=== PATIENT | male | born 1950 | race Caucasian/White ===

== ENCOUNTER 2016-07-11 05:24 | Inpatient (IN) | payer MEDICARE ==
[~2016-07-11] VITALS: Ht 180.3 cm; Wt 86.1 kg
[2016-07-11] VITALS (16 sets, daily range): BP systolic 12–174; BP diastolic 64–102; PULSE 77–118; RESP 16–18; TEMP 97.6–97.9; O2SAT 92–100
[~2016-07-11 05:24] MED LIST: LOTE20TA3 PO; OMEP20TA39 PO; SUCR1TAB PO
[2016-07-11] MEDS ORDERED: SODIUM CHLORIDE 0.9% FLUSH 10 ML FLUSH IVF PRN ×2 (05:45→07:30)
[2016-07-11] MEDS ORDERED: ASPIRIN 81 MG CHEW TAB PO ONE (05:45)
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
[2016-07-11] MEDS: SODIUM CHLOR 0.9% 1000 ML INJ 1,000 ML IV SCH ×2 (05:48→15:45)
[2016-07-11] MEDS: NITROGLYCERIN 0.4 MG SL 25 TABS/BTL SL SCH ×2 (05:49→05:55)
[2016-07-11 05:55] LABS: AUTOMATED NEUTROPHIL # 1.8 TH/MM3 (1.8-7.7); BASOPHIL % 1.1 % (0.0-2.0); EOSINOPHIL # 0.2 TH/MM3 (0-0.4); EOSINOPHIL % 4.7 % (0.0-4.0); HEMATOCRIT 42.4 % (39.0-51.0); HEMO FLAGS DIFF FINAL; LYMPH % 36.6 % (9.0-44.0); LYMPHOCYTE # 1.4 TH/MM3 (1.0-4.8); MEAN CELL VOLUME 97.4 FL (80.0-100.0); MEAN CORPUSCULAR HEMOGLOBIN 32.7 PG (27.0-34.0); MEAN CORPUSCULAR HGB CONC 33.6 % (32.0-36.0); MONO % 10.3 % (0.0-8.0); NEUT % 47.3 % (16.0-70.0); PLATELET COUNT 177 TH/MM3 (150-450); RED BLOOD COUNT 4.36 MIL/MM3 (4.50-5.90); RED CELL DISTRIBUTION WIDTH 12.7 % (11.6-17.2); WHITE BLOOD COUNT 3.8 TH/MM3 (4.0-11.0)
[2016-07-11 06:01] LABS: CHLORIDE 106 MEQ/L (98-107); POTASSIUM 4.1 MEQ/L (3.5-5.1); SODIUM (NA) 141 MEQ/L (136-145)
[2016-07-11 06:04] LABS: ANION GAP 9 MEQ/L (5-15); BICARBONATE 25.6 MEQ/L (21.0-32.0)
[2016-07-11 06:05] LABS: APTT (PATIENT) 24.6 SEC (24.3-30.1); BLOOD UREA NITROGEN 13 MG/DL (7-18); INTERNATIONAL NORMALIZED RATIO 0.9 RATIO; MAGNESIUM 2.2 MG/DL (1.5-2.5); PROTHROMBIN TIME - PATIENT 10.2 SEC (9.8-11.6)
[2016-07-11 06:07] LABS: ALT (GPT) 64 U/L (12-78); AST (GOT) 36 U/L (15-37); GLOMERULAR FILTRATION RATE 88 ML/MIN (>89)
[2016-07-11 06:09] LABS: TOTAL BILIRUBIN ADULT 0.4 MG/DL (0.2-1.0)
[2016-07-11 06:10] LABS: ALKALINE PHOSPHATASE 77 U/L (45-117); CREATINE KINASE 110 U/L (39-308)
[2016-07-11 06:23] LABS: CKMB 1.7 NG/ML (0.5-3.6)
[2016-07-11] MEDS ORDERED: OMEP40CA2 PO (06:32)
[2016-07-11] MEDS ORDERED: BENA20TA PO (06:32)
--- NOTE | 2016-07-11 06:34 | RADHPO ---
EXAM DATE/TIME: 07/11/2016 05:50 [facility] COMPARISON: No previous studies available for comparison. INDICATIONS : Chest pain. MEDICAL HISTORY : None. SURGICAL HISTORY : None. ENCOUNTER: Initial ACUITY: 1 day PAIN SCORE: 6/10 LOCATION: Bilateral chest FINDINGS: A single view of the chest demonstrates the lungs to be symmetrically aerated without evidence of mas s, infiltrate or effusion. The cardiomediastinal contours are unremarkable. Osseous structures are intact. CONCLUSION: No acute disease. Jhonathan Perez Jr., MD on July 11, 2016 at 6:33 Board Certified Radiologist. This report was verified electronically.
[2016-07-11] MEDS ORDERED: SODIUM CHLORIDE 0.9% FLUSH 10 ML FLUSH IV FLUSH PRN ×2 (07:15→17:00)
[2016-07-11] MEDS ORDERED: ONDANSETRON HCL 4 MG/2 ML VIAL IV PRN (07:15)
[2016-07-11] MEDS ORDERED: NITROGLYCERIN 0.4 MG SL 25 TABS/BTL SL PRN (07:15)
--- NOTE | 2016-07-11 08:35 | HHI.HP ---
HPI Service [facility] Primary Care Physician Non-Staff Admission Diagnosis chest pain Diagnoses: (1) Chest pain Diagnosis: Principal (2) HTN (hypertension) Diagnosis: Principal Chief Complaint: chest pain Travel History International Travel<30 Days: No Contact w/Intl Traveler <30 Da: No Traveled to Known Affected Are: No History of Present Illness 66-year-old male with history of hypertension, hyperlipidemia, kidney stones, GERD, and left [place] is admitted chest pain center. Patient states that for the past 10 days he has had tightness in his left chest radiating to the left shoulder. He states it was worse this morning. Rates pain a 3-4/10 and states it feels tight currently. When asked about duration he was nonspecific and states it varies. Admits to some diaphoresis. States he also was dizzy yesterday and felt like things were spinning around him. He had 2 episodes of that one lasting 5 minutes. Denies any fevers or chills, cough, shortness of breath. Denies any nausea, vomiting, diarrhea, constipation. Patient denies any personal history of diabetes or heart disease. Review of Systems Except as stated in HPI: all other systems reviewed are Neg Past Family Social History Past Medical History Hypertension Hyperlipidemia Nephrolithiasis GERD Past Surgical History Stent placement in kidney Cholecystectomy Left LILIANA Reported Medications Omeprazole 40 Mg Cap 40 Mg PO DAILY Benazepril (Benazepril HCl) 20 Mg Tab 20 Mg PO DAILY Allergies: Coded Allergies: Amoxicillin (Verified Allergy, Mild, RASH, 07/11/16) Ampicillin (Verified Allergy, Mild, RASH, 07/11/16) Penicillin (Verified Allergy, Mild, RASH, 07/11/16) Family History Brother: 2 years ago of lymphoma. Father: at age 62 from arteriosclerosis. Social History Patient is nonspecific regarding his alcohol use but states he had a few drinks last night. EMR indicates he drinks 3-4 alcoholic beverages daily. Patient denies any history of cigarette smoking. Denies illicit drug use. Physical Exam Vital Signs Vital Signs Date Time Temp Pulse Resp B/P Pulse Ox O2 Delivery O2 Flow Rate FiO2 07/11/16 07:57 99 Nasal Cannula 2.00 07/11/16 07:08 88 16 140/91 100 Nasal Cannula 2 07/11/16 07:08 88 15 100 Room Air 07/11/16 06:37 96 18 125/79 96 Nasal Cannula 2 07/11/16 06:03 92 Nasal Cannula 2 07/11/16 06:01 106 18 119/79 92 Room Air 07/11/16 06:01 18 07/11/16 05:53 97 18 94 Room Air 07/11/16 05:50 93 18 174/102 94 Room Air 165/101 07/11/16 05:41 105 18 94 Room Air 07/11/16 05:41 97.9 93 18 174/102 94 07/11/16 05:41 18 94 Room Air 07/11/16 05:41 94 Room Air Physical Exam GENERAL: This is a well-nourished, well-developed patient, in no apparent distress. SKIN: No rashes, ecchymoses or lesions. Warm and dry. HEAD: Atraumatic. Normocephalic. EYES: Pupils equal round and reactive. No scleral icterus. No injection or drainage. ENT: Throat without erythema, tonsillar hypertrophy or exudate. Uvula midline. Airway patent. NECK: Trachea midline. CHEST: No reproducible chest wall tenderness CARDIOVASCULAR: Regular rate and rhythm without murmurs, gallops, or rubs. RESPIRATORY: Clear to auscultation. Breath sounds equal bilaterally. No wheezes , rales, or rhonchi. GASTROINTESTINAL: Abdomen soft, non-tender, nondistended. MUSCULOSKELETAL: No right lower extremity edema. Patient has prosthetic over the left lower extremity NEUROLOGICAL: Awake and alert. Motor grossly within normal limits. Normal speech. Laboratory Laboratory Tests Test 07/11/16 05:40 White Blood Count 3.8 Red Blood Count 4.36 Hemoglobin 14.3 Hematocrit 42.4 Mean Corpuscular Volume 97.4 Mean Corpuscular Hemoglobin 32.7 Mean Corpuscular Hemoglobin 33.6 Concent Red Cell Distribution Width 12.7 Platelet Count 177 Mean Platelet Volume 8.0 Neutrophils (%) (Auto) 47.3 Lymphocytes (%) (Auto) 36.6 Monocytes (%) (Auto) 10.3 Eosinophils (%) (Auto) 4.7 Basophils (%) (Auto) 1.1 Neutrophils # (Auto) 1.8 Lymphocytes # (Auto) 1.4 Monocytes # (Auto) 0.4 Eosinophils # (Auto) 0.2 Basophils # (Auto) 0.0 CBC Comment DIFF FINAL Differential Comment Prothrombin Time 10.2 Prothromb Time International 0.9 Ratio Activated Partial 24.6 Thromboplast Time Sodium Level 141 Potassium Level 4.1 Chloride Level 106 Carbon Dioxide Level 25.6 Anion Gap 9 Blood Urea Nitrogen 13 Creatinine 0.87 Estimat Glomerular Filtration 88 Rate Random Glucose 100 Calcium Level 8.4 Magnesium Level 2.2 Total Bilirubin 0.4 Aspartate Amino Transf 36 (AST/SGOT) Alanine Aminotransferase 64 (ALT/SGPT) Alkaline Phosphatase 77 Total Creatine Kinase 110 Creatine Kinase MB 1.7 Troponin I LESS THAN 0.02 Total Protein 7.5 Albumin 3.6 Lipase 184 Result Diagram: 07/11/1640 07/11/16 0540 Imaging Last Impressions Chest X-Ray 07/11/16 0537 Signed Impressions: Service Date/Time: Monday, July 11, 2016 05:50 - CONCLUSION: No acute disease. Jhonathan Perez Jr., MD Assessment and Plan Assessment and Plan 66-year-old male with: Chest pain: Tightness for the past 10 days with pain into the left shoulder. CK -MB and troponin x 2 negative. CBC and CMP are essentially unremarkable. Chest x-ray was personally interpreted with hypoinflation but no acute disease. EKGs 2 personally interpreted with nonspecific anterior and lateral T-wave inversion. No prior EKGs for comparison. -Patient received 162 mg of aspirin at 0545. Continue daily aspirin. -Nitro/[place]/morphine prn pain -Telemetry -Provided ACS ruled out, patient will require nuclear stress test. He has been NPO since 9 PM. Hypertension: BP 174/102 on arrival despite patient taking his benazepril yesterday am. -Continue benazepril -Clonidine prn SBP >160 or DBP >90 -Monitor DVT prevention: SCDs. Written by Samantha Machado PA-C acting as scribe for Dr. Head on 07/11/16 at 0830. All or portions of this note were transcribed by lluvia Machado PA-C. I , Dr. Jose Head personally performed the history, physical exam, and medical decision making; and confirmed the accuracy of the information in the transcribed note. Authenticated by Dr. Jose Head on 07/11/16 at 11:00. Discussed Condition With ED physician, patient Samantha Machado Jul 11, 2016 08:35 Jose Head MD Jul 11, 2016 11:00
[2016-07-11] MEDS ORDERED: SODIUM CHLORIDE 0.9% FLUSH 10 ML FLUSH IV FLUSH SCH (09:00)
[2016-07-11] MEDS: SODIUM CHLORIDE 0.9% FLUSH 10 ML FLUSH IV FLUSH SCH ×3 (09:00→21:00)
[2016-07-11] MEDS ORDERED: ASPIRIN 325 MG TAB PO SCH (09:00)
[2016-07-11] MEDS: LISINOPRIL 20 MG TAB PO SCH (09:24)
[2016-07-11] MEDS: PANTOPRAZOLE SOD 40 MG DELAYED RELEASE TAB PO SCH (09:25)
[2016-07-11 10:21] LABS: CREATINE KINASE 95 U/L (39-308)
[2016-07-11 12:56] LABS: CREATINE KINASE 85 U/L (39-308)
[2016-07-11] MEDS ORDERED: REGADENOSON INJ 0.4 MG/5 ML SYR IV ONE (15:09)
--- NOTE | 2016-07-11 16:07 | TR ---
Date Performed: 07/11/2016 Time Performed: 15:23:32 DOCTOR: Kelly Neves DRUG LIST: CLINICAL HISTORY: CHEST PAIN REASON FOR TEST: REASON FOR ENDING: OBSERVATION: CONCLUSION: Lexiscan stress test was performed under standard four minute protocol. Radionucl[place] e was injected one minute prior to ending the test. No electrocardiographic abormalities were present to suggest ischemia. Nuclear imaging and interpretation are pending. COMMENTS:
--- NOTE | 2016-07-11 16:21 | RADHPO ---
EXAM DATE/TIME: 07/11/2016 14:59 [facility] COMPARISON: No previous studies available for comparison. INDICATIONS : Retrosternal chest pain radiating to upper left extermity for 1 day. Abnormal EKG. Angina. DOSE: 35 mCi Tc99m Myoview at stress. 11 mCi Tc99m Myoview at rest. 0.4 mg Lexiscan STRESS SYMPTOMS: None. EJECTION FRACTION: 27% MEDICAL HISTORY : Hypertension. Hypercholesterolemia. SURGICAL HISTORY : Renal stent and left leg amputation. ENCOUNTER: Initial ACUITY: 2 days PAIN SCALE: 3/10 LOCATION: Retrosternal chest TECHNIQUE: The patient underwent pharmacologic stress with infusion of prescribed dose. Continuous ECG tracing was monitored during stress. Gated SPECT imaging was performed after stress and conventional SPECT i maging was performed at rest. The examination was performed on a SPECT/CT scanner, both attenuation and non-corrected datasets were reviewed. FINDINGS: DISTRIBUTION: The maximum perfused segment at stress is in the septal wall. PERFUSION STUDY: Exam demonstrates a fixed perfusion defect at the cardiac apex likely secondary to apical thinning. T he examination does demonstrate a mild in severity, reversible perfusion defect involving the inferio r aspect of the septum and portions of the inferior wall. Myocardial ischemia stone excluded. GATED STUDY: The ventricular cavity is dilated. There is global hypokinesis. CONCLUSION: 1. Dilation of the ventricular cavity with a global hypokinesis. The ejection fraction is estimated a t only 27%. 2. Mild in severity, reversible perfusion defect involving portions of the septum and inferior wall. Myocardial ischemia stone excluded. RISK CATEGORY: High (>3% Annual Mortality Rate) Cosme Kimball MD on July 11, 2016 at 16:17 Board Certified Radiologist. This report was verified electronically.
[2016-07-11] MEDS ORDERED: MORPHINE SULFATE 4 MG/ML INJ IV PRN (17:00)
[2016-07-11 17:49] LABS: HEMATOCRIT 43.7 % (39.0-51.0); MEAN CELL VOLUME 98.2 FL (80.0-100.0); MEAN CORPUSCULAR HGB CONC 33.6 % (32.0-36.0); PLATELET COUNT 188 TH/MM3 (150-450); RED BLOOD COUNT 4.44 MIL/MM3 (4.50-5.90); RED CELL DISTRIBUTION WIDTH 13.5 % (11.6-17.2); REVIEW FLAG FINAL; WHITE BLOOD COUNT 5.6 TH/MM3 (4.0-11.0)
[2016-07-11 19:14] LABS: APTT (PATIENT) 25.3 SEC (24.3-30.1); PROTHROMBIN TIME - PATIENT 10.7 SEC (9.8-11.6)
[2016-07-11] MEDS ORDERED: ATORVASTATIN 40 MG TAB PO SCH (21:00)
[2016-07-11] MEDS: NITROGLYCERIN 2% OINT 1 GM PACKET TOP SCH (21:41)
[2016-07-11] MEDS: CARVEDILOL 3.125 MG TAB PO SCH (21:41)
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
[2016-07-11] MEDS: HEPARIN-D5W INJ 250 ML IV SCH (23:51)
[2016-07-12] VITALS (21 sets, daily range): BP systolic 102–133; BP diastolic 63–90; PULSE 67–103; RESP 16–20; TEMP 97.9–99; O2SAT 90–98
[2016-07-12] MEDS: SODIUM CHLOR 0.9% 1000 ML INJ 1,000 ML IV SCH ×3 (01:45→20:18)
[2016-07-12] MEDS: NITROGLYCERIN 2% OINT 1 GM PACKET TOP SCH ×3 (06:35→20:17)
[2016-07-12] MEDS: ISOSORBIDE MONONITRATE 30 MG TAB PO SCH (06:35)
[2016-07-12] MEDS: SODIUM CHLORIDE 0.9% FLUSH 10 ML FLUSH IV FLUSH SCH ×3 (09:00→20:18)
[2016-07-12] MEDS: ASPIRIN 325 MG TAB PO SCH (09:05)
[2016-07-12] MEDS: PANTOPRAZOLE SOD 40 MG DELAYED RELEASE TAB PO SCH (09:05)
[2016-07-12] MEDS: CARVEDILOL 3.125 MG TAB PO SCH ×2 (09:05→20:17)
[2016-07-12] MEDS: LISINOPRIL 20 MG TAB PO SCH (09:05)
[2016-07-12] MEDS: ACETAMINOPHEN 325 MG TAB PO PRN ×2 (09:07→16:08)
[2016-07-12 09:49] LABS: APTT (PATIENT) 30.1 SEC (24.3-30.1)
--- NOTE | 2016-07-12 11:04 | EKG ---
Date Performed: 07/11/2016 Time Performed: 04:32:16 PTAGE: 66 years EKG: Sinus rhythm with PVC(s) Possible anterior infarct - age undetermined Abnormal ECG NO PREVIOUS TRACING DOCTOR: Luis Fallon Interpretating Date/Time 07/12/2016 11:01:11
--- NOTE | 2016-07-12 13:00 | HHI.PR ---
Subjective Remarks Follow-up unstable angina/atypical chest pain 07/12/16-patient seen and examined, complains of headache however denies any chest pain. He had abnormal nuclear stress test Objective Vitals Vital Signs Date Time Temp Pulse Resp B/P Pulse Ox O2 Delivery O2 Flow Rate FiO2 07/12/16 11:09 18 07/12/16 10:12 96 21 07/12/16 08:00 98.0 88 20 120/78 94 07/12/16 07:00 85 07/12/16 04:25 98.8 83 16 130/80 92 07/12/16 02:30 98.6 82 16 133/90 93 07/12/16 00:08 97.9 99 16 115/64 90 07/11/16 20:08 97.6 110 16 119/91 93 07/11/16 20:05 93 21 07/11/16 20:00 118 07/11/16 15:19 97.8 79 18 142/80 99 I/O 07/11/16 07/11/16 07/11/16 07/12/16 07/12/16 07/12/16 07:00 15:00 23:00 07:00 15:00 23:00 Intake Total 149 ml Output Total 950 ml 200 ml Balance -950 ml -51 ml Intake Oral 100 ml IV Total 49 ml Output Urine Total 950 ml 200 ml # Voids 1 Result Diagram: 07/11/16 1735 07/11/16 0540 Imaging Last Impressions Myocardial Perfusion Scan Nuc Med 07/11/16 1327 Signed Impressions: Service Date/Time: Monday, July 11, 2016 14:59 - CONCLUSION: 1. Dilation of the ventricular cavity with a global hypokinesis. The ejection fraction is estimated at only 27%%. 2. Mild in severity, reversible perfusion defect involving portions of the septum and inferior wall. Myocardial ischemia stone excluded. RISK CATEGORY: High (>3%% Annual Mortality Rate) Cosme Kimball MD Chest X-Ray 07/11/16 0537 Signed Impressions: Service Date/Time: Monday, July 11, 2016 05:50 - CONCLUSION: No acute disease. Jhonathan Perez Jr., MD Objective Remarks GENERAL: NAD SKIN: Warm and dry. HEAD: Normocephalic. EYES: No scleral icterus. No injection or drainage. NECK: Supple, trachea midline. No JVD or lymphadenopathy. CARDIOVASCULAR: Regular rate and rhythm without murmurs, gallops, or rubs. RESPIRATORY: Breath sounds equal bilaterally. No accessory muscle use. GASTROINTESTINAL: Abdomen soft, non-tender, nondistended. MUSCULOSKELETAL: No cyanosis, or edema. Left AKA BACK: Nontender without obvious deformity. No CVA tenderness. A/P Problem List: (1) Chest pain ICD Code: R07.9 Status: Acute (2) HTN (hypertension) ICD Code: I10 Status: Acute Assessment and Plan 66 year-old man with Atypical Chest pain/stable angina -Status post abnormal nuclear stress test 07/11/16 -Appreciate input from cardiology will plan possible left heart catheterization -Continue with heparin drip, beta jozef, Imdur/Lipitor/Nitro/[place]/morphine prn pain -Telemetry Hypertension: -Continue benazepril -Clonidine prn SBP >160 or DBP >90 -Monitor Headache: Secondary to nitroglycerin DVT prevention: Heparin Jb Morrison MD Jul 12, 2016 13:00
[2016-07-12] MEDS: SUMAtriptan SUCCINATE 25 MG TAB PO PRN ×2 (14:56→17:40)
[2016-07-12 16:04] LABS: APTT (PATIENT) 30.7 SEC (24.3-30.1)
--- NOTE | 2016-07-12 16:11 | EKG ---
Date Performed: 07/11/2016 Time Performed: 06:38:36 PTAGE: 66 years EKG: Sinus rhythm with PVC(s) Anterior ST-T abnormalities, cannot exclude old anterior infarct Cannot exclude ischemia , although findings are nonspecific Lateral T wave changes are nonspecific Abnormal ECG PREVIOUS TRACING : 07/11/2016 04.32 DOCTOR: Ted Justice Interpretating Date/Time 07/12/2016 16:10:52
--- NOTE | 2016-07-12 16:12 | EKG ---
Date Performed: 07/11/2016 Time Performed: 11:25:14 PTAGE: 66 years EKG: Sinus rhythm with PVC(s) Anterior ST-T abnormalities, cannot exclude old anterior infarct Cannot exclude ischemia , although findings are nonspecific Lateral T wave changes are nonspecific Compared to prior tracing no significant change Abnormal ECG NO PREVIOUS TRACING DOCTOR: Ted Justice Interpretating Date/Time 07/12/2016 16:11:08
--- NOTE | 2016-07-12 18:38 | PD.CARD.PN ---
Subjective Subjective Remarks No CP or SOB, feels better Objective Medications Current Medications Medications (Trade) Dose Ordered Sig/Jody Route Start Time Stop Time Status Last Admin (NS 1000 ml Inj) 1,000 ml @ 100 mls/hr Q10H IV 07/11/16 05:45 07/11/16 05:48 (NS Flush) 2 ml UNSCH PRN IV FLUSH 07/11/16 07:15 (NS Flush) 2 ml BID IV FLUSH 07/11/16 09:00 07/12/16 09:00 (Zofran Inj) 4 mg Q6H PRN IV 07/11/16 07:15 (Nitrostat Sl) 0.4 mg Q5M PRN SL 07/11/16 07:15 (Prinivil) 20 mg DAILY PO 07/11/16 09:00 07/12/16 09:05 (Protonix) 40 mg DAILY PO 07/11/16 09:00 07/12/16 09:05 (Aspirin) 325 mg DAILY PO 07/12/16 09:00 07/12/16 09:05 (NS Flush) 2 ml BID IV FLUSH 07/11/16 21:00 (NS Flush) 2 ml UNSCH PRN IV FLUSH 07/11/16 17:00 (Nitroglycerin 2% Oint) 0.5 inch Q8HR TOP 07/11/16 22:00 07/12/16 14:32 (Morphine Inj) 2 mg Q30M PRN IV 07/11/16 17:00 (Tylenol) 650 mg Q6H PRN PO 07/11/16 17:00 07/12/16 16:08 (Coreg) 3.125 mg BID PO 07/11/16 21:00 07/12/16 09:05 Atorvastatin Calcium 40 mg 40 mg HS PO 07/11/16 21:00 (Heparin-D5W Inj) 250 ml @ 0 mls/hr TITRATE IV 07/11/16 17:00 07/11/16 23:51 (Imdur) 30 mg DAILY@07 PO 07/12/16 07:00 07/12/16 06:35 (Imitrex) 25 mg DAILY PRN PO 07/12/16 14:00 07/12/16 17:40 Vital Signs / I&O Vital Signs Date Time Temp Pulse Resp B/P Pulse Ox O2 Delivery O2 Flow Rate FiO2 07/12/16 18:24 18 07/12/16 18:00 77 07/12/16 17:40 18 07/12/16 17:00 77 07/12/16 16:00 79 07/12/16 15:00 75 07/12/16 15:00 98.9 103 20 107/63 98 07/12/16 14:00 83 07/12/16 13:00 102 07/12/16 12:00 88 07/12/16 11:00 99.0 94 20 102/67 95 07/12/16 11:00 84 07/12/16 10:12 96 21 07/12/16 10:00 88 07/12/16 09:00 74 07/12/16 08:00 98.0 88 20 120/78 94 07/12/16 08:00 92 07/12/16 07:00 85 07/12/16 04:25 98.8 83 16 130/80 92 07/12/16 02:30 98.6 82 16 133/90 93 07/12/16 00:08 97.9 99 16 115/64 90 07/11/16 20:08 97.6 110 16 119/91 93 07/11/16 20:05 93 21 07/11/16 20:00 118 I/O 07/11/16 07/11/16 07/11/16 07/12/16 07/12/16 07/12/16 07:00 15:00 23:00 07:00 15:00 23:00 Intake Total 149 ml 376 ml Output Total 950 ml 200 ml 600 ml Balance -950 ml -51 ml -224 ml Intake Oral 100 ml 240 ml IV Total 49 ml 136 ml Output Urine Total 950 ml 200 ml 600 ml # Voids 1 # Bowel Movements 0 Physical Exam GENERAL: In NAD SKIN: Warm and dry. HEAD: Normocephalic. EYES: No scleral icterus. No injection or drainage. NECK: Supple, trachea midline. No JVD or lymphadenopathy. CARDIOVASCULAR: Regular rate and rhythm without murmurs, gallops, or rubs. RESPIRATORY: Breath sounds equal bilaterally. No accessory muscle use. GASTROINTESTINAL: Abdomen soft, non-tender, nondistended. MUSCULOSKELETAL: No cyanosis, or edema. S/p [facility] Laboratory Laboratory Tests Test 07/12/16 07/12/16 08:45 15:41 Activated Partial 30.1 SEC 30.7 SEC Thromboplast Time Imaging Last Impressions Myocardial Perfusion Scan Nuc Med 07/11/16 1327 Signed Impressions: Service Date/Time: Monday, July 11, 2016 14:59 - CONCLUSION: 1. Dilation of the ventricular cavity with a global hypokinesis. The ejection fraction is estimated at only 27%%. 2. Mild in severity, reversible perfusion defect involving portions of the septum and inferior wall. Myocardial ischemia stone excluded. RISK CATEGORY: High (>3%% Annual Mortality Rate) Cosme Kimball MD Chest X-Ray 07/11/16 0537 Signed Impressions: Service Date/Time: Monday, July 11, 2016 05:50 - CONCLUSION: No acute disease. Jhonathan Perez Jr., MD Assessment and Plan Problem List: (1) Unstable angina pectoris (2) Abnormal nuclear stress test (3) Cardiomyopathy (4) HTN (hypertension) Assessment and Plan Check echo. Continue tx for angina and risk factor modification. Remains stable. Cath/PCI on Thu. D/w pt and family. Isela Meyer MD Jul 12, 2016 18:38
[2016-07-12] MEDS: ATORVASTATIN 80 MG TAB PO SCH (20:17)
[2016-07-12 21:55] LABS: APTT (PATIENT) 33.8 SEC (24.3-30.1)
[2016-07-13] VITALS (23 sets, daily range): BP systolic 119–148; BP diastolic 66–98; PULSE 67–87; RESP 18–20; TEMP 97.4–98.4; O2SAT 92–96
[2016-07-13] MEDS: NITROGLYCERIN 2% OINT 1 GM PACKET TOP SCH ×2 (06:07→14:00)
[2016-07-13] MEDS: ISOSORBIDE MONONITRATE 30 MG TAB PO SCH (06:07)
[2016-07-13 06:44] LABS: APTT (PATIENT) 43.6 SEC (24.3-30.1)
[2016-07-13] MEDS: ACETAMINOPHEN 325 MG TAB PO PRN ×2 (08:47→14:13)
[2016-07-13] MEDS: SODIUM CHLORIDE 0.9% FLUSH 10 ML FLUSH IV FLUSH SCH ×2 (09:00→19:49)
--- NOTE | 2016-07-13 09:01 | HHI.PR ---
Subjective Remarks Follow-up unstable angina/atypical chest pain 07/12/16-patient seen and examined, complains of headache however denies any chest pain. He had abnormal nuclear stress test 07/13/16-patient seen and examined, denies any chest pain or shortness of breath however continue to complain of headaches after Nitropaste was restarted Objective Vitals Vital Signs Date Time Temp Pulse Resp B/P Pulse Ox O2 Delivery O2 Flow Rate FiO2 07/13/16 07:00 71 07/13/16 06:00 73 07/13/16 05:00 70 07/13/16 04:00 98.4 72 18 121/68 96 07/13/16 04:00 Room Air 07/13/16 04:00 72 07/13/16 03:00 68 07/13/16 02:00 72 07/13/16 01:00 68 07/13/16 00:00 67 07/12/16 23:49 98.1 67 18 115/69 96 07/12/16 23:49 Room Air 07/12/16 23:00 70 07/12/16 22:00 75 07/12/16 21:00 80 07/12/16 20:00 76 07/12/16 20:00 98.2 76 20 111/65 97 07/12/16 18:24 18 07/12/16 18:00 77 07/12/16 17:40 18 07/12/16 17:00 77 07/12/16 16:00 79 07/12/16 15:00 75 07/12/16 15:00 98.9 103 20 107/63 98 07/12/16 14:00 83 07/12/16 13:00 102 07/12/16 12:00 88 07/12/16 11:00 99.0 94 20 102/67 95 07/12/16 11:00 84 07/12/16 10:12 96 21 07/12/16 10:00 88 07/12/16 09:00 74 I/O 07/12/16 07/12/16 07/12/16 07/13/16 07/13/16 07/13/16 07:00 15:00 23:00 07:00 15:00 23:00 Intake Total 149 ml 376 ml 370 ml Output Total 200 ml 600 ml 920 ml Balance -51 ml -224 ml -550 ml Intake Oral 100 ml 240 ml 240 ml IV Total 49 ml 136 ml 130 ml Output Urine Total 200 ml 600 ml 920 ml # Voids 1 # Bowel Movements 0 0 Result Diagram: 07/11/16 1735 07/11/16 0540 Objective Remarks GENERAL: NAD SKIN: Warm and dry. HEAD: Normocephalic. EYES: No scleral icterus. No injection or drainage. NECK: Supple, trachea midline. No JVD or lymphadenopathy. CARDIOVASCULAR: Regular rate and rhythm without murmurs, gallops, or rubs. RESPIRATORY: Breath sounds equal bilaterally. No accessory muscle use. GASTROINTESTINAL: Abdomen soft, non-tender, nondistended. MUSCULOSKELETAL: No cyanosis, or edema. Left AKA BACK: Nontender without obvious deformity. No CVA tenderness. A/P Problem List: (1) Chest pain ICD Code: R07.9 Status: Acute (2) HTN (hypertension) ICD Code: I10 Status: Acute Assessment and Plan 66 year-old man with Atypical Chest pain/stable angina -Status post abnormal nuclear stress test 07/11/16 and plan for left heart catheterization/PCI 07/14/16 -Check 2-D echo today -Appreciate input from cardiology will plan possible left heart catheterization 06/16/16 -Continue with heparin drip, beta jozef, Imdur/Lipitor/Nitro/[place]/morphine prn pain -Telemetry Hypertension: -Continue benazepril -Clonidine prn SBP >160 or DBP >90 -Monitor Headache: Secondary to Nitropaste, continue with Imitrex when necessary DVT prevention: Jb Garcia MD Jul 13, 2016 09:01
[2016-07-13] MEDS: CARVEDILOL 3.125 MG TAB PO SCH ×2 (09:13→19:48)
[2016-07-13] MEDS: PANTOPRAZOLE SOD 40 MG DELAYED RELEASE TAB PO SCH (09:13)
[2016-07-13] MEDS: ASPIRIN 325 MG TAB PO SCH (09:13)
[2016-07-13] MEDS: LISINOPRIL 20 MG TAB PO SCH (09:13)
[2016-07-13 10:59] LABS: APTT (PATIENT) 39.7 SEC (24.3-30.1)
--- NOTE | 2016-07-13 13:22 | PD.CARD.PN ---
Subjective Subjective Remarks No CP or SOB, c/o SNYDER Objective Medications Current Medications Medications (Trade) Dose Ordered Sig/Jody Route Start Time Stop Time Status Last Admin (NS 1000 ml Inj) 1,000 ml @ 100 mls/hr Q10H IV 07/11/16 05:45 Hold 07/11/16 05:48 (NS Flush) 2 ml UNSCH PRN IV FLUSH 07/11/16 07:15 (NS Flush) 2 ml BID IV FLUSH 07/11/16 09:00 07/12/16 09:00 (Zofran Inj) 4 mg Q6H PRN IV 07/11/16 07:15 07/13/16 11:23 (Nitrostat Sl) 0.4 mg Q5M PRN SL 07/11/16 07:15 (Prinivil) 20 mg DAILY PO 07/11/16 09:00 07/13/16 09:13 (Protonix) 40 mg DAILY PO 07/11/16 09:00 07/13/16 09:13 (Aspirin) 325 mg DAILY PO 07/12/16 09:00 07/13/16 09:13 (Nitroglycerin 2% Oint) 0.5 inch Q8HR TOP 07/11/16 22:00 07/13/16 06:07 (Morphine Inj) 2 mg Q30M PRN IV 07/11/16 17:00 (Tylenol) 650 mg Q6H PRN PO 07/11/16 17:00 07/13/16 08:47 Carvedilol 3.125 mg 3.125 mg BID PO 07/11/16 21:00 07/13/16 09:13 (Heparin-D5W Inj) 250 ml @ 0 mls/hr TITRATE IV 07/11/16 17:00 07/11/16 23:51 (Imdur) 30 mg DAILY@07 PO 07/12/16 07:00 07/13/16 06:07 (Imitrex) 25 mg DAILY PRN PO 07/12/16 14:00 07/12/16 17:40 (Lipitor) 80 mg HS PO 07/12/16 21:00 07/12/16 20:17 Vital Signs / I&O Vital Signs Date Time Temp Pulse Resp B/P Pulse Ox O2 Delivery O2 Flow Rate FiO2 07/13/16 13:00 72 07/13/16 12:00 75 07/13/16 11:00 72 07/13/16 11:00 97.6 75 18 148/98 94 07/13/16 10:00 77 07/13/16 09:47 18 07/13/16 09:00 87 07/13/16 08:00 97.4 84 18 130/88 92 07/13/16 08:00 Room Air 07/13/16 08:00 84 07/13/16 07:00 71 07/13/16 06:00 73 07/13/16 05:00 70 07/13/16 04:00 98.4 72 18 121/68 96 07/13/16 04:00 Room Air 07/13/16 04:00 72 07/13/16 03:00 68 07/13/16 02:00 72 07/13/16 01:00 68 07/13/16 00:00 67 07/12/16 23:49 98.1 67 18 115/69 96 07/12/16 23:49 Room Air 07/12/16 23:00 70 07/12/16 22:00 75 07/12/16 21:00 80 07/12/16 20:00 76 07/12/16 20:00 98.2 76 20 111/65 97 07/12/16 18:24 18 07/12/16 18:00 77 07/12/16 17:00 77 07/12/16 16:00 79 07/12/16 15:00 75 07/12/16 15:00 98.9 103 20 107/63 98 07/12/16 14:00 83 I/O 07/12/16 07/12/16 07/12/16 07/13/16 07/13/16 07/13/16 07:00 15:00 23:00 07:00 15:00 23:00 Intake Total 149 ml 376 ml 370 ml Output Total 200 ml 600 ml 920 ml Balance -51 ml -224 ml -550 ml Intake Oral 100 ml 240 ml 240 ml IV Total 49 ml 136 ml 130 ml Output Urine Total 200 ml 600 ml 920 ml # Voids 1 # Bowel Movements 0 0 Physical Exam GENERAL: In NAD SKIN: Warm and dry. HEAD: Normocephalic. EYES: No scleral icterus. No injection or drainage. NECK: Supple, trachea midline. No JVD or lymphadenopathy. CARDIOVASCULAR: Regular rate and rhythm without murmurs, gallops, or rubs. RESPIRATORY: Breath sounds equal bilaterally. No accessory muscle use. GASTROINTESTINAL: Abdomen soft, non-tender, nondistended. MUSCULOSKELETAL: No cyanosis, or edema. S/p [facility] Laboratory Laboratory Tests Test 07/12/16 07/12/16 07/13/16 07/13/16 15:41 21:25 05:56 10:31 Activated Partial 30.7 SEC 33.8 SEC 43.6 SEC 39.7 SEC Thromboplast Time Imaging Last Impressions Myocardial Perfusion Scan Nuc Med 07/11/16 1327 Signed Impressions: Service Date/Time: Monday, July 11, 2016 14:59 - CONCLUSION: 1. Dilation of the ventricular cavity with a global hypokinesis. The ejection fraction is estimated at only 27%%. 2. Mild in severity, reversible perfusion defect involving portions of the septum and inferior wall. Myocardial ischemia stone excluded. RISK CATEGORY: High (>3%% Annual Mortality Rate) Cosme Kimball MD Chest X-Ray 07/11/16 0537 Signed Impressions: Service Date/Time: Monday, July 11, 2016 05:50 - CONCLUSION: No acute disease. Jhonathan Perez Jr., MD Assessment and Plan Problem List: (1) Unstable angina pectoris (2) Abnormal nuclear stress test (3) Cardiomyopathy (4) HTN (hypertension) Assessment and Plan Check echo. Continue tx for angina and risk factor modification. Hold NTG due to SNYDER. Remains stable. Cath/PCI tomorrow. D/w pt and family. Isela Meyer MD Jul 13, 2016 13:22
[2016-07-13] MEDS: HEPARIN-D5W INJ 250 ML IV SCH (14:11)
[2016-07-13] MEDS: SUMAtriptan SUCCINATE 25 MG TAB PO PRN ×2 (16:31→18:40)
--- NOTE | 2016-07-13 19:00 | EC ---
Study Study Date:07/13/2016 STUDY CONCLUSIONS SUMMARY - Left ventricle: The cavity size was moderately dilated. Wall thickness was normal. Systolic function was moderately to severely reduced. The estimated ejection fraction was 30%. Wall motion was normal; there were no regional wall motion abnormalities. - Left atrium: The atrium was mildly dilated. If LV function is below 40, please consider prescribing an ACEI or ARB or document rationale for non-use. PROCEDURE DATA STUDY STATUS: Elective. Procedure: Transthoracic echocardiography. Image quality was good. Scanning was performed from the parasternal, apical, and subcostal acoustic windows. Study completion: The patient tolerated the procedure well. Transthoracic echocardiography. M-mode, complete 2D, complete spectral Doppler, and color Doppler. Height: Height: 71in. Weight: Weight: 187.6lb. Body mass index: BMI: 26.2kg/m^2. Body surface area: BSA: 2.05m^2. Patient status: Inpatient. CARDIAC ANATOMY LEFT VENTRICLE: The cavity size was moderately dilated. Wall thickness was normal. Systolic function was moderately to severely reduced. The estimated ejection fraction was 30%. Wall motion was normal; there were no regional wall motion abnormalities. AORTIC VALVE: Trileaflet; normal thickness leaflets. Doppler: Transvalvular velocity was within the normal range. There was no stenosis. No regurgitation. Mean gradient: 3mm Hg (S). AORTA: Aortic root: The aortic root was normal in size. MITRAL VALVE: Mildly thickened leaflets, . Doppler: Transvalvular velocity was within the normal range. There was no evidence for stenosis. Trace regurgitation. Peak gradient: 4mm Hg (D). LEFT ATRIUM: The atrium was mildly dilated. RIGHT VENTRICLE: The cavity size was normal. Wall thickness was normal. PULMONIC VALVE: Doppler: Transvalvular velocity was within the normal range. There was no evidence for stenosis. No regurgitation. TRICUSPID VALVE: Structurally normal valve. Doppler: Transvalvular velocity was within the normal range. Trace regurgitation. PULMONARY ARTERY: The main pulmonary artery was normal-sized. Systolic pressure was within the normal range. RIGHT ATRIUM: The atrium was normal in size. PERICARDIUM: There was no pericardial effusion. SYSTEMIC VEINS: Inferior vena cava: The vessel was normal in size. Patient weight: 187.6lb _Ejection fraction:_ 65-75% _Fractional shortening:_ 32% up to 5Kg 5-11.5Kg 11.6-22.9Kg 23-45Kg 45-57Kg Aortic Root 7-13 <17 13-22 17-27 17-27 LA diam 6-13 <23 24-38 33-47 37-40 RVID 10-17 7-15 7-15 7-18 8-17 LVIDd 12-22 <32 24-38 33-47 37-40 LVPW 2-4 3-6 5-7 6-8 7-8 IVS 2-4 3-6 5-7 6-8 7-8 BASIC MEASUREMENTS ADULT Normal Left ventricle LV internal dimension, ED, chordal level, *63.9 mm 43-52 PLAX LV internal dimension, ES, chordal level, *55.8 mm 23-38 PLAX Fractional shortening, chordal level, PLAX *13 % >29 LV posterior wall thickness, ED 10 mm IVS/LVPW ratio, ED 1.01 <1.3 Ventricular septum Septal thickness, ED 10.1 mm Aortic valve Leaflet separation 23 mm 15-26 Left atrium Anterior-posterior dimension 44 mm Anterior-posterior dimension index 2.15 cm/m^2 <2.2 BASIC MEASUREMENTS ADULT Normal Aortic valve Leaflet separation 23 mm 15-26 DOPPLER MEASUREMENTS ADULT Normal Main pulmonary artery Pressure, S 24 mm Hg =30 Aortic valve Peak velocity, S 105 cm/s Mean velocity, S 79.5 cm/s VTI, S 19.8 cm Mean gradient, S 3 mm Hg Mitral valve Peak E-wave velocity 101 cm/s Peak A-wave velocity 24.2 cm/s Deceleration time *120 ms 150-230 Peak gradient, D 4 mm Hg Peak E/A ratio 4.2 Tricuspid valve Regurgitant peak velocity 223 cm/s Peak RV-RA gradient, S 20 mm Hg Maximal regurgitant velocity 223 cm/s Systemic veins Estimated CVP 5 mm Hg Right ventricle RV pressure, S 25 mm Hg < 30 Pulmonic valve Peak velocity, S 56.4 cm/s LEGEND: Mean values are shown as u=mean value. Asterisk (*) garvey values outside specified normal range. Prepared and signed by Isela Meyer [id number]
[2016-07-13] MEDS: ATORVASTATIN 80 MG TAB PO SCH (19:48)
[2016-07-14] VITALS (19 sets, daily range): BP systolic 107–146; BP diastolic 80–91; PULSE 63–84; RESP 16–18; TEMP 97.5–98.4; O2SAT 93–98
[2016-07-14 05:07] LABS: HEMATOCRIT 39.9 % (39.0-51.0); MEAN CELL VOLUME 99.1 FL (80.0-100.0); MEAN CORPUSCULAR HEMOGLOBIN 32.7 PG (27.0-34.0); PLATELET COUNT 152 TH/MM3 (150-450); RED BLOOD COUNT 4.03 MIL/MM3 (4.50-5.90); REVIEW FLAG FINAL
[2016-07-14 05:15] LABS: APTT (PATIENT) 42.9 SEC (24.3-30.1)
[2016-07-14] MEDS: ISOSORBIDE MONONITRATE 30 MG TAB PO SCH (06:25)
--- NOTE | 2016-07-14 07:24 | HHI.PR ---
Subjective Remarks Follow-up unstable angina/atypical chest pain 07/12/16-patient seen and examined, complains of headache however denies any chest pain. He had abnormal nuclear stress test 07/13/16-patient seen and examined, denies any chest pain or shortness of breath however continue to complain of headaches after Nitropaste was restarted 07/14/16-patient seen and examined, has been free of chest pain since admission however continue to complaints of headaches even though now improved Lupe nitroglycerin that has been held Objective Vitals Vital Signs Date Time Temp Pulse Resp B/P Pulse Ox O2 Delivery O2 Flow Rate FiO2 07/14/16 06:00 73 07/14/16 05:00 77 07/14/16 04:00 98.4 78 18 120/80 96 07/14/16 04:00 Room Air 07/14/16 04:00 78 07/14/16 03:00 75 07/14/16 02:00 76 07/14/16 01:00 77 07/14/16 00:00 98.2 74 18 121/80 97 07/14/16 00:00 74 07/13/16 23:00 75 07/13/16 22:44 Room Air 07/13/16 22:00 79 07/13/16 21:00 83 07/13/16 20:00 85 07/13/16 20:00 98.0 85 20 128/66 96 07/13/16 18:00 78 07/13/16 17:45 18 07/13/16 17:00 83 07/13/16 16:00 86 07/13/16 15:09 18 07/13/16 15:00 77 07/13/16 15:00 97.9 86 18 119/72 92 07/13/16 14:00 75 07/13/16 14:00 94 07/13/16 13:00 72 07/13/16 12:00 75 07/13/16 11:00 72 07/13/16 11:00 97.6 75 18 148/98 94 07/13/16 10:00 77 07/13/16 09:00 87 07/13/16 08:00 97.4 84 18 130/88 92 07/13/16 08:00 Room Air 07/13/16 08:00 84 I/O 3/2607/13/16 07/13/16 07/14/16 07/14/16 07/14/16 07:00 15:00 23:00 07:00 15:00 23:00 Intake Total 370 ml 718 ml 530 ml Output Total 920 ml 400 ml 950 ml Balance -550 ml 318 ml -420 ml Intake Oral 240 ml 400 ml 400 ml IV Total 130 ml 318 ml 130 ml Output Urine Total 920 ml 400 ml 950 ml # Bowel Movements 0 0 0 Result Diagram: 07/14/16 0410 07/11/16 0540 Imaging Last Impressions Myocardial Perfusion Scan Nuc Med 07/11/16 1327 Signed Impressions: Service Date/Time: Monday, July 11, 2016 14:59 - CONCLUSION: 1. Dilation of the ventricular cavity with a global hypokinesis. The ejection fraction is estimated at only 27%%. 2. Mild in severity, reversible perfusion defect involving portions of the septum and inferior wall. Myocardial ischemia stone excluded. RISK CATEGORY: High (>3%% Annual Mortality Rate) Cosme Kimball MD Chest X-Ray 07/11/16 0537 Signed Impressions: Service Date/Time: Monday, July 11, 2016 05:50 - CONCLUSION: No acute disease. Jhonathan Peerz Jr., MD Objective Remarks GENERAL: NAD SKIN: Warm and dry. HEAD: Normocephalic. EYES: No scleral icterus. No injection or drainage. NECK: Supple, trachea midline. No JVD or lymphadenopathy. CARDIOVASCULAR: Regular rate and rhythm without murmurs, gallops, or rubs. RESPIRATORY: Breath sounds equal bilaterally. No accessory muscle use. GASTROINTESTINAL: Abdomen soft, non-tender, nondistended. MUSCULOSKELETAL: No cyanosis, or edema. Left AKA BACK: Nontender without obvious deformity. No CVA tenderness. A/P Problem List: (1) Chest pain ICD Code: R07.9 Status: Acute (2) HTN (hypertension) ICD Code: I10 Status: Acute Assessment and Plan 66 year-old man with Atypical Chest pain/stable angina -Status post abnormal nuclear stress test 07/11/16 and plan for left heart catheterization/PCI 07/14/16 -2-D echo with EF 30% -Appreciate input from cardiology and plan left heart catheterization/PCI today 07/14/16 -Continue with heparin drip, beta jozef, Imdur/Lipitor/morphine prn pain- Nitropaste on hold secondary to headache -Check lipid profile -Telemetry Hypertension: -Continue benazepril -Monitor Headache: Secondary to Nitropaste which is on hold, continue with Imitrex/ Tylenol/morphine when necessary DVT prevention: Heparin drip Jb Morrison MD Jul 14, 2016 07:24
[2016-07-14] MEDS ORDERED: IOHEXOL 350 MG/ML 100 ML BTL (for Cath Lab) OTHER ONE (08:27)
[2016-07-14] MEDS: SODIUM CHLORIDE 0.9% FLUSH 10 ML FLUSH IV FLUSH SCH ×2 (09:00→21:00)
[2016-07-14] MEDS: ASPIRIN 325 MG TAB PO SCH (09:00)
[2016-07-14] MEDS: LISINOPRIL 20 MG TAB PO SCH (09:04)
[2016-07-14] MEDS: CARVEDILOL 3.125 MG TAB PO SCH (09:04)
[2016-07-14] MEDS: PANTOPRAZOLE SOD 40 MG DELAYED RELEASE TAB PO SCH (09:04)
[2016-07-14 11:21] LABS: HDL CHOLESTEROL 71.6 MG/DL (40.0-60.0)
[2016-07-14] MEDS: HEPARIN-D5W INJ 250 ML IV SCH (11:48)
[2016-07-14] MEDS ORDERED: MIDAZOLAM HCL 2 MG/2 ML VIAL ONE ×3 (14:00→15:51)
[2016-07-14] MEDS ORDERED: HEPARIN-NS/PF INJ 500 ML ONE (14:00)
[2016-07-14] MEDS ORDERED: HEPARIN SODIUM - IV 10,000 UNITS/10 ML VIAL ONE ×2 (14:58→15:32)
[2016-07-14] MEDS ORDERED: TICAGRELOR 90 MG TAB PO ONE (16:35)
[2016-07-14] MEDS ORDERED: SODIUM CHLOR 0.9% 1000 ML INJ 1,000 ML IV SCH (17:22)
[2016-07-14] MEDS ORDERED: MISC INFORMATION XX ONE (17:30)
[2016-07-14] MEDS ORDERED: ATROPINE SULFATE 1 MG/ML VIAL IV PRN (17:30)
[2016-07-14] MEDS ORDERED: TEMAZEPAM 15 MG CAP PO PRN (17:30)
[2016-07-14] MEDS ORDERED: LORazepam 2 MG/ML VIAL IV PRN (17:30)
[2016-07-14] MEDS ORDERED: SODIUM CHLOR 0.9% 250 ML INJ 250 ML IV PRN (17:30)
[2016-07-14] MEDS ORDERED: BACITRACIN OINT 0.9 GM PKT TOP ONE (17:30)
[2016-07-14] MEDS: ATORVASTATIN 80 MG TAB PO SCH (21:26)
[2016-07-14] MEDS: CARVEDILOL 6.25 MG TAB PO SCH (21:26)
[2016-07-15] VITALS (11 sets, daily range): BP systolic 117–138; BP diastolic 60–90; PULSE 62–87; RESP 19–20; TEMP 97.7–98.6; O2SAT 93–95
[2016-07-15] MEDS: ISOSORBIDE MONONITRATE 30 MG TAB PO SCH (06:12)
[2016-07-15 06:18] LABS: AUTOMATED NEUTROPHIL # 4.4 TH/MM3 (1.8-7.7); BASOPHIL % 0.4 % (0.0-2.0); EOSINOPHIL % 0.4 % (0.0-4.0); HEMATOCRIT 39.7 % (39.0-51.0); HEMO FLAGS DIFF FINAL; LYMPH % 17.4 % (9.0-44.0); LYMPHOCYTE # 1.1 TH/MM3 (1.0-4.8); MEAN CELL VOLUME 98.6 FL (80.0-100.0); MEAN CORPUSCULAR HEMOGLOBIN 32.7 PG (27.0-34.0); MEAN CORPUSCULAR HGB CONC 33.2 % (32.0-36.0); MONO % 11.5 % (0.0-8.0); NEUT % 70.3 % (16.0-70.0); PLATELET COUNT 143 TH/MM3 (150-450); RED BLOOD COUNT 4.03 MIL/MM3 (4.50-5.90); RED CELL DISTRIBUTION WIDTH 13.1 % (11.6-17.2); WHITE BLOOD COUNT 6.2 TH/MM3 (4.0-11.0)
[2016-07-15 06:30] LABS: APTT (PATIENT) 22.9 SEC (24.3-30.1)
[2016-07-15 06:49] LABS: ANION GAP 6 MEQ/L (5-15); BICARBONATE 27.6 MEQ/L (21.0-32.0); BLOOD UREA NITROGEN 11 MG/DL (7-18); CHLORIDE 106 MEQ/L (98-107); GLOMERULAR FILTRATION RATE 90 ML/MIN (>89); POTASSIUM 3.8 MEQ/L (3.5-5.1); SODIUM (NA) 140 MEQ/L (136-145)
[2016-07-15 06:51] LABS: CREATINE KINASE 217 U/L (39-308); HDL CHOLESTEROL 58.7 MG/DL (40.0-60.0); LDL CHOLESTEROL 161 MG/DL (0-99)
[2016-07-15] MEDS ORDERED: ASPIRIN 81 MG CHEW TAB PO SCH (09:00)
[2016-07-15] MEDS ORDERED: TICAGRELOR 90 MG TAB PO SCH (09:00)
--- NOTE | 2016-07-15 09:33 | PD.CARD.PN ---
Subjective Subjective Remarks No CP or SOB, feels fine Objective Medications Current Medications Medications (Trade) Dose Ordered Sig/Jody Route Start Time Stop Time Status Last Admin (NS 1000 ml Inj) 1,000 ml @ 100 mls/hr Q10H IV 07/11/16 05:45 Hold 07/11/16 05:48 (NS Flush) 2 ml UNSCH PRN IV FLUSH 07/11/16 07:15 (NS Flush) 2 ml BID IV FLUSH 07/11/16 09:00 07/14/16 09:00 (Zofran Inj) 4 mg Q6H PRN IV 07/11/16 07:15 07/13/16 11:23 (Nitrostat Sl) 0.4 mg Q5M PRN SL 07/11/16 07:15 (Prinivil) 20 mg DAILY PO 07/11/16 09:00 07/14/16 09:04 (Protonix) 40 mg DAILY PO 07/11/16 09:00 07/14/16 09:04 (Morphine Inj) 2 mg Q30M PRN IV 07/11/16 17:00 (Tylenol) 650 mg Q6H PRN PO 07/11/16 17:00 07/13/16 14:13 (Imdur) 30 mg DAILY@07 PO 07/12/16 07:00 07/15/16 06:12 (Imitrex) 25 mg DAILY PRN PO 07/12/16 14:00 07/13/16 18:40 (Lipitor) 80 mg HS PO 07/12/16 21:00 07/14/16 21:26 (Aspirin Chew) 81 mg DAILY PO 07/15/16 09:00 (Coreg) 6.25 mg BID PO 07/14/16 21:00 07/14/16 21:26 (Restoril) 15 mg HS PRN PO 07/14/16 17:30 (Brilinta) 90 mg BID PO 07/15/16 09:00 (Ativan Inj) 0.5 mg UNSCH PRN IV 07/14/16 17:30 07/15/16 17:29 (Atropine Inj) 0.5 mg UNSCH PRN IV 07/14/16 17:30 Vital Signs / I&O Vital Signs Date Time Temp Pulse Resp B/P Pulse Ox O2 Delivery O2 Flow Rate FiO2 07/15/16 06:37 62 3/28/17 05:15 67 07/15/16 04:27 72 07/15/16 03:30 98.6 87 19 138/90 93 07/15/16 03:00 67 07/15/16 03:00 67 07/15/16 02:00 66 07/15/16 01:00 68 07/15/16 00:00 68 07/14/16 23:00 74 07/14/16 23:00 97.9 72 16 138/85 98 07/14/16 20:00 Room Air 07/14/16 19:00 97.5 82 18 107/81 95 07/14/16 19:00 78 07/14/16 18:00 68 07/14/16 17:00 63 07/14/16 17:00 97.5 76 18 146/91 94 07/14/16 17:00 Room Air 07/14/16 13:00 80 07/14/16 12:00 75 07/14/16 11:00 73 07/14/16 11:00 98.0 75 18 129/88 96 07/14/16 10:00 72 07/14/16 09:32 95 21 I/O 07/14/16 07/14/16 07/14/16 07/15/16 07/15/16 07/15/16 07:00 15:00 23:00 07:00 15:00 23:00 Intake Total 530 ml 591 ml 1200 ml Output Total 950 ml 500 ml 1950 ml Balance -420 ml 91 ml -750 ml Intake Oral 400 ml 0 ml 400 ml IV Total 130 ml 591 ml 800 ml Output Urine Total 950 ml 500 ml 1950 ml # Bowel Movements 0 0 0 Physical Exam GENERAL: In NAD SKIN: Warm and dry. HEAD: Normocephalic. EYES: No scleral icterus. No injection or drainage. NECK: Supple, trachea midline. No JVD or lymphadenopathy. CARDIOVASCULAR: Regular rate and rhythm without murmurs, gallops, or rubs. RESPIRATORY: Breath sounds equal bilaterally. No accessory muscle use. GASTROINTESTINAL: Abdomen soft, non-tender, nondistended. MUSCULOSKELETAL: No cyanosis, or edema. S/p [facility] Groin stable Laboratory Laboratory Tests Test 07/14/16 07/15/16 10:30 05:58 Triglycerides Level 138 MG/DL 109 MG/DL Cholesterol Level 284 MG/DL 241 MG/DL LDL Cholesterol 185 MG/DL 161 MG/DL HDL Cholesterol 71.6 MG/DL 58.7 MG/DL Cholesterol/HDL Ratio 3.96 RATIO 4.10 RATIO White Blood Count 6.2 TH/MM3 Red Blood Count 4.03 MIL/MM3 Hemoglobin 13.2 GM/DL Hematocrit 39.7 % Mean Corpuscular Volume 98.6 FL Mean Corpuscular Hemoglobin 32.7 PG Mean Corpuscular Hemoglobin 33.2 % Concent Red Cell Distribution Width 13.1 % Platelet Count 143 TH/MM3 Mean Platelet Volume 8.3 FL Neutrophils (%) (Auto) 70.3 % Lymphocytes (%) (Auto) 17.4 % Monocytes (%) (Auto) 11.5 % Eosinophils (%) (Auto) 0.4 % Basophils (%) (Auto) 0.4 % Neutrophils # (Auto) 4.4 TH/MM3 Lymphocytes # (Auto) 1.1 TH/MM3 Monocytes # (Auto) 0.7 TH/MM3 Eosinophils # (Auto) 0.0 TH/MM3 Basophils # (Auto) 0.0 TH/MM3 CBC Comment DIFF FINAL Differential Comment Activated Partial 22.9 SEC Thromboplast Time Sodium Level 140 MEQ/L Potassium Level 3.8 MEQ/L Chloride Level 106 MEQ/L Carbon Dioxide Level 27.6 MEQ/L Anion Gap 6 MEQ/L Blood Urea Nitrogen 11 MG/DL Creatinine 0.85 MG/DL Estimat Glomerular Filtration 90 ML/MIN Rate Random Glucose 84 MG/DL Calcium Level 8.4 MG/DL Total Creatine Kinase 217 U/L Creatine Kinase MB 16.0 NG/ML Imaging Last Impressions Myocardial Perfusion Scan Nuc Med 07/11/16 1327 Signed Impressions: Service Date/Time: Monday, July 11, 2016 14:59 - CONCLUSION: 1. Dilation of the ventricular cavity with a global hypokinesis. The ejection fraction is estimated at only 27%%. 2. Mild in severity, reversible perfusion defect involving portions of the septum and inferior wall. Myocardial ischemia stone excluded. RISK CATEGORY: High (>3%% Annual Mortality Rate) Cosme Kimball MD Chest X-Ray 07/11/16 0537 Signed Impressions: Service Date/Time: Monday, July 11, 2016 05:50 - CONCLUSION: No acute disease. Jhonathan Perez Jr., MD Assessment and Plan Problem List: (1) Unstable angina pectoris (2) Abnormal nuclear stress test (3) Cardiomyopathy (4) HTN (hypertension) Assessment and Plan Cath w severe calcified LAD lesion, moderate LV dysfunction. Good PCI result. Continue Brilinta, baby ASA, lisinopril, Coreg and high dose atorvastatin. DC home later today. F/u w his logistical engineer at home. Recheck LV fx in 3 mo. Isela Meyer MD Jul 15, 2016 09:33
[2016-07-15] MEDS: LISINOPRIL 20 MG TAB PO SCH (10:22)
[2016-07-15] MEDS: PANTOPRAZOLE SOD 40 MG DELAYED RELEASE TAB PO SCH (10:22)
[2016-07-15] MEDS: CARVEDILOL 6.25 MG TAB PO SCH (10:22)
--- NOTE | 2016-07-15 11:03 | HHI.DS ---
Discharge Summary Admission Date Jul 11, 2016 at 17:07 Discharge Date: Jul 15, 2016 Admitting Diagnosis chest pain (1) Chest pain ICD Code: R07.9 Diagnosis: Principal (2) HTN (hypertension) ICD Code: I10 Diagnosis: Principal Procedures Heart catheterization Brief History - From Admission 66-year-old male with history of hypertension, hyperlipidemia, kidney stones, GERD, and left AKA is admitted chest pain center. Patient states that for the past 10 days he has had tightness in his left chest radiating to the left shoulder. He states it was worse this morning. Rates pain a 3-4/10 and states it feels tight currently. When asked about duration he was nonspecific and states it varies. Admits to some diaphoresis. States he also was dizzy yesterday and felt like things were spinning around him. He had 2 episodes of that one lasting 5 minutes. Denies any fevers or chills, cough, shortness of breath. Denies any nausea, vomiting, diarrhea, constipation. Patient denies any personal history of diabetes or heart disease. CBC/BMP: 07/15/16 0558 07/15/16 0558 Significant Findings Laboratory Tests Test 07/12/16 07/12/16 07/13/16 07/13/16 15:41 21:25 05:56 10:31 Activated Partial 30.7 SEC 33.8 SEC 43.6 SEC 39.7 SEC Thromboplast Time (24.3-30.1) (24.3-30.1) (24.3-30.1) (24.3-30.1) Test 07/14/16 07/14/16 07/15/16 04:10 10:30 05:58 Red Blood Count 4.03 MIL/MM3 4.03 MIL/MM3 (4.50-5.90) (4.50-5.90) Activated Partial 42.9 SEC 22.9 SEC Thromboplast Time (24.3-30.1) (24.3-30.1) Cholesterol Level 284 MG/DL 241 MG/DL (120-200) (120-200) LDL Cholesterol 185 MG/DL 161 MG/DL (0-99) (0-99) HDL Cholesterol 71.6 MG/DL (40.0-60.0) Platelet Count 143 TH/MM3 (150-450) Neutrophils (%) (Auto) 70.3 % (16.0-70.0) Monocytes (%) (Auto) 11.5 % (0.0-8.0) Calcium Level 8.4 MG/DL (8.5-10.1) Creatine Kinase MB 16.0 NG/ML (0.5-3.6) Imaging Last Impressions Myocardial Perfusion Scan Nuc [facility] [place] 07/11/16 1327 Signed Impressions: Service Date/Time: Monday, July 11, 2016 14:59 - CONCLUSION: 1. Dilation of the ventricular cavity with a global hypokinesis. The ejection fraction is estimated at only 27%%. 2. Mild in severity, reversible perfusion defect involving portions of the septum and inferior wall. Myocardial ischemia stone excluded. RISK CATEGORY: High (>3%% Annual Mortality Rate) Cosme Kimball MD Chest X-Ray 07/11/16 0537 Signed Impressions: Service Date/Time: Monday, July 11, 2016 05:50 - CONCLUSION: No acute disease. Jhonathan Perez Jr., MD PE at Discharge GENERAL: NAD SKIN: Warm and dry. HEAD: Normocephalic. EYES: No scleral icterus. No injection or drainage. NECK: Supple, trachea midline. No JVD or lymphadenopathy. CARDIOVASCULAR: Regular rate and rhythm without murmurs, gallops, or rubs. RESPIRATORY: Breath sounds equal bilaterally. No accessory muscle use. GASTROINTESTINAL: Abdomen soft, non-tender, nondistended. MUSCULOSKELETAL: No cyanosis, or edema. Left AKA BACK: Nontender without obvious deformity. No CVA tenderness. Pt update on day of discharge Patient reports he is feeling well. Denies chest pain or shortness of breath. Eager to go home. Hospital Course 66 year-old man admitted and treated for the following: Atypical Chest pain/stable angina -Status post abnormal nuclear stress test 07/11/16 and plan for left heart catheterization/PCI 07/14/16 -2-D echo with EF 30% - Patient followed by cardiology. He underwent heart catheterization which revealed severe calcified LAD lesion, moderate LV dysfunction. Good PCI result. Continue Brilinta, baby ASA, lisinopril, Coreg and high dose atorvastatin. Patient to follow-up with his head well puller at home. Recheck LV fx in 3 mo. Hypertension: -Continue benazepril -Monitor Pt Condition on Discharge: Good Discharge Disposition: Discharge Home Discharge Time: <= 30 minutes Discharge Instructions Follow up Referrals: Cardiology - 2 Weeks New Medications: Atorvastatin (Lipitor) 80 Mg Tab 80 MG PO HS #30 TAB Carvedilol (Coreg) 6.25 Mg Tab 6.25 MG PO BID #60 TAB Ticagrelor (Brilinta) 90 Mg Tab 90 MG PO BID #60 TAB ([Aspirin Chew]) 81 MG CHEW 81 MG PO DAILY #30 TAB.CHEW Continued Medications: Benazepril (Benazepril) 20 Mg Tab 20 MG PO DAILY Blood Pressure Management #30 Ref 0 TAB Omeprazole (Omeprazole) 40 Mg Cap 40 MG PO DAILY #30 Ref 0 CAP Shira Blackburn MD Jul 15, 2016 11:03
[2016-07-15] MEDS ORDERED: CARV6.25 PO (11:07)
[2016-07-15] MEDS ORDERED: Aspirin Chew PO (11:07)
[2016-07-15] MEDS ORDERED: LIPI80TA PO (11:07)
[2016-07-15] MEDS ORDERED: BRIL90TA PO (11:07)
--- NOTE | 2016-07-15 11:08 | HHI.DCPOC ---
Discharge Care Plan Diagnosis: (1) Unstable angina pectoris (2) Abnormal nuclear stress test (3) HTN (hypertension) Goals to Promote Your Health * To prevent worsening of your condition and complications * To maintain your health at the optimal level Directions to Meet Your Goals Take your medications as prescribed Follow your dietary instruction Follow activity as directed Keep your appointments as scheduled Take your immunizations and boosters as scheduled If your symptoms worsen call your PCP, if no PCP go to Urgent Care Center or Emergency Room Smoking is Dangerous to Your Health. Avoid second hand smoke Call the 24-hour hour crisis hotline for domestic abuse at Shira Blackburn MD Jul 15, 2016 11:08
--- NOTE | 2016-07-16 07:42 | EKG ---
Date Performed: 07/14/2016 Time Performed: 18:17:26 PTAGE: 66 years EKG: Sinus rhythm . Inferior infarct - age undetermined Anteroseptal T wave changes are nonspecific Early R-wave transi tion Abnormal ECG Compared to PREVIOUS TRACING , the patient has developed a minimal anterolateral ST elevation but thi s is occuring in the setting of previously noted ST-T wave depression and T-wave inversion. Clinical correlation is recommended to exclude ischemia or injury. PREVIOUS TRACIN07/11/2016 11.25 DOCTOR: Merry Cheng Interpretating Date/Time 07/16/2016 07:41:12
--- NOTE | 2016-07-16 07:44 | EKG ---
Date Performed: 07/15/2016 Time Performed: 06:14:48 PTAGE: 66 years EKG: Sinus rhythm Inferior infarct - age undetermined Ant/septal and lateral T wave changes are nonspecific Abnormal E CG Compared to PREVIOUS TRACING , the minimal anterolateral and inferior ST elevation has resolved. EKG is now similiar to 07/11/2016. The serial changes are nonspecific but myocardial ischemia and injury should be excluded clinically. PREVIOUS TRACIN07/14/2016 18.17 DOCTOR: Merry Cheng Interpretating Date/Time 07/16/2016 07:42:43
--- NOTE | 2016-07-16 13:41 | MA ---
cc: SOO LOOMIS DATE: 07/14/2016 INDICATION Unstable angina, class III angina, cardiomyopathy with moderate left ventricular systolic dysfunction, high-risk nuclear myocardial perfusion study. PROCEDURE PERFORMED 1. Retrograde left heart catheterization with left ventriculography and selective coronary angiography. 2. Atherectomy of proximal left anterior descending artery. 3. Angioplasty and stenting of the proximal left anterior descending artery. 4. Angioplasty of the first diagonal artery. 5. Stenting of the distal left anterior descending artery. 6. Moderate sedation. ACCESS SITE Right femoral artery. PROCEDURE NARRATIVE After the patient was prepped and draped in the usual sterile manner and moderate sedation was administered, the right groin was accessed using the Seldinger technique. The left ventriculography and coronary angiography was performed. A 6-[place] sheath was then placed and 6-[place] guide was used in the left main coronary artery. Atherectomy, angioplasty and stenting was performed of the proximal LAD, angioplasty of the first diagonal artery, and stenting of the distal left anterior descending artery. AngioSeal closure was used for the groin. EQUIPMENT USED XB LAD 4.0 guide, Marker wire, BMW wire, Whisper wire, Diamondback rotational atherectomy device, 2.5 mm balloon for pre-dilatation, 3.5 x 38 mm resolute drug-eluting stent at 9 atmospheres to the proximal LAD extending into the mid LAD, postdilated with 12 mm noncompliant balloon at 16 atmospheres. The first diagonal artery was dilated through the stent struts using 2.5 mm compliant balloon. This LAD was stented using 2.5 x 12 mm Resolute stent at 12 atmospheres. MEDICATIONS Versed, IV fentanyl, IV heparin, IV nitroglycerin, IC Brilinta 180 mg p.o. CONTRAST Omnipaque 280 ccs. COMPLICATIONS None. BLOOD LOSS Less than 10 ccs. METHOD OF HEMOSTASIS Angioseal closure. RESULTS HEMODYNAMICS Heart rate 80 beats per minute. Left end-diastolic pressure 12 mmHg. Left ventricle 120/12. Aorta 120/74/96. LEFT VENTRICULOGRAPHY Ejection fraction is 35%, wall motion: moderate global hypokinesis, no mitral regurgitation. CORONARY ANGIOGRAPHY Left main coronary artery is patent, left descending artery has 90% severely calcified lesion in the proximal portion and 80% stenosis in the distal portion, first diagonal artery had 30% ostial stenosis, left circumflex artery had 50% stenosis in the proximal and mid portion. OM1 had 40% proximal stenosis. Ramus intermedius has 30% ostial stenosis. Right coronary artery had 30% ostial stenosis, 20% in the proximal portion and 20% stenosis in the distal portion. PDA was patent. PLV had 50% stenosis in the secondary branch. Proximal LAD lesion length 30 mm, pre JULIETA flow 2, post JULIETA flow 3, post stenosis 0, this was type C lesion. The distal LAD lesion length 8 mm, pre JULIETA flow 2, post JULIETA flow 3, post stenosis 0. The first diagonal artery lesion length 5 mm, pre JULIETA flow 2, post JULIETA flow 3, post stenosis 60% ostial stenosis. POST INTERVENTION ANGIOGRAPHY Revealed excellent patency on the stented segments and no evidence of dissection, thrombosis or embolization. DIAGNOSIS 1. Coronary artery disease with 90% heavily calcified stenosis of the proximal left anterior descending artery. 2. Moderate left ventricular dysfunction consistent with ischemic cardiomyopathy. 3. Successful atherectomy, angioplasty and stenting of proximal LAD. 4. Successful stenting of the distal LAD. 5. Successful angioplasty of the first diagonal artery. DISPOSITION Mr. Harris will be monitored on telemetry after his procedure. We will continue long-term therapy with Brilinta and baby aspirin. We will continue the modification of his cardiac risk factors. We will continue therapy for congestive heart failure. He will follow up with his physicians at home shortly after discharge. MD DONALDO Green/BRIANNA /4:56 PM /12:53 PM TAVO
== END 2016-07-15 13:18 | disposition home or self-care (01) | DRG 251 ==
LOC: PHED 05:24 → PHEDA 07:17 → PHEDH 11:17 → PH3B 13:49 → OBSVTOIN 17:07 → HCIS 07-12 02:10
PROVIDERS: ADMIT Family Medicine; ATTEND Family Medicine
PROC: 02703ZZ Dilation of Coronary Artery, One Artery, Percutaneous Approach (ICD-10-PCS; principal; 2016-07-15)
PROC: 4A023N7 Measurement of Cardiac Sampling and Pressure, Left Heart, Percutaneous Approach (ICD-10-PCS; 2016-07-15)
DX: I25.110 Atherosclerotic heart disease of native coronary artery with unstable angina pectoris (principal); I42.9 Cardiomyopathy, unspecified; I25.84 Coronary atherosclerosis due to calcified coronary lesion; I10 Essential (primary) hypertension; E78.5 Hyperlipidemia, unspecified; G44.40 Drug-induced headache, not elsewhere classified, not intractable; T46.3X5A Adverse effect of coronary vasodilators, initial encounter; Z80.7 Family history of other malignant neoplasms of lymphoid, hematopoietic and related tissues; K21.9 Gastro-esophageal reflux disease without esophagitis; Z82.49 Family history of ischemic heart disease and other diseases of the circulatory system; Z88.0 Allergy status to penicillin; Z88.1 Allergy status to other antibiotic agents; Z89.612 Acquired absence of left leg above knee
CPT/HCPCS: 71010; 78452; 80048; 80053; 80061; 82550; 82552; 83690; 83735; 84484; 85002; 85025; 85027; 85610; 85730; 92933; 93005; 93017; 93306; 93458; 96360; A9502; C1725; C1760; C1769; C1874; C1887; C1893; G0269; J1644; J2250; J2405; J2785; J3010; J7030; Q9967

== ENCOUNTER 2017-05-22 09:27 | Inpatient (IN) | payer MEDICARE ==
[2017-05-22] VITALS (10 sets, daily range): BP systolic 122–147; BP diastolic 67–85; PULSE 69–85; RESP 18–20; TEMP 97.5–98.7; O2SAT 91–98
[~2017-05-22] VITALS: Ht 180.3 cm; Wt 89.5 kg
[~2017-05-22 09:27] MED LIST changes: +Aspirin Chew PO; +BENA20TA PO; +BRIL90TA PO; +CARV6.25 PO; +LIPI80TA PO; -LOTE20TA3 PO; -OMEP20TA39 PO; +OMEP40CA2 PO; -SUCR1TAB PO
[2017-05-22] MEDS ORDERED: OMEP10CA PO (09:55)
--- NOTE | 2017-05-22 10:11 | PD ---
HPI Chief Complaint: Syncope/Near-Syncope Time Seen by Provider: 09:53 Travel History International Travel<30 days: No Contact w/Intl Traveler<30days: No Traveled to known affect area: No History of Present Illness HPI 66-year-old man presents to the emergency department complaining of a syncopal episode while seated. He had eaten breakfast. He was sitting down when his family notes he was unresponsive, as well as pale cool and diaphoretic. This lasted about half a minute or so. He came back to, was unaware of what happened. EMS had been called. They arrived to state that he looked hypoperfused, still pale cool diaphoretic, hypotensive with a blood pressure in the 90s. Patient had an episode of nausea and vomiting. He has no complaints now other than feeling weak and tired. No chest pain or trouble breathing. Patient has a history of CAD, with stents, and a reported history of cardiomyopathy although he states his most recent echoes have been normal. He had stents placed here in June of this past year. He otherwise had been feeling generally well and healthy. History Past Medical History Narrative Medical CAD, history of stents Hypertension Hyperlipidemia GERD Social History Alcohol Use: Yes (3-4 DAILY) Tobacco Use: No Allergies-Medications (Allergen,Severity, Reaction): Coded Allergies: amoxicillin (Unverified Allergy, Mild, RASH, 05/22/17) ampicillin (Unverified Allergy, Mild, RASH, 05/22/17) penicillin G (Unverified Allergy, Mild, RASH, 05/22/17) morphine (Unverified Adverse Reaction, Intermediate, Phantom limb pain, 05/22/17) Reported Meds & Prescriptions Reported Meds & Active Scripts Active Brilinta (Ticagrelor) 90 Mg Tab 90 Mg PO BID Coreg (Carvedilol) 6.25 Mg Tab 6.25 Mg PO BID Lipitor (Atorvastatin Calcium) 80 Mg Tab 80 Mg PO HS [Aspirin Chew] 81 MG Chew 81 Mg PO DAILY Reported Omeprazole 10 Mg Cap 10 Mg PO DAILY Benazepril (Benazepril HCl) 20 Mg Tab 20 Mg PO DAILY Review of Systems Except as stated in HPI: all other systems reviewed are Neg Physical Exam Narrative GENERAL: 66-year-old man, little bit pale, cool. SKIN: Cool skin. No rash. HEAD: Atraumatic. Normocephalic. EYES: Pupils equal and round. No scleral icterus. No injection or drainage. ENT: No nasal bleeding or discharge. Mucous membranes pink and moist. NECK: Trachea midline. No JVD. CARDIOVASCULAR: Regular rate and rhythm. No murmur appreciated. RESPIRATORY: No accessory muscle use. Clear to auscultation. Breath sounds equal bilaterally. GASTROINTESTINAL: Abdomen soft, non-tender, nondistended. Hepatic and splenic margins not palpable. MUSCULOSKELETAL: No obvious deformities. No clubbing. No cyanosis. No edema. NEUROLOGICAL: Awake and alert. No obvious cranial nerve deficits. Motor grossly within normal limits. Normal speech. PSYCHIATRIC: Appropriate mood and affect; insight and judgment normal. Data Data Last Documented VS Vital Signs Date Time Temp Pulse Resp B/P (MAP) Pulse Ox O2 Delivery O2 Flow Rate FiO2 05/22/17 12:01 75 20 135/67 (89) 98 Nasal Cannula 2.00 05/22/17 09:38 97.5 Orders Orders Complete Blood Count With Diff (05/22/17 10:02) Comprehensive Metabolic Panel (05/22/17 10:02) Iv Access Insert/Monitor (05/22/17 10:02) Troponin I (05/22/17 10:02) B-Type Natriuretic Peptide (05/22/17 10:02) Chest, Pa & Lat (05/22/17 ) Electrocardiogram (05/22/17 ) Admit Order (Ed Use Only) (05/22/17 ) Transfer Car Operator Drier / Telemetry YOMAIRA.Q8H (05/22/17 12:05) Vital Signs (Adult) Q4H (05/22/17 12:05) Activity Oob With Assistance (05/22/17 12:05) Notify Dr: Other (05/22/17 12:05) Place In Observation (05/22/17 ) Vital Signs (Adult) Q4H (05/22/17 12:06) Activity Bed Rest (05/22/17 12:06) Transfer Car Operator Drier / Telemetry YOMAIRA.Q8H (05/22/17 12:06) Diet Diabetic (05/22/17 Lunch) Sodium Chloride 0.9% Flush (Ns Flush) (05/22/17 12:15) Sodium Chloride 0.9% Flush (Ns Flush) (05/22/17 21:00) Alcohol (Ethanol) (05/22/17 12:06) Drug Screen, Random Urine (05/22/17 12:06) Troponin I (05/22/17 12:06) Troponin I (05/22/17 18:06) Electrocardiogram (05/22/17 12:15) Electrocardiogram (05/22/17 18:15) Echo 2d Comp With Doppler (05/22/17 ) Holter Monitor Recording (05/22/17 ) Eeg Study (05/22/17 ) Us Carotid Arteries Comp Bilat (05/22/17 ) Consult Cardiology (05/22/17 ) Labs Laboratory Tests Test 05/22/17 10:06 White Blood Count 5.7 TH/MM3 Red Blood Count 4.00 MIL/MM3 Hemoglobin 13.6 GM/DL Hematocrit 39.9 % Mean Corpuscular Volume 99.8 FL Mean Corpuscular Hemoglobin 34.1 PG Mean Corpuscular Hemoglobin Concent 34.1 % Red Cell Distribution Width 13.1 % Platelet Count 183 TH/MM3 Mean Platelet Volume 8.1 FL Neutrophils (%) (Auto) 70.8 % Lymphocytes (%) (Auto) 18.7 % Monocytes (%) (Auto) 6.7 % Eosinophils (%) (Auto) 3.3 % Basophils (%) (Auto) 0.5 % Neutrophils # (Auto) 4.0 TH/MM3 Lymphocytes # (Auto) 1.1 TH/MM3 Monocytes # (Auto) 0.4 TH/MM3 Eosinophils # (Auto) 0.2 TH/MM3 Basophils # (Auto) 0.0 TH/MM3 CBC Comment DIFF FINAL Differential Comment Blood Urea Nitrogen 10 MG/DL Creatinine 0.74 MG/DL Random Glucose 85 MG/DL Total Protein 6.6 GM/DL Albumin 3.4 GM/DL Calcium Level 8.2 MG/DL Alkaline Phosphatase 75 U/L Aspartate Amino Transf (AST/SGOT) 15 U/L Alanine Aminotransferase (ALT/SGPT) 28 U/L Total Bilirubin 0.3 MG/DL Sodium Level 140 MEQ/L Potassium Level 4.2 MEQ/L Chloride Level 107 MEQ/L Carbon Dioxide Level 23.1 MEQ/L Anion Gap 10 MEQ/L Estimat Glomerular Filtration Rate 106 ML/MIN Troponin I LESS THAN 0.02 NG/ML B-Type Natriuretic Peptide 30 PG/ML MDM Medical Decision Making Medical Screen Exam Complete: Yes Emergency Medical Condition: Yes Interpretation(s) My review of EKG: Normal sinus rhythm at a rate of 68, first-degree AV block with a WI interval of 212, leftward axis with inferior Q waves suggestive of old ischemia, anterior precordial T-wave inversions, nonspecific possibly ischemic. Compared to previous EKG from July 15 of this y past year, no significant change. LABS: CBC is unremarkable. CMP is unremarkable. Troponin negative. BMP is normal Chest x-ray: No acute disease. Differential Diagnosis Arrhythmia, GI bleed, syncope, seizure, stroke, vasovagal, other Narrative Course Medical decision making INITIAL: This is a 66-year-old male presents to the emergency department with a syncopal episode while seated, highly suspicious for arrhythmia. Patient looks a little bit unwell, but not toxic at this point. Will check labs EKG x-ray, likely admission for monitoring and cardiology consult. Diagnosis Primary Impression: Syncope Admitting Information Admitting Physician Requests: Observation Charles Foster MD May 22, 2017 10:11
--- NOTE | 2017-05-22 10:46 | RADRPT ---
EXAM DATE/TIME: 05/22/2017 10:22 [facility] COMPARISON: No previous studies available for comparison. INDICATIONS : Syncope this morning. MEDICAL HISTORY : diabetes, coronary artery disease, AAA, renal failure SURGICAL HISTORY : 2 cardiac stents, carotid endarectomy both sides ENCOUNTER: Initial ACUITY: 1 day PAIN SCORE: 0/10 LOCATION: Bilateral chest FINDINGS: PA and lateral views of the chest demonstrate the lungs to be symmetrically aerated without evidence of mass, infiltrate or effusion. The cardiomediastinal contours are unremarkable. Osseous structure s are intact. CONCLUSION: No acute disease. Jb Craig MD on May 22, 2017 at 10:44 Board Certified Radiologist. This report was verified electronically.
[2017-05-22 10:50] LABS: BASOPHIL % 0.5 % (0.0-2.0); EOSINOPHIL # 0.2 TH/MM3 (0-0.4); EOSINOPHIL % 3.3 % (0.0-4.0); HEMATOCRIT 39.9 % (39.0-51.0); HEMOGLOBIN 13.6 GM/DL (13.0-17.0); LYMPH % 18.7 % (9.0-44.0); LYMPHOCYTE # 1.1 TH/MM3 (1.0-4.8); MEAN CELL VOLUME 99.8 FL (80.0-100.0); MEAN CORPUSCULAR HEMOGLOBIN 34.1 PG (27.0-34.0); MEAN CORPUSCULAR HGB CONC 34.1 % (32.0-36.0); MEAN PLATELET VOLUME 8.1 FL (7.0-11.0); MONO % 6.7 % (0.0-8.0); MONOCYTE # 0.4 TH/MM3 (0-0.9); NEUT % 70.8 % (16.0-70.0); PLATELET COUNT 183 TH/MM3 (150-450); RED CELL DISTRIBUTION WIDTH 13.1 % (11.6-17.2); WHITE BLOOD COUNT 5.7 TH/MM3 (4.0-11.0)
[2017-05-22 11:04] LABS: ALBUMIN 3.4 GM/DL (3.4-5.0); AST (GOT) 15 U/L (15-37); BICARBONATE 23.1 MEQ/L (21.0-32.0); BLOOD UREA NITROGEN 10 MG/DL (7-18); CALCIUM 8.2 MG/DL (8.5-10.1); CREATININE 0.74 MG/DL (0.60-1.30); GLOMERULAR FILTRATION RATE 106 ML/MIN (>89); GLUCOSE,RANDOM 85 MG/DL (74-106)
[2017-05-22 11:06] LABS: ALT (GPT) 28 U/L (12-78)
[2017-05-22 11:12] LABS: ALKALINE PHOSPHATASE 75 U/L (45-117); CHLORIDE 107 MEQ/L (98-107); SODIUM (NA) 140 MEQ/L (136-145); TOTAL BILIRUBIN ADULT 0.3 MG/DL (0.2-1.0); TOTAL PROTEIN 6.6 GM/DL (6.4-8.2); TROPONIN I LESS THAN 0.02 NG/ML (0.02-0.05)
[2017-05-22] MEDS ORDERED: SODIUM CHLORIDE 0.9% FLUSH 10 ML FLUSH IV FLUSH PRN (12:15)
[2017-05-22 13:29] LABS: TROPONIN I LESS THAN 0.02 NG/ML (0.02-0.05)
--- NOTE | 2017-05-22 15:32 | PD.CONS ---
History of Present Illness Service Neurology Consult Requested By medical Reason for Consult syncope Primary Care Physician Non-Staff History of Present Illness 66-year-old male admitted for syncope. had finished eating, sitting at the table when he suddenly had a blank look, strange sounds and not responding to . lasted 1-2 minutes. then passed out/felt sleepy. no armstrong. no focal weakness. had emesis when evac came. bp noted to be in the 90's be evac. no b/b incontinence, no jerking noted. glucose 85. no hx of tia/stroke/sz. feels well at present. back to baseline. Review of Systems Except as stated in HPI: all other systems reviewed are Neg Past Family Social History Past Medical History Hypertension Hyperlipidemia Nephrolithiasis GERD cad; cath 06/2016 Past Surgical History Stent placement in kidney Cholecystectomy Left AKA Reported Medication s Omeprazole 40 Mg Cap 40 Mg PO DAILY Benazepril (Benazepril HCl) 20 Mg Tab 20 Mg PO DAILY Allergies: Coded Allergies: Amoxicillin (Verified Allergy, Mild, RASH, 07/11/16) Ampicillin (Verified Allergy, Mild, RASH, 07/11/16) Penicillin (Verified Allergy, Mild, RASH, 07/11/16) Family History Brother: lymphoma. Father: arteriosclerosis. Social History rare etoh Patient denies any history of cigarette smoking. Denies illicit drug use. Review of Systems All other ROS: ROS reviewed as documented in chart Past Family Social History Allergies: Coded Allergies: amoxicillin (Unverified Allergy, Mild, RASH, 05/22/17) ampicillin (Unverified Allergy, Mild, RASH, 05/22/17) penicillin G (Unverified Allergy, Mild, RASH, 05/22/17) morphine (Unverified Adverse Reaction, Intermediate, Phantom limb pain, 05/22/17) Active Ordered Medications Current Medications Medications (Trade) Dose Ordered Sig/Jody Route Start Time Stop Time Status Last Admin (NS Flush) 2 ml UNSCH PRN IV FLUSH 05/22/17 12:15 (NS Flush) 2 ml BID IV FLUSH 05/22/17 21:00 (Lipitor) 80 mg HS PO 05/22/17 21:00 (Coreg) 6.25 mg BID PO 05/22/17 21:00 (Brilinta) 90 mg BID PO 05/22/17 21:00 Patient Own Medication PT OWN MED: OMEPRAZ... DAILY PO 05/23/17 09:00 Future Hold (Aspirin Chew) 81 mg DAILY PO 05/23/17 09:00 Exam I&O / VS Vital Signs Date Time Temp Pulse Resp B/P (MAP) Pulse Ox O2 Delivery O2 Flow Rate FiO2 05/22/17 14:24 97.8 80 18 128/74 (92) 94 05/22/17 13:06 05/22/17 12:17 67 18 140/75 (96) 72 18 140/73 (95) 72 20 145/80 (101) 05/22/17 12:01 75 20 135/67 (89) 98 Nasal Cannula 2.00 05/22/17 09:47 79 18 96 Room Air 05/22/17 09:38 97.5 69 18 131/71 (91) 96 General: Alert and Oriented, No acute distress Eye: EOMI Respiratory: Non-labored respirations Cardiology: Normal rate Musculoskeletal: ROM Neurologic: Alert, Oriented, Normal sensory, Normal motor, No focal defects, CN II-XII intact, Normal DTR's Psychiatric: Cooperative, Appropriate mood & affect, Normal judgement Review/Management Diagnosis/Plan: (1) Syncope ICD Codes: R55 - Syncope and collapse Status: Acute Plan: etiology: vasovagal vs cardiac arrhythmia with acute hypotension and cerebral hypoperfusion. neurological etiology felt less likely but will r/o vbi, sz doing well now recs tele mr/mra brain check eeg follow exam (2) CAD (coronary artery disease) ICD Codes: I25.10 - Atherosclerotic heart disease of [place] coronary artery without angina pectoris Status: Chronic (3) HLD (hyperlipidemia) ICD Codes: E78.5 - Hyperlipidemia, unspecified Status: Chronic (4) HTN (hypertension) ICD Codes: I10 - Essential (primary) hypertension Status: Chronic Problem Qualifiers (1) HTN (hypertension): Qualified Codes: I10 - Essential (primary) hypertension Luis Clemente MD May 22, 2017 15:32
[2017-05-22] MEDS ORDERED: HEPARIN SODIUM - SQ 10,000 UNITS/ML VIAL SQ SCH (15:45)
--- NOTE | 2017-05-22 17:11 | RADRPT ---
EXAM DATE/TIME: 05/22/2017 15:56 [facility] COMPARISON: No previous studies available for comparison. INDICATIONS : Syncope. MEDICAL HISTORY : Hypercholesterolemia. Renal calculi. Coronary artery disease. Chest pain. HTN. GERD. Measles. SURGICAL HISTORY : Coronary artery stent. Cholecystectomy. Hernia repair. Kidney stones with stent. Artifical left leg . Blood transfusions. ENCOUNTER: Initial ACUITY: 1 day PAIN SCORE: 0/10 LOCATION: Bilateral neck PEAK SYSTOLIC VELOCITIES (cm/sec): ICA/CCA RATIO: Right: 1.2 Left: 1.1 ICA: Right: 95.7 Left: 101.7 CCA: Right: 77.6 Left: 95.2 ECA: Right: 115.4 Left: 125.3 VERTEBRAL: Right: 52.3 antegrade Left: 60.3 antegrade Elevated flow velocities and ICA/CCA ratios have been found to correlate with increased degrees of vessel stenosis, calculated as percentage of diameter relative to a normal segment of distal ICA/CCA FINDINGS: RIGHT CAROTID: Minimal ICA plaque. No significant stenosis is visualized. The waveforms are within normal limits. LEFT CAROTID: Moderate ICA plaque. No significant stenosis is visualized. The waveforms are within normal limits. VERTEBRAL ARTERIES: Antegrade flow is seen in both vertebral arteries. MISCELLANEOUS: None. CONCLUSION: 1. Patent carotid arteries bilaterally. 2. Antegrade flow involving both vertebral arteries. Jhonathan Perez Jr., MD on May 22, 2017 at 16:51 Board Certified Radiologist. This report was verified electronically.
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
--- NOTE | 2017-05-22 19:02 | RADRPT ---
EXAM DATE/TIME: 05/22/2017 18:20 [facility] COMPARISON: No previous studies available for comparison. INDICATIONS : Syncope. MEDICAL HISTORY : Hypertension. Cardiovascular disease SURGICAL HISTORY : Cholecystectomy. Coronary artery stent. Umbilical hernia repair. ENCOUNTER: Initial ACUITY: 1 day PAIN SCORE: 0/10 LOCATION: cranial Please note a normal MRA of the brain does not entirely exclude the possibility of a small aneurysm, nor the possibility of distal intracranial vessel disease. TECHNIQUE: 3D time of flight MRA was performed. Source images, multiplanar STS MIP, and 3D volume MIP reconstru ctions were reviewed. FINDINGS: There is excellent visualization of the major intracranial arteries out to the second-order branch ve ssels. There is no evidence for aneurysm, vessel truncation or stenosis, and no evidence for vascula r malformation. There is a patent right posterior communicating artery which fills the right posterio r cerebral artery. CONCLUSION: 1. Patent right posterior communicating artery which fills the right posterior cerebral artery. 2. No significant stenosis, occlusion or aneurysm formation. Alex Neves MD on May 22, 2017 at 18:58 Board Certified Radiologist. This report was verified electronically.
--- NOTE | 2017-05-22 19:03 | RADRPT ---
EXAM DATE/TIME: 05/22/2017 18:20 [facility] COMPARISON: No previous studies available for comparison. INDICATIONS : Syncope. MEDICAL HISTORY : Cardiovascular disease Hypertension. SURGICAL HISTORY : Coronary artery stent. Cholecystectomy. Inguinal hernia repair. ENCOUNTER: Initial ACUITY: 1 day PAIN SCORE: 0/10 LOCATION: cranial TECHNIQUE: Multiplanar, multisequence MRI of the brain was performed without contrast. FINDINGS: CEREBRUM: The ventricles are normal for age. No evidence of midline shift, mass lesion, hemorrha ge or acute infarction. No extraaxial fluid collections are seen. The pituitary gland and suprasell ar cistern are normal in configuration. WHITE MATTER: No significant signal abnormalities are seen in the white matter. POSTERIOR FOSSA: The cerebellum and brainstem are intact. The 4th ventricle is midline. The cere bellopontine angle is unremarkable. The cerebellar tonsils are normal in position. DIFFUSION IMAGING: No focal areas of restricted diffusion are seen. No evidence of acute infarct ion. EXTRACRANIAL: The visualized portions of the orbits are unremarkable. Mild mucosal thickening is noted within the maxillary sinuses bilaterally and the left ethmoid air cells. CONCLUSION: 1. No acute intracranial abnormality. 2. Mild mucosal thickening involving the maxillary sinuses bilaterally and left ethmoid air cells. Alex Neves MD on May 22, 2017 at 18:59 Board Certified Radiologist. This report was verified electronically.
--- NOTE | 2017-05-22 19:26 | EKG ---
Date Performed: 05/22/2017 Time Performed: 09:46:47 PTAGE: 66 years EKG: Sinus rhythm WITH FIRST DEGREE AV BLOCK INFERIOR MYOCARDIAL INFARCTION MODERATE T-WAVE ABNORMALITY, CONSIDER ANTE RIOR ISCHEMIA, THOUGH THOSE CHANGES ARE SEEN IN PREVIOUS TRACING ABNORMAL ECG PREVIOUS TRACING : 07/15/16 @ 0614 DOCTOR: Ted Justice Interpretating Date/Time 05/22/2017 19:25:04
[2017-05-22] MEDS: SODIUM CHLORIDE 0.9% FLUSH 10 ML FLUSH IV FLUSH SCH (21:59)
[2017-05-22] MEDS: ATORVASTATIN 80 MG TAB PO SCH (22:00)
[2017-05-22] MEDS: TICAGRELOR 90 MG TAB PO SCH (22:00)
[2017-05-22] MEDS: HEPARIN SODIUM - SQ 10,000 UNITS/ML VIAL SQ SCH (22:00)
[2017-05-22] MEDS: CARVEDILOL 6.25 MG TAB PO SCH (22:00)
[2017-05-23] VITALS (11 sets, daily range): BP systolic 105–121; BP diastolic 66–76; PULSE 60–79; RESP 18–19; TEMP 97.5–97.9; O2SAT 95–97
[2017-05-23 06:39] LABS: PHOSPHORUS 2.6 MG/DL (2.5-4.9)
[2017-05-23 06:46] LABS: BICARBONATE 28.3 MEQ/L (21.0-32.0); CALCIUM 8.6 MG/DL (8.5-10.1); CREATININE 0.87 MG/DL (0.60-1.30); MAGNESIUM 2.1 MG/DL (1.5-2.5)
--- NOTE | 2017-05-23 07:05 | MG ---
cc: PEGGY ROGERS MD Lab No:[id number] Date: 05/22/2017 Age: 66 Sex: M Race: DATE OF : 1950 HISTORY: 66-year-old history of syncopal episode, 5-20 microvolt activity, theta beta frequencies occurring in generalized fashion followed by low amplitude delta activity with transition into drowsy state followed by stage I to II sleep spindles. Limited driving with photic stimulation. Single lead EKG showing sinus rhythm. INTERPRETATION Normal awake sleep EEG. Clinical correlation. Peggy Rogers MD MG/marycarmen /9:29 PM /7:00 AM
[2017-05-23] MEDS ORDERED: OMEPRAZOLE 10 MG PO SCH (09:00)
[2017-05-23] MEDS: TICAGRELOR 90 MG TAB PO SCH ×2 (10:23→21:00)
[2017-05-23] MEDS: ASPIRIN 81 MG CHEW TAB PO SCH (10:23)
[2017-05-23] MEDS: CARVEDILOL 6.25 MG TAB PO SCH ×2 (10:23→21:00)
[2017-05-23] MEDS: SODIUM CHLORIDE 0.9% FLUSH 10 ML FLUSH IV FLUSH SCH ×2 (10:23→21:01)
[2017-05-23] MEDS: HEPARIN SODIUM - SQ 10,000 UNITS/ML VIAL SQ SCH ×2 (10:24→21:00)
--- NOTE | 2017-05-23 11:51 | HHI.PR ---
Review/Management Diagnosis/Plan: (1) Syncope ICD Codes: R55 - Syncope and collapse Status: Acute Plan: etiology: vasovagal vs cardiac arrhythmia with acute hypotension and cerebral hypoperfusion. neurological etiology felt less likely but will r/o vbi, sz doing well now mri/mra brain, carotid, eeg negative 1 set ortho negative recs neuro testing nml cardiology eval pending d/c planning from neurology shouldn't drive until seen outpatient follow exam (2) CAD (coronary artery disease) ICD Codes: I25.10 - Atherosclerotic heart disease of [place] coronary artery without angina pectoris Status: Chronic (3) HLD (hyperlipidemia) ICD Codes: E78.5 - Hyperlipidemia, unspecified Status: Chronic (4) HTN (hypertension) ICD Codes: I10 - Essential (primary) hypertension Status: Chronic Subjective Subjective Comments No acute events reported No headache No chest pain No dyspnea Active Medications Current Medications Medications (Trade) Dose Ordered Sig/Jody Route Start Time Stop Time Status Last Admin (NS Flush) 2 ml UNSCH PRN IV FLUSH 05/22/17 12:15 (NS Flush) 2 ml BID IV FLUSH 05/22/17 21:00 05/23/17 10:23 (Lipitor) 80 mg HS PO 05/22/17 21:00 05/22/17 22:00 (Coreg) 6.25 mg BID PO 05/22/17 21:00 05/23/17 10:23 (Brilinta) 90 mg BID PO 05/22/17 21:00 05/23/17 10:23 Patient Own Medication PT OWN MED: OMEPRAZ... DAILY PO 05/23/17 09:00 Future Hold (Aspirin Chew) 81 mg DAILY PO 05/23/17 09:00 05/23/17 10:23 (Heparin Inj) 5,000 units Q12HR SQ 05/22/17 21:00 05/23/17 10:24 Allergies Allergies Coded Allergies amoxicillin (Unverified Allergy, Mild, RASH, 05/22/17) ampicillin (Unverified Allergy, Mild, RASH, 05/22/17) penicillin G (Unverified Allergy, Mild, RASH, 05/22/17) morphine (Unverified Adverse Reaction, Intermediate, Phantom limb pain, 05/22/17 ) Review of Systems All other ROS: ROS reviewed as documented in chart Exam I&O / VS Vital Signs Date Time Temp Pulse Resp B/P (MAP) Pulse Ox O2 Delivery O2 Flow Rate FiO2 05/23/17 08:46 97.5 68 18 105/66 (79) 95 05/23/17 04:30 65 05/23/17 00:10 64 05/22/17 23:43 98.0 78 18 122/71 (88) 91 05/22/17 20:59 98.7 74 18 147/85 (105) 94 05/22/17 20:05 79 05/22/17 17:01 97.8 80 18 128/74 (92) 94 05/22/17 16:12 85 05/22/17 14:34 80 05/22/17 14:24 97.8 80 18 128/74 (92) 94 05/22/17 13:06 05/22/17 12:17 67 18 140/75 (96) 72 18 140/73 (95) 72 20 145/80 (101) 05/22/17 12:01 75 20 135/67 (89) 98 Nasal Cannula 2.00 General: Alert and Oriented, No acute distress Eye: EOMI Respiratory: Non-labored respirations Neurologic: Alert, Oriented, CN II-XII intact, Normal DTR's Psychiatric: Cooperative, Appropriate mood & affect, Normal judgement Exam Comments ox 3, no aphasia, follows, articulate, eomi, face sym, no drift, left le aka Objective Micro and Labs Laboratory Tests Test 05/22/17 12:18 05/22/17 12:24 05/23/17 06:01 Troponin I LESS THAN 0.02 Vitamin B12 Level 464 Ethyl Alcohol Level LESS THAN 3 Urine Opiates Screen NEG Urine Barbiturates Screen NEG Urine Amphetamines Screen NEG Urine Benzodiazepines Screen NEG Urine Cocaine Screen NEG Urine Cannabinoids Screen NEG Blood Urea Nitrogen 13 Creatinine 0.87 Random Glucose 100 Calcium Level 8.6 Phosphorus Level 2.6 Magnesium Level 2.1 Sodium Level 139 Potassium Level 4.1 Chloride Level 105 Carbon Dioxide Level 28.3 Anion Gap 6 Estimat Glomerular Filtration Rate 88 Problem Qualifiers (1) HTN (hypertension): Qualified Codes: I10 - Essential (primary) hypertension Luis Clemente MD May 23, 2017 11:51
--- NOTE | 2017-05-23 13:34 | EKG ---
Date Performed: 05/22/2017 Time Performed: 12:31:47 PTAGE: 66 years EKG: Sinus rhythm WITH OCCASIONAL VENTRICULAR PREMATURE COMPLEXES Diffuse nonspecific ST-T wqave change. Probable infe rior myocardial infarction -undeterminate age. When compared to previous tracing, premature ventricul ar Contractions are new, otherwise no significant change. ABNORMAL ECG PREVIOUS TRACING : 05/22/2017 09.46.47 DOCTOR: Abhijit Varela Interpretating Date/Time 05/23/2017 13:33:53
--- NOTE | 2017-05-23 13:36 | EKG ---
Date Performed: 05/22/2017 Time Performed: 18:00:41 PTAGE: 66 years EKG: Sinus rhythm WITH OCCASIONAL VENTRICULAR PREMATURE COMPLEXES. Possible inferior wall myocardial infarction-indete rminate age. Diffuse nonspecific ST-T wave change. When compared to previous tracing, no significant change. ABNORMAL ECG PREVIOUS TRACING : 05/22/2017 12.31 DOCTOR: Abhijit Varela Interpretating Date/Time 05/23/2017 13:35:41
--- NOTE | 2017-05-23 14:38 | HHI.PR ---
Subjective Remarks Follow-up for syncope Patient has no complaints. He stated that he has not had any episodes while hospitalized. Deny any chest pain, shortness of breathing, palpitation, Lantus dizziness. Patient anxious to go home. No events over telemetry. Objective Vitals Vital Signs Date Time Temp Pulse Resp B/P (MAP) Pulse Ox O2 Delivery O2 Flow Rate FiO2 05/23/17 12:35 97.7 69 18 120/73 (89) 97 05/23/17 08:46 97.5 68 18 105/66 (79) 95 05/23/17 04:30 65 05/23/17 00:10 64 05/22/17 23:43 98.0 78 18 122/71 (88) 91 05/22/17 20:59 98.7 74 18 147/85 (105) 94 05/22/17 20:05 79 05/22/17 17:01 97.8 80 18 128/74 (92) 94 05/22/17 16:12 85 I/O 05/22/17 05/22/17 05/22/17 05/23/17 05/23/17 05/23/17 07:00 15:00 23:00 07:00 15:00 23:00 Intake Total 240 ml Output Total 150 ml 300 ml Balance 90 ml -300 ml Intake Oral 240 ml Output Urine Total 150 ml 300 ml # Bowel Movements 1 Result Diagram: 05/22/17 1006 05/23/17 0601 Objective Remarks GENERAL: in NAD SKIN: Warm and dry. HEAD: Normocephalic. EYES: No scleral icterus. No injection or drainage. NECK: Supple, trachea midline. No JVD or lymphadenopathy. CARDIOVASCULAR: Regular rate and rhythm without murmurs, gallops, or rubs. RESPIRATORY: Breath sounds equal bilaterally. No accessory muscle use. GASTROINTESTINAL: Abdomen soft, non-tender, nondistended. MUSCULOSKELETAL: No cyanosis, or edema. BACK: Nontender without obvious deformity. No CVA tenderness. Medications and IVs Current Medications Sodium Chloride (NS Flush) 2 ml UNSCH PRN IV FLUSH FLUSH AFTER USING IV ACCESS ; Start 05/22/17 at 12:15 Sodium Chloride (NS Flush) 2 ml BID IV FLUSH Last administered on 05/23/17at 10: 23; Start 05/22/17 at 21:00 Atorvastatin Calcium (Lipitor) 80 mg HS PO Last administered on 05/22/17at 22:00 ; Start 05/22/17 at 21:00 Carvedilol (Coreg) 6.25 mg BID PO Last administered on 05/23/17 10:23; Start at 21:00 Ticagrelor (Brilinta) 90 mg BID PO Last administered on 05/23/17 10:23; Start 05/22/17 at 21:00 Patient Own Medication PT OWN MED: OMEPRAZ... DAILY PO ; Start 05/23/17 at 09:00 ; Status Future Hold Aspirin (Aspirin Chew) 81 mg DAILY PO Last administered on 05/23/17 10:23; Start 05/23/17 at 09:00 Heparin Sodium (Porcine) (Heparin Inj) 5,000 units Q8HR SQ ; Start 05/22/17 at 15 :45; Stop 05/22/17 at 15:48; Status DC Heparin Sodium (Porcine) (Heparin Inj) 5,000 units Q12HR SQ Last administered on 05/23/17at 10:24; Start 05/22/17 at 21:00 A/P Assessment and Plan Syncopal episode -Maybe vasovagal versus cardiac etiology. -Pending echo. EEG negative. MRI no acute etiology. -Neurologist consulted appreciate recommendations. Patient cleared by neurologist but per neurologist shouldn't drive until seen outpatient -Pending differential tester consulted. Nurse put a call out to cardiology since it's been over 24 hours and they stated they will see patient today. CAD. Continue home medications. GERD area chronic. Continue home medications. Hyperlipidemia chronic. Continue home medication. prophylaxis. Heparin sq as per neurology. Discharge Planning Once cleared by differential tester patient can be discharged home. discussed case with patient's nurse. Anabel Hazel MD May 23, 2017 14:38
[2017-05-23] MEDS ORDERED: BENA5TAB PO (14:40)
--- NOTE | 2017-05-23 14:41 | HHI.DCPOC ---
Discharge Care Plan Diagnosis: (1) Syncope Goals to Promote Your Health * To prevent worsening of your condition and complications * To maintain your health at the optimal level Directions to Meet Your Goals Take your medications as prescribed Follow your dietary instruction Follow activity as directed Keep your appointments as scheduled Take your immunizations and boosters as scheduled If your symptoms worsen call your PCP, if no PCP go to Urgent Care Center or Emergency Room Smoking is Dangerous to Your Health. Avoid second hand smoke Call the 24-hour hour crisis hotline for domestic abuse at Anabel Hazel MD May 23, 2017 14:41
--- NOTE | 2017-05-23 14:45 | ECHRPT ---
Indication: syncope CONCLUSIONS Normal left ventricular size. The left ventricular systolic function is severely reduced with an estimated ejection fraction in th e range of 20-25%. Global hypokinesis Trace mitral valve regurgitation. There is mild tricuspid valve regurgitation. The estimated pulmonary arterial pressure is 29.9 mmHg. BP: / HR: Rhythm: MEASUREMENTS (Male / Female) Normal Values Technical Quality:Fair 2D ECHO LV Diastolic Diameter PLAX 5.6 cm 4.2 - 5.9 / 3.9 - 5.3 cm LV Systolic Diameter PLAX 5.1 cm IVS Diastolic Thickness 1.5 cm 0.6 - 1.0 / 0.6 - 0.9 cm LVPW Diastolic Thickness 1.3 cm 0.6 - 1.0 / 0.6 - 0.9 cm LV Relative Wall Thickness 0.5 RV Internal Dim ED PLAX 3.1 cm M-MODE Aortic Root Diameter MM 3.9 cm LA Systolic Diameter MM 3.7 cm LA Ao Ratio MM 0.9 AV Cusp Separation MM 2.4 cm DOPPLER Mitral E Point Velocity 34.1 cm/s Mitral A Point Velocity 65.6 cm/s Mitral E to A Ratio 0.5 LV E' Lateral Velocity 5.8 cm/s Mitral E to LV E' Lateral Ratio 5.9 LV E' Septal Velocity 5.9 cm/s Mitral E to LV E' Septal Ratio 5.8 TR Peak Velocity 223.0 cm/s TR Peak Gradient 19.9 mmHg Right Atrial Pressure 10.0 mmHg Pulmonary Artery Systolic Pressu 29.9 mmHg Right Ventricular Systolic Press 29.9 mmHg FINDINGS LEFT VENTRICLE Normal left ventricular size. The left ventricular systolic function is severely reduced with an estimated ejection fraction in th e range of 20-25%. Global hypokinesis Doppler parameters are consistent with impaired left ventricular relaxtion (grade 1 diastolic dysfun ction). RIGHT VENTRICLE Normal right ventricular size and systolic function. LEFT ATRIUM The left atrial size is normal. RIGHT ATRIUM The right atrial size is normal. ATRIAL SEPTUM Normal atrial septal thickness without atrial level shunting by limited color doppler interrogation. AORTA The aortic root and proximal ascending aorta are normal in size on limited imaging. MITRAL VALVE Structurally normal mitral valve. Trace mitral valve regurgitation. AORTIC VALVE Trileaflet aortic valve. No aortic valve stenosis or regurgitation. TRICUSPID VALVE Structurally normal tricuspid valve. There is mild tricuspid valve regurgitation. The estimated pulmonary arterial pressure is 29.9 mmHg. PULMONARY VALVE No pulmonary valve regurgitation or stenosis. VESSELS The inferior vena cava is normal in size. PERICARDIUM No pericardial effusion. Evan Espinoza MD (Electronically Signed) Final Date:23 May 2017 14:44
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
[2017-05-23] MEDS: ATORVASTATIN 80 MG TAB PO SCH (21:00)
[2017-05-24] VITALS (10 sets, daily range): BP systolic 103–133; BP diastolic 56–79; PULSE 61–90; RESP 18–19; TEMP 98–98.3; O2SAT 92–98
[2017-05-24] MEDS: CARVEDILOL 6.25 MG TAB PO SCH ×2 (09:37→20:53)
[2017-05-24] MEDS: ASPIRIN 81 MG CHEW TAB PO SCH (09:37)
[2017-05-24] MEDS: TICAGRELOR 90 MG TAB PO SCH (09:37)
[2017-05-24] MEDS: HEPARIN SODIUM - SQ 10,000 UNITS/ML VIAL SQ SCH (09:37)
[2017-05-24] MEDS: SODIUM CHLORIDE 0.9% FLUSH 10 ML FLUSH IV FLUSH SCH ×2 (09:37→21:00)
--- NOTE | 2017-05-24 10:37 | HHI.PR ---
Subjective Remarks Follow-up for syncope Patient denies any syncopal episodes since being hospitalized. He denies any chest pain, shortness of breathing, palpitation, lightheadedness or dizziness. Objective Vitals Vital Signs Date Time Temp Pulse Resp B/P (MAP) Pulse Ox O2 Delivery O2 Flow Rate FiO2 05/24/17 08:50 98.0 77 18 133/74 (93) 94 05/24/17 03:09 98.0 68 18 103/56 (72) 95 05/23/17 23:00 68 05/23/17 20:03 97.9 68 19 121/76 (91) 97 05/23/17 16:15 69 05/23/17 16:00 97.7 60 18 112/67 (82) 96 05/23/17 12:35 97.7 69 18 120/73 (89) 97 05/23/17 12:05 74 I/O 05/23/17 05/23/17 05/23/17 05/24/17 05/24/17 05/24/17 07:00 15:00 23:00 07:00 15:00 23:00 Intake Total 120 ml Output Total 300 ml 325 ml Balance -300 ml -205 ml Intake Oral 120 ml Output Urine Total 300 ml 325 ml # Bowel Movements 1 Result Diagram: 05/22/17 1006 05/23/17 0601 Objective Remarks GENERAL: in NAD SKIN: Warm and dry. HEAD: Normocephalic. EYES: No scleral icterus. No injection or drainage. NECK: Supple, trachea midline. No JVD or lymphadenopathy. CARDIOVASCULAR: Regular rate and rhythm without murmurs, gallops, or rubs. RESPIRATORY: Breath sounds equal bilaterally. No accessory muscle use. GASTROINTESTINAL: Abdomen soft, non-tender, nondistended. MUSCULOSKELETAL: No cyanosis, or edema. BACK: Nontender without obvious deformity. No CVA tenderness. Medications and IVs Current Medications Sodium Chloride (NS Flush) 2 ml UNSCH PRN IV FLUSH FLUSH AFTER USING IV ACCESS ; Start 05/22/17 at 12:15 Sodium Chloride (NS Flush) 2 ml BID IV FLUSH Last administered on 05/24/17at 09: 37; Start 05/22/17 at 21:00 Atorvastatin Calcium (Lipitor) 80 mg HS PO Last administered on 05/23/17at 21:00 ; Start 05/22/17 at 21:00 Carvedilol (Coreg) 6.25 mg BID PO Last administered on 05/24/17at 09:37; Start at 21:00 Ticagrelor (Brilinta) 90 mg BID PO Last administered on 05/24/17at 09:37; Start 05/22/17 at 21:00 Patient Own Medication PT OWN MED: OMEPRAZ... DAILY PO ; Start 05/23/17 at 09:00 ; Status Future Hold Aspirin (Aspirin Chew) 81 mg DAILY PO Last administered on 05/24/17at 09:37; Start 05/23/17 at 09:00 Heparin Sodium (Porcine) (Heparin Inj) 5,000 units Q8HR SQ ; Start 05/22/17 at 15 :45; Stop 05/22/17 at 15:48; Status DC Heparin Sodium (Porcine) (Heparin Inj) 5,000 units Q12HR SQ Last administered on 05/24/17at 09:37; Start 05/22/17 at 21:00 Lisinopril (Prinivil) 2.5 mg DAILY PO ; Start 05/24/17 at 10:30; Status UNV A/P Assessment and Plan Syncopal episode -Maybe vasovagal versus cardiac etiology. -Echo shows global hypokinesis and EF of 20-25%. EEG negative. MRI no acute etiology. -Neurologist consulted appreciate recommendations. Patient cleared by neurologist but per neurologist shouldn't drive until seen outpatient -Decal Decorator stated in his note nuclear stress test versus cardiac catheterization. Charge nurse spoke to patent paralegal yesterday and he stated that he wants a cardiac catheterization Thursday. CAD. Continue home medications. GERD area chronic. Continue home medications. Hyperlipidemia chronic. Continue home medication. prophylaxis. Heparin sq as per neurology. Discharge Planning Patient scheduled for cardiac catheterization tomorrow. Anabel Hazel MD May 24, 2017 10:36
[2017-05-24] MEDS ORDERED: PILL SPLITTER OTHER PRN (10:45)
[2017-05-24] MEDS: LISINOPRIL 5 MG TAB PO SCH (11:01)
[2017-05-24] MEDS ORDERED: IOHEXOL 350 MG/ML 100 ML BTL (for Cath Lab) OTHER ONE (12:08)
[2017-05-24] MEDS ORDERED: NITROGLYCERIN 0.4 MG SL 25 TABS/BTL SL PRN (13:30)
[2017-05-24] MEDS ORDERED: NITROGLYCERIN 0.4 MG SL 25 TABS/BTL SL ONE (13:30)
[2017-05-24] MEDS ORDERED: NITROGLYCERIN 2% OINT 1 GM PACKET TOPICAL SCH (14:00)
[2017-05-24] MEDS ORDERED: NITROGLYCERIN-D5W 50 MG/250 ML 250 ML IV PRN (15:00)
[2017-05-24 15:08] LABS: PROTHROMBIN TIME - PATIENT 10.4 SEC (9.8-11.6)
[2017-05-24 15:13] LABS: HEMATOCRIT 40.7 % (39.0-51.0); MEAN CELL VOLUME 97.9 FL (80.0-100.0); MEAN CORPUSCULAR HEMOGLOBIN 33.6 PG (27.0-34.0); MEAN CORPUSCULAR HGB CONC 34.3 % (32.0-36.0); MEAN PLATELET VOLUME 8.2 FL (7.0-11.0); PLATELET COUNT 179 TH/MM3 (150-450); RED BLOOD COUNT 4.16 MIL/MM3 (4.50-5.90); RED CELL DISTRIBUTION WIDTH 12.9 % (11.6-17.2); WHITE BLOOD COUNT 4.6 TH/MM3 (4.0-11.0)
[2017-05-24] MEDS: HEPARIN-D5W 25,000 U/250 ML 250 ML IV PRN (15:44)
[2017-05-24] MEDS ORDERED: HEPARIN-NS/PF FLUSH BAG 2,000 ML IV FLUSH ONE (17:23)
[2017-05-24] MEDS ORDERED: NITROGLYCERIN INJ 5 ML ONE (17:23)
[2017-05-24] MEDS ORDERED: VERAPAMIL HCL 5 MG/2 ML VIAL ONE (17:23)
[2017-05-24] MEDS ORDERED: HEPARIN SODIUM - IV 10,000 UNITS/10 ML VIAL ONE (17:23)
[2017-05-24] MEDS ORDERED: MIDAZOLAM HCL 2 MG/2 ML VIAL ONE (18:08)
--- NOTE | 2017-05-24 19:55 | MA ---
cc: TENISHARUTHIE DATE: 05/24/2017. PROCEDURES PERFORMED: 1. Left heart catheterization. 2. Coronary angiography. 3. Left ventriculogram. INDICATIONS FOR THE PROCEDURE: 1. Acute coronary syndrome with persistent chest pain. 2. Positive troponins for acute coronary syndrome and abnormal ECG. TOTAL CONTRAST USED: 60 cc. SEDATION TIME: Approximately 15 minutes. DESCRIPTION OF THE PROCEDURE IN DETAIL: The risks and benefits of cardiac catheterization were discussed with the patient and his . A time out was performed. The patient, physician and procedure to be performed were identified. The patient was prepped and draped in the normal fashion. 1% lidocaine was generously infiltrated into the radial artery. The radial artery was accessed and a 6-[place] sheath was introduced without difficulty. The sidearm was flushed with a cocktail of verapamil 2.5 milligrams and nitroglycerin 200 micrograms. Intravenous heparin 3000 units was given separately. FINDINGS: Central aortic pressure is 111/76 mmHg. The left ventricular end-diastolic pressure before coronary angiography was approximately 8-10 mmHg. The left main is large, short and without significant disease. The left anterior descending artery and circumflex artery in normal fashion. The left anterior descending artery had a 90% ostial stenosis. There is a stent in the proximal to mid segment that is patent. The mid LAD had an additional 30% to 40% plaque. A diagonal branch from the proximal LAD had an ostial 50% to 60% stenosis. A smaller diagonal off the mid was noted be a small vessel without significant disease. The circumflex artery had ostial 20% to 30% plaque. The proximal segment had 30% to 40% stenosis. The circumflex artery continued into a large marginal. The circumflex artery became a small circumflex artery. The right coronary artery is dominant. There is an ostial 80% stenosis. There is significant dampening of the waveform upon engagement. There was also no dye washout. The mid segment proximal segment had 30% to 40% stenosis. The PDA and posterolateral branches were notably small and without significant disease. LEFT VENTRICULOGRAM: Left ventriculogram before coronary angiography showed the left ventricle to be normal size with mild diffuse global hypokinesis, ejection fraction 50%. Withdrawal of the catheter into the ascending aorta showed no gradient across the aortic valve. IMPRESSION: 1. Severe ostial LAD disease 90% to 95%. 2. Patent mid-LAD stent. 3. Severe ostial 80% to 90% RCA disease. 4. Mild left ventricular systolic dysfunction, ejection fraction 50%. PLAN Will recommend coronary artery bypass surgery. MD YANETH Chappell/TJ /6:32 PM /7:42 PM
[2017-05-24] MEDS ORDERED: oxyCODONE/ACETAMINOPHEN 5 MG/325 MG TAB PO PRN ×2 (20:15)
[2017-05-24] MEDS ORDERED: ACETAMINOPHEN 325 MG TAB PO PRN (20:15)
[2017-05-24] MEDS: ATORVASTATIN 80 MG TAB PO SCH (20:53)
[2017-05-25] VITALS (24 sets, daily range): BP systolic 113–120; BP diastolic 63–72; PULSE 58–95; RESP 18–21; TEMP 97.5–98.1; O2SAT 93–98
[2017-05-25 06:23] LABS: MEAN CELL VOLUME 99.4 FL (80.0-100.0); MEAN CORPUSCULAR HGB CONC 34.2 % (32.0-36.0); MEAN PLATELET VOLUME 8.1 FL (7.0-11.0); PLATELET COUNT 145 TH/MM3 (150-450); RED BLOOD COUNT 3.82 MIL/MM3 (4.50-5.90); RED CELL DISTRIBUTION WIDTH 12.9 % (11.6-17.2); WHITE BLOOD COUNT 5.1 TH/MM3 (4.0-11.0)
[2017-05-25 06:52] LABS: BICARBONATE 27.7 MEQ/L (21.0-32.0); CALCIUM 8.4 MG/DL (8.5-10.1); CREATININE 0.73 MG/DL (0.60-1.30); MAGNESIUM 2.1 MG/DL (1.5-2.5)
[2017-05-25 07:04] LABS: TROPONIN I 0.87 NG/ML (0.02-0.05)
[2017-05-25] MEDS: ASPIRIN 81 MG CHEW TAB PO SCH (08:50)
[2017-05-25] MEDS: LISINOPRIL 5 MG TAB PO SCH (08:50)
[2017-05-25] MEDS: CARVEDILOL 6.25 MG TAB PO SCH ×2 (08:50→20:37)
[2017-05-25] MEDS: SODIUM CHLORIDE 0.9% FLUSH 10 ML FLUSH IV FLUSH SCH ×2 (08:51→20:37)
--- NOTE | 2017-05-25 09:13 | RADRPT ---
EXAM DATE/TIME: 05/25/2017 08:22 [facility] COMPARISON: No previous studies available for comparison. INDICATIONS : Preop cardiac surgery. MEDICAL HISTORY : Hypercholesterolemia. Hypertension. Renal calculi. Syncope. Chest pain. GERD. Anticaogulant therap y, Heparin. SURGICAL HISTORY : Cholecystectomy. Right kidney stent. Left leg amputated. Cardiac cath. Blood transfusions. ENCOUNTER: Initial ACUITY: 1 day PAIN SCORE: 2/10 LOCATION: Right leg. TECHNIQUE: Venous ultrasound of the leg was performed from the inguinal ligament to the proximal calf. Real-citlalli e, color Doppler and spectral tracing, compression and augmentation techniques were used. FINDINGS: There is normal compressibility of the deep venous system from the inguinal region to the proximal ca lf. No echogenic clot is seen in the lumen of the common femoral, femoral, popliteal, and posterior tibial veins. There is a normal response of the venous system to proximal and distal augmentation an d respiration. CONCLUSION: Negative for deep venous thrombosis. Ortiz Kimball MD FACR on May 25, 2017 at 9:10 Board Certified Radiologist. This report was verified electronically.
--- NOTE | 2017-05-25 09:17 | RADRPT ---
EXAM DATE/TIME: 05/25/2017 08:29 [facility] COMPARISON: No previous studies available for comparison. INDICATIONS : Preop cardiac surgery. MEDICAL HISTORY : Hypercholesterolemia. Hypertension. Renal calculi. Syncope. Chest pain. GERD. Anticaogulant therapy, Heparin. SURGICAL HISTORY : Cholecystectomy. Right kidney stent. Left leg amputated. Cardiac cath. Blood transfusions. ENCOUNTER: Initial ACUITY: 1 day PAIN SCORE: 2/10 LOCATION: Right leg. GREATER SAPHENOUS VEIN THIGH: PROXIMAL: 6 mm MID: 6 mm DISTAL: 2 mm CALF: PROXIMAL: 4 mm MID: 4 mm DISTAL: 2 mm FINDINGS: The venous system of the lower extremity is patent by color Doppler imaging. Measurements of the leg veins (in mm) are listed above. CONCLUSION: Venous mapping as above Ortiz Kimball MD FACR on May 25, 2017 at 9:15 Board Certified Radiologist. This report was verified electronically.
--- NOTE | 2017-05-25 09:33 | HHI.PR ---
Subjective Remarks Denies cp, sob. Afebrile Objective Vitals Vital Signs Date Time Temp Pulse Resp B/P (MAP) Pulse Ox O2 Delivery O2 Flow Rate FiO2 05/25/17 09:30 95 05/25/17 08:15 58 05/25/17 08:15 97.5 75 18 115/72 (86) 95 05/25/17 06:04 59 05/25/17 05:22 69 05/25/17 04:13 63 05/25/17 03:50 98.0 70 19 120/69 (86) 96 05/25/17 03:20 61 05/25/17 02:48 63 05/25/17 01:09 66 05/25/17 00:01 68 05/24/17 23:54 78 05/24/17 23:54 98.1 73 19 116/79 (91) 94 05/24/17 21:20 80 119/62 05/24/17 19:00 98.3 90 18 119/58 (78) 92 05/24/17 19:00 77 05/24/17 17:00 70 05/24/17 16:31 88 125/80 05/24/17 16:25 83 05/24/17 16:05 16 05/24/17 16:00 80 05/24/17 15:46 90 117/75 05/24/17 13:00 98.1 61 18 118/79 (92) 98 05/24/17 12:15 72 I/O 05/24/17 05/24/17 05/24/17 05/25/17 05/25/17 05/25/17 07:00 15:00 23:00 07:00 15:00 23:00 Intake Total 120 ml 480 ml Output Total 325 ml 300 ml Balance -205 ml 180 ml Intake Oral 120 ml 480 ml Output Urine Total 325 ml 300 ml # Voids 1 2 # Bowel Movements 0 Result Diagram: 05/25/17 0540 05/25/17 0540 Imaging Last Impressions Lower Extremity Ultrasound 05/25/17 0000 Signed Impressions: Service Date/Time: Thursday, May 25, 2017 08:29 - CONCLUSION: Venous mapping as above Ortiz Kimball MD FACR Head Magnetic Resonance Angiography 05/22/17 0000 Signed Impressions: Service Date/Time: Monday, May 22, 2017 18:20 - CONCLUSION: 1. Patent right posterior communicating artery which fills the right posterior cerebral artery. 2. No significant stenosis, occlusion or aneurysm formation. Alex Neves MD Chest X-Ray 05/22/17 0000 Signed Impressions: Service Date/Time: Monday, May 22, 2017 10:22 - CONCLUSION: No acute disease. Jb Craig MD Carotid Artery Ultrasound 05/22/17 0000 Signed Impressions: Service Date/Time: Monday, May 22, 2017 15:56 - CONCLUSION: 1. Patent carotid arteries bilaterally. 2. Antegrade flow involving both vertebral arteries. Jhonathan Perez Jr., MD Brain MRI 05/22/17 0000 Signed Impressions: Service Date/Time: Monday, May 22, 2017 18:20 - CONCLUSION: 1. No acute intracranial abnormality. 2. Mild mucosal thickening involving the maxillary sinuses bilaterally and left ethmoid air cells. Alex Neves MD Objective Remarks AAOx3, NAD Clear lungs BL S1S2 RRR, no MRG abdomen soft, NT, ND no edema in lower extremities Procedures none Medications and IVs Current Medications Medications (Trade) Dose Ordered Sig/Jody Route Start Time Stop Time Status Last Admin (NS Flush) 2 ml UNSCH PRN IV FLUSH 05/22/17 12:15 (NS Flush) 2 ml BID IV FLUSH 05/22/17 21:00 05/24/17 21:00 (Lipitor) 80 mg HS PO 05/22/17 21:00 05/24/17 20:53 (Coreg) 6.25 mg BID PO 05/22/17 21:00 05/25/17 08:50 Patient Own Medication PT OWN MED: OMEPRAZ... DAILY PO 05/23/17 09:00 Future Hold (Aspirin Chew) 81 mg DAILY PO 05/23/17 09:00 05/25/17 08:50 (Prinivil) 2.5 mg DAILY PO 05/24/17 10:30 05/25/17 08:50 (Pill Splitter) 1 ea UNSCH PRN OTHER 05/24/17 10:45 (Nitrostat Sl) 0.4 mg Q5M PRN SL 05/24/17 13:30 Heparin Sodium/ Dextrose 250 ml @ 10 mls/hr TITRATE PRN IV 05/24/17 14:15 05/24/17 15:44 Nitroglycerin/ Dextrose 250 ml @ 1.5 mls/hr TITRATE PRN IV 05/24/17 15:00 05/24/17 15:46 (Tylenol) 650 mg Q6H PRN PO 05/24/17 20:15 (Percocet 5-325 Mg) 1 tab Q6H PRN PO 05/24/17 20:15 05/24/17 21:03 (Percocet 5-325 Mg) 2 tab Q6H PRN PO 05/24/17 20:15 A/P Problem List: (1) Syncope ICD Code: R55 - Syncope and collapse Status: Acute Plan: Poss cardiac etiology. Patient with cardiomyopathy and an ef of 20 - 25%. 2-D echocardiogram showed global hypokinesis and EF of 10-20%. ECG negative. MRI no acute pathology. Neurology consulted. Patient has been cleared by neurology however shouldn't drive until seen outpatient. (2) Chest pain ICD Code: R07.9 - Chest pain, unspecified Status: Acute Plan: The patient complain of chest pain in the afternoon of 05/24/17. Patient was given nitroglycerin which seemed to help relieve the pain, however this came back. EKG showed some anterolateral T-wave inversion which was stable from 2 days ago as per medical records. Troponin went up to 1.02 and the patient was started on IV heparin. The patient underwent cardiac catheterization which showed severe ostial LAD disease of 90% to 95%, severe ostial 80-90% RCA disease, mild left ventricle systolic dysfunction with an EF of 50%. CABG was recommended by cardiology. Titrate nitroglycerin drip. Continue IV heparin. (3) Cardiomyopathy ICD Code: I42.9 - Cardiomyopathy, unspecified Status: Acute Plan: The patient has likely ischemic cardiomyopathy. Undergoing evaluation for CABG. Cardiology consulted. Continue aspirin, Lipitor, lisinopril, carvedilol. (4) CAD (coronary artery disease) ICD Code: I25.10 - Atherosclerotic heart disease of [place] coronary artery without angina pectoris Status: Chronic Plan: Clear to surgery consulted for CABG. Continue medications as above. Off heparin drip. (5) HTN (hypertension) ICD Code: I10 - Essential (primary) hypertension Status: Chronic Plan: The pressure seems to be stable. Continue JERED inhibitor and beta jozef. (6) HLD (hyperlipidemia) ICD Code: E78.5 - Hyperlipidemia, unspecified Status: Chronic Plan: Continue statin. Will check fasting lipid profile. (7) NSTEMI (non-ST elevated myocardial infarction) ICD Code: I21.4 - Non-ST elevation (NSTEMI) myocardial infarction Status: Acute Plan: Patient is sp chest pain with elevated troponin levels. Cardiac cath showed multivessel CAD. Undergoing evaluation for CABG. Continue medications as above, Continue IV heparin as per cardiology recommendations. Titrate Nitroglycerin drip. Assessment and Plan DVT prophylaxis: on heparin gtt, SCD's Discharge Planning Awaiting CABG Problem Qualifiers (1) Cardiomyopathy: Qualified Codes: I25.5 - Ischemic cardiomyopathy (2) CAD (coronary artery disease): Qualified Codes: I25.110 - Atherosclerotic heart disease of [place] coronary artery with unstable angina pectoris (3) HTN (hypertension): Qualified Codes: I10 - Essential (primary) hypertension (4) HLD (hyperlipidemia): Qualified Codes: E78.5 - Hyperlipidemia, unspecified Mike Wright MD May 25, 2017 09:33
[2017-05-25] MEDS: HEPARIN-D5W 25,000 U/250 ML 250 ML IV PRN (11:35)
--- NOTE | 2017-05-25 12:12 | PD.CAR.PN ---
CVT Progress Note Subjective/Hospital Course: Pt examined and chart reviewed. Full consult dictated. Conflicting reports regarding ventricular function. Will need repeat ECHO on to confirm LV function. Also has been on Brilinta and will need to wait at least 5 days before surgery. Will check Plavix Verify tomorrow with potential OR Thursday depending of coagulation status as well as ECHO findings. Objective: Vital Signs Date Time Temp Pulse Resp B/P (MAP) Pulse Ox O2 Delivery O2 Flow Rate FiO2 05/25/17 11:06 72 05/25/17 11:06 97.8 89 18 116/72 (87) 95 05/25/17 10:00 89 05/25/17 09:30 95 05/25/17 08:15 58 05/25/17 08:15 97.5 75 18 115/72 (86) 95 05/25/17 06:04 59 05/25/17 05:22 69 05/25/17 04:13 63 05/25/17 03:50 98.0 70 19 120/69 (86) 96 05/25/17 03:20 61 05/25/17 02:48 63 05/25/17 01:09 66 05/25/17 00:01 68 05/24/17 23:54 78 05/24/17 23:54 98.1 73 19 116/79 (91) 94 05/24/17 21:20 80 119/62 05/24/17 19:00 98.3 90 18 119/58 (78) 92 05/24/17 19:00 77 05/24/17 17:00 70 05/24/17 16:31 88 125/80 05/24/17 16:25 83 05/24/17 16:05 16 05/24/17 16:00 80 05/24/17 15:46 90 117/75 05/24/17 13:00 98.1 61 18 118/79 (92) 98 05/24/17 12:15 72 Labs: Laboratory Tests Test 05/25/17 05:40 White Blood Count 5.1 TH/MM3 (4.0-11.0) Red Blood Count 3.82 MIL/MM3 (4.50-5.90) Hemoglobin 13.0 GM/DL (13.0-17.0) Hematocrit 38.0 % (39.0-51.0) Mean Corpuscular Volume 99.4 FL (80.0-100.0) Mean Corpuscular Hemoglobin 34.0 PG (27.0-34.0) Mean Corpuscular Hemoglobin Concent 34.2 % (32.0-36.0) Red Cell Distribution Width 12.9 % (11.6-17.2) Platelet Count 145 TH/MM3 (150-450) Mean Platelet Volume 8.1 FL (7.0-11.0) Activated Partial Thromboplast Time 43.6 SEC (24.3-30.1) Blood Urea Nitrogen 13 MG/DL (7-18) Creatinine 0.73 MG/DL (0.60-1.30) Random Glucose 95 MG/DL (74-106) Calcium Level 8.4 MG/DL (8.5-10.1) Magnesium Level 2.1 MG/DL (1.5-2.5) Sodium Level 139 MEQ/L (136-145) Potassium Level 3.9 MEQ/L (3.5-5.1) Chloride Level 106 MEQ/L (98-107) Carbon Dioxide Level 27.7 MEQ/L (21.0-32.0) Anion Gap 5 MEQ/L (5-15) Estimat Glomerular Filtration Rate 108 ML/MIN (>89) Troponin I 0.87 NG/ML (0.02-0.05) Result Diagram: 05/25/17 0540 05/25/17 0540 Janine Chang MD May 25, 2017 12:12
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
[2017-05-25] MEDS ORDERED: VANCOMYCIN INJ 1,000 MG in SODIUM CHLORIDE 0.9% IRR BTL 1,000 ML IRRIGATION SCH (14:15)
[2017-05-25] MEDS ORDERED: METOPROLOL TARTRATE 25 MG TAB PO SCH (14:15)
[2017-05-25] MEDS ORDERED: PAPAVERINE INJ 60 MG, NITROGLYCERIN INJ 100 MCG, DILTIAZEM INJ 100 MG in SODIUM CHLORID... IRRIGATION SCH (14:15)
[2017-05-25] MEDS ORDERED: DEXTROSE 50% IN WATER 50 ML VIAL(D50) IV PUSH PRN (14:15)
[2017-05-25] MEDS ORDERED: CHLORHEXIDINE GLUCONATE 4% SOLN 120 ML BTL TOPICAL SCH (14:15)
[2017-05-25] MEDS ORDERED: INSULIN REGULAR (IV INFUSION) 100 UNITS in SODIUM CHLORIDE 0.9% INJ 99 ML IV PRN (14:15)
[2017-05-25] MEDS ORDERED: VANCOMYCIN INJ 1,250 MG in SODIUM CHLOR 0.9% 250 ML INJ 250 ML IV SCH (14:15)
--- NOTE | 2017-05-25 14:19 | PD.CAR.PN ---
CVT Progress Note Subjective/Hospital Course: Risk Model and Variables - [facility] Adult Cardiac Surgery Database Version 2.81 RISK SCORES About the STS Risk Calculator Procedure: CAB Only Risk of Mortality: 0.885% Morbidity or Mortality: 11.233% Long Length of Stay: 4.154% Short Length of Stay: 51.225% Permanent Stroke: 0.655% Prolonged Ventilation: 8.114% DSW Infection: 0.46% Renal Failure: 1.024% Reoperation: 4.705% Objective: Vital Signs Date Time Temp Pulse Resp B/P (MAP) Pulse Ox O2 Delivery O2 Flow Rate FiO2 05/25/17 13:34 74 05/25/17 12:14 64 05/25/17 11:06 72 05/25/17 11:06 97.8 89 18 116/72 (87) 95 05/25/17 10:00 89 05/25/17 09:30 95 05/25/17 08:15 58 05/25/17 08:15 97.5 75 18 115/72 (86) 95 05/25/17 07:00 75 115/72 05/25/17 06:04 59 05/25/17 05:22 69 05/25/17 04:13 63 05/25/17 03:50 98.0 70 19 120/69 (86) 96 05/25/17 03:20 61 05/25/17 02:48 63 05/25/17 01:09 66 05/25/17 00:01 68 05/24/17 23:54 78 05/24/17 23:54 98.1 73 19 116/79 (91) 94 05/24/17 21:20 80 119/62 05/24/17 19:00 98.3 90 18 119/58 (78) 92 05/24/17 19:00 77 05/24/17 17:00 70 05/24/17 16:31 88 125/80 05/24/17 16:25 83 05/24/17 16:05 16 05/24/17 16:00 80 05/24/17 15:46 90 117/75 Labs: Laboratory Tests Test 05/25/17 05:40 05/25/17 12:18 05/25/17 12:30 White Blood Count 5.1 TH/MM3 (4.0-11.0) Red Blood Count 3.82 MIL/MM3 (4.50-5.90) Hemoglobin 13.0 GM/DL (13.0-17.0) Hematocrit 38.0 % (39.0-51.0) Mean Corpuscular Volume 99.4 FL (80.0-100.0) Mean Corpuscular Hemoglobin 34.0 PG (27.0-34.0) Mean Corpuscular Hemoglobin Concent 34.2 % (32.0-36.0) Red Cell Distribution Width 12.9 % (11.6-17.2) Platelet Count 145 TH/MM3 (150-450) Mean Platelet Volume 8.1 FL (7.0-11.0) Activated Partial Thromboplast Time 43.6 SEC (24.3-30.1) 37.9 SEC (24.3-30.1) Blood Urea Nitrogen 13 MG/DL (7-18) Creatinine 0.73 MG/DL (0.60-1.30) Random Glucose 95 MG/DL (74-106) Calcium Level 8.4 MG/DL (8.5-10.1) Magnesium Level 2.1 MG/DL (1.5-2.5) Sodium Level 139 MEQ/L (136-145) Potassium Level 3.9 MEQ/L (3.5-5.1) Chloride Level 106 MEQ/L (98-107) Carbon Dioxide Level 27.7 MEQ/L (21.0-32.0) Anion Gap 5 MEQ/L (5-15) Estimat Glomerular Filtration Rate 108 ML/MIN (>89) Troponin I 0.87 NG/ML (0.02-0.05) Result Diagram: 05/25/17 0540 05/25/17 0540 Janine Chang MD May 25, 2017 14:19
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
[2017-05-25 14:42] LABS: BILIRUBIN, URINE NEG (NEG); BLOOD, URINE NEG (NEG); GLUCOSE,URINE NEG (NEG); KETONE, URINE NEG (NEG); MUCUS URINE FEW /lpf (OCC); NITRITE,URINE NEG (NEG); PH, URINE 5.5 (5.0-8.5); URINE COLOR YELLOW (YELLW/STRAW); URINE LEUKOCYTE ESTERASE NEG (NEG)
[2017-05-25 16:44] LABS: HEMOGLOBIN A1C 5.6 % (4.3-6.0)
[2017-05-25] MEDS: ATORVASTATIN 80 MG TAB PO SCH (20:37)
[2017-05-25] MEDS: MUPIROCIN 2% OINT 1 APPLIC/GM SYR EACH NARE SCH (20:37)
--- NOTE | 2017-05-25 23:06 | EKG ---
Date Performed: 05/24/2017 Time Performed: 13:07:50 PTAGE: 66 years EKG: Sinus rhythm WITH SINUS ARRHYTHMIA ST DEVIATION AND MODERATE T-WAVE ABNORMALITY, CONSIDER ANTEROLATERAL ISCHEMIA ABNORMAL ECG PREVIOUS TRACING : 05/22/2017 18.00 DOCTOR: Luis Fallon Interpretating Date/Time 05/25/2017 23:03:33
--- NOTE | 2017-05-25 23:12 | HM ---
Date Performed: 05/23/2017 Time Performed: 14:56:00 HOOKUP DATE: 05/23/17 02:56:00 PM Sat ANALYSIS START TIME: 05/23/2017 3:01:00 PM ANALYSIS END TIME: 05/24/2017 1:50:00 PM PATIENT AGE: 66 PATIENT HEIGHT: 61 PATIENT WEIGHT: 209 DRUG LIST: ROOM # [id number] PATIENT DIAGNOSIS: SYNCOPE / EVAC TEST NARRATIVE: The patient's average heart rate was 74 BPM. No episodes of tachycardia wer e noted. No episodes of bradycardia were noted. No pauses exceeding 2.0 seconds were noted. 6498 ventricular ectopics, which represented 6% of the total beat count, were noted. The highest rios tricular ectopic frequency occurred from 10:00 PM to 11:00 PM Sat. During this time 686 VE(s) occurr ed. Ventricular ectopics were observed as 6010 isolated beat(s), as 224 couplet(s) and as 12 run(s). Some of the ventricular beats occurred in bigeminal cycles. 1 supraventricular ectopics, which represented < 1% of the total beat count, were noted. The highest supraventricular ectopic frequency occurred from 03:00 AM to 04:00 AM Sun. During this time 1 SVE(s) occurred. No episodes of ST d epression (defined as -1.0 mm or more) were noted in channel 1. No episodes of ST depression (define d as -1.0 mm or more) were noted in channel 2. No episodes of ST depression (defined as -1.0 mm or m ore) were noted in channel 3. NO DIARY RETURNED TEST INTERPRETATION: Sinus rhythm Multiple PVCs No pause No ventricular tachycardia No supraventricular tachycardia observed There is no entry in the diary Signed by : Luis Fallon
[2017-05-26] VITALS (26 sets, daily range): BP systolic 111–129; BP diastolic 64–73; PULSE 58–92; RESP 14–19; TEMP 98–98.6; O2SAT 94–97
[2017-05-26 03:07] LABS: HEMATOCRIT 38.1 % (39.0-51.0); MEAN CELL VOLUME 99.3 FL (80.0-100.0); MEAN CORPUSCULAR HGB CONC 34.2 % (32.0-36.0); MEAN PLATELET VOLUME 8.1 FL (7.0-11.0); PLATELET COUNT 144 TH/MM3 (150-450); RED BLOOD COUNT 3.84 MIL/MM3 (4.50-5.90); RED CELL DISTRIBUTION WIDTH 12.8 % (11.6-17.2); WHITE BLOOD COUNT 5.2 TH/MM3 (4.0-11.0)
[2017-05-26 03:22] LABS: BICARBONATE 29.5 MEQ/L (21.0-32.0); CALCIUM 8.5 MG/DL (8.5-10.1); CREATININE 0.69 MG/DL (0.60-1.30)
[2017-05-26] MEDS: SODIUM CHLORIDE 0.9% FLUSH 10 ML FLUSH IV FLUSH SCH ×2 (09:00→21:00)
[2017-05-26] MEDS: MUPIROCIN 2% OINT 1 APPLIC/GM SYR EACH NARE SCH ×2 (09:23→21:29)
[2017-05-26] MEDS: LISINOPRIL 5 MG TAB PO SCH (09:24)
[2017-05-26] MEDS: ASPIRIN 81 MG CHEW TAB PO SCH (09:24)
[2017-05-26] MEDS: CARVEDILOL 6.25 MG TAB PO SCH ×2 (09:24→21:29)
[2017-05-26 09:30] LABS: CHOLESTEROL/ HDL RATIO 1.84 RATIO; HDL CHOLESTEROL 62.8 MG/DL (40.0-60.0)
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
[2017-05-26] MEDS: HEPARIN-D5W 25,000 U/250 ML 250 ML IV PRN (10:10)
--- NOTE | 2017-05-26 16:11 | HHI.PR ---
Subjective Remarks Denies cp/sob. Objective Vitals Vital Signs Date Time Temp Pulse Resp B/P (MAP) Pulse Ox O2 Delivery O2 Flow Rate FiO2 05/26/17 15:00 72 16 129/73 (91) 94 05/26/17 15:00 72 05/26/17 14:00 71 05/26/17 13:00 70 05/26/17 12:00 68 05/26/17 11:30 98.6 70 18 116/73 (87) 96 05/26/17 11:00 64 05/26/17 10:00 73 05/26/17 09:00 84 05/26/17 08:00 89 05/26/17 07:00 69 05/26/17 07:00 98.4 63 14 122/64 (83) 97 05/26/17 06:11 64 05/26/17 05:19 58 05/26/17 04:14 62 05/26/17 03:44 98.5 69 19 116/67 (83) 94 05/26/17 03:29 63 05/26/17 02:00 79 05/26/17 01:29 68 05/26/17 00:08 82 05/25/17 23:10 60 05/25/17 23:10 98.0 73 21 115/63 (80) 98 05/25/17 22:00 70 05/25/17 21:00 75 05/25/17 20:00 70 05/25/17 19:20 98.1 72 20 117/71 (86) 93 05/25/17 19:20 77 05/25/17 18:03 64 05/25/17 17:04 74 I/O 05/25/17 05/25/17 05/25/17 05/26/17 05/26/17 05/26/17 07:00 15:00 23:00 07:00 15:00 23:00 Intake Total 480 ml 77 ml 636 ml 240 ml Output Total 300 ml 850 ml 800 ml Balance 180 ml 77 ml -214 ml -560 ml Intake Oral 480 ml 600 ml 240 ml IV Total 77 ml 36 ml Output Urine Total 300 ml 850 ml 800 ml # Voids 2 # Bowel Movements 0 2 0 Result Diagram: 05/26/17 0246 05/26/17 0246 Imaging Last Impressions Lower Extremity Ultrasound 05/25/17 0000 Signed Impressions: Service Date/Time: Thursday, May 25, 2017 08:29 - CONCLUSION: Venous mapping as above Ortiz Kimball MD FACR Head Magnetic Resonance Angiography 05/22/17 0000 Signed Impressions: Service Date/Time: Monday, May 22, 2017 18:20 - CONCLUSION: 1. Patent right posterior communicating artery which fills the right posterior cerebral artery. 2. No significant stenosis, occlusion or aneurysm formation. Alex Neves MD Chest X-Ray 05/22/17 0000 Signed Impressions: Service Date/Time: Monday, May 22, 2017 10:22 - CONCLUSION: No acute disease. Jb Craig MD Carotid Artery Ultrasound 05/22/17 0000 Signed Impressions: Service Date/Time: Monday, May 22, 2017 15:56 - CONCLUSION: 1. Patent carotid arteries bilaterally. 2. Antegrade flow involving both vertebral arteries. Jhonathan Perez Jr., MD Brain MRI 05/22/17 0000 Signed Impressions: Service Date/Time: Monday, May 22, 2017 18:20 - CONCLUSION: 1. No acute intracranial abnormality. 2. Mild mucosal thickening involving the maxillary sinuses bilaterally and left ethmoid air cells. Alex Neves MD Objective Remarks AAOx3, NAD Clear lungs BL S1S2 RRR, no MRG abdomen soft, NT, ND no edema in lower extremities Procedures none Medications and IVs Current Medications Medications (Trade) Dose Ordered Sig/Jody Route Start Time Stop Time Status Last Admin (NS Flush) 2 ml UNSCH PRN IV FLUSH 05/22/17 12:15 (NS Flush) 2 ml BID IV FLUSH 05/22/17 21:00 05/26/17 09:00 (Lipitor) 80 mg HS PO 05/22/17 21:00 05/25/17 20:37 (Coreg) 6.25 mg BID PO 05/22/17 21:00 05/26/17 09:24 Patient Own Medication PT OWN MED: OMEPRAZ... DAILY PO 05/23/17 09:00 Future Hold (Aspirin Chew) 81 mg DAILY PO 05/23/17 09:00 05/26/17 09:24 (Prinivil) 2.5 mg DAILY PO 05/24/17 10:30 05/26/17 09:24 (Pill Splitter) 1 ea UNSCH PRN OTHER 05/24/17 10:45 (Nitrostat Sl) 0.4 mg Q5M PRN SL 05/24/17 13:30 Heparin Sodium/ Dextrose 250 ml @ 10 mls/hr TITRATE PRN IV 05/24/17 14:15 05/26/17 10:10 Nitroglycerin/ Dextrose 250 ml @ 1.5 mls/hr TITRATE PRN IV 05/24/17 15:00 05/24/17 15:46 (Tylenol) 650 mg Q6H PRN PO 05/24/17 20:15 (Percocet 5-325 Mg) 1 tab Q6H PRN PO 05/24/17 20:15 05/24/17 21:03 (Percocet 5-325 Mg) 2 tab Q6H PRN PO 05/24/17 20:15 Papaverine HCl 60 mg/Nitroglycerin 100 mcg/Diltiazem HCl 100 mg/Sodium Chloride 100 ml @ 0 mls/hr GLOBAL CMO IRRIGATION 05/25/17 14:15 06/01/17 14:14 Vancomycin HCl 1000 mg/Sodium Chloride 1,000 ml @ 0 mls/hr GLOBAL CMO IRRIGATION 05/25/17 14:15 06/01/17 14:14 Vancomycin HCl 1250 mg/Sodium Chloride 262.5 ml @ 262.5 mls/ hr GLOBAL CMO IV 05/25/17 14:15 06/01/17 14:14 (Lopressor) 12.5 mg GLOBAL CMO PO 05/25/17 14:15 06/01/17 14:14 (Bactroban Nasal 2% Oint) 1 applic BID EACH NARE 05/25/17 21:00 05/30/17 20:59 05/26/17 09:23 (Hibiclens 4% Top Soln) 1 applic GLOBAL CMO TOPICAL 05/25/17 14:15 06/01/17 14:14 Insulin Human Regular 100 units/ Sodium Chloride 100 ml @ 3 mls/hr TITRATE PRN IV 05/25/17 14:15 06/01/17 14:14 (D50w (Vial) Inj) 50 ml UNSCH PRN IV PUSH 05/25/17 14:15 A/P Problem List: (1) Syncope ICD Code: R55 - Syncope and collapse Status: Acute (2) Chest pain ICD Code: R07.9 - Chest pain, unspecified Status: Acute (3) Cardiomyopathy ICD Code: I42.9 - Cardiomyopathy, unspecified Status: Acute (4) CAD (coronary artery disease) ICD Code: I25.10 - Atherosclerotic heart disease of [place] coronary artery without angina pectoris Status: Chronic (5) HTN (hypertension) ICD Code: I10 - Essential (primary) hypertension Status: Chronic (6) HLD (hyperlipidemia) ICD Code: E78.5 - Hyperlipidemia, unspecified Status: Chronic (7) NSTEMI (non-ST elevated myocardial infarction) ICD Code: I21.4 - Non-ST elevation (NSTEMI) myocardial infarction Status: Acute Assessment and Plan (1) Syncope Plan: Poss cardiac etiology. Patient with cardiomyopathy and an ef of 20 - 25%. 2-D echocardiogram showed global hypokinesis and EF of 10-20%. ECG negative. MRI no acute pathology. MRA shows a patent right posterior communicating artery which fills the right posterior cerebral artery. No significant stenosis, occlusion or aneurysm formation. Carotid ultrasound shows patent carotid arteries bilaterally. Neurology consulted. Patient has been cleared by neurology however shouldn't drive until seen outpatient. (2) Chest pain Plan: The patient complain of chest pain in the afternoon of 05/24/17. Patient was given nitroglycerin which seemed to help relieve the pain, however this came back. EKG showed some anterolateral T-wave inversion which was stable from 2 days ago as per medical records. Troponin went up to 1.02 and the patient was started on IV heparin. The patient underwent cardiac catheterization which showed severe ostial LAD disease of 90% to 95%, severe ostial 80-90% RCA disease, mild left ventricle systolic dysfunction with an EF of 50%. CABG was recommended by cardiology. Titrate nitroglycerin drip. Continue IV heparin. (3) Cardiomyopathy Plan: The patient has likely ischemic cardiomyopathy. Undergoing evaluation for CABG. Cardiology consulted. Continue aspirin, Lipitor, lisinopril, carvedilol. (4) CAD (coronary artery disease) Plan: CT surgery surgery consulted for CABG. Continue medications as above. 05/26 Patient is currently undergoing evaluation for CABG. Tentatively on Thursday. Fu CT surgery. To the endocardium shows normal left ventricular size. The left ventricular systolic function severely reduced with an estimated ejection fraction of range of 20-25%. Lower hypokinesis described. Trace mitral bile regurgitation, mild tricuspid valve regurgitation. Follow-up CT surgery recommendations. (5) HTN (hypertension) Plan: The pressure seems to be stable. Continue JERED inhibitor and beta jozef. (6) HLD (hyperlipidemia) Plan: Continue statin. Will check fasting lipid profile. (7) NSTEMI (non-ST elevated myocardial infarction) ICD Code: I21.4 - Non-ST elevation (NSTEMI) myocardial infarction Status: Acute Plan: Patient is sp chest pain with elevated troponin levels. Cardiac cath showed multivessel CAD. Undergoing evaluation for CABG. Continue medications as above, Continue IV heparin as per cardiology recommendations. Titrate Nitroglycerin drip. DVT prophylaxis: on heparin gtt, SCD's Discharge Planning Awaiting possible CABG on thursday. Problem Qualifiers (1) Cardiomyopathy: Qualified Codes: I25.5 - Ischemic cardiomyopathy (2) CAD (coronary artery disease): Qualified Codes: I25.110 - Atherosclerotic heart disease of [place] coronary artery with unstable angina pectoris (3) HTN (hypertension): Qualified Codes: I10 - Essential (primary) hypertension (4) HLD (hyperlipidemia): Qualified Codes: E78.5 - Hyperlipidemia, unspecified Mike Wright MD May 26, 2017 16:11
[2017-05-26] MEDS: ATORVASTATIN 80 MG TAB PO SCH (21:29)
[2017-05-27] VITALS (26 sets, daily range): BP systolic 92–130; BP diastolic 57–72; PULSE 55–100; RESP 18; TEMP 97.7–98.4; O2SAT 95–99
[2017-05-27] MEDS: HEPARIN-D5W 25,000 U/250 ML 250 ML IV PRN ×2 (04:19→23:43)
[2017-05-27 04:46] LABS: HEMATOCRIT 38.5 % (39.0-51.0); HEMOGLOBIN 13.1 GM/DL (13.0-17.0); MEAN CELL VOLUME 99.8 FL (80.0-100.0); MEAN CORPUSCULAR HEMOGLOBIN 33.8 PG (27.0-34.0); MEAN CORPUSCULAR HGB CONC 33.9 % (32.0-36.0); MEAN PLATELET VOLUME 8.4 FL (7.0-11.0); PLATELET COUNT 138 TH/MM3 (150-450); RED BLOOD COUNT 3.86 MIL/MM3 (4.50-5.90); RED CELL DISTRIBUTION WIDTH 12.9 % (11.6-17.2); WHITE BLOOD COUNT 5.1 TH/MM3 (4.0-11.0)
[2017-05-27] MEDS: LISINOPRIL 5 MG TAB PO SCH (09:06)
[2017-05-27] MEDS: CARVEDILOL 6.25 MG TAB PO SCH ×2 (09:06→21:06)
[2017-05-27] MEDS: ASPIRIN 81 MG CHEW TAB PO SCH (09:06)
[2017-05-27] MEDS: SODIUM CHLORIDE 0.9% FLUSH 10 ML FLUSH IV FLUSH SCH ×2 (09:07→21:00)
[2017-05-27] MEDS: MUPIROCIN 2% OINT 1 APPLIC/GM SYR EACH NARE SCH ×2 (09:07→21:06)
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
--- NOTE | 2017-05-27 11:29 | PD.CAR.PN ---
CVT Progress Note Subjective/Hospital Course: OR Thursday pending ECHO and Plavix Verify findings. Objective: Vital Signs Date Time Temp Pulse Resp B/P (MAP) Pulse Ox O2 Delivery O2 Flow Rate FiO2 05/27/17 07:30 64 05/27/17 07:30 98.3 64 18 117/72 (87) 98 05/27/17 06:00 78 05/27/17 05:00 67 05/27/17 04:00 65 05/27/17 03:00 98.0 70 104/67 (79) 98 05/27/17 03:00 64 05/27/17 02:00 64 05/27/17 01:00 70 05/27/17 00:00 68 05/26/17 23:00 68 05/26/17 23:00 98.0 70 112/70 (84) 97 05/26/17 22:00 64 05/26/17 21:00 72 05/26/17 20:00 92 05/26/17 19:00 80 05/26/17 19:00 98.0 81 111/68 (82) 95 05/26/17 18:00 72 05/26/17 17:00 73 05/26/17 16:00 67 05/26/17 15:00 72 16 129/73 (91) 94 05/26/17 15:00 72 05/26/17 14:00 71 05/26/17 13:00 70 05/26/17 12:00 68 05/26/17 11:30 98.6 70 18 116/73 (87) 96 Labs: Laboratory Tests Test 05/27/17 04:10 White Blood Count 5.1 TH/MM3 (4.0-11.0) Red Blood Count 3.86 MIL/MM3 (4.50-5.90) Hemoglobin 13.1 GM/DL (13.0-17.0) Hematocrit 38.5 % (39.0-51.0) Mean Corpuscular Volume 99.8 FL (80.0-100.0) Mean Corpuscular Hemoglobin 33.8 PG (27.0-34.0) Mean Corpuscular Hemoglobin Concent 33.9 % (32.0-36.0) Red Cell Distribution Width 12.9 % (11.6-17.2) Platelet Count 138 TH/MM3 (150-450) Mean Platelet Volume 8.4 FL (7.0-11.0) Activated Partial Thromboplast Time 42.2 SEC (24.3-30.1) Result Diagram: 05/27/17 0410 05/26/17 0246 (1) CAD (coronary artery disease) (2) NSTEMI (non-ST elevated myocardial infarction) (3) Cardiomyopathy Problem Qualifiers (1) CAD (coronary artery disease): Qualified Codes: I25.110 - Atherosclerotic heart disease of [place] coronary artery with unstable angina pectoris (2) Cardiomyopathy: Qualified Codes: I25.5 - Ischemic cardiomyopathy Janine Chang MD May 27, 2017 11:29
--- NOTE | 2017-05-27 18:54 | HHI.PR ---
Subjective Remarks Denies cp/sob. Daughter and at bedside. Objective Vitals Vital Signs Date Time Temp Pulse Resp B/P (MAP) Pulse Ox O2 Delivery O2 Flow Rate FiO2 05/27/17 18:00 64 05/27/17 17:21 62 05/27/17 16:00 68 05/27/17 15:09 97.7 76 18 92/57 (69) 99 05/27/17 15:09 76 05/27/17 15:00 72 05/27/17 14:00 70 05/27/17 13:00 76 05/27/17 12:00 70 05/27/17 11:49 72 05/27/17 11:49 97.7 72 18 98/66 (77) 99 05/27/17 11:00 74 05/27/17 10:00 82 05/27/17 09:00 100 05/27/17 08:00 68 05/27/17 07:30 64 05/27/17 07:30 98.3 64 18 117/72 (87) 98 05/27/17 06:00 78 05/27/17 05:00 67 05/27/17 04:00 65 05/27/17 03:00 98.0 70 104/67 (79) 98 05/27/17 03:00 64 05/27/17 02:00 64 05/27/17 01:00 70 05/27/17 00:00 68 05/26/17 23:00 68 05/26/17 23:00 98.0 70 112/70 (84) 97 05/26/17 22:00 64 05/26/17 21:00 72 05/26/17 20:00 92 05/26/17 19:00 80 05/26/17 19:00 98.0 81 111/68 (82) 95 I/O 05/26/17 05/26/17 05/26/17 05/27/17 05/27/17 05/27/17 07:00 15:00 23:00 07:00 15:00 23:00 Intake Total 240 ml 963.5 ml 522.8 ml 1061 ml Output Total 800 ml 600 ml 950 ml 1100 ml Balance -560 ml 363.5 ml -427.2 ml -39 ml Intake Oral 240 ml 720 ml 360 ml 900 ml IV Total 243.5 ml 162.8 ml 161 ml Output Urine Total 800 ml 600 ml 950 ml 1100 ml # Bowel Movements 0 1 2 Result Diagram: 05/27/17 0410 05/26/17 0246 Imaging Last Impressions Lower Extremity Ultrasound 05/25/17 0000 Signed Impressions: Service Date/Time: Thursday, May 25, 2017 08:29 - CONCLUSION: Venous mapping as above Ortiz Kimball MD FACR Head Magnetic Resonance Angiography 05/22/17 0000 Signed Impressions: Service Date/Time: Monday, May 22, 2017 18:20 - CONCLUSION: 1. Patent right posterior communicating artery which fills the right posterior cerebral artery. 2. No significant stenosis, occlusion or aneurysm formation. Alex Neves MD Chest X-Ray 05/22/17 0000 Signed Impressions: Service Date/Time: Monday, May 22, 2017 10:22 - CONCLUSION: No acute disease. Jb Craig MD Carotid Artery Ultrasound 05/22/17 0000 Signed Impressions: Service Date/Time: Monday, May 22, 2017 15:56 - CONCLUSION: 1. Patent carotid arteries bilaterally. 2. Antegrade flow involving both vertebral arteries. Jhonathan Perez Jr., MD Brain MRI 05/22/17 0000 Signed Impressions: Service Date/Time: Monday, May 22, 2017 18:20 - CONCLUSION: 1. No acute intracranial abnormality. 2. Mild mucosal thickening involving the maxillary sinuses bilaterally and left ethmoid air cells. Alex Neves MD Objective Remarks AAOx3, NAD Clear lungs BL S1S2 RRR, no MRG abdomen soft, NT, ND no edema in lower extremities Procedures none Medications and IVs Current Medications Medications (Trade) Dose Ordered Sig/Jody Route Start Time Stop Time Status Last Admin (NS Flush) 2 ml UNSCH PRN IV FLUSH 05/22/17 12:15 (NS Flush) 2 ml BID IV FLUSH 05/22/17 21:00 05/27/17 09:07 (Lipitor) 80 mg HS PO 05/22/17 21:00 05/26/17 21:29 (Coreg) 6.25 mg BID PO 05/22/17 21:00 05/27/17 09:06 Patient Own Medication PT OWN MED: OMEPRAZ... DAILY PO 05/23/17 09:00 Future Hold (Aspirin Chew) 81 mg DAILY PO 05/23/17 09:00 2/7/18 09:06 (Prinivil) 2.5 mg DAILY PO 05/24/17 10:30 05/27/17 09:06 (Pill Splitter) 1 ea UNSCH PRN OTHER 05/24/17 10:45 (Nitrostat Sl) 0.4 mg Q5M PRN SL 05/24/17 13:30 Heparin Sodium/ Dextrose 250 ml @ 10 mls/hr TITRATE PRN IV 05/24/17 14:15 05/27/17 04:19 Nitroglycerin/ Dextrose 250 ml @ 1.5 mls/hr TITRATE PRN IV 05/24/17 15:00 05/24/17 15:46 (Tylenol) 650 mg Q6H PRN PO 05/24/17 20:15 (Percocet 5-325 Mg) 1 tab Q6H PRN PO 05/24/17 20:15 05/24/17 21:03 (Percocet 5-325 Mg) 2 tab Q6H PRN PO 05/24/17 20:15 Papaverine HCl 60 mg/Nitroglycerin 100 mcg/Diltiazem HCl 100 mg/Sodium Chloride 100 ml @ 0 mls/hr ORTHOPHOTO TECH/DRAFTSMAN IRRIGATION 05/25/17 14:15 06/01/17 14:14 Vancomycin HCl 1000 mg/Sodium Chloride 1,000 ml @ 0 mls/hr ORTHOPHOTO TECH/DRAFTSMAN IRRIGATION 05/25/17 14:15 06/01/17 14:14 Vancomycin HCl 1250 mg/Sodium Chloride 262.5 ml @ 262.5 mls/ hr ORTHOPHOTO TECH/DRAFTSMAN IV 05/25/17 14:15 06/01/17 14:14 (Lopressor) 12.5 mg ORTHOPHOTO TECH/DRAFTSMAN PO 05/25/17 14:15 06/01/17 14:14 (Bactroban Nasal 2% Oint) 1 applic BID EACH NARE 05/25/17 21:00 05/30/17 20:59 05/27/17 09:07 (Hibiclens 4% Top Soln) 1 applic ORTHOPHOTO TECH/DRAFTSMAN TOPICAL 05/25/17 14:15 06/01/17 14:14 Insulin Human Regular 100 units/ Sodium Chloride 100 ml @ 3 mls/hr TITRATE PRN IV 05/25/17 14:15 06/01/17 14:14 (D50w (Vial) Inj) 50 ml UNSCH PRN IV PUSH 05/25/17 14:15 A/P Problem List: (1) Syncope ICD Code: R55 - Syncope and collapse Status: Acute (2) Chest pain ICD Code: R07.9 - Chest pain, unspecified Status: Acute (3) Cardiomyopathy ICD Code: I42.9 - Cardiomyopathy, unspecified Status: Acute (4) CAD (coronary artery disease) ICD Code: I25.10 - Atherosclerotic heart disease of [place] coronary artery without angina pectoris Status: Chronic (5) HTN (hypertension) ICD Code: I10 - Essential (primary) hypertension Status: Chronic (6) HLD (hyperlipidemia) ICD Code: E78.5 - Hyperlipidemia, unspecified Status: Chronic (7) NSTEMI (non-ST elevated myocardial infarction) ICD Code: I21.4 - Non-ST elevation (NSTEMI) myocardial infarction Status: Acute Assessment and Plan (1) Syncope Plan: Poss cardiac etiology. Patient with cardiomyopathy and an ef of 20 - 25%. 2-D echocardiogram showed global hypokinesis and EF of 10-20%. ECG negative. MRI no acute pathology. MRA shows a patent right posterior communicating artery which fills the right posterior cerebral artery. No significant stenosis, occlusion or aneurysm formation. Carotid ultrasound shows patent carotid arteries bilaterally. Neurology consulted. Patient has been cleared by neurology however shouldn't drive until seen outpatient. 05/27 (2) Chest pain Plan: The patient complain of chest pain in the afternoon of 05/24/17. Patient was given nitroglycerin which seemed to help relieve the pain, however this came back. EKG showed some anterolateral T-wave inversion which was stable from 2 days ago as per medical records. Troponin went up to 1.02 and the patient was started on IV heparin. The patient underwent cardiac catheterization which showed severe ostial LAD disease of 90% to 95%, severe ostial 80-90% RCA disease, mild left ventricle systolic dysfunction with an EF of 50%. CABG was recommended by cardiology. Titrate nitroglycerin drip. Continue IV heparin. (3) Cardiomyopathy Plan: The patient has likely ischemic cardiomyopathy. Undergoing evaluation for CABG. Cardiology consulted. Continue aspirin, Lipitor, lisinopril, carvedilol. (4) CAD (coronary artery disease) Plan: CT surgery surgery consulted for CABG. Continue medications as above. 05/26 Patient is currently undergoing evaluation for CABG. Tentatively on Thursday. Fu CT surgery. To the endocardium shows normal left ventricular size. The left ventricular systolic function severely reduced with an estimated ejection fraction of range of 20-25%. Lower hypokinesis described. Trace mitral bile regurgitation, mild tricuspid valve regurgitation. Follow-up CT surgery recommendations. 05/27 Ischemic cardiomyopathy by history. Cardiac cath 06/2016 EF 35%. Echo 2017 EF 20-25%, cardiac cath 05/25/2017 EF 50%. CABG planning for thursday. Repeat echo ordered by CT surgery given disparity in EF. (5) HTN (hypertension) Plan: The pressure seems to be stable. Continue JERED inhibitor and beta jozef. (6) HLD (hyperlipidemia) Plan: Continue statin. Will check fasting lipid profile. (7) NSTEMI (non-ST elevated myocardial infarction) ICD Code: I21.4 - Non-ST elevation (NSTEMI) myocardial infarction Status: Acute Plan: Patient is sp chest pain with elevated troponin levels. Cardiac cath showed multivessel CAD. Undergoing evaluation for CABG. Continue medications as above, Continue IV heparin as per cardiology recommendations. Titrate Nitroglycerin drip. DVT prophylaxis: on heparin gtt, SCD's Discharge Planning Awaiting possible CABG on thursday. Problem Qualifiers (1) Cardiomyopathy: Qualified Codes: I25.5 - Ischemic cardiomyopathy (2) CAD (coronary artery disease): Qualified Codes: I25.110 - Atherosclerotic heart disease of [place] coronary artery with unstable angina pectoris (3) HTN (hypertension): Qualified Codes: I10 - Essential (primary) hypertension (4) HLD (hyperlipidemia): Qualified Codes: E78.5 - Hyperlipidemia, unspecified Mike Wright MD May 27, 2017 18:54
[2017-05-27] MEDS: ATORVASTATIN 80 MG TAB PO SCH (21:06)
[2017-05-28] VITALS (27 sets, daily range): BP systolic 112–141; BP diastolic 64–82; PULSE 59–85; RESP 16–19; TEMP 97.4–98.3; O2SAT 94–97
--- NOTE | 2017-05-28 08:48 | HHI.PR ---
Subjective Remarks denies cp/sob Objective Vitals Vital Signs Date Time Temp Pulse Resp B/P (MAP) Pulse Ox O2 Delivery O2 Flow Rate FiO2 05/28/17 08:00 85 05/28/17 07:12 98.0 63 16 117/73 (88) 94 05/28/17 07:00 64 05/28/17 06:00 62 05/28/17 05:00 62 05/28/17 04:00 62 05/28/17 03:00 98.3 67 112/70 (84) 95 05/28/17 03:00 63 05/28/17 02:00 63 05/28/17 01:00 62 05/28/17 00:00 59 05/27/17 23:00 62 05/27/17 23:00 98.0 55 120/64 (82) 95 05/27/17 22:00 62 05/27/17 21:00 67 05/27/17 20:00 73 05/27/17 19:00 70 05/27/17 19:00 98.4 77 130/70 (90) 98 05/27/17 18:00 64 05/27/17 17:21 62 05/27/17 16:00 68 05/27/17 15:09 97.7 76 18 92/57 (69) 99 05/27/17 15:09 76 05/27/17 15:00 72 05/27/17 14:00 70 05/27/17 13:00 76 05/27/17 12:00 70 05/27/17 11:49 72 05/27/17 11:49 97.7 72 18 98/66 (77) 99 05/27/17 11:00 74 05/27/17 10:00 82 05/27/17 09:00 100 I/O 05/27/17 05/27/17 05/27/17 05/28/17 05/28/17 05/28/17 07:00 15:00 23:00 07:00 15:00 23:00 Intake Total 522.8 ml 1061 ml 529.3 ml Output Total 950 ml 1100 ml 1150 ml Balance -427.2 ml -39 ml -620.7 ml Intake Oral 360 ml 900 ml 240 ml IV Total 162.8 ml 161 ml 289.3 ml Output Urine Total 950 ml 1100 ml 1150 ml # Bowel Movements 2 Result Diagram: 05/27/17 0410 05/26/17 0246 Imaging Last Impressions Lower Extremity Ultrasound 05/25/17 0000 Signed Impressions: Service Date/Time: Thursday, May 25, 2017 08:29 - CONCLUSION: Venous mapping as above Ortiz Kimball MD FACR Head Magnetic Resonance Angiography 05/22/17 0000 Signed Impressions: Service Date/Time: Monday, May 22, 2017 18:20 - CONCLUSION: 1. Patent right posterior communicating artery which fills the right posterior cerebral artery. 2. No significant stenosis, occlusion or aneurysm formation. Alex Neves MD Chest X-Ray 05/22/17 0000 Signed Impressions: Service Date/Time: Monday, May 22, 2017 10:22 - CONCLUSION: No acute disease. Jb Craig MD Carotid Artery Ultrasound 05/22/17 0000 Signed Impressions: Service Date/Time: Monday, May 22, 2017 15:56 - CONCLUSION: 1. Patent carotid arteries bilaterally. 2. Antegrade flow involving both vertebral arteries. Jhonathan Perez Jr., MD Brain MRI 05/22/17 0000 Signed Impressions: Service Date/Time: Monday, May 22, 2017 18:20 - CONCLUSION: 1. No acute intracranial abnormality. 2. Mild mucosal thickening involving the maxillary sinuses bilaterally and left ethmoid air cells. Alex Neves MD Objective Remarks AAOx3, NAD Clear lungs BL S1S2 RRR, no MRG abdomen soft, NT, ND no edema in lower extremities Procedures none Medications and IVs Current Medications Medications (Trade) Dose Ordered Sig/Jody Route Start Time Stop Time Status Last Admin (NS Flush) 2 ml UNSCH PRN IV FLUSH 05/22/17 12:15 (NS Flush) 2 ml BID IV FLUSH 05/22/17 21:00 05/28/17 09:14 (Lipitor) 80 mg HS PO 05/22/17 21:00 05/27/17 21:06 (Coreg) 6.25 mg BID PO 05/22/17 21:00 05/28/17 09:14 Patient Own Medication PT OWN MED: OMEPRAZ... DAILY PO 05/23/17 09:00 Future Hold (Aspirin Chew) 81 mg DAILY PO 05/23/17 09:00 05/28/17 09:14 (Prinivil) 2.5 mg DAILY PO 05/24/17 10:30 05/28/17 09:14 (Pill Splitter) 1 ea UNSCH PRN OTHER 05/24/17 10:45 (Nitrostat Sl) 0.4 mg Q5M PRN SL 05/24/17 13:30 Heparin Sodium/ Dextrose 250 ml @ 10 mls/hr TITRATE PRN IV 05/24/17 14:15 05/27/17 23:43 Nitroglycerin/ Dextrose 250 ml @ 1.5 mls/hr TITRATE PRN IV 05/24/17 15:00 05/24/17 15:46 (Tylenol) 650 mg Q6H PRN PO 05/24/17 20:15 (Percocet 5-325 Mg) 1 tab Q6H PRN PO 05/24/17 20:15 05/24/17 21:03 (Percocet 5-325 Mg) 2 tab Q6H PRN PO 05/24/17 20:15 Papaverine HCl 60 mg/Nitroglycerin 100 mcg/Diltiazem HCl 100 mg/Sodium Chloride 100 ml @ 0 mls/hr FLAG DECORATOR IRRIGATION 05/25/17 14:15 06/01/17 14:14 Vancomycin HCl 1000 mg/Sodium Chloride 1,000 ml @ 0 mls/hr FLAG DECORATOR IRRIGATION 05/25/17 14:15 06/01/17 14:14 Vancomycin HCl 1250 mg/Sodium Chloride 262.5 ml @ 262.5 mls/ hr FLAG DECORATOR IV 05/25/17 14:15 06/01/17 14:14 (Lopressor) 12.5 mg FLAG DECORATOR PO 05/25/17 14:15 06/01/17 14:14 (Bactroban Nasal 2% Oint) 1 applic BID EACH NARE 05/25/17 21:00 05/30/17 20:59 05/28/17 09:13 (Hibiclens 4% Top Soln) 1 applic FLAG DECORATOR TOPICAL 05/25/17 14:15 06/01/17 14:14 Insulin Human Regular 100 units/ Sodium Chloride 100 ml @ 3 mls/hr TITRATE PRN IV 05/25/17 14:15 06/01/17 14:14 (D50w (Vial) Inj) 50 ml UNSCH PRN IV PUSH 05/25/17 14:15 A/P Problem List: (1) Syncope ICD Code: R55 - Syncope and collapse Status: Acute (2) Chest pain ICD Code: R07.9 - Chest pain, unspecified Status: Acute (3) Cardiomyopathy ICD Code: I42.9 - Cardiomyopathy, unspecified Status: Acute (4) CAD (coronary artery disease) ICD Code: I25.10 - Atherosclerotic heart disease of [place] coronary artery without angina pectoris Status: Chronic (5) HTN (hypertension) ICD Code: I10 - Essential (primary) hypertension Status: Chronic (6) HLD (hyperlipidemia) ICD Code: E78.5 - Hyperlipidemia, unspecified Status: Chronic (7) NSTEMI (non-ST elevated myocardial infarction) ICD Code: I21.4 - Non-ST elevation (NSTEMI) myocardial infarction Status: Acute Assessment and Plan (1) Syncope Plan: Poss cardiac etiology. Patient with cardiomyopathy and an ef of 20 - 25%. 2-D echocardiogram showed global hypokinesis and EF of 10-20%. ECG negative. MRI no acute pathology. MRA shows a patent right posterior communicating artery which fills the right posterior cerebral artery. No significant stenosis, occlusion or aneurysm formation. Carotid ultrasound shows patent carotid arteries bilaterally. Neurology consulted. Patient has been cleared by neurology however shouldn't drive until seen outpatient. (2) Chest pain Plan: The patient complain of chest pain in the afternoon of 05/24/17. Patient was given nitroglycerin which seemed to help relieve the pain, however this came back. EKG showed some anterolateral T-wave inversion which was stable from 2 days ago as per medical records. Troponin went up to 1.02 and the patient was started on IV heparin. The patient underwent cardiac catheterization which showed severe ostial LAD disease of 90% to 95%, severe ostial 80-90% RCA disease, mild left ventricle systolic dysfunction with an EF of 50%. CABG was recommended by cardiology. Titrate nitroglycerin drip. Continue IV heparin. (3) Cardiomyopathy Plan: The patient has likely ischemic cardiomyopathy. Undergoing evaluation for CABG. Cardiology consulted. Continue aspirin, Lipitor, lisinopril, carvedilol. (4) CAD (coronary artery disease) Plan: CT surgery surgery consulted for CABG. Continue medications as above. 05/26 Patient is currently undergoing evaluation for CABG. Tentatively on Thursday. Fu CT surgery. To the endocardium shows normal left ventricular size. The left ventricular systolic function severely reduced with an estimated ejection fraction of range of 20-25%. Lower hypokinesis described. Trace mitral bile regurgitation, mild tricuspid valve regurgitation. Follow-up CT surgery recommendations. 05/27 Ischemic cardiomyopathy by history. Cardiac cath 06/2016 EF 35%. Echo 2017 EF 20-25%, cardiac cath 05/25/2017 EF 50%. CABG planning for thursday. Repeat echo ordered by CT surgery given disparity in EF. 05/28 repeat echo shows an Ef 20 to 25% w global hypokinesis. For CABG in am. Dr Meyer who the patient is known to will follow up on Thursday. Pending post operative and intra op ODILIA EF evaluation will determine if the patient will need ICD or lifevest. (5) HTN (hypertension) Plan: The pressure seems to be stable. Continue JERED inhibitor and beta jozef. (6) HLD (hyperlipidemia) Plan: Continue statin. Will check fasting lipid profile. (7) NSTEMI (non-ST elevated myocardial infarction) ICD Code: I21.4 - Non-ST elevation (NSTEMI) myocardial infarction Status: Acute Plan: Patient is sp chest pain with elevated troponin levels. Cardiac cath showed multivessel CAD. Undergoing evaluation for CABG. Continue medications as above, Continue IV heparin as per cardiology recommendations. off nitroglycerin drip. DVT prophylaxis: on heparin gtt, SCD's Discharge Planning For CABG in am. Problem Qualifiers (1) Cardiomyopathy: Qualified Codes: I25.5 - Ischemic cardiomyopathy (2) CAD (coronary artery disease): Qualified Codes: I25.110 - Atherosclerotic heart disease of [place] coronary artery with unstable angina pectoris (3) HTN (hypertension): Qualified Codes: I10 - Essential (primary) hypertension (4) HLD (hyperlipidemia): Qualified Codes: E78.5 - Hyperlipidemia, unspecified Mike Wright MD May 28, 2017 08:48
[2017-05-28] MEDS: MUPIROCIN 2% OINT 1 APPLIC/GM SYR EACH NARE SCH ×2 (09:13→20:51)
[2017-05-28] MEDS: CARVEDILOL 6.25 MG TAB PO SCH ×2 (09:14→20:52)
[2017-05-28] MEDS: SODIUM CHLORIDE 0.9% FLUSH 10 ML FLUSH IV FLUSH SCH ×2 (09:14→20:51)
[2017-05-28] MEDS: ASPIRIN 81 MG CHEW TAB PO SCH (09:14)
[2017-05-28] MEDS: LISINOPRIL 5 MG TAB PO SCH (09:14)
--- NOTE | 2017-05-28 10:16 | RSPPFT ---
DATE OF PROCEDURE: 05/25/17 COMMENTS: The forced vital capacity, FEV1, FEV1/FVC ratio, and FEF 25-75 are all normal. IMPRESSION: This is a normal pulmonary function study.
--- NOTE | 2017-05-28 12:02 | ECHRPT ---
Indication: EF assessment of CHF, pre OHS CONCLUSIONS Moderately dilated left ventricle. Wall thickness is normal. The left ventricular systolic function is severely reduced with an estimated ejection fraction in th e range of 20-25%. There is diffuse global hypokinesis with distinct regional wall motion abnormalities. Very technically difficult study. BP: 117 / 73 HR: 85 Rhythm: Sinus MEASUREMENTS (Male / Female) Normal Values Technical Quality:Very technically difficult study 2D ECHO LV Diastolic Diameter PLAX 6.6 cm 4.2 - 5.9 / 3.9 - 5.3 cm LV Systolic Diameter PLAX 6.1 cm IVS Diastolic Thickness 0.8 cm 0.6 - 1.0 / 0.6 - 0.9 cm LVPW Diastolic Thickness 0.8 cm 0.6 - 1.0 / 0.6 - 0.9 cm LV Relative Wall Thickness 0.2 RV Internal Dim ED PLAX 2.3 cm LVOT Diameter 2.1 cm Aortic Root Diameter 3.1 cm LA Systolic Diameter LX 3.0 cm 3.0 - 4.0 / 2.7 - 3.8 cm M-MODE AV Cusp Separation MM 2.3 cm DOPPLER AV Peak Velocity 117.0 cm/s AV Peak Gradient 5.5 mmHg AV Mean Gradient 4.0 mmHg AV Velocity Time Integral 24.1 cm LVOT Peak Velocity 67.7 cm/s LVOT Peak Gradient 1.8 mmHg LVOT Velocity Time Integral 13.9 cm AV Area Cont Eq vti 2.0 cm AV Area Cont Eq pk 2.0 cm Mitral E Point Velocity 44.6 cm/s Mitral A Point Velocity 82.4 cm/s Mitral E to A Ratio 0.5 LV E' Lateral Velocity 5.8 cm/s Mitral E to LV E' Lateral Ratio 7.8 LV E' Septal Velocity 4.5 cm/s Mitral E to LV E' Septal Ratio 10.0 FINDINGS LEFT VENTRICLE Moderately dilated left ventricle. Wall thickness is normal. The left ventricular systolic function is severely reduced with an estimated ejection fraction in th e range of 20-25%. There is diffuse global hypokinesis with distinct regional wall motion abnormalities. Charles Echeverria MD, FACC (Electronically Signed) Final Date:28 May 2017 12:01
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
[2017-05-28] MEDS: ATORVASTATIN 80 MG TAB PO SCH (20:52)
[2017-05-29] VITALS (18 sets, daily range): BP systolic 95–136; BP diastolic 23–77; PULSE 60–90; RESP 12–19; TEMP 97.7–98.6; O2SAT 88–99
[2017-05-29] MEDS ORDERED: POVIDONE IODINE 5% (ANTISEPSIS KIT) 4 APPLICATIONS EACH NARE PRN (03:15)
[2017-05-29] MEDS ORDERED: LACTATED RINGER'S 1000 ML IV PRN (03:15)
[2017-05-29] MEDS ORDERED: CHLORHEXIDINE GLUCONATE 2 % 1 PACK (2 CLOTHS) TOPICAL PRN (03:15)
[2017-05-29] MEDS ORDERED: VANCOMYCIN HCL 1000 MG VIAL ONE ×2 (06:07→10:49)
[2017-05-29] MEDS ORDERED: HEPARIN SODIUM - SQ 10,000 UNITS/ML VIAL ONE (06:07)
[2017-05-29] MEDS: MUPIROCIN 2% OINT 1 APPLIC/GM SYR EACH NARE SCH ×2 (09:00→20:39)
[2017-05-29] MEDS: SODIUM CHLORIDE 0.9% FLUSH 10 ML FLUSH IV FLUSH SCH ×2 (09:00→20:39)
[2017-05-29] MEDS: CARVEDILOL 6.25 MG TAB PO SCH ×2 (09:00→21:04)
[2017-05-29] MEDS: LISINOPRIL 5 MG TAB PO SCH (09:00)
[2017-05-29] MEDS ORDERED: DOBUTamine PREMIX DRIP 250 ML IV PRN (11:23)
[2017-05-29] MEDS ORDERED: LACTATED RINGER'S 1000 ML INJ 500 ML IV PRN (11:23)
[2017-05-29] MEDS ORDERED: METOPROLOL TARTRATE 5 MG/5 ML VIAL IV PUSH PRN (11:30)
[2017-05-29] MEDS ORDERED: ACETAMINOPHEN 325 MG TAB PO PRN (11:30)
[2017-05-29] MEDS ORDERED: ACETAMINOPHEN/HYDROcodone 325 MG/5 MG TAB PO PRN (11:30)
[2017-05-29] MEDS ORDERED: CALCIUM CHLORIDE 10% 1 GRAM/10 ML VIAL IV PUSH PRN (11:30)
[2017-05-29] MEDS ORDERED: NITROGLYCERIN-D5W 50 MG/250 ML 250 ML IV PRN (11:30)
[2017-05-29] MEDS ORDERED: PHENYLEPHRINE INJ 40 MG in DEXTROSE 5% IN WATE 500 ML INJ 496 ML IV PRN ×2 (11:30)
[2017-05-29] MEDS ORDERED: ACETAMINOPHEN 650 MG SUPP RECTAL PRN (11:30)
[2017-05-29] MEDS ORDERED: DEXMEDETOMIDINE INJ 200 MCG in SODIUM CHLORIDE 0.9% INJ 50 ML IV PRN (11:30)
[2017-05-29] MEDS ORDERED: MEPERIDINE HCL 25 MG/ML VIAL IV PUSH PRN (11:30)
[2017-05-29] MEDS ORDERED: INSULIN REGULAR (IV INFUSION) 100 UNITS in SODIUM CHLORIDE 0.9% INJ 99 ML IV PRN (11:30)
[2017-05-29] MEDS ORDERED: CLEVIDIPINE INJ 50 ML IV PRN (11:30)
[2017-05-29] MEDS ORDERED: Post-op Orders (for Pharmacy) OTHER ONE (11:30)
[2017-05-29] MEDS ORDERED: SODIUM BICARBONATE 8.4% SOLN 50 MEQ/50 ML VIAL IV PUSH PRN ×2 (11:30)
[2017-05-29] MEDS ORDERED: RESP: ALBUTEROL 2.5 MG/IPRATROPIUM 0.5 MG NEB (PRN) NEB (11:30)
[2017-05-29] MEDS ORDERED: MAGNESIUM SULFATE INJ 2 GM in SODIUM CHLORIDE 0.9% INJ 100 ML IV PRN ×4 (11:30)
[2017-05-29] MEDS ORDERED: MORPHINE SULFATE 4 MG/ML INJ IV PUSH PRN (11:30)
[2017-05-29] MEDS ORDERED: RESP: RACEPINEPHRINE 2.25% 0.5 ML NEB NEB PRN (11:30)
[2017-05-29] MEDS ORDERED: ALBUMIN 5% INJ 250 ML IV PRN (11:30)
[2017-05-29] MEDS ORDERED: hydrALAZINE HCL 20 MG/ML VIAL IV PUSH PRN (11:30)
[2017-05-29] MEDS ORDERED: CALCIUM CHLORIDE INJ 1 GM in SODIUM CHLORIDE 0.9% INJ 100 ML IV PRN ×2 (11:30→22:15)
[2017-05-29] MEDS ORDERED: DOPamine INJ PREMIX 500 ML IV PRN (11:30)
[2017-05-29] MEDS ORDERED: SODIUM CHLORIDE 0.9% FLUSH 10 ML FLUSH IV FLUSH PRN (11:30)
[2017-05-29] MEDS ORDERED: POTASSIUM CHLOR 20 MEQ PREMIX 100 ML IV PRN ×4 (11:30→22:15)
[2017-05-29] MEDS ORDERED: DEXTROSE 50% IN WATER 50 ML VIAL(D50) IV PUSH PRN (11:30)
[2017-05-29] MEDS ORDERED: ONDANSETRON HCL 4 MG/2 ML VIAL IV PUSH PRN (11:30)
[2017-05-29] MEDS ORDERED: POTASSIUM CHLORIDE 20 MEQ CONTROLLED RELEASE TAB PO PRN ×2 (11:30)
--- NOTE | 2017-05-29 11:33 | PD.OP ---
cc: Janine Chang MD; Isela Meyer MD; Shola Basurto MD Operative Report Date of Surgery: May 29, 2017 Preoperative Diagnosis: Postoperative Diagnosis: Procedure: 1. Urgent Off-pump Coronary Artery Bypass Grafting x 2 with Left Internal Mammary Artery (OBRIEN) to the Left Anterior Descending (LAD), reverse saphenous vein graft to the distal Right Coronary Artery (RCA) 2. Right Leg Endoscopic Vein [place] 3. Intraoperative Vein Mapping Surgeon: Janine Chang Pneumatic Systems Operator(s): Raleigh Covarrubias . Operation and Findings: PREPROCEDURE DIAGNOSES 1. Two-Vessel Coronary Artery Disease. 2. Acute Myocardial Infarction (NSTEMI) 3. Severe Left Ventricular Dysfunction (EF20-25%) 4. Left AKA POSTPROCEDURE DIAGNOSES Same SURGICAL PROCEDURE 1. Urgent Off-pump Coronary Artery Bypass Grafting x 2 with Left Internal Mammary Artery (OBRIEN) to the Left Anterior Descending (LAD), reverse saphenous vein graft to the distal Right Coronary Artery (RCA) 2. Right Leg Endoscopic Vein [place] 3. Intraoperative Vein Mapping SURGEON Janine Chang MD TUBE CLOSING MACHINE OPERATOR Kirsty Covarrubias PA-C ANESTHESIA General endotracheal CLAM SHOVEL OPERATOR Bruce Sue, DEFENCE INTELLIGENCE ANALYST Israel Seymour MD PREPARATION ChloraPrep. COUNTS Needle, sponge, and instrument counts were correct. DRAINS Two 32-Citizen Of [place] mediastinal tubes. COMPLICATIONS None. INDICATIONS FOR PROCEDURE The patient is a 66-year-old presenting with AMI and LAD, RCA disease. He is being brought to the operating room for urgent surgical revascularization therapy. PROCEDURE Patient was brought to the operating room and placed supine on the OR table. Following the induction of adequate general endotracheal anesthesia and placement of appropriate monitoring devices, intraoperative vein mapping was performed and revealed good caliber conduit in the right thigh. The patient was then prepped and draped in standard sterile fashion. Next, 2500 units of intravenous heparin was given. The right greater saphenous vein was harvested endoscopically from the thigh. This appeared to be a useable-caliber conduit. Simultaneously, a median sternotomy was performed and the left internal mammary artery dissected free off the posterior sternal table. The patient was systemically heparinized and anticoagulation monitored by serial ACT measurements. The internal mammary artery had good pulsatile flow in it and was a decent-caliber conduit. The pericardium was then divided in the midline, the cradle created and targets analyzed. At this point, all anastomoses were performed in a beating-heart fashion using the Ma[place] stabilizing system. The left internal mammary artery was then anastomosed to the distal LAD (2 mm), beyond the previous stents, in an end-to-side fashion using 7-0 Prolene. The RSVG segment was then anastomosed to the RCA (2.25 mm) in an end-to-side fashion using a running 7-0 Prolene. The proximal anastomosis was then constructed to the ascending aorta in a running manner using 6-0 Prolene. All anastomotic sites were inspected and appeared to be hemostatic and patent. Protamine solution was given. Strict hemostasis was assured. The closure was undertaken. 2 chest tubes were placed. The pericardium was reapproximated in the midline. The sternum was approximated using sternal wires. The muscular and fascial layer were then closed in 3 layers. The endoscopic vein harvest site was closed in 2 layers. The patient tolerated the procedure well and was transferred to CVICU in critical but stable condition. Janine Chang MD May 29, 2017 11:33
[2017-05-29] MEDS ORDERED: CALCIUM CHLORIDE 10% SOLN 1 GRAM/10 ML SYR IV ONE (12:00)
[2017-05-29] MEDS ORDERED: PROTAMINE SULFATE 250 MG/25 ML VIAL IV ONE (12:00)
[2017-05-29] MEDS ORDERED: HEPARIN SODIUM - SQ 10,000 UNITS/ML VIAL SQ ONE (12:00)
[2017-05-29] MEDS ORDERED: SODIUM BICARBONATE 8.4% INJ 50 MEQ/50 ML SYR IV ONE (12:00)
[2017-05-29] MEDS ORDERED: DEXMEDETOMIDINE HCL 200 MCG/2 ML VIAL IV ONE (12:00)
[2017-05-29] MEDS ORDERED: LIDOCAINE HCL 1% PF 5 ML SYRINGE OTHER ONE (12:00)
[2017-05-29] MEDS ORDERED: ePHEDrine/NS 25 MG/5 ML SYRINGE IV ONE (12:00)
[2017-05-29] MEDS ORDERED: MAGNESIUM SULFATE 1 GM/2 ML VIAL IV ONE (12:00)
[2017-05-29] MEDS ORDERED: VECURONIUM BROMIDE 20 MG VIAL IV ONE (12:00)
[2017-05-29] MEDS ORDERED: PHENYLEPH/NS 1000 MCG/10 ML SYR IV ONE ×2 (12:00)
[2017-05-29] MEDS ORDERED: SUCCINYLCHOLINE CHLORIDE 200 MG/10 ML VIAL IV ONE (12:00)
[2017-05-29] MEDS ORDERED: PROPOFOL 500 MG/50 ML INJ 0 ML ONE (12:03)
[2017-05-29] MEDS ORDERED: MIDAZOLAM HCL 2 MG/2 ML VIAL ONE (12:21)
[2017-05-29] MEDS ORDERED: fentaNYL CITRATE 1000 MCG/20 ML VIAL ONE (12:22)
--- NOTE | 2017-05-29 13:10 | RADRPT ---
EXAM DATE/TIME: 05/29/2017 12:26 [facility] COMPARISON: CHEST SINGLE AP, July 11, 2016, 5:50. INDICATIONS : Post CABG MEDICAL HISTORY : Hypercholesterolemia. Hypertension Gastroesophageal reflux disease. SURGICAL HISTORY : Cholecystectomy. ENCOUNTER: Initial ACUITY: 1 day PAIN SCORE: Non-responsive. LOCATION: chest FINDINGS: An endotracheal tube has its tip 1 cm above the fredo. This could be pulled back 2 cm for more optim al positioning. A left-sided chest tube and mediastinal drain are in good positions. There is no pneu mothorax. Left subclavian central line has its tip in super vena cava. The heart is enlarged. Scatter ed perihilar atelectatic changes are noted bilaterally. Median sternotomy wires are noted. CONCLUSION: 1. Endotracheal tube has its tip one center above the fredo. This could be pulled back 2 cm for more optimal positioning. 2. Perihilar atelectatic changes bilaterally. 3. Stable cardiomegaly. Alex Neves MD on May 29, 2017 at 13:07 Board Certified Radiologist. This report was verified electronically.
[2017-05-29 13:23] LABS: INTERNATIONAL NORMALIZED RATIO 1.1 RATIO; PROTHROMBIN TIME - PATIENT 11.4 SEC (9.8-11.6)
[2017-05-29] MEDS: ACETAMINOPHEN 1000 MG/100 ML 100 ML IV SCH ×3 (13:38→23:35)
[2017-05-29] MEDS: KETOROLAC TROMETHAMINE 30 MG/ML (IVP) VIAL IV PUSH PRN ×2 (14:57→22:08)
[2017-05-29] MEDS: RESP: ALBUTEROL 2.5 MG/IPRATROPIUM 0.5 MG NEB (SCH) NEB ×2 (18:43→22:25)
[2017-05-29] MEDS: VANCOMYCIN INJ 1,000 MG in SODIUM CHLOR 0.9% 250 ML INJ 250 ML IV SCH (20:37)
[2017-05-29] MEDS: AMIODARONE 200 MG TAB PO SCH (20:37)
[2017-05-29] MEDS: ATORVASTATIN 80 MG TAB PO SCH (20:37)
[2017-05-29] MEDS ORDERED: SODIUM CHLORIDE 0.9% FLUSH 10 ML FLUSH IV FLUSH SCH (21:00)
[2017-05-30] VITALS (13 sets, daily range): BP systolic 96–128; BP diastolic 48–68; PULSE 59–114; RESP 14–30; TEMP 97.6–99.5; O2SAT 96–99
--- NOTE | 2017-05-30 00:10 | HHI.PR ---
Subjective Remarks Late entry, the patient was seen on May 29, 2017 at 7 PM. The patient status post CABG 2. The patient denies any shortness of breath, complains of chest soreness. Patient is afebrile. Vital signs stable. Objective Vitals Vital Signs Date Time Temp Pulse Resp B/P (MAP) Pulse Ox O2 Delivery O2 Flow Rate FiO2 05/29/17 23:08 16 05/29/17 23:00 98.1 75 14 101/69 (80) 97 114/57 (76) 05/29/17 23:00 73 05/29/17 23:00 97 Nasal Cannula 4.00 05/29/17 22:26 99 Nasal Cannula 4.00 05/29/17 21:00 98.6 05/29/17 19:39 14 05/29/17 19:00 90 05/29/17 19:00 99 Nasal Cannula 4.00 05/29/17 19:00 97.7 90 14 136/77 (96) 99 130/75 (93) 05/29/17 15:00 Nasal Cannula 4.00 05/29/17 15:00 80 05/29/17 15:00 40 05/29/17 15:00 98.5 82 12 120/23 (55) 97 108/58 (75) 05/29/17 15:00 98.5 82 12 120/73 (89) 97 108/58 (75) 05/29/17 14:54 98.6 05/29/17 14:33 98 Nasal Cannula 4.00 05/29/17 12:50 97 Nasal Cannula 2.00 05/29/17 12:50 97 Nasal Cannula 2 05/29/17 12:15 Nasal Cannula 40 05/29/17 12:13 98.6 05/29/17 12:00 98.3 88 14 95/64 (74) 88 106/63 (77) 05/29/17 12:00 Mechanical Ventilator 40 05/29/17 12:00 40 05/29/17 11:50 97 50 05/29/17 06:00 66 05/29/17 05:00 75 05/29/17 04:00 69 05/29/17 03:00 64 05/29/17 03:00 97.9 64 19 134/70 (91) 95 05/29/17 02:00 64 05/29/17 01:00 60 I/O 05/29/17 05/29/17 05/29/17 05/30/17 05/30/17 05/30/17 07:00 15:00 23:00 07:00 15:00 23:00 Intake Total 565 ml 4710 ml 1609 ml Output Total 1100 ml 1150 ml 380 ml Balance -535 ml 3560 ml 1229 ml Intake Oral 240 ml IV Total 325 ml 210 ml 1609 ml Autotransfusion 500 ml Other 4000 ml Output Urine Total 1100 ml 350 ml Chest Tube Drainage Total 380 ml Estimated Blood Loss 800 ml # Bowel Movements 1 Result Diagram: 05/27/17 0410 05/26/17 0246 Imaging Last 72 hours Impressions Chest X-Ray 05/29/17 0000 Signed Impressions: Service Date/Time: Monday, May 29, 2017 12:26 - CONCLUSION: 1. Endotracheal tube has its tip one center above the fredo. This could be pulled back 2 cm for more optimal positioning. 2. Perihilar atelectatic changes bilaterally. 3. Stable cardiomegaly. Alex Neves MD Objective Remarks AAOx3, NAD Clear lungs BL S1S2 RRR, no MRG abdomen soft, NT, ND no edema in lower extremities Procedures none A/P Problem List: (1) Syncope ICD Code: R55 - Syncope and collapse Status: Acute (2) Chest pain ICD Code: R07.9 - Chest pain, unspecified Status: Acute (3) Cardiomyopathy ICD Code: I42.9 - Cardiomyopathy, unspecified Status: Acute (4) CAD (coronary artery disease) ICD Code: I25.10 - Atherosclerotic heart disease of [place] coronary artery without angina pectoris Status: Chronic (5) HTN (hypertension) ICD Code: I10 - Essential (primary) hypertension Status: Chronic (6) HLD (hyperlipidemia) ICD Code: E78.5 - Hyperlipidemia, unspecified Status: Chronic (7) NSTEMI (non-ST elevated myocardial infarction) ICD Code: I21.4 - Non-ST elevation (NSTEMI) myocardial infarction Status: Acute Assessment and Plan (1) Syncope Plan: Poss cardiac etiology. Patient with cardiomyopathy and an ef of 20 - 25%. 2-D echocardiogram showed global hypokinesis and EF of 10-20%. ECG negative. MRI no acute pathology. MRA shows a patent right posterior communicating artery which fills the right posterior cerebral artery. No significant stenosis, occlusion or aneurysm formation. Carotid ultrasound shows patent carotid arteries bilaterally. Neurology consulted. Patient has been cleared by neurology however shouldn't drive until seen outpatient. (2) Chest pain Plan: The patient complain of chest pain in the afternoon of 05/24/17. Patient was given nitroglycerin which seemed to help relieve the pain, however this came back. EKG showed some anterolateral T-wave inversion which was stable from 2 days ago as per medical records. Troponin went up to 1.02 and the patient was started on IV heparin. The patient underwent cardiac catheterization which showed severe ostial LAD disease of 90% to 95%, severe ostial 80-90% RCA disease, mild left ventricle systolic dysfunction with an EF of 50%. CABG was recommended by cardiology. Titrate nitroglycerin drip. Continue IV heparin. (3) Cardiomyopathy Plan: The patient has likely ischemic cardiomyopathy. Undergoing evaluation for CABG. Cardiology consulted. Continue aspirin, Lipitor, lisinopril, carvedilol. (4) CAD (coronary artery disease) Plan: CT surgery surgery consulted for CABG. Continue medications as above. 05/26 Patient is currently undergoing evaluation for CABG. Tentatively on Thursday. Fu CT surgery. To the endocardium shows normal left ventricular size. The left ventricular systolic function severely reduced with an estimated ejection fraction of range of 20-25%. Lower hypokinesis described. Trace mitral bile regurgitation, mild tricuspid valve regurgitation. Follow-up CT surgery recommendations. 05/27 Ischemic cardiomyopathy by history. Cardiac cath 06/2016 EF 35%. Echo 2017 EF 20-25%, cardiac cath 05/25/2017 EF 50%. CABG planning for thursday. Repeat echo ordered by CT surgery given disparity in EF. 05/28 repeat echo shows an Ef 20 to 25% w global hypokinesis. For CABG in am. 05/29 status post CABG 2. Management as per cardiovascular surgery. Dr Meyer who the patient is known to will follow up on Thursday. Pending post operative and intra op ODILIA EF evaluation will determine if the patient will need ICD or lifevest. (5) HTN (hypertension) Plan: The pressure seems to be stable. Continue JERED inhibitor and beta jozef. (6) HLD (hyperlipidemia) Plan: Continue statin. Will check fasting lipid profile. (7) NSTEMI (non-ST elevated myocardial infarction) ICD Code: I21.4 - Non-ST elevation (NSTEMI) myocardial infarction Status: Acute Plan: Patient is sp chest pain with elevated troponin levels. Cardiac cath showed multivessel CAD. Undergoing evaluation for CABG. Continue medications as above, Continue IV heparin as per cardiology recommendations. off nitroglycerin drip. DVT prophylaxis: on heparin gtt, SCD's Discharge Planning For CABG in am. Problem Qualifiers (1) Cardiomyopathy: Qualified Codes: I25.5 - Ischemic cardiomyopathy (2) CAD (coronary artery disease): Qualified Codes: I25.110 - Atherosclerotic heart disease of [place] coronary artery with unstable angina pectoris (3) HTN (hypertension): Qualified Codes: I10 - Essential (primary) hypertension (4) HLD (hyperlipidemia): Qualified Codes: E78.5 - Hyperlipidemia, unspecified Mike Wright MD May 30, 2017 00:10
[2017-05-30] MEDS: RESP: ALBUTEROL 2.5 MG/IPRATROPIUM 0.5 MG NEB (SCH) NEB ×4 (03:47→20:56)
[2017-05-30 04:52] LABS: HEMATOCRIT 27.9 % (39.0-51.0); HEMOGLOBIN 9.7 GM/DL (13.0-17.0); MEAN CELL VOLUME 99.7 FL (80.0-100.0); MEAN CORPUSCULAR HEMOGLOBIN 34.7 PG (27.0-34.0); MEAN CORPUSCULAR HGB CONC 34.8 % (32.0-36.0); MEAN PLATELET VOLUME 8.6 FL (7.0-11.0); PLATELET COUNT 110 TH/MM3 (150-450); RED CELL DISTRIBUTION WIDTH 13.1 % (11.6-17.2); WHITE BLOOD COUNT 5.4 TH/MM3 (4.0-11.0)
[2017-05-30 05:10] LABS: ALBUMIN 2.5 GM/DL (3.4-5.0); AST (GOT) 30 U/L (15-37); BICARBONATE 28.4 MEQ/L (21.0-32.0); BLOOD UREA NITROGEN 12 MG/DL (7-18); CALCIUM 8.4 MG/DL (8.5-10.1); CHLORIDE 109 MEQ/L (98-107); CREATININE 0.72 MG/DL (0.60-1.30); GLOMERULAR FILTRATION RATE 110 ML/MIN (>89); GLUCOSE,RANDOM 91 MG/DL (74-106); SODIUM (NA) 143 MEQ/L (136-145)
[2017-05-30 05:11] LABS: ALT (GPT) 45 U/L (12-78); PHOSPHORUS 3.9 MG/DL (2.5-4.9)
[2017-05-30 05:13] LABS: ALKALINE PHOSPHATASE 52 U/L (45-117); TOTAL BILIRUBIN ADULT 0.7 MG/DL (0.2-1.0); TOTAL PROTEIN 5.1 GM/DL (6.4-8.2)
[2017-05-30] MEDS: ACETAMINOPHEN 1000 MG/100 ML 100 ML IV SCH (06:08)
[2017-05-30] MEDS: KETOROLAC TROMETHAMINE 30 MG/ML (IVP) VIAL IV PUSH PRN ×2 (06:08→16:52)
[2017-05-30] MEDS: PANTOPRAZOLE SOD 40 MG DELAYED RELEASE TAB PO SCH (06:08)
--- NOTE | 2017-05-30 06:13 | RADRPT ---
EXAM DATE/TIME: 05/30/2017 04:27 [facility] COMPARISON: CHEST SINGLE AP, May 29, 2017, 12:26. INDICATIONS : Shortness of breath, possible pulmonary disease. MEDICAL HISTORY : Hypercholesterolemia. Hypertension Gastroesophageal reflux disease. SURGICAL HISTORY : CABG. Cholecystectomy. ENCOUNTER: Subsequent ACUITY: 1 week PAIN SCORE: Non-responsive. LOCATION: Bilateral chest FINDINGS: A single view of the chest demonstrates left central line tip in superior vena cava. Central left-martita ed chest tube without pneumothorax. Minimal basilar dependent opacity in the lungs. No effusion or pn eumothorax. Previous median sternotomy. CONCLUSION: 1. Interval extubation. Central and left chest tubes without pneumothorax. Minimal subsegmental opaci ty in the lungs. Erich Pillai MD on May 30, 2017 at 6:10 Board Certified Radiologist. This report was verified electronically.
--- NOTE | 2017-05-30 07:41 | PD.CAR.PN ---
CVT Progress Note Subjective/Hospital Course: 66 to male admitted with chest pain and NSTEMI. Cardiac cath demonstrating two- vessel CAD with ECHO evidence of severe Left ventricular dysfunction (EF 20-25%) . 05/29 SURGICAL PROCEDURE 1. Urgent Off-pump Coronary Artery Bypass Grafting x 2 with Left Internal Mammary Artery (OBRIEN) to the Left Anterior Descending (LAD), reverse saphenous vein graft to the distal Right Coronary Artery (RCA) 2. Right Leg Endoscopic Vein Mccormick 3. Intraoperative Vein Mapping 05/30 Doing well Transfer [facility] Ambulate with PT and prosthesis Maintain CT to drainage Beta jozef Objective: Vital Signs Date Time Temp Pulse Resp B/P (MAP) Pulse Ox O2 Delivery O2 Flow Rate FiO2 05/30/17 06:57 16 05/30/17 06:57 16 05/30/17 03:00 99 Nasal Cannula 4.00 05/30/17 03:00 76 05/30/17 03:00 97.8 73 14 110/53 (72) 99 108/48 (68) 05/30/17 01:30 98.6 05/29/17 23:00 98.1 75 14 101/69 (80) 97 114/57 (76) 05/29/17 23:00 73 05/29/17 23:00 97 Nasal Cannula 4.00 05/29/17 22:26 99 Nasal Cannula 4.00 05/29/17 21:00 98.6 05/29/17 19:00 90 05/29/17 19:00 99 Nasal Cannula 4.00 05/29/17 19:00 97.7 90 14 136/77 (96) 99 130/75 (93) 05/29/17 15:00 Nasal Cannula 4.00 05/29/17 15:00 80 05/29/17 15:00 40 05/29/17 15:00 98.5 82 12 120/23 (55) 97 108/58 (75) 05/29/17 15:00 98.5 82 12 120/73 (89) 97 108/58 (75) 05/29/17 14:54 98.6 05/29/17 14:33 98 Nasal Cannula 4.00 05/29/17 12:50 97 Nasal Cannula 2.00 05/29/17 12:50 97 Nasal Cannula 2 05/29/17 12:15 Nasal Cannula 40 05/29/17 12:13 98.6 05/29/17 12:00 98.3 88 14 95/64 (74) 88 106/63 (77) 05/29/17 12:00 Mechanical Ventilator 40 05/29/17 12:00 40 05/29/17 11:50 97 50 Labs: Laboratory Tests Test 05/30/17 04:00 White Blood Count 5.4 TH/MM3 (4.0-11.0) Red Blood Count 2.80 MIL/MM3 (4.50-5.90) Hemoglobin 9.7 GM/DL (13.0-17.0) Hematocrit 27.9 % (39.0-51.0) Mean Corpuscular Volume 99.7 FL (80.0-100.0) Mean Corpuscular Hemoglobin 34.7 PG (27.0-34.0) Mean Corpuscular Hemoglobin Concent 34.8 % (32.0-36.0) Red Cell Distribution Width 13.1 % (11.6-17.2) Platelet Count 110 TH/MM3 (150-450) Mean Platelet Volume 8.6 FL (7.0-11.0) Blood Urea Nitrogen 12 MG/DL (7-18) Creatinine 0.72 MG/DL (0.60-1.30) Random Glucose 91 MG/DL (74-106) Total Protein 5.1 GM/DL (6.4-8.2) Albumin 2.5 GM/DL (3.4-5.0) Calcium Level 8.4 MG/DL (8.5-10.1) Phosphorus Level 3.9 MG/DL (2.5-4.9) Magnesium Level 2.0 MG/DL (1.5-2.5) Alkaline Phosphatase 52 U/L (45-117) Aspartate Amino Transf (AST/SGOT) 30 U/L (15-37) Alanine Aminotransferase (ALT/SGPT) 45 U/L (12-78) Total Bilirubin 0.7 MG/DL (0.2-1.0) Sodium Level 143 MEQ/L (136-145) Potassium Level 4.2 MEQ/L (3.5-5.1) Chloride Level 109 MEQ/L (98-107) Carbon Dioxide Level 28.4 MEQ/L (21.0-32.0) Anion Gap 6 MEQ/L (5-15) Estimat Glomerular Filtration Rate 110 ML/MIN (>89) Result Diagram: 05/30/1739905/30/17399 (1) CAD (coronary artery disease) (2) NSTEMI (non-ST elevated myocardial infarction) (3) Cardiomyopathy (4) S/P CABG x 2 Problem Qualifiers (1) CAD (coronary artery disease): Qualified Codes: I25.110 - Atherosclerotic heart disease of [place] coronary artery with unstable angina pectoris (2) Cardiomyopathy: Qualified Codes: I25.5 - Ischemic cardiomyopathy Janine Chang MD May 30, 2017 07:41
[2017-05-30] MEDS ORDERED: DEXTROSE 50% IN WATER 50 ML VIAL(D50) IV PUSH PRN (07:45)
[2017-05-30] MEDS ORDERED: SOD PHOSPHATE/SOD BIPHOSPHATE (ADULT) ENEMA 133ML RECTAL PRN (07:45)
[2017-05-30] MEDS ORDERED: BISACODYL 10 MG SUPP RECTAL PRN (07:45)
[2017-05-30] MEDS ORDERED: GLUCAGON 1 MG/ML VIAL OTHER PRN (07:45)
[2017-05-30] MEDS: CARVEDILOL 3.125 MG TAB PO SCH ×2 (08:28→20:46)
[2017-05-30] MEDS: ASPIRIN 81 MG CHEW TAB PO SCH (08:29)
[2017-05-30] MEDS: CLOPIDOGREL 75 MG TAB PO SCH (08:29)
[2017-05-30] MEDS: AMIODARONE 200 MG TAB PO SCH ×2 (08:29→20:46)
[2017-05-30] MEDS: MUPIROCIN 2% OINT 1 APPLIC/GM SYR EACH NARE SCH (08:54)
[2017-05-30] MEDS: MULTIVITAMINS/MINERALS THERAPEUTIC TAB PO SCH (08:54)
[2017-05-30] MEDS: VANCOMYCIN INJ 1,000 MG in SODIUM CHLOR 0.9% 250 ML INJ 250 ML IV SCH ×2 (09:31→20:58)
[2017-05-30] MEDS: MAGNESIUM HYDROXIDE SUSP 30 ML CUP PO SCH (09:31)
[2017-05-30] MEDS: INSULIN ASPART SUPPLEMENTAL SCALE SQ SCH ×4 (10:00→22:00)
[2017-05-30] MEDS: SODIUM CHLORIDE 0.9% FLUSH 10 ML FLUSH IV FLUSH SCH ×2 (14:15→20:45)
--- NOTE | 2017-05-30 14:32 | HHI.PR ---
Subjective Remarks Discussed case with RN - patient walked down the hallway today. Patient c/o soreness of chest, denies coughm, fevers or chills. Telemetry shows some ectopy and PVC's Hemoglobin trended down. Objective Vitals Vital Signs Date Time Temp Pulse Resp B/P (MAP) Pulse Ox O2 Delivery O2 Flow Rate FiO2 05/30/17 11:00 98 Nasal Cannula 3.00 05/30/17 11:00 97.6 81 14 119/68 (85) 98 119/52 (74) 05/30/17 11:00 81 05/30/17 08:00 98.0 87 16 111/63 (79) 99 115/67 (83) 05/30/17 07:00 98.0 79 16 111/63 (79) 99 128/60 (82) 05/30/17 07:00 99 Nasal Cannula 3.00 05/30/17 07:00 79 05/30/17 07:00 98.0 79 16 111/63 (79) 99 128/60 (82) 05/30/17 06:57 16 05/30/17 06:57 16 05/30/17 03:00 99 Nasal Cannula 4.00 05/30/17 03:00 76 05/30/17 03:00 97.8 73 14 110/53 (72) 99 108/48 (68) 05/30/17 01:30 98.6 05/29/17 23:00 98.1 75 14 101/69 (80) 97 114/57 (76) 05/29/17 23:00 73 05/29/17 23:00 97 Nasal Cannula 4.00 05/29/17 22:26 99 Nasal Cannula 4.00 05/29/17 21:00 98.6 05/29/17 19:00 90 05/29/17 19:00 99 Nasal Cannula 4.00 05/29/17 19:00 97.7 90 14 136/77 (96) 99 130/75 (93) 05/29/17 15:00 Nasal Cannula 4.00 05/29/17 15:00 80 05/29/17 15:00 40 05/29/17 15:00 98.5 82 12 120/23 (55) 97 108/58 (75) 05/29/17 15:00 98.5 82 12 120/73 (89) 97 108/58 (75) 05/29/17 14:54 98.6 05/29/17 14:33 98 Nasal Cannula 4.00 I/O 05/29/17 05/29/17 05/29/17 05/30/17 05/30/17 05/30/17 07:00 15:00 23:00 07:00 15:00 23:00 Intake Total 565 ml 4710 ml 1609 ml 1063 ml Output Total 1100 ml 1150 ml 380 ml 1810 ml Balance -535 ml 3560 ml 1229 ml -747 ml Intake Oral 240 ml 400 ml IV Total 325 ml 210 ml 1609 ml 663 ml Autotransfusion 500 ml Other 4000 ml Output Urine Total 1100 ml 350 ml 1550 ml Chest Tube Drainage Total 380 ml 260 ml Estimated Blood Loss 800 ml # Bowel Movements 1 0 Result Diagram: 05/30/17 0400 05/30/17 0400 Imaging Last Impressions Chest X-Ray 05/30/17 0500 Signed Impressions: Service Date/Time: Tuesday, May 30, 2017 04:27 - CONCLUSION: 1. Interval extubation. Central and left chest tubes without pneumothorax. Minimal subsegmental opacity in the lungs. Erich Pillai MD Lower Extremity Ultrasound 05/25/17 0000 Signed Impressions: Service Date/Time: Thursday, May 25, 2017 08:29 - CONCLUSION: Venous mapping as above Ortiz Kimball MD FACR Head Magnetic Resonance Angiography 05/22/17 0000 Signed Impressions: Service Date/Time: Monday, May 22, 2017 18:20 - CONCLUSION: 1. Patent right posterior communicating artery which fills the right posterior cerebral artery. 2. No significant stenosis, occlusion or aneurysm formation. Alex Neves MD Carotid Artery Ultrasound 05/22/17 0000 Signed Impressions: Service Date/Time: Monday, May 22, 2017 15:56 - CONCLUSION: 1. Patent carotid arteries bilaterally. 2. Antegrade flow involving both vertebral arteries. Jhonathan Perez Jr., MD Brain MRI 05/22/17 0000 Signed Impressions: Service Date/Time: Monday, May 22, 2017 18:20 - CONCLUSION: 1. No acute intracranial abnormality. 2. Mild mucosal thickening involving the maxillary sinuses bilaterally and left ethmoid air cells. Alex Neves MD Objective Remarks AAOx3, NAD Clear lungs BL S1S2 RRR, no MRG abdomen soft, NT, ND no edema in lower extremities Procedures none Medications and IVs Current Medications Medications (Trade) Dose Ordered Sig/Jody Route Start Time Stop Time Status Last Admin (NS Flush) 2 ml UNSCH PRN IV FLUSH 05/22/17 12:15 (NS Flush) 2 ml BID IV FLUSH 05/22/17 21:00 05/30/17 14:15 (Lipitor) 80 mg HS PO 05/22/17 21:00 05/29/17 20:37 (Pill Splitter) 1 ea UNSCH PRN OTHER 05/24/17 10:45 (Nitrostat Sl) 0.4 mg Q5M PRN SL 05/24/17 13:30 (Tylenol) 650 mg Q6H PRN PO 05/24/17 20:15 (Bactroban Nasal 2% Oint) 1 applic BID EACH NARE 05/25/17 21:00 05/30/17 20:59 05/30/17 08:54 Vancomycin HCl 1000 mg/Sodium Chloride 250 ml @ 250 mls/hr Q12H IV 05/29/17 20:00 05/30/17 20:59 05/30/17 09:31 (Aspirin Chew) 81 mg DAILY PO 05/30/17 09:00 05/30/17 08:29 (Plavix) 75 mg DAILY PO 05/30/17 09:00 05/30/17 08:29 (Protonix) 40 mg DAILY@06 PO 05/30/17 06:00 05/30/17 06:08 (Cordarone) 200 mg Q12HR PO 05/29/17 21:00 05/30/17 08:29 (Tylenol) 650 mg Q4H PRN PO 05/29/17 11:30 (Tylenol Supp) 650 mg Q4H PRN RECTAL 05/29/17 11:30 ([place] 5-325 Mg) 1 tab Q3H PRN PO 05/29/17 11:30 05/30/17 14:17 (Toradol Inj) 15 mg Q6H PRN IV PUSH 05/29/17 11:30 05/31/17 11:29 05/30/17 06:08 (Zofran Inj) 4 mg Q6H PRN IV PUSH 05/29/17 11:30 05/29/17 14:10 Potassium Chloride 100 ml @ 50 mls/hr UNSCH PRN IV 05/29/17 11:30 Potassium Chloride 100 ml @ 50 mls/hr UNSCH PRN IV 05/29/17 11:30 (KCl) 20 meq UNSCH PRN PO 05/29/17 11:30 (KCl) 40 meq UNSCH PRN PO 05/29/17 11:30 Magnesium Sulfate 2 gm/Sodium Chloride 104 ml @ 100 mls/hr UNSCH PRN IV 05/29/17 11:30 (Calcium Chloride Inj) 0.5 gm UNSCH PRN IV PUSH 05/29/17 11:30 (Sodium Bicarbonate 8.4% Inj) 50 meq UNSCH PRN IV PUSH 05/29/17 11:30 (Sodium Bicarbonate 8.4% Inj) 100 meq UNSCH PRN IV PUSH 05/29/17 11:30 (Duoneb Neb) 1 ampule Q6HR NEB NEB 05/29/17 16:00 05/30/17 10:03 (Duoneb Neb) 1 ampule Q2HR NEB PRN NEB 05/29/17 11:30 Calcium Chloride 1 gm/Sodium Chloride 110 ml @ 110 mls/hr UNSCH PRN IV 05/29/17 22:15 05/29/17 22:29 Potassium Chloride 100 ml @ 50 mls/hr UNSCH PRN IV 05/29/17 22:15 (Coreg) 3.125 mg BID PO 05/30/17 09:00 05/30/17 08:28 (Colace) 100 mg BID PO 05/30/17 21:00 (Theragran M Tab) 1 tab DAILY PO 05/30/17 09:00 05/30/17 08:54 (Milk Of Magnesia Liq) 30 ml DAILY PO 05/30/17 09:00 05/30/17 09:31 (Dulcolax Supp) 10 mg UNSCH PRN RECTAL 05/30/17 07:45 (Miralax) 17 gm DAILY PO 05/31/17 09:00 (Senokot) 8.6 mg HS PO 05/30/17 21:00 (Fleets Enema (Adult)) 133 ml UNSCH PRN RECTAL 05/30/17 07:45 (NovoLOG SUPPLEMENTAL SCALE) 1 02,06,10,14,18,22 SQ 05/30/17 10:00 (D50w (Vial) Inj) 50 ml UNSCH PRN IV PUSH 05/30/17 07:45 (Glucagon Inj) 1 mg UNSCH PRN OTHER 05/30/17 07:45 A/P Problem List: (1) Syncope ICD Code: R55 - Syncope and collapse Status: Acute (2) Chest pain ICD Code: R07.9 - Chest pain, unspecified Status: Acute (3) Cardiomyopathy ICD Code: I42.9 - Cardiomyopathy, unspecified Status: Acute (4) CAD (coronary artery disease) ICD Code: I25.10 - Atherosclerotic heart disease of [place] coronary artery without angina pectoris Status: Chronic (5) HTN (hypertension) ICD Code: I10 - Essential (primary) hypertension Status: Chronic (6) HLD (hyperlipidemia) ICD Code: E78.5 - Hyperlipidemia, unspecified Status: Chronic (7) NSTEMI (non-ST elevated myocardial infarction) ICD Code: I21.4 - Non-ST elevation (NSTEMI) myocardial infarction Status: Acute Assessment and Plan (1) Syncope Plan: Poss cardiac etiology. Patient with cardiomyopathy and an ef of 20 - 25%. 2-D echocardiogram showed global hypokinesis and EF of 10-20%. ECG negative. MRI no acute pathology. MRA shows a patent right posterior communicating artery which fills the right posterior cerebral artery. No significant stenosis, occlusion or aneurysm formation. Carotid ultrasound shows patent carotid arteries bilaterally. Neurology consulted. Patient has been cleared by neurology however shouldn't drive until seen outpatient. (2) Chest pain Plan: The patient complain of chest pain in the afternoon of 05/24/17. Patient was given nitroglycerin which seemed to help relieve the pain, however this came back. EKG showed some anterolateral T-wave inversion which was stable from 2 days ago as per medical records. Troponin went up to 1.02 and the patient was started on IV heparin. The patient underwent cardiac catheterization which showed severe ostial LAD disease of 90% to 95%, severe ostial 80-90% RCA disease, mild left ventricle systolic dysfunction with an EF of 50%. SP IV heprin and Nitro gtt. Patient is sp CABG. CP resolved. (3) Cardiomyopathy Plan: The patient has likely ischemic cardiomyopathy. Undergoing evaluation for CABG. Cardiology consulted. Continue aspirin, Lipitor, lisinopril, carvedilol. 05/30 Ronaldo inhibitor on hold. Beta Aicha resumed. (4) CAD (coronary artery disease) Plan: CT surgery surgery consulted for CABG. Continue medications as above. 05/26 Patient is currently undergoing evaluation for CABG. Tentatively on Thursday. Fu CT surgery. To the endocardium shows normal left ventricular size. The left ventricular systolic function severely reduced with an estimated ejection fraction of range of 20-25%. Lower hypokinesis described. Trace mitral bile regurgitation, mild tricuspid valve regurgitation. Follow-up CT surgery recommendations. 05/27 Ischemic cardiomyopathy by history. Cardiac cath 06/2016 EF 35%. Echo 2017 EF 20-25%, cardiac cath 05/25/2017 EF 50%. CABG planning for thursday. Repeat echo ordered by CT surgery given disparity in EF. 05/28 repeat echo shows an Ef 20 to 25% w global hypokinesis. For CABG in am. 05/30 status post CABG 2. Management as per cardiovascular surgery. Dr Meyer who the patient is known to will follow up on Thursday. Pending post operative and intra op ODILIA EF evaluation will determine if the patient will need ICD or lifevest. (5) HTN (hypertension) Plan: BP stable. RONALDO inhibitor on hold, Beta Aicha resumed. (6) HLD (hyperlipidemia) Plan: Continue statin. Will check fasting lipid profile. (7) NSTEMI (non-ST elevated myocardial infarction) ICD Code: I21.4 - Non-ST elevation (NSTEMI) myocardial infarction Status: Acute Plan: Patient is sp chest pain with elevated troponin levels. Cardiac cath showed multivessel CAD. Undergoing evaluation for CABG. Continue medications as above, SP IV heparin. off nitroglycerin drip. DVT prophylaxis: SCD's Discharge Planning Ok to transfer to cardiac floor. Problem Qualifiers (1) Cardiomyopathy: Qualified Codes: I25.5 - Ischemic cardiomyopathy (2) CAD (coronary artery disease): Qualified Codes: I25.110 - Atherosclerotic heart disease of [place] coronary artery with unstable angina pectoris (3) HTN (hypertension): Qualified Codes: I10 - Essential (primary) hypertension (4) HLD (hyperlipidemia): Qualified Codes: E78.5 - Hyperlipidemia, unspecified Mike Wright MD May 30, 2017 14:32
[2017-05-30] MEDS: DOCUSATE SODIUM 100 MG CAP PO SCH (20:46)
[2017-05-30] MEDS: SENNOSIDES 8.6 MG TAB PO SCH (20:46)
[2017-05-30] MEDS: ATORVASTATIN 80 MG TAB PO SCH (20:46)
[2017-05-31] VITALS (24 sets, daily range): BP systolic 96–111; BP diastolic 57–65; PULSE 78–120; RESP 18; TEMP 98–99.3; O2SAT 92–98
[2017-05-31] MEDS ORDERED: AMIODARONE 150 MG/D5W 97 ML BOLUS 60 MINUTES IV ONE ×2 (00:45)
[2017-05-31] MEDS ORDERED: AMIODARONE INJ 450 MG in D5W (EXCEL BAG) INJ 241 ML IV PRN ×2 (00:45→10:15)
[2017-05-31] MEDS: KETOROLAC TROMETHAMINE 30 MG/ML (IVP) VIAL IV PUSH PRN ×2 (01:17→11:00)
[2017-05-31] MEDS: INSULIN ASPART SUPPLEMENTAL SCALE SQ SCH ×6 (02:00→22:13)
[2017-05-31] MEDS: RESP: ALBUTEROL 2.5 MG/IPRATROPIUM 0.5 MG NEB (SCH) NEB ×4 (03:37→20:06)
[2017-05-31 05:00] LABS: AUTOMATED NEUTROPHIL # 3.8 TH/MM3 (1.8-7.7); BASOPHIL % 0.3 % (0.0-2.0); EOSINOPHIL # 0.1 TH/MM3 (0-0.4); HEMOGLOBIN 8.9 GM/DL (13.0-17.0); LYMPH % 17.7 % (9.0-44.0); MEAN CELL VOLUME 100.7 FL (80.0-100.0); MEAN CORPUSCULAR HEMOGLOBIN 34.6 PG (27.0-34.0); MEAN CORPUSCULAR HGB CONC 34.4 % (32.0-36.0); MEAN PLATELET VOLUME 8.4 FL (7.0-11.0); MONOCYTE # 0.9 TH/MM3 (0-0.9); PLATELET COUNT 102 TH/MM3 (150-450); RED BLOOD COUNT 2.58 MIL/MM3 (4.50-5.90); RED CELL DISTRIBUTION WIDTH 13.1 % (11.6-17.2); WHITE BLOOD COUNT 5.8 TH/MM3 (4.0-11.0)
[2017-05-31 05:26] LABS: ALBUMIN 2.4 GM/DL (3.4-5.0); ALT (GPT) 35 U/L (12-78); AST (GOT) 18 U/L (15-37); BICARBONATE 28.2 MEQ/L (21.0-32.0); BLOOD UREA NITROGEN 12 MG/DL (7-18); CALCIUM 7.7 MG/DL (8.5-10.1); CREATININE 0.77 MG/DL (0.60-1.30); GLOMERULAR FILTRATION RATE 101 ML/MIN (>89); GLUCOSE,RANDOM 95 MG/DL (74-106); MAGNESIUM 2.2 MG/DL (1.5-2.5); PHOSPHORUS 2.8 MG/DL (2.5-4.9)
[2017-05-31] MEDS: PANTOPRAZOLE SOD 40 MG DELAYED RELEASE TAB PO SCH (06:18)
[2017-05-31 06:42] LABS: ALKALINE PHOSPHATASE 50 U/L (45-117); CHLORIDE 108 MEQ/L (98-107); SODIUM (NA) 143 MEQ/L (136-145); TOTAL BILIRUBIN ADULT 0.5 MG/DL (0.2-1.0); TOTAL PROTEIN 5.3 GM/DL (6.4-8.2)
--- NOTE | 2017-05-31 07:06 | PD.CAR.PN ---
CVT Progress Note Subjective/Hospital Course: 66 to male admitted with chest pain and NSTEMI. Cardiac cath demonstrating two- vessel CAD with ECHO evidence of severe Left ventricular dysfunction (EF 20-25%) . 05/29 SURGICAL PROCEDURE 1. Urgent Off-pump Coronary Artery Bypass Grafting x 2 with Left Internal Mammary Artery (OBRIEN) to the Left Anterior Descending (LAD), reverse saphenous vein graft to the distal Right Coronary Artery (RCA) 2. Right Leg Endoscopic Vein [place] 3. Intraoperative Vein Mapping 05/30 Doing well Transfer [facility] Ambulate with PT and prosthesis Maintain CT to drainage Beta jozef 05/31 Doing well Paroxysmal atrial fibrillation on IV Amiodarone D/C CT Ambulate Objective: Vital Signs Date Time Temp Pulse Resp B/P (MAP) Pulse Ox O2 Delivery O2 Flow Rate FiO2 05/31/17 06:00 92 05/31/17 05:00 90 05/31/17 04:00 101 05/31/17 03:00 98 Nasal Cannula 2.00 05/31/17 03:00 99.3 101 98/61 (73) 98 05/31/17 03:00 96 05/31/17 02:26 16 05/31/17 02:10 111 102/68 05/31/17 02:00 102 05/31/17 01:16 123 117/64 05/31/17 01:00 114 05/31/17 00:00 120 05/30/17 23:00 106 05/30/17 23:00 98.6 102 117/62 (80) 96 05/30/17 23:00 96 Nasal Cannula 3.00 05/30/17 21:00 96 05/30/17 20:00 98 05/30/17 19:00 99.1 100 96/52 (67) 96 Arterial Line 05/30/17 19:00 96 Nasal Cannula 3.00 05/30/17 19:00 106 05/30/17 18:29 114 05/30/17 17:08 103 05/30/17 16:18 89 05/30/17 15:37 18 05/30/17 15:00 98 Nasal Cannula 3.00 05/30/17 15:00 96 05/30/17 15:00 99.5 96 16 105/56 (72) 97 119/52 (74) 05/30/17 11:00 98 Nasal Cannula 3.00 05/30/17 11:00 97.6 81 14 119/68 (85) 98 119/52 (74) 05/30/17 11:00 81 05/30/17 08:00 98.0 87 16 111/63 (79) 99 115/67 (83) Labs: Laboratory Tests Test 05/31/17 04:00 White Blood Count 5.8 TH/MM3 (4.0-11.0) Red Blood Count 2.58 MIL/MM3 (4.50-5.90) Hemoglobin 8.9 GM/DL (13.0-17.0) Hematocrit 26.0 % (39.0-51.0) Mean Corpuscular Volume 100.7 FL (80.0-100.0) Mean Corpuscular Hemoglobin 34.6 PG (27.0-34.0) Mean Corpuscular Hemoglobin Concent 34.4 % (32.0-36.0) Red Cell Distribution Width 13.1 % (11.6-17.2) Platelet Count 102 TH/MM3 (150-450) Mean Platelet Volume 8.4 FL (7.0-11.0) Neutrophils (%) (Auto) 66.0 % (16.0-70.0) Lymphocytes (%) (Auto) 17.7 % (9.0-44.0) Monocytes (%) (Auto) 15.0 % (0.0-8.0) Eosinophils (%) (Auto) 1.0 % (0.0-4.0) Basophils (%) (Auto) 0.3 % (0.0-2.0) Neutrophils # (Auto) 3.8 TH/MM3 (1.8-7.7) Lymphocytes # (Auto) 1.0 TH/MM3 (1.0-4.8) Monocytes # (Auto) 0.9 TH/MM3 (0-0.9) Eosinophils # (Auto) 0.1 TH/MM3 (0-0.4) Basophils # (Auto) 0.0 TH/MM3 (0-0.2) CBC Comment DIFF FINAL Differential Comment Blood Urea Nitrogen 12 MG/DL (7-18) Creatinine 0.77 MG/DL (0.60-1.30) Random Glucose 95 MG/DL (74-106) Total Protein 5.3 GM/DL (6.4-8.2) Albumin 2.4 GM/DL (3.4-5.0) Calcium Level 7.7 MG/DL (8.5-10.1) Phosphorus Level 2.8 MG/DL (2.5-4.9) Magnesium Level 2.2 MG/DL (1.5-2.5) Alkaline Phosphatase 50 U/L (45-117) Aspartate Amino Transf (AST/SGOT) 18 U/L (15-37) Alanine Aminotransferase (ALT/SGPT) 35 U/L (12-78) Total Bilirubin 0.5 MG/DL (0.2-1.0) Sodium Level 143 MEQ/L (136-145) Potassium Level 4.1 MEQ/L (3.5-5.1) Chloride Level 108 MEQ/L (98-107) Carbon Dioxide Level 28.2 MEQ/L (21.0-32.0) Anion Gap 7 MEQ/L (5-15) Estimat Glomerular Filtration Rate 101 ML/MIN (>89) Result Diagram: 05/31/1739905/31/17399 (1) CAD (coronary artery disease) (2) NSTEMI (non-ST elevated myocardial infarction) (3) Cardiomyopathy (4) S/P CABG x 2 Problem Qualifiers (1) CAD (coronary artery disease): Qualified Codes: I25.110 - Atherosclerotic heart disease of [place] coronary artery with unstable angina pectoris (2) Cardiomyopathy: Qualified Codes: I25.5 - Ischemic cardiomyopathy Janine Chang MD May 31, 2017 07:06
[2017-05-31] MEDS: SODIUM CHLORIDE 0.9% FLUSH 10 ML FLUSH IV FLUSH SCH ×2 (09:00→21:17)
--- NOTE | 2017-05-31 09:23 | EKG ---
Date Performed: 05/30/2017 Time Performed: 05:30:40 PTAGE: 66 years EKG: Sinus rhythm with PVC(s) Inferior infarct - age undetermined Ant/septal and lateral T wave changes may be due to myocardial ischemia Abnormal ECG PREVIOUS TRACING : 05/24/2017 13.07 Since the prior tracing, there has been no significant rebolledo Conjecta DOCTOR: Tariq Glynn Interpretating Date/Time 05/31/2017 09:22:34
--- NOTE | 2017-05-31 10:50 | HHI.PR ---
Subjective Remarks Patient c/o increased soreness in chest and some cough. Now in atrial Fibrillation on telemetry. Denies sob. Objective Vitals Vital Signs Date Time Temp Pulse Resp B/P (MAP) Pulse Ox O2 Delivery O2 Flow Rate FiO2 05/31/17 10:22 97 Nasal Cannula 3.00 05/31/17 10:09 99 05/31/17 09:00 102 05/31/17 08:45 96 Nasal Cannula 2.00 05/31/17 08:45 98.2 87 18 96/57 (70) 96 05/31/17 08:45 91 05/31/17 06:00 92 05/31/17 05:00 90 05/31/17 04:00 101 05/31/17 03:00 98 Nasal Cannula 2.00 05/31/17 03:00 99.3 101 98/61 (73) 98 05/31/17 03:00 96 05/31/17 02:26 16 05/31/17 02:10 111 102/68 05/31/17 02:00 102 05/31/17 01:16 123 117/64 05/31/17 01:00 114 05/31/17 00:00 120 05/30/17 23:00 106 05/30/17 23:00 98.6 102 117/62 (80) 96 05/30/17 23:00 96 Nasal Cannula 3.00 05/30/17 21:00 96 05/30/17 20:00 98 05/30/17 19:00 99.1 100 96/52 (67) 96 Arterial Line 05/30/17 19:00 96 Nasal Cannula 3.00 05/30/17 19:00 106 05/30/17 18:29 114 05/30/17 17:08 103 05/30/17 16:18 89 05/30/17 15:37 18 05/30/17 15:00 98 Nasal Cannula 3.00 05/30/17 15:00 96 05/30/17 15:00 99.5 96 16 105/56 (72) 97 119/52 (74) 05/30/17 11:00 98 Nasal Cannula 3.00 05/30/17 11:00 97.6 81 14 119/68 (85) 98 119/52 (74) 05/30/17 11:00 81 I/O 2/02/0405/30/17 05/30/17 05/31/17 05/31/17 05/31/17 06:59 14:59 22:59 06:59 14:59 22:59 Intake Total 1063 ml 490 ml 700 ml Output Total 1810 ml 440 ml 1020 ml Balance -747 ml 50 ml -320 ml Intake Oral 400 ml 240 ml 480 ml IV Total 663 ml 250 ml 220 ml Output Urine Total 1550 ml 300 ml 950 ml Chest Tube Drainage Total 260 ml 140 ml 70 ml # Bowel Movements 0 Result Diagram: 05/31/17 0400 05/31/17 0400 Imaging Last Impressions Chest X-Ray 05/30/17 0500 Signed Impressions: Service Date/Time: Tuesday, May 30, 2017 04:27 - CONCLUSION: 1. Interval extubation. Central and left chest tubes without pneumothorax. Minimal subsegmental opacity in the lungs. Erich Pillai MD Lower Extremity Ultrasound 05/25/17 0000 Signed Impressions: Service Date/Time: Thursday, May 25, 2017 08:29 - CONCLUSION: Venous mapping as above Ortiz Kimball MD FACR Head Magnetic Resonance Angiography 05/22/17 0000 Signed Impressions: Service Date/Time: Monday, May 22, 2017 18:20 - CONCLUSION: 1. Patent right posterior communicating artery which fills the right posterior cerebral artery. 2. No significant stenosis, occlusion or aneurysm formation. Alex Neves MD Carotid Artery Ultrasound 05/22/17 0000 Signed Impressions: Service Date/Time: Monday, May 22, 2017 15:56 - CONCLUSION: 1. Patent carotid arteries bilaterally. 2. Antegrade flow involving both vertebral arteries. Jhonathan Perez Jr., MD Brain MRI 05/22/17 0000 Signed Impressions: Service Date/Time: Monday, May 22, 2017 18:20 - CONCLUSION: 1. No acute intracranial abnormality. 2. Mild mucosal thickening involving the maxillary sinuses bilaterally and left ethmoid air cells. Alex Neves MD Objective Remarks AAOx3, NAD Clear lungs BL S1S2 irregularly irregular, no MRG. abdomen soft, NT, ND no edema in lower extremities Left AKA - Leg prosthesis in place. Procedures none Medications and IVs Current Medications Medications (Trade) Dose Ordered Sig/Jody Route Start Time Stop Time Status Last Admin (NS Flush) 2 ml UNSCH PRN IV FLUSH 05/22/17 12:15 (NS Flush) 2 ml BID IV FLUSH 05/22/17 21:00 05/31/17 09:00 (Lipitor) 80 mg HS PO 05/22/17 21:00 05/30/17 20:46 (Pill Splitter) 1 ea UNSCH PRN OTHER 05/24/17 10:45 (Nitrostat Sl) 0.4 mg Q5M PRN SL 05/24/17 13:30 (Tylenol) 650 mg Q6H PRN PO 05/24/17 20:15 (Aspirin Chew) 81 mg DAILY PO 05/30/17 09:00 05/31/17 10:58 (Plavix) 75 mg DAILY PO 05/30/17 09:00 05/31/17 10:58 (Protonix) 40 mg DAILY@06 PO 05/30/17 06:00 05/31/17 06:18 (Tylenol) 650 mg Q4H PRN PO 05/29/17 11:30 (Tylenol Supp) 650 mg Q4H PRN RECTAL 05/29/17 11:30 (Zofran Inj) 4 mg Q6H PRN IV PUSH 05/29/17 11:30 05/29/17 14:10 Potassium Chloride 100 ml @ 50 mls/hr UNSCH PRN IV 05/29/17 11:30 Potassium Chloride 100 ml @ 50 mls/hr UNSCH PRN IV 05/29/17 11:30 (KCl) 20 meq UNSCH PRN PO 05/29/17 11:30 (KCl) 40 meq UNSCH PRN PO 05/29/17 11:30 Magnesium Sulfate 2 gm/Sodium Chloride 104 ml @ 100 mls/hr UNSCH PRN IV 05/29/17 11:30 (Calcium Chloride Inj) 0.5 gm UNSCH PRN IV PUSH 05/29/17 11:30 (Sodium Bicarbonate 8.4% Inj) 50 meq UNSCH PRN IV PUSH 05/29/17 11:30 (Sodium Bicarbonate 8.4% Inj) 100 meq UNSCH PRN IV PUSH 05/29/17 11:30 (Duoneb Neb) 1 ampule Q6HR NEB NEB 05/29/17 16:00 05/31/17 10:22 (Duoneb Neb) 1 ampule Q2HR NEB PRN NEB 05/29/17 11:30 Calcium Chloride 1 gm/Sodium Chloride 110 ml @ 110 mls/hr UNSCH PRN IV 05/29/17 22:15 05/29/17 22:29 Potassium Chloride 100 ml @ 50 mls/hr UNSCH PRN IV 05/29/17 22:15 (Coreg) 3.125 mg BID PO 05/30/17 09:00 05/31/17 10:58 (Colace) 100 mg BID PO 05/30/17 21:00 05/31/17 10:57 (Theragran M Tab) 1 tab DAILY PO 05/30/17 09:00 05/31/17 10:58 (Milk Of Magnesia Liq) 30 ml DAILY PO 05/30/17 09:00 05/31/17 10:57 (Dulcolax Supp) 10 mg UNSCH PRN RECTAL 05/30/17 07:45 (Miralax) 17 gm DAILY PO 05/31/17 09:00 05/31/17 10:57 (Senokot) 8.6 mg HS PO 05/30/17 21:00 05/30/17 20:46 (Fleets Enema (Adult)) 133 ml UNSCH PRN RECTAL 05/30/17 07:45 (D50w (Vial) Inj) 50 ml UNSCH PRN IV PUSH 05/30/17 07:45 (Glucagon Inj) 1 mg UNSCH PRN OTHER 05/30/17 07:45 (Ultram) 50 mg Q3H PRN PO 05/30/17 19:00 (Cordarone) 400 mg BID PO 06/01/17 09:00 (NovoLOG SUPPLEMENTAL SCALE) 1 ACHS SQ 05/31/17 12:00 05/31/17 12:00 Amiodarone HCl 450 mg/Dextrose 250 ml @ 33.33 mls/ hr TITRATE PRN IV 05/31/17 12:30 05/31/17 12:35 Urinary Catheter: No Vascular Central Line Catheter: No A/P Problem List: (1) Syncope ICD Code: R55 - Syncope and collapse Status: Acute (2) Chest pain ICD Code: R07.9 - Chest pain, unspecified Status: Acute (3) Cardiomyopathy ICD Code: I42.9 - Cardiomyopathy, unspecified Status: Acute (4) CAD (coronary artery disease) ICD Code: I25.10 - Atherosclerotic heart disease of [place] coronary artery without angina pectoris Status: Chronic (5) HTN (hypertension) ICD Code: I10 - Essential (primary) hypertension Status: Chronic (6) HLD (hyperlipidemia) ICD Code: E78.5 - Hyperlipidemia, unspecified Status: Chronic (7) NSTEMI (non-ST elevated myocardial infarction) ICD Code: I21.4 - Non-ST elevation (NSTEMI) myocardial infarction Status: Acute (8) Paroxysmal atrial fibrillation with RVR ICD Code: I48.0 - Paroxysmal atrial fibrillation Plan: Started on IV amiodarone per CT surgery. ASA Monitor on telemetry. Oral Amiodarone dose increased from 200 mg po bid to 400 mg po bid. Assessment and Plan (1) Syncope Plan: Poss cardiac etiology. Patient with cardiomyopathy and an ef of 20 - 25%. 2-D echocardiogram showed global hypokinesis and EF of 10-20%. ECG negative. MRI no acute pathology. MRA shows a patent right posterior communicating artery which fills the right posterior cerebral artery. No significant stenosis, occlusion or aneurysm formation. Carotid ultrasound shows patent carotid arteries bilaterally. Neurology consulted. Patient has been cleared by neurology however shouldn't drive until seen outpatient. (2) Chest pain Plan: The patient complain of chest pain in the afternoon of 05/24/17. Patient was given nitroglycerin which seemed to help relieve the pain, however this came back. EKG showed some anterolateral T-wave inversion which was stable from 2 days ago as per medical records. Troponin went up to 1.02 and the patient was started on IV heparin. The patient underwent cardiac catheterization which showed severe ostial LAD disease of 90% to 95%, severe ostial 80-90% RCA disease, mild left ventricle systolic dysfunction with an EF of 50%. SP IV heprin and Nitro gtt. Patient is sp CABG. Now has postsurgical pain. Tramadol PRN pain. (3) Cardiomyopathy Plan: The patient has likely ischemic cardiomyopathy. Undergoing evaluation for CABG. Cardiology consulted. Continue aspirin, Lipitor, lisinopril, carvedilol. 05/30 Ronaldo inhibitor on hold. Beta Aicha resumed. (4) CAD (coronary artery disease) Plan: CT surgery surgery consulted for CABG. Continue medications as above. 05/26 Patient is currently undergoing evaluation for CABG. Tentatively on Thursday. Fu CT surgery. To the endocardium shows normal left ventricular size. The left ventricular systolic function severely reduced with an estimated ejection fraction of range of 20-25%. Lower hypokinesis described. Trace mitral bile regurgitation, mild tricuspid valve regurgitation. Follow-up CT surgery recommendations. 05/27 Ischemic cardiomyopathy by history. Cardiac cath 06/2016 EF 35%. Echo 2017 EF 20-25%, cardiac cath 05/25/2017 EF 50%. CABG planning for thursday. Repeat echo ordered by CT surgery given disparity in EF. 05/28 repeat echo shows an Ef 20 to 25% w global hypokinesis. For CABG in am. 05/31 status post CABG 2. Management as per cardiovascular surgery. Dr Meyer who the patient is known to will follow up on Thursday. Pending post operative and intra op ODILIA EF evaluation will determine if the patient will need ICD or lifevest. (5) HTN (hypertension) Plan: BP stable. RONALDO inhibitor on hold, Beta Aicha resumed. BP stable. (6) HLD (hyperlipidemia) Plan: Continue statin. Fasting lipid profile shows, triglycerides with an elevated cholesterol of 116 with an LDL cholesterol 43 and HDL cholesterol 62.8. (7) NSTEMI (non-ST elevated myocardial infarction) Plan: Patient is sp chest pain with elevated troponin levels. Cardiac cath showed multivessel CAD. Continue medications as above, SP CABG, Continue aspirin Plavix, beta-aicha, Lipitor. DVT prophylaxis: SCD's Discharge Planning Continue to monitor in the cardiac floor. Problem Qualifiers (1) Cardiomyopathy: Qualified Codes: I25.5 - Ischemic cardiomyopathy (2) CAD (coronary artery disease): Qualified Codes: I25.110 - Atherosclerotic heart disease of [place] coronary artery with unstable angina pectoris (3) HTN (hypertension): Qualified Codes: I10 - Essential (primary) hypertension (4) HLD (hyperlipidemia): Qualified Codes: E78.5 - Hyperlipidemia, unspecified Mike Wright MD May 31, 2017 10:50
[2017-05-31] MEDS: DOCUSATE SODIUM 100 MG CAP PO SCH ×2 (10:57→21:00)
[2017-05-31] MEDS: POLYETHYLENE GLYCOL 17 GM PKG PO SCH (10:57)
[2017-05-31] MEDS: MAGNESIUM HYDROXIDE SUSP 30 ML CUP PO SCH (10:57)
[2017-05-31] MEDS: MULTIVITAMINS/MINERALS THERAPEUTIC TAB PO SCH (10:58)
[2017-05-31] MEDS: CLOPIDOGREL 75 MG TAB PO SCH (10:58)
[2017-05-31] MEDS: ASPIRIN 81 MG CHEW TAB PO SCH (10:58)
[2017-05-31] MEDS: CARVEDILOL 3.125 MG TAB PO SCH ×2 (10:58→21:17)
[2017-05-31] MEDS ORDERED: AMIODARONE INJ 450 MG in SODIUM CHLOR 0.9% (EXCEL) INJ 241 ML IV PRN (12:30)
[2017-05-31] MEDS: AMIODARONE INJ 450 MG in DEXTROSE 5% IN WATE(EXCEL) INJ 241 ML IV PRN ×2 (12:35)
[2017-05-31] MEDS: SENNOSIDES 8.6 MG TAB PO SCH (21:00)
[2017-05-31] MEDS: ATORVASTATIN 80 MG TAB PO SCH (21:16)
[2017-05-31] MEDS: traMADol HCL 50 MG TAB PO PRN (21:18)
[2017-06-01] VITALS (26 sets, daily range): BP systolic 98–118; BP diastolic 56–77; PULSE 86–106; RESP 18–20; TEMP 97.4–99; O2SAT 92–98
[2017-06-01] MEDS: AMIODARONE INJ 450 MG in DEXTROSE 5% IN WATE(EXCEL) INJ 241 ML IV PRN ×4 (03:42→21:28)
[2017-06-01 05:00] LABS: HEMATOCRIT 25.4 % (39.0-51.0); HEMOGLOBIN 8.8 GM/DL (13.0-17.0); MEAN CELL VOLUME 99.9 FL (80.0-100.0); MEAN CORPUSCULAR HEMOGLOBIN 34.5 PG (27.0-34.0); MEAN CORPUSCULAR HGB CONC 34.5 % (32.0-36.0); MEAN PLATELET VOLUME 8.1 FL (7.0-11.0); PLATELET COUNT 117 TH/MM3 (150-450); RED BLOOD COUNT 2.55 MIL/MM3 (4.50-5.90); WHITE BLOOD COUNT 6.1 TH/MM3 (4.0-11.0)
[2017-06-01] MEDS: PANTOPRAZOLE SOD 40 MG DELAYED RELEASE TAB PO SCH (05:46)
--- NOTE | 2017-06-01 07:49 | PD.CAR.PN ---
CVT Progress Note Subjective/Hospital Course: 66 to male admitted with chest pain and NSTEMI. Cardiac cath demonstrating two- vessel CAD with ECHO evidence of severe Left ventricular dysfunction (EF 20-25%) . 05/29 SURGICAL PROCEDURE 1. Urgent Off-pump Coronary Artery Bypass Grafting x 2 with Left Internal Mammary Artery (OBRIEN) to the Left Anterior Descending (LAD), reverse saphenous vein graft to the distal Right Coronary Artery (RCA) 2. Right Leg Endoscopic Vein [place] 3. Intraoperative Vein Mapping 05/30 Doing well Transfer [facility]PCU Ambulate with PT and prosthesis Maintain CT to drainage Beta jozef 05/31 Doing well Paroxysmal atrial fibrillation on IV Amiodarone D/C CT Ambulate 06/01 In atrial flutter this am. Will have cardiology evaluate Anticoagulation Objective: Vital Signs Date Time Temp Pulse Resp B/P (MAP) Pulse Ox O2 Delivery O2 Flow Rate FiO2 06/01/17 07:15 99.0 91 18 114/56 (75) 95 06/01/17 06:00 87 06/01/17 04:00 91 06/01/17 03:42 98 100/59 06/01/17 03:00 90 06/01/17 03:00 98.0 90 106/65 (79) 94 06/01/17 02:00 90 06/01/17 01:00 88 06/01/17 00:00 90 05/31/17 23:00 92 05/31/17 23:00 98.0 82 102/60 (74) 94 05/31/17 22:20 16 05/31/17 22:00 94 05/31/17 21:00 108 05/31/17 20:00 104 05/31/17 20:00 92 21 05/31/17 19:00 106 05/31/17 19:00 98.6 106 104/65 (78) 93 05/31/17 18:19 96 05/31/17 17:16 89 05/31/17 16:02 87 05/31/17 15:28 98.8 84 18 96/59 (71) 94 05/31/17 15:28 94 Room Air 05/31/17 15:28 78 05/31/17 14:01 88 05/31/17 13:07 93 05/31/17 12:35 93 112/59 05/31/17 12:10 95 05/31/17 11:25 105 05/31/17 11:25 96 Nasal Cannula 2.00 05/31/17 11:25 98.0 99 18 111/65 (80) 96 05/31/17 10:22 97 Nasal Cannula 3.00 05/31/17 10:09 99 05/31/17 09:00 102 05/31/17 08:45 96 Nasal Cannula 2.00 05/31/17 08:45 98.2 87 18 96/57 (70) 96 05/31/17 08:45 91 Labs: Laboratory Tests Test 06/01/17 04:40 White Blood Count 6.1 TH/MM3 (4.0-11.0) Red Blood Count 2.55 MIL/MM3 (4.50-5.90) Hemoglobin 8.8 GM/DL (13.0-17.0) Hematocrit 25.4 % (39.0-51.0) Mean Corpuscular Volume 99.9 FL (80.0-100.0) Mean Corpuscular Hemoglobin 34.5 PG (27.0-34.0) Mean Corpuscular Hemoglobin Concent 34.5 % (32.0-36.0) Red Cell Distribution Width 13.0 % (11.6-17.2) Platelet Count 117 TH/MM3 (150-450) Mean Platelet Volume 8.1 FL (7.0-11.0) Result Diagram: 06/01/17 0440 05/31/17 0400 (1) CAD (coronary artery disease) (2) NSTEMI (non-ST elevated myocardial infarction) (3) Cardiomyopathy (4) S/P CABG x 2 Problem Qualifiers (1) CAD (coronary artery disease): Qualified Codes: I25.110 - Atherosclerotic heart disease of [place] coronary artery with unstable angina pectoris (2) Cardiomyopathy: Qualified Codes: I25.5 - Ischemic cardiomyopathy Janine Chang MD Jun 01, 2017 07:49
[2017-06-01] MEDS: INSULIN ASPART SUPPLEMENTAL SCALE SQ SCH ×4 (08:00→20:53)
[2017-06-01] MEDS: MAGNESIUM HYDROXIDE SUSP 30 ML CUP PO SCH (08:46)
[2017-06-01] MEDS: AMIODARONE 200 MG TAB PO SCH ×2 (08:47→20:52)
[2017-06-01] MEDS: ENOXAPARIN SODIUM 40 MG/0.4 ML SYRINGE SQ SCH ×2 (08:47→20:48)
[2017-06-01] MEDS: CLOPIDOGREL 75 MG TAB PO SCH (08:47)
[2017-06-01] MEDS: ASPIRIN 81 MG CHEW TAB PO SCH (08:48)
[2017-06-01] MEDS: traMADol HCL 50 MG TAB PO PRN ×2 (08:48→20:49)
[2017-06-01] MEDS: CARVEDILOL 3.125 MG TAB PO SCH ×2 (08:49→20:49)
[2017-06-01] MEDS: DOCUSATE SODIUM 100 MG CAP PO SCH ×2 (08:49→20:52)
[2017-06-01] MEDS: MULTIVITAMINS/MINERALS THERAPEUTIC TAB PO SCH (08:49)
[2017-06-01] MEDS: SODIUM CHLORIDE 0.9% FLUSH 10 ML FLUSH IV FLUSH SCH ×2 (08:49→20:48)
[2017-06-01] MEDS: POLYETHYLENE GLYCOL 17 GM PKG PO SCH (08:49)
[2017-06-01] MEDS ORDERED: AMIODARONE 150 MG/D5W 97 ML BOLUS 10 MINUTES IV ONE ×2 (12:45)
[2017-06-01] MEDS: RESP: ALBUTEROL 2.5 MG/IPRATROPIUM 0.5 MG NEB (SCH) NEB ×2 (15:57→20:07)
--- NOTE | 2017-06-01 16:53 | HHI.PR ---
Subjective Remarks a/o chest soreness. infrequent cough. loose stools but denies diarrhea. Denies abdominal pain, nausea or vomiting. Objective Vitals Vital Signs Date Time Temp Pulse Resp B/P (MAP) Pulse Ox O2 Delivery O2 Flow Rate FiO2 06/01/17 16:00 94 06/01/17 15:00 97.4 88 20 118/77 (91) 97 06/01/17 15:00 86 06/01/17 14:00 89 06/01/17 13:00 90 06/01/17 12:44 89 111/66 06/01/17 12:00 92 06/01/17 11:00 98.0 91 18 112/71 (85) 92 06/01/17 11:00 96 06/01/17 10:15 17 06/01/17 10:00 92 06/01/17 09:00 106 06/01/17 08:41 95 21 06/01/17 08:00 90 06/01/17 07:25 86 06/01/17 07:25 99.0 91 18 114/56 (75) 95 06/01/17 07:15 99.0 91 18 114/56 (75) 95 06/01/17 06:00 87 06/01/17 04:00 91 06/01/17 03:42 98 100/59 06/01/17 03:00 90 06/01/17 03:00 98.0 90 106/65 (79) 94 06/01/17 02:00 90 06/01/17 01:00 88 06/01/17 00:00 90 05/31/17 23:00 92 05/31/17 23:00 98.0 82 102/60 (74) 94 05/31/17 22:00 94 05/31/17 21:00 108 05/31/17 20:00 104 05/31/17 20:00 92 21 05/31/17 19:00 106 05/31/17 19:00 98.6 106 104/65 (78) 93 05/31/17 18:19 96 05/31/17 17:16 89 I/O 05/31/17 05/31/17 05/31/17 06/01/17 06/01/17 06/01/17 07:00 15:00 23:00 07:00 15:00 23:00 Intake Total 700 ml 616 ml 594 ml 100 ml Output Total 1020 ml 500 ml 1550 ml Balance -320 ml 116 ml -956 ml 100 ml Intake Oral 480 ml 480 ml 480 ml IV Total 220 ml 136 ml 114 ml 100 ml Output Urine Total 950 ml 500 ml 1550 ml Chest Tube Drainage Total 70 ml # Bowel Movements 1 Result Diagram: 06/01/17 0440 05/31/17 0400 Imaging Last Impressions Chest X-Ray 05/30/17 0500 Signed Impressions: Service Date/Time: Tuesday, May 30, 2017 04:27 - CONCLUSION: 1. Interval extubation. Central and left chest tubes without pneumothorax. Minimal subsegmental opacity in the lungs. Erich Pillai MD Lower Extremity Ultrasound 05/25/17 0000 Signed Impressions: Service Date/Time: Thursday, May 25, 2017 08:29 - CONCLUSION: Venous mapping as above Ortiz Kimball MD FACR Head Magnetic Resonance Angiography 05/22/17 0000 Signed Impressions: Service Date/Time: Monday, May 22, 2017 18:20 - CONCLUSION: 1. Patent right posterior communicating artery which fills the right posterior cerebral artery. 2. No significant stenosis, occlusion or aneurysm formation. Alex Neves MD Carotid Artery Ultrasound 05/22/17 0000 Signed Impressions: Service Date/Time: Monday, May 22, 2017 15:56 - CONCLUSION: 1. Patent carotid arteries bilaterally. 2. Antegrade flow involving both vertebral arteries. Jhonathan Perez Jr., MD Brain MRI 05/22/17 0000 Signed Impressions: Service Date/Time: Monday, May 22, 2017 18:20 - CONCLUSION: 1. No acute intracranial abnormality. 2. Mild mucosal thickening involving the maxillary sinuses bilaterally and left ethmoid air cells. Alex Neves MD Objective Remarks AAOx3, NAD Clear lungs BL S1S2 irregularly irregular, no MRG. abdomen soft, NT, ND no edema in lower extremities Left AKA - Leg prosthesis in place. Procedures none Medications and IVs Current Medications Medications (Trade) Dose Ordered Sig/Jody Route Start Time Stop Time Status Last Admin (NS Flush) 2 ml UNSCH PRN IV FLUSH 05/22/17 12:15 (NS Flush) 2 ml BID IV FLUSH 05/22/17 21:00 06/01/17 08:49 (Lipitor) 80 mg HS PO 05/22/17 21:00 05/31/17 21:16 (Pill Splitter) 1 ea UNSCH PRN OTHER 05/24/17 10:45 (Nitrostat Sl) 0.4 mg Q5M PRN SL 05/24/17 13:30 (Tylenol) 650 mg Q6H PRN PO 05/24/17 20:15 (Aspirin Chew) 81 mg DAILY PO 05/30/17 09:00 06/01/17 08:48 (Plavix) 75 mg DAILY PO 05/30/17 09:00 06/01/17 08:47 (Protonix) 40 mg DAILY@06 PO 05/30/17 06:00 06/01/17 05:46 (Tylenol) 650 mg Q4H PRN PO 05/29/17 11:30 (Tylenol Supp) 650 mg Q4H PRN RECTAL 05/29/17 11:30 (Zofran Inj) 4 mg Q6H PRN IV PUSH 05/29/17 11:30 05/29/17 14:10 Potassium Chloride 100 ml @ 50 mls/hr UNSCH PRN IV 05/29/17 11:30 Potassium Chloride 100 ml @ 50 mls/hr UNSCH PRN IV 05/29/17 11:30 (KCl) 20 meq UNSCH PRN PO 05/29/17 11:30 (KCl) 40 meq UNSCH PRN PO 05/29/17 11:30 Magnesium Sulfate 2 gm/Sodium Chloride 104 ml @ 100 mls/hr UNSCH PRN IV 05/29/17 11:30 (Calcium Chloride Inj) 0.5 gm UNSCH PRN IV PUSH 05/29/17 11:30 (Sodium Bicarbonate 8.4% Inj) 50 meq UNSCH PRN IV PUSH 05/29/17 11:30 (Sodium Bicarbonate 8.4% Inj) 100 meq UNSCH PRN IV PUSH 05/29/17 11:30 (Duoneb Neb) 1 ampule Q6HR NEB NEB 05/29/17 16:00 06/01/17 15:57 (Duoneb Neb) 1 ampule Q2HR NEB PRN NEB 05/29/17 11:30 Calcium Chloride 1 gm/Sodium Chloride 110 ml @ 110 mls/hr UNSCH PRN IV 05/29/17 22:15 05/29/17 22:29 Potassium Chloride 100 ml @ 50 mls/hr UNSCH PRN IV 05/29/17 22:15 (Coreg) 3.125 mg BID PO 05/30/17 09:00 06/01/17 08:49 (Colace) 100 mg BID PO 05/30/17 21:00 06/01/17 08:49 (Theragran M Tab) 1 tab DAILY PO 05/30/17 09:00 06/01/17 08:49 (Milk Of Magnesia Liq) 30 ml DAILY PO 05/30/17 09:00 06/01/17 08:46 (Dulcolax Supp) 10 mg UNSCH PRN RECTAL 05/30/17 07:45 (Miralax) 17 gm DAILY PO 05/31/17 09:00 06/01/17 08:49 (Senokot) 8.6 mg HS PO 05/30/17 21:00 05/30/17 20:46 (Fleets Enema (Adult)) 133 ml UNSCH PRN RECTAL 05/30/17 07:45 (D50w (Vial) Inj) 50 ml UNSCH PRN IV PUSH 05/30/17 07:45 (Glucagon Inj) 1 mg UNSCH PRN OTHER 05/30/17 07:45 (Ultram) 50 mg Q3H PRN PO 05/30/17 19:00 06/01/17 08:48 (Cordarone) 400 mg BID PO 06/01/17 09:00 06/01/17 08:47 (NovoLOG SUPPLEMENTAL SCALE) 1 ACHS SQ 05/31/17 12:00 06/01/17 12:04 Amiodarone HCl 450 mg/Dextrose 250 ml @ 33.33 mls/ hr TITRATE PRN IV 05/31/17 12:30 06/01/17 03:42 (Lovenox Inj) 40 mg Q12H SQ 06/01/17 08:00 06/01/17 08:47 A/P Problem List: (1) Syncope ICD Code: R55 - Syncope and collapse Status: Acute (2) Chest pain ICD Code: R07.9 - Chest pain, unspecified Status: Acute (3) Cardiomyopathy ICD Code: I42.9 - Cardiomyopathy, unspecified Status: Acute (4) CAD (coronary artery disease) ICD Code: I25.10 - Atherosclerotic heart disease of [place] coronary artery without angina pectoris Status: Chronic (5) HTN (hypertension) ICD Code: I10 - Essential (primary) hypertension Status: Chronic (6) HLD (hyperlipidemia) ICD Code: E78.5 - Hyperlipidemia, unspecified Status: Chronic (7) NSTEMI (non-ST elevated myocardial infarction) ICD Code: I21.4 - Non-ST elevation (NSTEMI) myocardial infarction Status: Acute (8) Paroxysmal atrial fibrillation with RVR ICD Code: I48.0 - Paroxysmal atrial fibrillation Plan: Started on IV amiodarone per CT surgery. ASA Monitor on telemetry. Oral Amiodarone dose increased from 200 mg po bid to 400 mg po bid. 06/01 SP IV amiodarone bolus, Patient continues on amiodarone drip. Management as per CT surgery and cardiology. Assessment and Plan (1) Syncope Plan: Poss cardiac etiology. Patient with cardiomyopathy and an ef of 20 - 25%. 2-D echocardiogram showed global hypokinesis and EF of 10-20%. ECG negative. MRI no acute pathology. MRA shows a patent right posterior communicating artery which fills the right posterior cerebral artery. No significant stenosis, occlusion or aneurysm formation. Carotid ultrasound shows patent carotid arteries bilaterally. Neurology consulted. Patient has been cleared by neurology however shouldn't drive until seen outpatient. (2) Chest pain Plan: The patient complain of chest pain in the afternoon of 05/24/17. Patient was given nitroglycerin which seemed to help relieve the pain, however this came back. EKG showed some anterolateral T-wave inversion which was stable from 2 days ago as per medical records. Troponin went up to 1.02 and the patient was started on IV heparin. The patient underwent cardiac catheterization which showed severe ostial LAD disease of 90% to 95%, severe ostial 80-90% RCA disease, mild left ventricle systolic dysfunction with an EF of 50%. SP IV heprin and Nitro gtt. Patient is sp CABG. Now has postsurgical pain. Tramadol PRN pain. (3) Cardiomyopathy Plan: The patient has likely ischemic cardiomyopathy. Undergoing evaluation for CABG. Cardiology consulted. Continue aspirin, Lipitor, lisinopril, carvedilol. 05/30 Ronaldo inhibitor on hold. Beta Aicha resumed. (4) CAD (coronary artery disease) Plan: CT surgery surgery consulted for CABG. Continue medications as above. 05/26 Patient is currently undergoing evaluation for CABG. Tentatively on Thursday. Fu CT surgery. To the endocardium shows normal left ventricular size. The left ventricular systolic function severely reduced with an estimated ejection fraction of range of 20-25%. Lower hypokinesis described. Trace mitral bile regurgitation, mild tricuspid valve regurgitation. Follow-up CT surgery recommendations. 05/27 Ischemic cardiomyopathy by history. Cardiac cath 06/2016 EF 35%. Echo 2017 EF 20-25%, cardiac cath 05/25/2017 EF 50%. CABG planning for thursday. Repeat echo ordered by CT surgery given disparity in EF. 05/28 repeat echo shows an Ef 20 to 25% w global hypokinesis. For CABG in am. 05/31 status post CABG 2. Management as per cardiovascular surgery. Dr Meyer who the patient is known to will follow up today. Pending post operative and intra op ODILIA EF evaluation will determine if the patient will need ICD or lifevest. (5) HTN (hypertension) Plan: BP stable. RONALDO inhibitor on hold, Beta Aicha resumed. BP stable. (6) HLD (hyperlipidemia) Plan: Continue statin. Fasting lipid profile shows, triglycerides with an elevated cholesterol of 116 with an LDL cholesterol 43 and HDL cholesterol 62.8. (7) NSTEMI (non-ST elevated myocardial infarction) Plan: Patient is sp chest pain with elevated troponin levels. Cardiac cath showed multivessel CAD. Continue medications as above, SP CABG, Continue aspirin Plavix, beta-aicha, Lipitor. DVT prophylaxis: SCD's Discharge Planning Continue to monitor in the cardiac floor. Problem Qualifiers (1) Cardiomyopathy: Qualified Codes: I25.5 - Ischemic cardiomyopathy (2) CAD (coronary artery disease): Qualified Codes: I25.110 - Atherosclerotic heart disease of [place] coronary artery with unstable angina pectoris (3) HTN (hypertension): Qualified Codes: I10 - Essential (primary) hypertension (4) HLD (hyperlipidemia): Qualified Codes: E78.5 - Hyperlipidemia, unspecified Mike Wright MD Jun 01, 2017 16:53
--- NOTE | 2017-06-01 18:10 | PD.CARD.PN ---
Subjective Subjective Remarks No CP or SOB, feels well, a flutter since this AM w controlled VR Objective Medications Current Medications Medications (Trade) Dose Ordered Sig/Jody Route Start Time Stop Time Status Last Admin (NS Flush) 2 ml UNSCH PRN IV FLUSH 05/22/17 12:15 (NS Flush) 2 ml BID IV FLUSH 05/22/17 21:00 06/01/17 08:49 (Lipitor) 80 mg HS PO 05/22/17 21:00 05/31/17 21:16 (Pill Splitter) 1 ea UNSCH PRN OTHER 05/24/17 10:45 (Nitrostat Sl) 0.4 mg Q5M PRN SL 05/24/17 13:30 (Tylenol) 650 mg Q6H PRN PO 05/24/17 20:15 (Aspirin Chew) 81 mg DAILY PO 05/30/17 09:00 06/01/17 08:48 (Plavix) 75 mg DAILY PO 05/30/17 09:00 06/01/17 08:47 (Protonix) 40 mg DAILY@06 PO 05/30/17 06:00 06/01/17 05:46 (Tylenol) 650 mg Q4H PRN PO 05/29/17 11:30 (Tylenol Supp) 650 mg Q4H PRN RECTAL 05/29/17 11:30 (Zofran Inj) 4 mg Q6H PRN IV PUSH 05/29/17 11:30 05/29/17 14:10 Potassium Chloride 100 ml @ 50 mls/hr UNSCH PRN IV 05/29/17 11:30 Potassium Chloride 100 ml @ 50 mls/hr UNSCH PRN IV 05/29/17 11:30 (KCl) 20 meq UNSCH PRN PO 05/29/17 11:30 (KCl) 40 meq UNSCH PRN PO 05/29/17 11:30 Magnesium Sulfate 2 gm/Sodium Chloride 104 ml @ 100 mls/hr UNSCH PRN IV 05/29/17 11:30 (Calcium Chloride Inj) 0.5 gm UNSCH PRN IV PUSH 05/29/17 11:30 (Sodium Bicarbonate 8.4% Inj) 50 meq UNSCH PRN IV PUSH 05/29/17 11:30 (Sodium Bicarbonate 8.4% Inj) 100 meq UNSCH PRN IV PUSH 05/29/17 11:30 (Duoneb Neb) 1 ampule Q6HR NEB NEB 05/29/17 16:00 06/01/17 15:57 (Duoneb Neb) 1 ampule Q2HR NEB PRN NEB 05/29/17 11:30 Calcium Chloride 1 gm/Sodium Chloride 110 ml @ 110 mls/hr UNSCH PRN IV 05/29/17 22:15 05/29/17 22:29 Potassium Chloride 100 ml @ 50 mls/hr UNSCH PRN IV 05/29/17 22:15 (Coreg) 3.125 mg BID PO 05/30/17 09:00 06/01/17 08:49 (Colace) 100 mg BID PO 05/30/17 21:00 06/01/17 08:49 (Theragran M Tab) 1 tab DAILY PO 05/30/17 09:00 06/01/17 08:49 (Milk Of Magnesia Liq) 30 ml DAILY PO 05/30/17 09:00 06/01/17 08:46 (Dulcolax Supp) 10 mg UNSCH PRN RECTAL 05/30/17 07:45 (Miralax) 17 gm DAILY PO 05/31/17 09:00 06/01/17 08:49 (Senokot) 8.6 mg HS PO 05/30/17 21:00 05/30/17 20:46 (Fleets Enema (Adult)) 133 ml UNSCH PRN RECTAL 05/30/17 07:45 (D50w (Vial) Inj) 50 ml UNSCH PRN IV PUSH 05/30/17 07:45 (Glucagon Inj) 1 mg UNSCH PRN OTHER 05/30/17 07:45 (Ultram) 50 mg Q3H PRN PO 05/30/17 19:00 06/01/17 08:48 (Cordarone) 400 mg BID PO 06/01/17 09:00 06/01/17 08:47 (NovoLOG SUPPLEMENTAL SCALE) 1 ACHS SQ 05/31/17 12:00 06/01/17 12:04 Amiodarone HCl 450 mg/Dextrose 250 ml @ 33.33 mls/ hr TITRATE PRN IV 05/31/17 12:30 06/01/17 03:42 (Lovenox Inj) 40 mg Q12H SQ 06/01/17 08:00 06/01/17 08:47 Vital Signs / I&O Vital Signs Date Time Temp Pulse Resp B/P (MAP) Pulse Ox O2 Delivery O2 Flow Rate FiO2 06/01/17 17:00 92 06/01/17 16:00 94 06/01/17 15:00 97.4 88 20 118/77 (91) 97 06/01/17 15:00 86 06/01/17 14:00 89 06/01/17 13:00 90 06/01/17 12:44 89 111/66 06/01/17 12:00 92 06/01/17 11:00 98.0 91 18 112/71 (85) 92 06/01/17 11:00 96 06/01/17 10:15 17 06/01/17 10:00 92 06/01/17 09:00 106 06/01/17 08:41 95 21 06/01/17 08:00 90 06/01/17 07:25 86 06/01/17 07:25 99.0 91 18 114/56 (75) 95 06/01/17 07:15 99.0 91 18 114/56 (75) 95 06/01/17 06:00 87 06/01/17 04:00 91 06/01/17 03:42 98 100/59 06/01/17 03:00 90 06/01/17 03:00 98.0 90 106/65 (79) 94 06/01/17 02:00 90 06/01/17 01:00 88 06/01/17 00:00 90 05/31/17 23:00 92 05/31/17 23:00 98.0 82 102/60 (74) 94 05/31/17 22:00 94 05/31/17 21:00 108 05/31/17 20:00 104 05/31/17 20:00 92 21 05/31/17 19:00 106 05/31/17 19:00 98.6 106 104/65 (78) 93 05/31/17 18:19 96 I/O 05/31/17 05/31/17 05/31/17 06/01/17 06/01/17 06/01/17 07:00 15:00 23:00 07:00 15:00 23:00 Intake Total 700 ml 616 ml 594 ml 1060 ml Output Total 1020 ml 500 ml 1550 ml 600 ml Balance -320 ml 116 ml -956 ml 460 ml Intake Oral 480 ml 480 ml 480 ml 960 ml IV Total 220 ml 136 ml 114 ml 100 ml Output Urine Total 950 ml 500 ml 1550 ml 600 ml Chest Tube Drainage Total 70 ml # Bowel Movements 1 1 Physical Exam GENERAL: In NAD SKIN: Warm and dry. HEAD: Normocephalic. EYES: No scleral icterus. No injection or drainage. NECK: Supple, trachea midline. No JVD or lymphadenopathy. CARDIOVASCULAR: Regular rate and rhythm without murmurs, gallops, or rubs. RESPIRATORY: Breath sounds equal bilaterally. No accessory muscle use. GASTROINTESTINAL: Abdomen soft, non-tender, nondistended. MUSCULOSKELETAL: No cyanosis, or edema. Laboratory Laboratory Tests Test 06/01/17 04:40 White Blood Count 6.1 TH/MM3 Red Blood Count 2.55 MIL/MM3 Hemoglobin 8.8 GM/DL Hematocrit 25.4 % Mean Corpuscular Volume 99.9 FL Mean Corpuscular Hemoglobin 34.5 PG Mean Corpuscular Hemoglobin Concent 34.5 % Red Cell Distribution Width 13.0 % Platelet Count 117 TH/MM3 Mean Platelet Volume 8.1 FL Assessment and Plan Problem List: (1) Atrial flutter ICD Codes: I48.92 - Unspecified atrial flutter (2) CAD (coronary artery disease) ICD Codes: I25.10 - Atherosclerotic heart disease of [place] coronary artery without angina pectoris Status: Chronic (3) NSTEMI (non-ST elevated myocardial infarction) ICD Codes: I21.4 - Non-ST elevation (NSTEMI) myocardial infarction Status: Acute (4) Cardiomyopathy ICD Codes: I42.9 - Cardiomyopathy, unspecified Status: Acute (5) S/P CABG x 2 ICD Codes: Z95.1 - Presence of aortocoronary bypass graft Assessment and Plan In a flutter post op, o/w good progress. Agree with amio, will need full anticoagulation for now. Continue postop care. Increase activity. DC cardioversion later if necessary. Problem Qualifiers (1) CAD (coronary artery disease): Qualified Codes: I25.110 - Atherosclerotic heart disease of [place] coronary artery with unstable angina pectoris (2) Cardiomyopathy: Qualified Codes: I25.5 - Ischemic cardiomyopathy Isela Meyer MD Jun 01, 2017 18:10
[2017-06-01] MEDS: ATORVASTATIN 80 MG TAB PO SCH (20:49)
[2017-06-01] MEDS: SENNOSIDES 8.6 MG TAB PO SCH (20:53)
[2017-06-02] VITALS (28 sets, daily range): BP systolic 98–118; BP diastolic 53–68; PULSE 83–116; RESP 14–18; TEMP 98.2–98.6; O2SAT 93–98
[2017-06-02] MEDS: RESP: ALBUTEROL 2.5 MG/IPRATROPIUM 0.5 MG NEB (SCH) NEB ×3 (04:35→15:43)
[2017-06-02 05:10] LABS: HEMOGLOBIN 9.3 GM/DL (13.0-17.0); MEAN CELL VOLUME 99.9 FL (80.0-100.0); MEAN CORPUSCULAR HEMOGLOBIN 34.3 PG (27.0-34.0); MEAN CORPUSCULAR HGB CONC 34.4 % (32.0-36.0); MEAN PLATELET VOLUME 8.3 FL (7.0-11.0); PLATELET COUNT 170 TH/MM3 (150-450); RED CELL DISTRIBUTION WIDTH 12.8 % (11.6-17.2); WHITE BLOOD COUNT 4.5 TH/MM3 (4.0-11.0)
[2017-06-02] MEDS: PANTOPRAZOLE SOD 40 MG DELAYED RELEASE TAB PO SCH (05:13)
[2017-06-02] MEDS: traMADol HCL 50 MG TAB PO PRN ×3 (05:13→19:34)
[2017-06-02] MEDS: INSULIN ASPART SUPPLEMENTAL SCALE SQ SCH ×4 (08:00→21:00)
[2017-06-02] MEDS: MAGNESIUM HYDROXIDE SUSP 30 ML CUP PO SCH (09:00)
[2017-06-02] MEDS: DOCUSATE SODIUM 100 MG CAP PO SCH ×2 (09:00→21:00)
[2017-06-02] MEDS: POLYETHYLENE GLYCOL 17 GM PKG PO SCH (09:00)
[2017-06-02] MEDS: ASPIRIN 81 MG CHEW TAB PO SCH (09:06)
[2017-06-02] MEDS: CLOPIDOGREL 75 MG TAB PO SCH (09:06)
[2017-06-02] MEDS: MULTIVITAMINS/MINERALS THERAPEUTIC TAB PO SCH (09:07)
[2017-06-02] MEDS: AMIODARONE 200 MG TAB PO SCH ×2 (09:08→21:00)
[2017-06-02] MEDS: CARVEDILOL 3.125 MG TAB PO SCH ×2 (09:08→21:00)
[2017-06-02] MEDS: ENOXAPARIN SODIUM 40 MG/0.4 ML SYRINGE SQ SCH (09:08)
[2017-06-02] MEDS: SODIUM CHLORIDE 0.9% FLUSH 10 ML FLUSH IV FLUSH SCH ×2 (09:09→21:00)
--- NOTE | 2017-06-02 15:49 | PD.CAR.PN ---
CVT Progress Note CVT: POD #: 4 Subjective/Hospital Course: 66 to male admitted with chest pain and NSTEMI. Cardiac cath demonstrating two- vessel CAD with ECHO evidence of severe Left ventricular dysfunction (EF 20-25%) . 05/29 SURGICAL PROCEDURE 1. Urgent Off-pump Coronary Artery Bypass Grafting x 2 with Left Internal Mammary Artery (OBRIEN) to the Left Anterior Descending (LAD), reverse saphenous vein graft to the distal Right Coronary Artery (RCA) 2. Right Leg Endoscopic Vein [place] 3. Intraoperative Vein Mapping 05/30 Doing well Transfer [facility] Ambulate with PT and prosthesis Maintain CT to drainage Beta jozef 05/31 Doing well Paroxysmal atrial fibrillation on IV Amiodarone D/C CT Ambulate 06/01 In atrial flutter this am. Will have cardiology evaluate Anticoagulation 06/02 pt converted to NSR for short time, then went back into afib rate 110-115 BP stable, on lovenox , may need to start eliquis , await decision from cardiology on room air will need rehab at discharge Objective: GENERAL: A&O x 3 SKIN: Warm and dry. prevena dressing to chest HEAD: Normocephalic. EYES: No scleral icterus. No injection or drainage. NECK: Supple, trachea midline. No JVD or lymphadenopathy. CARDIOVASCULAR: irregular rate and rhythm without murmurs, gallops, or rubs. RESPIRATORY: Breath sounds equal bilaterally. No accessory muscle use. GASTROINTESTINAL: Abdomen soft, non-tender, nondistended. MUSCULOSKELETAL: No cyanosis, or edema. left AKA/ prosthetic device BACK: Nontender without obvious deformity. No CVA tenderness. Vital Signs Date Time Temp Pulse Resp B/P (MAP) Pulse Ox O2 Delivery O2 Flow Rate FiO2 06/02/17 13:00 93 06/02/17 12:00 97 06/02/17 11:30 98.5 86 18 112/64 (80) 95 06/02/17 11:00 109 06/02/17 10:00 92 06/02/17 09:19 93 21 06/02/17 09:00 100 06/02/17 08:00 98.3 86 18 118/68 (85) 94 06/02/17 08:00 86 06/02/17 07:00 88 06/02/17 06:24 16 06/02/17 06:00 90 06/02/17 05:00 88 06/02/17 04:00 87 06/02/17 03:00 85 06/02/17 03:00 98.6 83 18 107/64 (78) 94 06/02/17 02:18 85 06/02/17 01:00 85 06/02/17 00:00 84 06/01/17 23:00 88 06/01/17 23:00 98.3 87 18 98/63 (75) 96 06/01/17 22:00 92 06/01/17 21:28 91 112/63 06/01/17 21:00 89 06/01/17 20:08 98 21 06/01/17 20:00 89 06/01/17 19:00 98.4 91 20 112/63 (79) 94 06/01/17 19:00 92 06/01/17 18:00 90 06/01/17 17:00 92 06/01/17 16:00 94 Labs: Laboratory Tests Test 06/02/17 04:16 White Blood Count 4.5 TH/MM3 (4.0-11.0) Red Blood Count 2.70 MIL/MM3 (4.50-5.90) Hemoglobin 9.3 GM/DL (13.0-17.0) Hematocrit 27.0 % (39.0-51.0) Mean Corpuscular Volume 99.9 FL (80.0-100.0) Mean Corpuscular Hemoglobin 34.3 PG (27.0-34.0) Mean Corpuscular Hemoglobin Concent 34.4 % (32.0-36.0) Red Cell Distribution Width 12.8 % (11.6-17.2) Platelet Count 170 TH/MM3 (150-450) Mean Platelet Volume 8.3 FL (7.0-11.0) Result Diagram: 06/02/17 0416 05/31/17 0400 Telemetry: afib (1) Atrial flutter Plan: on amiodarone and lovenox converted to NSR for short time , then back to afib Dr Meyer following (2) CAD (coronary artery disease) (3) NSTEMI (non-ST elevated myocardial infarction) (4) Cardiomyopathy (5) S/P CABG x 2 Plan: on ASA, plavix, BB , statin OOB ambulate CM eval for rehab pulm toileting Problem Qualifiers (1) CAD (coronary artery disease): Qualified Codes: I25.110 - Atherosclerotic heart disease of [place] coronary artery with unstable angina pectoris (2) Cardiomyopathy: Qualified Codes: I25.5 - Ischemic cardiomyopathy Danielle Marshall Jun 02, 2017 15:49
--- NOTE | 2017-06-02 16:06 | PD.CARD.PN ---
Subjective Subjective Remarks No angina or SOB, intermittent a fib, now back in SR Objective Medications Current Medications Medications (Trade) Dose Ordered Sig/Jody Route Start Time Stop Time Status Last Admin (NS Flush) 2 ml UNSCH PRN IV FLUSH 05/22/17 12:15 (NS Flush) 2 ml BID IV FLUSH 05/22/17 21:00 06/02/17 09:09 (Lipitor) 80 mg HS PO 05/22/17 21:00 06/01/17 20:49 (Pill Splitter) 1 ea UNSCH PRN OTHER 05/24/17 10:45 (Nitrostat Sl) 0.4 mg Q5M PRN SL 05/24/17 13:30 (Tylenol) 650 mg Q6H PRN PO 05/24/17 20:15 (Aspirin Chew) 81 mg DAILY PO 05/30/17 09:00 06/02/17 09:06 (Plavix) 75 mg DAILY PO 05/30/17 09:00 06/02/17 09:06 (Protonix) 40 mg DAILY@06 PO 05/30/17 06:00 06/02/17 05:13 (Tylenol) 650 mg Q4H PRN PO 05/29/17 11:30 (Tylenol Supp) 650 mg Q4H PRN RECTAL 05/29/17 11:30 (Zofran Inj) 4 mg Q6H PRN IV PUSH 05/29/17 11:30 05/29/17 14:10 Potassium Chloride 100 ml @ 50 mls/hr UNSCH PRN IV 05/29/17 11:30 Potassium Chloride 100 ml @ 50 mls/hr UNSCH PRN IV 05/29/17 11:30 (KCl) 20 meq UNSCH PRN PO 05/29/17 11:30 (KCl) 40 meq UNSCH PRN PO 05/29/17 11:30 Magnesium Sulfate 2 gm/Sodium Chloride 104 ml @ 100 mls/hr UNSCH PRN IV 05/29/17 11:30 (Calcium Chloride Inj) 0.5 gm UNSCH PRN IV PUSH 05/29/17 11:30 (Sodium Bicarbonate 8.4% Inj) 50 meq UNSCH PRN IV PUSH 05/29/17 11:30 (Sodium Bicarbonate 8.4% Inj) 100 meq UNSCH PRN IV PUSH 05/29/17 11:30 (Duoneb Neb) 1 ampule Q2HR NEB PRN NEB 05/29/17 11:30 Calcium Chloride 1 gm/Sodium Chloride 110 ml @ 110 mls/hr UNSCH PRN IV 05/29/17 22:15 05/29/17 22:29 Potassium Chloride 100 ml @ 50 mls/hr UNSCH PRN IV 05/29/17 22:15 (Coreg) 3.125 mg BID PO 05/30/17 09:00 06/02/17 09:08 (Colace) 100 mg BID PO 05/30/17 21:00 06/01/17 08:49 (Theragran M Tab) 1 tab DAILY PO 05/30/17 09:00 06/02/17 09:07 (Milk Of Magnesia Liq) 30 ml DAILY PO 05/30/17 09:00 06/01/17 08:46 (Dulcolax Supp) 10 mg UNSCH PRN RECTAL 05/30/17 07:45 (Miralax) 17 gm DAILY PO 05/31/17 09:00 06/01/17 08:49 (Senokot) 8.6 mg HS PO 05/30/17 21:00 05/30/17 20:46 (Fleets Enema (Adult)) 133 ml UNSCH PRN RECTAL 05/30/17 07:45 (D50w (Vial) Inj) 50 ml UNSCH PRN IV PUSH 05/30/17 07:45 (Glucagon Inj) 1 mg UNSCH PRN OTHER 05/30/17 07:45 (Ultram) 50 mg Q3H PRN PO 05/30/17 19:00 06/02/17 05:13 (Cordarone) 400 mg BID PO 06/01/17 09:00 06/02/17 09:08 (NovoLOG SUPPLEMENTAL SCALE) 1 ACHS SQ 05/31/17 12:00 06/01/17 12:04 Amiodarone HCl 450 mg/Dextrose 250 ml @ 33.33 mls/ hr TITRATE PRN IV 05/31/17 12:30 06/01/17 21:28 (Lovenox Inj) 40 mg Q12H SQ 06/01/17 08:00 06/02/17 09:08 Vital Signs / I&O Vital Signs Date Time Temp Pulse Resp B/P (MAP) Pulse Ox O2 Delivery O2 Flow Rate FiO2 06/02/17 13:00 93 06/02/17 12:00 97 06/02/17 11:30 98.5 86 18 112/64 (80) 95 06/02/17 11:00 109 06/02/17 10:00 92 06/02/17 09:19 93 21 06/02/17 09:00 100 06/02/17 08:00 98.3 86 18 118/68 (85) 94 06/02/17 08:00 86 06/02/17 07:00 88 06/02/17 06:24 16 06/02/17 06:00 90 06/02/17 05:00 88 06/02/17 04:00 87 06/02/17 03:00 85 06/02/17 03:00 98.6 83 18 107/64 (78) 94 06/02/17 02:18 85 06/02/17 01:00 85 06/02/17 00:00 84 06/01/17 23:00 88 06/01/17 23:00 98.3 87 18 98/63 (75) 96 06/01/17 22:00 92 06/01/17 21:28 91 112/63 06/01/17 21:00 89 06/01/17 20:08 98 21 06/01/17 20:00 89 06/01/17 19:00 98.4 91 20 112/63 (79) 94 06/01/17 19:00 92 06/01/17 18:00 90 06/01/17 17:00 92 I/O 06/01/17 06/01/17 06/01/17 06/02/17 06/02/17 06/02/17 07:00 15:00 23:00 07:00 15:00 23:00 Intake Total 594 ml 1410 ml 697 ml Output Total 1550 ml 600 ml 1460 ml Balance -956 ml 810 ml -763 ml Intake Oral 480 ml 960 ml 500 ml IV Total 114 ml 450 ml 197 ml Output Urine Total 1550 ml 600 ml 1460 ml # Bowel Movements 1 Physical Exam GENERAL: In NAD SKIN: Warm and dry. HEAD: Normocephalic. EYES: No scleral icterus. No injection or drainage. NECK: Supple, trachea midline. No JVD or lymphadenopathy. CARDIOVASCULAR: Regular rate and rhythm without murmurs, gallops, or rubs. RESPIRATORY: Breath sounds equal bilaterally. No accessory muscle use. GASTROINTESTINAL: Abdomen soft, non-tender, nondistended. MUSCULOSKELETAL: No cyanosis, or edema. Laboratory Laboratory Tests Test 06/02/17 04:16 White Blood Count 4.5 TH/MM3 Red Blood Count 2.70 MIL/MM3 Hemoglobin 9.3 GM/DL Hematocrit 27.0 % Mean Corpuscular Volume 99.9 FL Mean Corpuscular Hemoglobin 34.3 PG Mean Corpuscular Hemoglobin Concent 34.4 % Red Cell Distribution Width 12.8 % Platelet Count 170 TH/MM3 Mean Platelet Volume 8.3 FL Assessment and Plan Problem List: (1) Atrial flutter ICD Codes: I48.92 - Unspecified atrial flutter (2) CAD (coronary artery disease) ICD Codes: I25.10 - Atherosclerotic heart disease of [place] coronary artery without angina pectoris Status: Chronic (3) NSTEMI (non-ST elevated myocardial infarction) ICD Codes: I21.4 - Non-ST elevation (NSTEMI) myocardial infarction Status: Acute (4) Cardiomyopathy ICD Codes: I42.9 - Cardiomyopathy, unspecified Status: Acute (5) S/P CABG x 2 ICD Codes: Z95.1 - Presence of aortocoronary bypass graft Assessment and Plan Back in SR, continue amio loading 400 mg BID for 7 days, then 200 mg daily. Start anticoagulation with Eliquis. Continue postop care, good progress. Increase activity. Problem Qualifiers (1) CAD (coronary artery disease): Qualified Codes: I25.110 - Atherosclerotic heart disease of [place] coronary artery with unstable angina pectoris (2) Cardiomyopathy: Qualified Codes: I25.5 - Ischemic cardiomyopathy Isela Meyer MD Jun 02, 2017 16:06
[2017-06-02] MEDS ORDERED: guaiFENesin/DEXTROMETHORPHAN 200 MG/20 MG/10 ML CUP PO PRN (19:45)
[2017-06-02] MEDS: SENNOSIDES 8.6 MG TAB PO SCH (21:00)
[2017-06-02] MEDS: ATORVASTATIN 80 MG TAB PO SCH (21:00)
[2017-06-02] MEDS: APIXABAN 5 MG TABLET PO SCH (21:00)
[2017-06-03] VITALS (17 sets, daily range): BP systolic 100–105; BP diastolic 57–64; PULSE 81–106; RESP 12–20; TEMP 97.5–98.8; O2SAT 92–95
--- NOTE | 2017-06-03 02:59 | HHI.PR ---
Subjective Remarks Deferred entry - patient seen at 1800 hrs on 06/02/17 Patient c/o frequent cough. states feels warm but has been afebrile. Objective Vitals Vital Signs Date Time Temp Pulse Resp B/P (MAP) Pulse Ox O2 Delivery O2 Flow Rate FiO2 06/02/17 23:00 98.5 96 14 101/59 (73) 95 06/02/17 23:00 92 06/02/17 21:10 96 21 06/02/17 20:34 14 06/02/17 19:00 98.5 96 14 109/53 (71) 98 06/02/17 19:00 96 06/02/17 18:00 99 06/02/17 17:00 98 06/02/17 16:15 98.2 97 18 104/60 (75) 96 06/02/17 16:00 92 06/02/17 15:00 101 06/02/17 14:00 92 06/02/17 13:00 93 06/02/17 12:00 97 06/02/17 11:30 98.5 86 18 112/64 (80) 95 06/02/17 11:00 109 06/02/17 10:00 92 06/02/17 10:00 88 112/6 06/02/17 09:19 93 21 06/02/17 09:00 100 06/02/17 08:00 98.3 86 18 118/68 (85) 94 06/02/17 08:00 86 06/02/17 07:00 88 06/02/17 06:00 90 06/02/17 05:00 88 06/02/17 04:00 87 06/02/17 03:00 85 06/02/17 03:00 98.6 83 18 107/64 (78) 94 I/O 06/02/17 06/02/17 06/02/17 06/03/17 06/03/17 06/03/17 07:00 15:00 23:00 07:00 15:00 23:00 Intake Total 697 ml 1025 ml Output Total 1460 ml 930 ml Balance -763 ml 95 ml Intake Oral 500 ml 1025 ml IV Total 197 ml Output Urine Total 1460 ml 930 ml # Bowel Movements 1 Result Diagram: 06/02/17 0416 05/31/17 0400 Objective Remarks AAOx3, NAD Clear lungs BL S1S2 irregularly irregular, no MRG. Midline chest scar is covered but lookks C/D /I. abdomen soft, NT, ND no edema in lower extremities Left AKA - Leg prosthesis in place. Procedures none A/P Problem List: (1) Syncope ICD Code: R55 - Syncope and collapse Status: Acute (2) Chest pain ICD Code: R07.9 - Chest pain, unspecified Status: Acute (3) Cardiomyopathy ICD Code: I42.9 - Cardiomyopathy, unspecified Status: Acute (4) CAD (coronary artery disease) ICD Code: I25.10 - Atherosclerotic heart disease of [place] coronary artery without angina pectoris Status: Chronic (5) HTN (hypertension) ICD Code: I10 - Essential (primary) hypertension Status: Chronic (6) HLD (hyperlipidemia) ICD Code: E78.5 - Hyperlipidemia, unspecified Status: Chronic (7) NSTEMI (non-ST elevated myocardial infarction) ICD Code: I21.4 - Non-ST elevation (NSTEMI) myocardial infarction Status: Acute (8) Paroxysmal atrial fibrillation with RVR ICD Code: I48.0 - Paroxysmal atrial fibrillation Plan: Started on IV amiodarone per CT surgery. ASA Monitor on telemetry. Oral Amiodarone dose increased from 200 mg po bid to 400 mg po bid. 06/01 SP IV amiodarone bolus, Patient continues on amiodarone drip. Management as per CT surgery and cardiology. 06/03 Started on Eliquis by CT surgery, off amiodarone drip. (9) Cough ICD Code: R05 - Cough Plan: Encourage incentive spirometry. I will Rx Robitussin-DM. We will obtain a chest x-ray in a.m. Assessment and Plan (1) Syncope Plan: Poss cardiac etiology. Patient with cardiomyopathy and an ef of 20 - 25%. 2-D echocardiogram showed global hypokinesis and EF of 10-20%. ECG negative. MRI no acute pathology. MRA shows a patent right posterior communicating artery which fills the right posterior cerebral artery. No significant stenosis, occlusion or aneurysm formation. Carotid ultrasound shows patent carotid arteries bilaterally. Neurology consulted. Patient has been cleared by neurology however shouldn't drive until seen outpatient. (2) Chest pain Plan: The patient complain of chest pain in the afternoon of 2/4/18. Patient was given nitroglycerin which seemed to help relieve the pain, however this came back. EKG showed some anterolateral T-wave inversion which was stable from 2 days ago as per medical records. Troponin went up to 1.02 and the patient was started on IV heparin. The patient underwent cardiac catheterization which showed severe ostial LAD disease of 90% to 95%, severe ostial 80-90% RCA disease, mild left ventricle systolic dysfunction with an EF of 50%. SP IV heprin and Nitro gtt. Patient is sp CABG. Now has postsurgical pain. Tramadol PRN pain. (3) Cardiomyopathy Plan: The patient has likely ischemic cardiomyopathy. Undergoing evaluation for CABG. Cardiology consulted. Continue aspirin, Lipitor, lisinopril, carvedilol. 05/30 Ronaldo inhibitor on hold. Beta Aicha resumed. (4) CAD (coronary artery disease) Plan: CT surgery surgery consulted for CABG. Continue medications as above. 05/26 Patient is currently undergoing evaluation for CABG. Tentatively on Thursday. Fu CT surgery. To the endocardium shows normal left ventricular size. The left ventricular systolic function severely reduced with an estimated ejection fraction of range of 20-25%. Lower hypokinesis described. Trace mitral bile regurgitation, mild tricuspid valve regurgitation. Follow-up CT surgery recommendations. 05/27 Ischemic cardiomyopathy by history. Cardiac cath 06/2016 EF 35%. Echo 2017 EF 20-25%, cardiac cath 05/25/2017 EF 50%. CABG planning for thursday. Repeat echo ordered by CT surgery given disparity in EF. 05/28 repeat echo shows an Ef 20 to 25% w global hypokinesis. For CABG in am. 05/31 status post CABG 2. Management as per cardiovascular surgery. Dr Meyer who the patient is known to will follow up today. Pending post operative and intra op ODILIA EF evaluation will determine if the patient will need ICD or lifevest. (5) HTN (hypertension) Plan: BP stable. RONALDO inhibitor on hold, Beta Aicha resumed. BP stable. (6) HLD (hyperlipidemia) Plan: Continue statin. Fasting lipid profile shows, triglycerides with an elevated cholesterol of 116 with an LDL cholesterol 43 and HDL cholesterol 62.8. (7) NSTEMI (non-ST elevated myocardial infarction) Plan: Patient is sp chest pain with elevated troponin levels. Cardiac cath showed multivessel CAD. Continue medications as above, SP CABG, Continue aspirin Plavix, beta-aicha, Lipitor. DVT prophylaxis: SCD's Discharge Planning Continue to monitor in the cardiac floor. Dc pending cardiology and CT surgery clearance. Problem Qualifiers (1) Cardiomyopathy: Qualified Codes: I25.5 - Ischemic cardiomyopathy (2) CAD (coronary artery disease): Qualified Codes: I25.110 - Atherosclerotic heart disease of [place] coronary artery with unstable angina pectoris (3) HTN (hypertension): Qualified Codes: I10 - Essential (primary) hypertension (4) HLD (hyperlipidemia): Qualified Codes: E78.5 - Hyperlipidemia, unspecified Mike Wright MD Jun 03, 2017 02:59
[2017-06-03 05:40] LABS: BASOPHIL % 0.5 % (0.0-2.0); EOSINOPHIL # 0.2 TH/MM3 (0-0.4); HEMATOCRIT 25.7 % (39.0-51.0); HEMOGLOBIN 9.1 GM/DL (13.0-17.0); LYMPH % 19.4 % (9.0-44.0); MEAN CELL VOLUME 98.4 FL (80.0-100.0); MEAN CORPUSCULAR HEMOGLOBIN 34.7 PG (27.0-34.0); MEAN CORPUSCULAR HGB CONC 35.3 % (32.0-36.0); MEAN PLATELET VOLUME 7.6 FL (7.0-11.0); MONO % 14.3 % (0.0-8.0); MONOCYTE # 0.7 TH/MM3 (0-0.9); NEUT % 60.8 % (16.0-70.0); PLATELET COUNT 204 TH/MM3 (150-450); RED BLOOD COUNT 2.61 MIL/MM3 (4.50-5.90); RED CELL DISTRIBUTION WIDTH 12.8 % (11.6-17.2); WHITE BLOOD COUNT 4.9 TH/MM3 (4.0-11.0)
[2017-06-03 05:45] LABS: ALBUMIN 2.4 GM/DL (3.4-5.0); ALT (GPT) 22 U/L (12-78); AST (GOT) 11 U/L (15-37); BICARBONATE 26.9 MEQ/L (21.0-32.0); BLOOD UREA NITROGEN 11 MG/DL (7-18); CHLORIDE 107 MEQ/L (98-107); CREATININE 0.76 MG/DL (0.60-1.30); GLOMERULAR FILTRATION RATE 103 ML/MIN (>89); GLUCOSE,RANDOM 98 MG/DL (74-106); MAGNESIUM 2.4 MG/DL (1.5-2.5); PHOSPHORUS 3.6 MG/DL (2.5-4.9); SODIUM (NA) 141 MEQ/L (136-145)
[2017-06-03 05:47] LABS: ALKALINE PHOSPHATASE 56 U/L (45-117); TOTAL BILIRUBIN ADULT 0.7 MG/DL (0.2-1.0); TOTAL PROTEIN 5.9 GM/DL (6.4-8.2)
[2017-06-03] MEDS: PANTOPRAZOLE SOD 40 MG DELAYED RELEASE TAB PO SCH (05:56)
[2017-06-03] MEDS: INSULIN ASPART SUPPLEMENTAL SCALE SQ SCH ×2 (08:00→12:00)
--- NOTE | 2017-06-03 08:45 | RADRPT ---
EXAM DATE/TIME: 06/03/2017 08:00 [facility] COMPARISON: CHEST SINGLE AP, May 30, 2017, 4:27. INDICATIONS : Productive cough and short of breath. MEDICAL HISTORY : Hypertension. Cardiovascular disease. SURGICAL HISTORY : Cholecystectomy. Coronary artery stent. Umbilical hernia repair. ENCOUNTER: Subsequent ACUITY: 2 weeks PAIN SCORE: 0/10 LOCATION: Bilateral chest FINDINGS: A single portable frontal view the chest shows a left lower lobe intra-alveolar infiltrate. Tiny left effusion. This is new from the prior study. Right lung is clear. Heart is normal in size. Median louise rnotomy wires noted. CONCLUSION: Left lower lobe pneumonia with small effusion. Jhonathan Perez Jr., MD on June 03, 2017 at 8:42 Board Certified Radiologist. This report was verified electronically.
[2017-06-03] MEDS: MAGNESIUM HYDROXIDE SUSP 30 ML CUP PO SCH (09:00)
[2017-06-03] MEDS: POLYETHYLENE GLYCOL 17 GM PKG PO SCH (09:00)
[2017-06-03] MEDS: DOCUSATE SODIUM 100 MG CAP PO SCH (09:00)
[2017-06-03] MEDS: SODIUM CHLORIDE 0.9% FLUSH 10 ML FLUSH IV FLUSH SCH (09:00)
[2017-06-03] MEDS: MULTIVITAMINS/MINERALS THERAPEUTIC TAB PO SCH (09:01)
[2017-06-03] MEDS: AMIODARONE 200 MG TAB PO SCH (09:01)
[2017-06-03] MEDS: CARVEDILOL 3.125 MG TAB PO SCH (09:02)
[2017-06-03] MEDS: APIXABAN 5 MG TABLET PO SCH (09:02)
[2017-06-03] MEDS: ASPIRIN 81 MG CHEW TAB PO SCH (09:03)
--- NOTE | 2017-06-03 11:49 | HHI.PR ---
Subjective Remarks Follow-up multivessel coronary artery disease 06/03/17-patient seen and examined, no acute event overnight, denies any significant chest pain. Currently afebrile. Denies any significant palpitation Objective Vitals Vital Signs Date Time Temp Pulse Resp B/P (MAP) Pulse Ox O2 Delivery O2 Flow Rate FiO2 06/03/17 11:00 98.2 81 20 100/64 (76) 93 06/03/17 11:00 88 06/03/17 10:00 89 06/03/17 09:00 106 06/03/17 08:00 94 06/03/17 07:30 92 06/03/17 07:30 98.8 92 20 105/60 (75) 95 06/03/17 06:00 93 06/03/17 05:00 86 06/03/17 04:00 86 06/03/17 03:00 97.5 88 12 102/57 (72) 93 06/03/17 03:00 88 06/03/17 02:00 90 06/03/17 01:00 90 06/03/17 00:00 96 06/02/17 23:00 98.5 96 14 101/59 (73) 95 06/02/17 23:00 92 06/02/17 22:00 116 06/02/17 21:10 96 21 06/02/17 21:00 112 06/02/17 20:34 14 06/02/17 20:00 108 06/02/17 19:00 98.5 96 14 109/53 (71) 98 06/02/17 19:00 96 06/02/17 18:00 99 06/02/17 17:00 98 06/02/17 16:15 98.2 97 18 104/60 (75) 96 06/02/17 16:00 92 06/02/17 15:00 101 06/02/17 14:00 92 06/02/17 13:00 93 06/02/17 12:00 97 I/O 06/02/17 06/02/17 06/02/17 06/03/17 06/03/17 06/03/17 07:00 15:00 23:00 07:00 15:00 23:00 Intake Total 697 ml 1025 ml 480 ml Output Total 1460 ml 930 ml 1350 ml Balance -763 ml 95 ml -870 ml Intake Oral 500 ml 1025 ml 480 ml IV Total 197 ml Output Urine Total 1460 ml 930 ml 1350 ml # Bowel Movements 1 Result Diagram: 06/03/17 0454 06/03/17 0454 Imaging Last Impressions Chest X-Ray 06/03/17 0800 Signed Impressions: Service Date/Time: Saturday, June 03, 2017 08:00 - CONCLUSION: Left lower lobe pneumonia with small effusion. Jhonathan Perez Jr., MD Lower Extremity Ultrasound 05/25/17 0000 Signed Impressions: Service Date/Time: Thursday, May 25, 2017 08:29 - CONCLUSION: Venous mapping as above Ortiz Kimball MD FACR Head Magnetic Resonance Angiography 05/22/17 0000 Signed Impressions: Service Date/Time: Monday, May 22, 2017 18:20 - CONCLUSION: 1. Patent right posterior communicating artery which fills the right posterior cerebral artery. 2. No significant stenosis, occlusion or aneurysm formation. Alex Neves MD Carotid Artery Ultrasound 05/22/17 0000 Signed Impressions: Service Date/Time: Monday, May 22, 2017 15:56 - CONCLUSION: 1. Patent carotid arteries bilaterally. 2. Antegrade flow involving both vertebral arteries. Jhonathan Perez Jr., MD Brain MRI 05/22/17 0000 Signed Impressions: Service Date/Time: Monday, May 22, 2017 18:20 - CONCLUSION: 1. No acute intracranial abnormality. 2. Mild mucosal thickening involving the maxillary sinuses bilaterally and left ethmoid air cells. Alex Neves MD Objective Remarks GENERAL: NAD SKIN: Warm and dry. HEAD: Normocephalic. EYES: No scleral icterus. No injection or drainage. NECK: Supple, trachea midline. No JVD or lymphadenopathy. CARDIOVASCULAR: Regular rate and rhythm without murmurs, gallops, or rubs. s/p CABG RESPIRATORY: Breath sounds equal bilaterally. No accessory muscle use. GASTROINTESTINAL: Abdomen soft, non-tender, nondistended. MUSCULOSKELETAL: No cyanosis, or edema. left BKA BACK: Nontender without obvious deformity. No CVA tenderness. Procedures 05/29/17 Urgent Off-pump Coronary Artery Bypass Grafting x 2 with Left Internal Mammary Artery (OBRIEN) to the Left Anterior Descending (LAD), reverse saphenous vein graft to the distal Right Coronary Artery (RCA) A/P Problem List: (1) Syncope ICD Code: R55 - Syncope and collapse Status: Acute (2) Chest pain ICD Code: R07.9 - Chest pain, unspecified Status: Acute (3) Cardiomyopathy ICD Code: I42.9 - Cardiomyopathy, unspecified Status: Acute (4) CAD (coronary artery disease) ICD Code: I25.10 - Atherosclerotic heart disease of [place] coronary artery without angina pectoris Status: Chronic (5) HTN (hypertension) ICD Code: I10 - Essential (primary) hypertension Status: Chronic (6) HLD (hyperlipidemia) ICD Code: E78.5 - Hyperlipidemia, unspecified Status: Chronic (7) NSTEMI (non-ST elevated myocardial infarction) ICD Code: I21.4 - Non-ST elevation (NSTEMI) myocardial infarction Status: Acute (8) Paroxysmal atrial fibrillation with RVR ICD Code: I48.0 - Paroxysmal atrial fibrillation (9) Cough ICD Code: R05 - Cough (10) HCAP (healthcare-associated pneumonia) ICD Code: J18.9 - Pneumonia, unspecified organism Assessment and Plan 66-year-old man with Syncope-Resolved cardiomyopathy and an ef of 20 - 25%. 2-D echocardiogram showed global hypokinesis and EF of 10-20%. ECG negative. MRI no acute pathology. MRA shows a patent right posterior communicating artery which fills the right posterior cerebral artery. No significant stenosis, occlusion or aneurysm formation. Carotid ultrasound shows patent carotid arteries bilaterally. Multivessel coronary artery stenosis s/p CABG 05/29/17. Management per cardiothoracic surgery continue amiodarone loading 400 mg BID for 7 days, then 200 mg daily. Ischemic Cardiomyopathy Continue aspirin, Lipitor, lisinopril on hold, carvedilol. continue amiodarone loading 400 mg BID for 7 days, then 200 mg daily. continue anticoagulation with Eliquis. CAD (coronary artery disease) Continue aspirin, Lipitor, lisinopril on hold, carvedilol. continue amiodarone loading 400 mg BID for 7 days, then 200 mg daily. continue anticoagulation with Eliquis. HTN (hypertension) continue with Coreg HLD (hyperlipidemia) Continue statin. NSTEMI (non-ST elevated myocardial infarction) Cardiac cath showed multivessel CAD. He underwent CABG Continue aspirin , beta-jozef, Lipitor. Healthcare associated pneumonia Chest x-ray noted and review by me with evidence of pulmonary infiltrate Levaquin was started today 06/03/17 Problem Qualifiers (1) Cardiomyopathy: Qualified Codes: I25.5 - Ischemic cardiomyopathy (2) CAD (coronary artery disease): Qualified Codes: I25.110 - Atherosclerotic heart disease of [place] coronary artery with unstable angina pectoris (3) HTN (hypertension): Qualified Codes: I10 - Essential (primary) hypertension (4) HLD (hyperlipidemia): Qualified Codes: E78.5 - Hyperlipidemia, unspecified Jb Morrison MD Jun 03, 2017 11:49
[2017-06-03] MEDS ORDERED: LEVOFLOXACIN 500 MG TAB PO SCH ×2 (12:00→14:00)
[2017-06-03] MEDS ORDERED: FERROUS SULFATE 325 MG (65 MG ELEMENTAL IRON) TAB PO SCH (12:00)
[2017-06-03] MEDS ORDERED: LEVA500T33 PO (14:07)
[2017-06-03] MEDS ORDERED: TRAM50 PO (14:07)
[2017-06-03] MEDS ORDERED: DOCU1CAP39 PO (14:07)
[2017-06-03] MEDS ORDERED: CARV6.25 PO (14:07)
[2017-06-03] MEDS ORDERED: THERM PO (14:07)
[2017-06-03] MEDS ORDERED: ASPI81 PO (14:07)
[2017-06-03] MEDS ORDERED: FERR325T20 PO (14:07)
[2017-06-03] MEDS ORDERED: AMIO200T PO (14:07)
[2017-06-03] MEDS ORDERED: COMMODE 3-IN-11 MIS (14:12)
[2017-06-03] MEDS ORDERED: WALKER/ADULT/FO1 MIS (14:12)
--- NOTE | 2017-06-03 14:53 | HHI.FF ---
Face to Face Verification Diagnosis: (1) Unstable angina pectoris (2) CAD (coronary artery disease) (3) NSTEMI (non-ST elevated myocardial infarction) (4) Cardiomyopathy (5) Atrial flutter (6) S/P CABG x 2 Physical Therapy Order: Evaluate and Treat Home Health Nursing Order: Signs/symptoms of disease process Medication education-adverse effect Wound care and dressing changes Nursing assessment with vital signs Instructions: Heart and Vascular Surgery patients *Special attention to sternal dressing Mandatory frequency Assess and evaluation, 4 days in a row The next week 3X week 2 times a week for 4 weeks 1 time a week for 5 weeks Schedule Heart and Vascular patients for full 60 day certification period Initial visit Review Open Heart Surgery Discharge Instructions (Sternal precautions, Activity, Elastic hose, Incision care, Driving, Incentive spirometry, Smoking, [place], Work and other) Need Betadine to paint incision Medication reconciliation Importance of follow up care/ check on appointments Make calendar record temperature daily When to call [facility] nurse, review instructions, phone list Incentive Spirometry, demonstration Visit 1- Begin discharge instruction for patient family and/ or caregiver using teach back method- Signs and symptoms of infection Disease characteristics Medicines and side effects Foods and nutrition/ appetite Infection control/ hand washing/ hygiene Visit 2- Continue teaching Discharge instructions- include additional information on smoking cessation , sternal dressing (sternal vac) Visit 3- Continue teaching- Cough and deep breathing, incision monitoring. Choose my plate Visit 4- Continue teaching- Discuss limitations Discuss how they are feeling Discuss progress toward goals Remaining visits- continue teaching and monitoring For any questions please call : PREVENA Single Use Negative Wound Therapy System Caregiver Instruction Sheet 1. A Prevena dressing system was applied to the chest incision during surgery , to promote wound healing. It works via a suction device (negative pressure wound therapy) to remove low to moderate levels of exudate (drainage) and infectious materials. We recommend that the device stay in place for up to seven days, from day of surgery. 2. Day of Surgery_05/29/17 Day of Removal ____06/05/17 3. The dressing should only be removed by a health nurse wound care. Please arrange removal of device to coincide with Home Health visit and or with Nursing staff at Rehab 4. If skin reddening or irritation of skin occurs, or excessive drainage, please notify the Cardiovascular Surgeons office at [phone]. 5. Light showering is permissible; however the pump should be disconnected and placed in safe location, where it will not get wet. The dressing should not be exposed to direct spray or submerged in water. No bath tub / shower only. Ensure the end of the tubing attached to the dressing is facing down so that water does not enter the top of the tube. 6. To remove Prevena dressing: press purple button to turn off device / remove the suction. Then disconnect the tubing from the pump. The fixation strips should be stretched away from the skin and the dressing lifted at one corner and peeled back until it has been fully removed. 7. After removal, it is ok to shower daily using liquid dial soap and clean wash cloth, rinse and pat dry, and leave incision open to air dry. For any concerns regarding Prevena dressing, and or wounds, please contact Mariia Yates, patient navigator at [phone] or notify the Cardiovascular Surgeons office at [phone]. Incentive spirometry Q1 hr x 10, while awake, also use acapella device hourly whole awake Sternal Breast Bone Precautions: NO pushing or pulling, ( pt must use sternal pillow to support chest with all activities and with coughing ( takes up to 3 months breast bone to heal ) Daily incision care: ok to shower daily, no tub bath. Wash all incisions with liquid dial soap, clean wash cloth to each site, rinse and pat dry. Observe for any signs of infection, such as drainage which is dark yellow, hernandez, green or foul smelling. Immediately report to the surgeon any drainage from the chest incision, or legs, and for any abnormal drainage from the chest tube sites. Notify surgeon if any temp >101.5 degrees F. When specialty dressing removed/ or if you do not have one, continue to shower daily as above, then rinse and pat incision dry and paint with betadine daily x 5 days. Allow steri strips to fall off if you have any. Avoid lotions, creams, salves, oils, etc. for the first month Please see attached forms for additional instructions regarding post Open Heart specialty wound vacuum dressings. BEULAH or Prevena , Dressing to be removed by Nursing staff on _06/05/[address] Browne patients , please obtain CBC, BMP, PA & Lat CXR in 2 weeks, results to Dr. Browne ( prescription will be given) ( ) (Tele: [phone]) , F/U appointment: as per [place] instructions: PCP in 2 weeks, CV surgeon 2 weeks, Radio News Writer 3-4 weeks For any questions regarding incisions/ dressing / meds / post op care or above Symptoms, Thursday 8am-5pm Heart & Vascular Surgery Office ( Dr. Chang & Dr. Browne), After Hours / Nights (5pm -8am) Weekends and Holidays Please call [facility] ([facility]) Charge Nurse I have seen patient Carter Harris on 06/03/17. My clinical findings support the need for the requested home health care services because: Deconditioned w/ increased weakness I certify that my clinical findings support that this patient is homebound because: Post-op weakness Danielle Marshall Jun 03, 2017 14:53
--- NOTE | 2017-06-03 14:58 | PD.CAR.PN ---
CVT Progress Note Subjective/Hospital Course: 66 to male admitted with chest pain and NSTEMI. Cardiac cath demonstrating two- vessel CAD with ECHO evidence of severe Left ventricular dysfunction (EF 20-25%) . 05/29 SURGICAL PROCEDURE 1. Urgent Off-pump Coronary Artery Bypass Grafting x 2 with Left Internal Mammary Artery (OBRIEN) to the Left Anterior Descending (LAD), reverse saphenous vein graft to the distal Right Coronary Artery (RCA) 2. Right Leg Endoscopic Vein [place] 3. Intraoperative Vein Mapping 05/30 Doing well Transfer CPCU Ambulate with PT and prosthesis Maintain CT to drainage Beta jozef 05/31 Doing well Paroxysmal atrial fibrillation on IV Amiodarone D/C CT Ambulate 06/01 In atrial flutter this am. Will have cardiology evaluate Anticoagulation 06/02 pt converted to NSR for short time, then went back into afib rate 110-115 BP stable, on lovenox , may need to start eliquis , await decision from cardiology on room air will need rehab at discharge 06/03 HR improved, continue current dose of coreg unable to start JERED 05/22 low BP eval to start as outpt once BP improved on eliquis pt ok for dc home today Objective: GENERAL: A&O x 3 SKIN: Warm and dry. prevena dressing to chest , incision intact to right leg HEAD: Normocephalic. EYES: No scleral icterus. No injection or drainage. NECK: Supple, trachea midline. No JVD or lymphadenopathy. CARDIOVASCULAR: irregular rate and rhythm without murmurs, gallops, or rubs. RESPIRATORY: Breath sounds equal bilaterally. No accessory muscle use. GASTROINTESTINAL: Abdomen soft, non-tender, nondistended. MUSCULOSKELETAL: No cyanosis, or edema. left AKA BACK: Nontender without obvious deformity. No CVA tenderness. Vital Signs Date Time Temp Pulse Resp B/P (MAP) Pulse Ox O2 Delivery O2 Flow Rate FiO2 06/03/17 14:00 91 06/03/17 13:00 89 06/03/17 12:00 86 06/03/17 11:00 98.2 81 20 100/64 (76) 93 06/03/17 11:00 88 06/03/17 10:00 89 06/03/17 09:00 106 06/03/17 08:36 92 21 06/03/17 08:00 94 06/03/17 07:30 92 06/03/17 07:30 98.8 92 20 105/60 (75) 95 06/03/17 06:00 93 06/03/17 05:00 86 06/03/17 04:00 86 06/03/17 03:00 97.5 88 12 102/57 (72) 93 06/03/17 03:00 88 06/03/17 02:00 90 06/03/17 01:00 90 06/03/17 00:00 96 06/02/17 23:00 98.5 96 14 101/59 (73) 95 06/02/17 23:00 92 06/02/17 22:00 116 06/02/17 21:10 96 21 06/02/17 21:00 112 06/02/17 20:34 14 06/02/17 20:00 108 06/02/17 19:00 98.5 96 14 109/53 (71) 98 06/02/17 19:00 96 06/02/17 18:00 99 06/02/17 17:00 98 06/02/17 16:15 98.2 97 18 104/60 (75) 96 06/02/17 16:00 92 06/02/17 15:00 101 Labs: Laboratory Tests Test 06/03/17 04:54 White Blood Count 4.9 TH/MM3 (4.0-11.0) Red Blood Count 2.61 MIL/MM3 (4.50-5.90) Hemoglobin 9.1 GM/DL (13.0-17.0) Hematocrit 25.7 % (39.0-51.0) Mean Corpuscular Volume 98.4 FL (80.0-100.0) Mean Corpuscular Hemoglobin 34.7 PG (27.0-34.0) Mean Corpuscular Hemoglobin Concent 35.3 % (32.0-36.0) Red Cell Distribution Width 12.8 % (11.6-17.2) Platelet Count 204 TH/MM3 (150-450) Mean Platelet Volume 7.6 FL (7.0-11.0) Neutrophils (%) (Auto) 60.8 % (16.0-70.0) Lymphocytes (%) (Auto) 19.4 % (9.0-44.0) Monocytes (%) (Auto) 14.3 % (0.0-8.0) Eosinophils (%) (Auto) 5.0 % (0.0-4.0) Basophils (%) (Auto) 0.5 % (0.0-2.0) Neutrophils # (Auto) 3.0 TH/MM3 (1.8-7.7) Lymphocytes # (Auto) 1.0 TH/MM3 (1.0-4.8) Monocytes # (Auto) 0.7 TH/MM3 (0-0.9) Eosinophils # (Auto) 0.2 TH/MM3 (0-0.4) Basophils # (Auto) 0.0 TH/MM3 (0-0.2) CBC Comment DIFF FINAL Differential Comment Blood Urea Nitrogen 11 MG/DL (7-18) Creatinine 0.76 MG/DL (0.60-1.30) Random Glucose 98 MG/DL (74-106) Total Protein 5.9 GM/DL (6.4-8.2) Albumin 2.4 GM/DL (3.4-5.0) Calcium Level 8.0 MG/DL (8.5-10.1) Phosphorus Level 3.6 MG/DL (2.5-4.9) Magnesium Level 2.4 MG/DL (1.5-2.5) Alkaline Phosphatase 56 U/L (45-117) Aspartate Amino Transf (AST/SGOT) 11 U/L (15-37) Alanine Aminotransferase (ALT/SGPT) 22 U/L (12-78) Total Bilirubin 0.7 MG/DL (0.2-1.0) Sodium Level 141 MEQ/L (136-145) Potassium Level 4.0 MEQ/L (3.5-5.1) Chloride Level 107 MEQ/L (98-107) Carbon Dioxide Level 26.9 MEQ/L (21.0-32.0) Anion Gap 7 MEQ/L (5-15) Estimat Glomerular Filtration Rate 103 ML/MIN (>89) Result Diagram: 06/03/1745306/03/17453 (1) Atrial flutter Plan: on amiodarone and BB and eliquis back to afib Dr Meyer following (2) CAD (coronary artery disease) (3) NSTEMI (non-ST elevated myocardial infarction) (4) Cardiomyopathy (5) S/P CABG x 2 Plan: on ASA, , BB , statin OOB ambulate ok to dc home with HHC pulm toileting Problem Qualifiers (1) CAD (coronary artery disease): Qualified Codes: I25.110 - Atherosclerotic heart disease of [place] coronary artery with unstable angina pectoris (2) Cardiomyopathy: Qualified Codes: I25.5 - Ischemic cardiomyopathy Danielle Marshall Jun 03, 2017 14:58
--- NOTE | 2017-06-03 15:02 | PD.CARD.PN ---
Subjective Subjective Remarks No angina or SOB, stays in SR Objective Medications Current Medications Medications (Trade) Dose Ordered Sig/Jody Route Start Time Stop Time Status Last Admin (NS Flush) 2 ml UNSCH PRN IV FLUSH 05/22/17 12:15 (NS Flush) 2 ml BID IV FLUSH 05/22/17 21:00 06/03/17 09:00 (Lipitor) 80 mg HS PO 05/22/17 21:00 06/02/17 21:00 (Pill Splitter) 1 ea UNSCH PRN OTHER 05/24/17 10:45 (Nitrostat Sl) 0.4 mg Q5M PRN SL 05/24/17 13:30 (Tylenol) 650 mg Q6H PRN PO 05/24/17 20:15 (Aspirin Chew) 81 mg DAILY PO 05/30/17 09:00 06/03/17 09:03 (Protonix) 40 mg DAILY@06 PO 05/30/17 06:00 06/03/17 05:56 (Tylenol) 650 mg Q4H PRN PO 05/29/17 11:30 (Tylenol Supp) 650 mg Q4H PRN RECTAL 05/29/17 11:30 (Zofran Inj) 4 mg Q6H PRN IV PUSH 05/29/17 11:30 05/29/17 14:10 Potassium Chloride 100 ml @ 50 mls/hr UNSCH PRN IV 05/29/17 11:30 Potassium Chloride 100 ml @ 50 mls/hr UNSCH PRN IV 05/29/17 11:30 (KCl) 20 meq UNSCH PRN PO 05/29/17 11:30 (KCl) 40 meq UNSCH PRN PO 05/29/17 11:30 Magnesium Sulfate 2 gm/Sodium Chloride 104 ml @ 100 mls/hr UNSCH PRN IV 05/29/17 11:30 (Calcium Chloride Inj) 0.5 gm UNSCH PRN IV PUSH 05/29/17 11:30 (Sodium Bicarbonate 8.4% Inj) 50 meq UNSCH PRN IV PUSH 05/29/17 11:30 (Sodium Bicarbonate 8.4% Inj) 100 meq UNSCH PRN IV PUSH 05/29/17 11:30 (Duoneb Neb) 1 ampule Q2HR NEB PRN NEB 05/29/17 11:30 Calcium Chloride 1 gm/Sodium Chloride 110 ml @ 110 mls/hr UNSCH PRN IV 05/29/17 22:15 05/29/17 22:29 Potassium Chloride 100 ml @ 50 mls/hr UNSCH PRN IV 05/29/17 22:15 (Coreg) 3.125 mg BID PO 05/30/17 09:00 06/03/17 09:02 (Colace) 100 mg BID PO 05/30/17 21:00 06/02/17 21:00 (Theragran M Tab) 1 tab DAILY PO 05/30/17 09:00 06/03/17 09:01 (Milk Of Magnesia Liq) 30 ml DAILY PO 05/30/17 09:00 06/01/17 08:46 (Dulcolax Supp) 10 mg UNSCH PRN RECTAL 05/30/17 07:45 (Miralax) 17 gm DAILY PO 05/31/17 09:00 06/01/17 08:49 (Senokot) 8.6 mg HS PO 05/30/17 21:00 05/30/17 20:46 (Fleets Enema (Adult)) 133 ml UNSCH PRN RECTAL 05/30/17 07:45 (D50w (Vial) Inj) 50 ml UNSCH PRN IV PUSH 05/30/17 07:45 (Glucagon Inj) 1 mg UNSCH PRN OTHER 05/30/17 07:45 (Ultram) 50 mg Q3H PRN PO 05/30/17 19:00 06/02/17 19:34 (Cordarone) 400 mg BID PO 06/01/17 09:00 06/03/17 09:01 (NovoLOG SUPPLEMENTAL SCALE) 1 ACHS SQ 05/31/17 12:00 06/03/17 12:00 (Eliquis) 5 mg BID PO 06/02/17 21:00 06/03/17 09:02 (Robitussin Dm 200-20 Mg/10 ml Liq) 10 ml Q4H PRN PO 06/02/17 19:45 06/03/17 12:56 (Ferrous Sulfate) 325 mg BID@12,17 PO 06/03/17 12:00 06/03/17 12:00 (Levaquin) 500 mg Q24H PO 06/03/17 14:00 06/09/17 14:01 06/03/17 13:41 Vital Signs / I&O Vital Signs Date Time Temp Pulse Resp B/P (MAP) Pulse Ox O2 Delivery O2 Flow Rate FiO2 06/03/17 14:00 91 06/03/17 13:00 89 06/03/17 12:00 86 06/03/17 11:00 98.2 81 20 100/64 (76) 93 06/03/17 11:00 88 06/03/17 10:00 89 06/03/17 09:00 106 06/03/17 08:36 92 21 06/03/17 08:00 94 06/03/17 07:30 92 06/03/17 07:30 98.8 92 20 105/60 (75) 95 06/03/17 06:00 93 06/03/17 05:00 86 06/03/17 04:00 86 06/03/17 03:00 97.5 88 12 102/57 (72) 93 06/03/17 03:00 88 06/03/17 02:00 90 06/03/17 01:00 90 06/03/17 00:00 96 06/02/17 23:00 98.5 96 14 101/59 (73) 95 06/02/17 23:00 92 06/02/17 22:00 116 06/02/17 21:10 96 21 06/02/17 21:00 112 06/02/17 20:34 14 06/02/17 20:00 108 06/02/17 19:00 98.5 96 14 109/53 (71) 98 06/02/17 19:00 96 06/02/17 18:00 99 06/02/17 17:00 98 06/02/17 16:15 98.2 97 18 104/60 (75) 96 06/02/17 16:00 92 I/O 06/02/17 06/02/17 06/02/17 06/03/17 06/03/17 06/03/17 07:00 15:00 23:00 07:00 15:00 23:00 Intake Total 697 ml 1025 ml 480 ml Output Total 1460 ml 930 ml 1350 ml Balance -763 ml 95 ml -870 ml Intake Oral 500 ml 1025 ml 480 ml IV Total 197 ml Output Urine Total 1460 ml 930 ml 1350 ml # Bowel Movements 1 Physical Exam GENERAL: In NAD SKIN: Warm and dry. HEAD: Normocephalic. EYES: No scleral icterus. No injection or drainage. NECK: Supple, trachea midline. No JVD or lymphadenopathy. CARDIOVASCULAR: Regular rate and rhythm without murmurs, gallops, or rubs. RESPIRATORY: Breath sounds equal bilaterally. No accessory muscle use. GASTROINTESTINAL: Abdomen soft, non-tender, nondistended. MUSCULOSKELETAL: No cyanosis, or edema. Laboratory Laboratory Tests Test 06/03/17 04:54 White Blood Count 4.9 TH/MM3 Red Blood Count 2.61 MIL/MM3 Hemoglobin 9.1 GM/DL Hematocrit 25.7 % Mean Corpuscular Volume 98.4 FL Mean Corpuscular Hemoglobin 34.7 PG Mean Corpuscular Hemoglobin Concent 35.3 % Red Cell Distribution Width 12.8 % Platelet Count 204 TH/MM3 Mean Platelet Volume 7.6 FL Neutrophils (%) (Auto) 60.8 % Lymphocytes (%) (Auto) 19.4 % Monocytes (%) (Auto) 14.3 % Eosinophils (%) (Auto) 5.0 % Basophils (%) (Auto) 0.5 % Neutrophils # (Auto) 3.0 TH/MM3 Lymphocytes # (Auto) 1.0 TH/MM3 Monocytes # (Auto) 0.7 TH/MM3 Eosinophils # (Auto) 0.2 TH/MM3 Basophils # (Auto) 0.0 TH/MM3 CBC Comment DIFF FINAL Differential Comment Blood Urea Nitrogen 11 MG/DL Creatinine 0.76 MG/DL Random Glucose 98 MG/DL Total Protein 5.9 GM/DL Albumin 2.4 GM/DL Calcium Level 8.0 MG/DL Phosphorus Level 3.6 MG/DL Magnesium Level 2.4 MG/DL Alkaline Phosphatase 56 U/L Aspartate Amino Transf (AST/SGOT) 11 U/L Alanine Aminotransferase (ALT/SGPT) 22 U/L Total Bilirubin 0.7 MG/DL Sodium Level 141 MEQ/L Potassium Level 4.0 MEQ/L Chloride Level 107 MEQ/L Carbon Dioxide Level 26.9 MEQ/L Anion Gap 7 MEQ/L Estimat Glomerular Filtration Rate 103 ML/MIN Imaging Last 24 hours Impressions Chest X-Ray 06/03/17 0800 Signed Impressions: Service Date/Time: Saturday, June 03, 2017 08:00 - CONCLUSION: Left lower lobe pneumonia with small effusion. Jhonathan Perez Jr., MD Assessment and Plan Problem List: (1) Atrial flutter ICD Codes: I48.92 - Unspecified atrial flutter (2) CAD (coronary artery disease) ICD Codes: I25.10 - Atherosclerotic heart disease of [place] coronary artery without angina pectoris Status: Chronic (3) NSTEMI (non-ST elevated myocardial infarction) ICD Codes: I21.4 - Non-ST elevation (NSTEMI) myocardial infarction Status: Acute (4) Cardiomyopathy ICD Codes: I42.9 - Cardiomyopathy, unspecified Status: Acute (5) S/P CABG x 2 ICD Codes: Z95.1 - Presence of aortocoronary bypass graft Assessment and Plan Stays in SR, continue amio loading 400 mg BID for 7 days, then 200 mg daily for 2-3 months. Stay off Brilinta. Continue anticoagulation with Eliquis. DC home. Will schedule outpt card f/u. Problem Qualifiers (1) CAD (coronary artery disease): Qualified Codes: I25.110 - Atherosclerotic heart disease of [place] coronary artery with unstable angina pectoris (2) Cardiomyopathy: Qualified Codes: I25.5 - Ischemic cardiomyopathy Isela Meyer MD Jun 03, 2017 15:02
--- NOTE | 2017-06-03 15:42 | HHI.DS ---
Discharge Summary Admission Date May 22, 2017 at 12:07 Discharge Date: Jun 03, 2017 Admitting Diagnosis Syncope (1) Syncope ICD Code: R55 - Syncope and collapse Status: Acute (2) Chest pain ICD Code: R07.9 - Chest pain, unspecified Status: Acute (3) Cardiomyopathy ICD Code: I42.9 - Cardiomyopathy, unspecified Status: Acute (4) CAD (coronary artery disease) ICD Code: I25.10 - Atherosclerotic heart disease of picayune coronary artery without angina pectoris Status: Chronic (5) HTN (hypertension) ICD Code: I10 - Essential (primary) hypertension Status: Chronic (6) HLD (hyperlipidemia) ICD Code: E78.5 - Hyperlipidemia, unspecified Status: Chronic (7) NSTEMI (non-ST elevated myocardial infarction) ICD Code: I21.4 - Non-ST elevation (NSTEMI) myocardial infarction Status: Acute (8) Paroxysmal atrial fibrillation with RVR ICD Code: I48.0 - Paroxysmal atrial fibrillation (9) Cough ICD Code: R05 - Cough (10) HCAP (healthcare-associated pneumonia) ICD Code: J18.9 - Pneumonia, unspecified organism Procedures 05/29/17 Urgent Off-pump Coronary Artery Bypass Grafting x 2 with Left Internal Mammary Artery (OBRIEN) to the Left Anterior Descending (LAD), reverse saphenous vein graft to the distal Right Coronary Artery (RCA) Brief History - From Admission 66-year-old male with a history of coronary artery disease status post stenting , hyperlipidemia who is brought in this morning to the ER by EMS after experiencing an episode of decreased consciousness. Patient was sitting down eating breakfast this morning around 8 AM when he reports blacking out; the next thing he remembers is hearing his saying the ambulance had arrived. He vomited his breakfast when family tried to move him out of his chair. Patient reports feeling normal shortly thereafter. He denies any chest pain, shortness of breath, nausea. Reports feeling fine currently. reports that patient was sitting eating breakfast, and suddenly took on an ashen appearance was not responding to questions. She says he felt cold and clammy, vomited his breakfast, however regained consciousness when the ambulance arrived. She says he is currently back to normal. CBC/BMP: 06/03/17 0454 06/03/17 0454 Significant Findings Laboratory Tests Test 06/01/17 04:40 06/02/17 04:16 06/03/17 04:54 Red Blood Count 2.55 MIL/MM3 (4.50-5.90) 2.70 MIL/MM3 (4.50-5.90) 2.61 MIL/MM3 (4.50-5.90) Hemoglobin 8.8 GM/DL (13.0-17.0) 9.3 GM/DL (13.0-17.0) 9.1 GM/DL (13.0-17.0) Hematocrit 25.4 % (39.0-51.0) 27.0 % (39.0-51.0) 25.7 % (39.0-51.0) Mean Corpuscular Hemoglobin 34.5 PG (27.0-34.0) 34.3 PG (27.0-34.0) 34.7 PG (27.0-34.0) Platelet Count 117 TH/MM3 (150-450) Monocytes (%) (Auto) 14.3 % (0.0-8.0) Eosinophils (%) (Auto) 5.0 % (0.0-4.0) Total Protein 5.9 GM/DL (6.4-8.2) Albumin 2.4 GM/DL (3.4-5.0) Calcium Level 8.0 MG/DL (8.5-10.1) Aspartate Amino Transf (AST/SGOT) 11 U/L (15-37) Imaging Last Impressions Chest X-Ray 06/03/17 0800 Signed Impressions: Service Date/Time: Saturday, June 03, 2017 08:00 - CONCLUSION: Left lower lobe pneumonia with small effusion. Jhonathan Perez Jr., MD Lower Extremity Ultrasound 05/25/17 0000 Signed Impressions: Service Date/Time: Thursday, May 25, 2017 08:29 - CONCLUSION: Venous mapping as above Ortiz Kimball MD FACR Head Magnetic Resonance Angiography 05/22/17 0000 Signed Impressions: Service Date/Time: Monday, May 22, 2017 18:20 - CONCLUSION: 1. Patent right posterior communicating artery which fills the right posterior cerebral artery. 2. No significant stenosis, occlusion or aneurysm formation. Alex Neves MD Carotid Artery Ultrasound 05/22/17 0000 Signed Impressions: Service Date/Time: Monday, May 22, 2017 15:56 - CONCLUSION: 1. Patent carotid arteries bilaterally. 2. Antegrade flow involving both vertebral arteries. Jhonathan Perez Jr., MD Brain MRI 05/22/17 0000 Signed Impressions: Service Date/Time: Monday, May 22, 2017 18:20 - CONCLUSION: 1. No acute intracranial abnormality. 2. Mild mucosal thickening involving the maxillary sinuses bilaterally and left ethmoid air cells. Alex Neves MD PE at Discharge GENERAL: NAD SKIN: Warm and dry. HEAD: Normocephalic. EYES: No scleral icterus. No injection or drainage. NECK: Supple, trachea midline. No JVD or lymphadenopathy. CARDIOVASCULAR: Regular rate and rhythm without murmurs, gallops, or rubs. s/p CABG RESPIRATORY: Breath sounds equal bilaterally. No accessory muscle use. GASTROINTESTINAL: Abdomen soft, non-tender, nondistended. MUSCULOSKELETAL: No cyanosis, or edema. left BKA BACK: Nontender without obvious deformity. No CVA tenderness. Hospital Course While in the hospital, patient was treated for: Syncope-Resolved cardiomyopathy and an ef of 20 - 25%. 2-D echocardiogram showed global hypokinesis and EF of 10-20%. ECG negative. MRI no acute pathology. MRA shows a patent right posterior communicating artery which fills the right posterior cerebral artery. No significant stenosis, occlusion or aneurysm formation. Carotid ultrasound shows patent carotid arteries bilaterally. Multivessel coronary artery stenosis s/p CABG 05/29/17. Management per cardiothoracic surgery Treated with amiodarone loading 400 mg BID for 7 days, then 200 mg daily. Ischemic Cardiomyopathy Treated with aspirin, Lipitor, lisinopril on hold, carvedilol. Treated with amiodarone loading 400 mg BID for 7 days, then 200 mg daily. continue anticoagulation with Eliquis. CAD (coronary artery disease) Treated with aspirin, Lipitor, lisinopril on hold, carvedilol. continue amiodarone loading 400 mg BID for 7 days, then 200 mg daily. continue anticoagulation with Eliquis. HTN (hypertension) Treated with Coreg HLD (hyperlipidemia) Treated with statin. NSTEMI (non-ST elevated myocardial infarction) Cardiac cath showed multivessel CAD. He underwent CABG Treated with aspirin , beta-jozef, Lipitor. Healthcare associated pneumonia Chest x-ray noted and review by me with evidence of pulmonary infiltrate Levaquin was started 06/03/17 7 days total Pt Condition on Discharge: Good Discharge Disposition: Disch w/ Home Health Serv Discharge Time: > 30 minutes Discharge Instructions DIET: Follow Instructions for: Heart Healthy Diet Activities you can perform: See Additionl Instruction Other Activity Instructions: You may not drive until you are cleared by your primary care provider due to your syncopal episode. This was recommended by our neurologist. Follow up Referrals: Cardiology - 4 Weeks with Shola Basurto MD PCP Follow-up - 1 Week Surgical - 2 Weeks with Danielle Marshall New Medications: Benazepril (Benazepril) 5 Mg Tab 5 MG PO DAILY for Blood Pressure Management, #30 TAB 0 Refills Commode 3-in-1 (Commode 3-in-1) 1 Mis Mis EA .XX DIRECTED, #1 0 Refills Walker/Adult/Folding (Walker/Adult/Folding) 1 Mis Mis EA .XX DIRECTED, #1 0 Refills Amiodarone (Amiodarone) 200 Mg Tab 400 MG PO BID for heart rhythm, #50 TAB 1 Refill take 400mg twice a day x 7days, then 200mg daily refill x 1 only 30 tablets Apixaban (Eliquis) 5 Mg Tab 5 MG PO BID for Prevent Blood Clot, #60 TAB 3 Refills Aspirin (Tgt Aspirin) 81 Mg Chw 81 MG PO DAILY for Blood Clot Prevention, #30 EA 2 Refills Docusate Sodium (Dok) 100 Mg Cap 100 MG PO BID for Constipation, #60 CAP Ferrous Sulfate (Ferosul) 325 Mg (65 Mg Iron) Tablet 325 MG PO BID@12,17 for anemia , #60 TAB 0 Refills Levofloxacin (Levaquin) 500 Mg Tablet 500 MG PO Q24H for antibiotic , #6 TAB 0 Refills Multiple Vitamins W/ Minerals (Thera M Plus) 1 Tab 1 TAB PO DAILY for mulit vitamin, #30 TAB 2 Refills Tramadol (Ultram) 50 Mg Tab 50 MG PO Q4HR PRN for PAIN SCALE 1 TO 5, #40 TAB 0 Refills Continued Medications: Atorvastatin (Lipitor) 80 Mg Tab 80 MG PO HS, #30 TAB Carvedilol (Coreg) 6.25 Mg Tab 6.25 MG PO BID for Blood Pressure Management, #60 TAB 2 Refills (This prescription has been renewed) Omeprazole (Omeprazole) 10 Mg Cap 10 MG PO DAILY, CAP 0 Refills [Aspirin Chew] () 81 MG CHEW 81 MG PO DAILY, #30 TAB.CHEW Discontinued Medications: Benazepril (Benazepril) 20 Mg Tab 20 MG PO DAILY for Blood Pressure Management, #30 TAB 0 Refills Jb Morrison MD Jun 03, 2017 15:42
[2017-06-03] MEDS ORDERED: APIX5TAB PO (15:44)
== END 2017-06-03 16:33 | disposition home health service (06) | DRG 233 ==
LOC: NEPE 09:27 → OBSVTOIN 12:07 → NEDA 12:07 → INTOOBSV 12:07 → NEPGCP 13:09 → HCPC 05-24 15:56 → HCIS 05-29 07:30 → HCVI 05-29 12:01 → HCPC 05-30 15:36
PROVIDERS: ADMIT Hospitalist; ATTEND Hospitalist
PROC: 4A023N7 Measurement of Cardiac Sampling and Pressure, Left Heart, Percutaneous Approach (ICD-10-PCS; 2017-05-24)
PROC: B2111ZZ Fluoroscopy of Multiple Coronary Arteries using Low Osmolar Contrast (ICD-10-PCS; 2017-05-24)
PROC: B2151ZZ Fluoroscopy of Left Heart using Low Osmolar Contrast (ICD-10-PCS; 2017-05-24)
PROC: 021009W Bypass Coronary Artery, One Artery from Aorta with Autologous Venous Tissue, Open Approach (ICD-10-PCS; 2017-05-29)
PROC: 06BP4ZZ Excision of Right Saphenous Vein, Percutaneous Endoscopic Approach (ICD-10-PCS; 2017-05-29)
PROC: 5A1221Z Performance of Cardiac Output, Continuous (ICD-10-PCS; 2017-05-29)
PROC: 02100Z9 Bypass Coronary Artery, One Artery from Left Internal Mammary, Open Approach (ICD-10-PCS; principal; 2017-05-29 07:19)
DX: R55 Syncope and collapse (principal); I21.4 Non-ST elevation (NSTEMI) myocardial infarction; I48.0 Paroxysmal atrial fibrillation; I48.92 Unspecified atrial flutter; Z89.612 Acquired absence of left leg above knee; J18.9 Pneumonia, unspecified organism; I25.110 Atherosclerotic heart disease of native coronary artery with unstable angina pectoris; I07.1 Rheumatic tricuspid insufficiency; I10 Essential (primary) hypertension; I44.0 Atrioventricular block, first degree; E78.5 Hyperlipidemia, unspecified; K21.9 Gastro-esophageal reflux disease without esophagitis; Z95.5 Presence of coronary angioplasty implant and graft; Z87.442 Personal history of urinary calculi; R11.10 Vomiting, unspecified; Z82.49 Family history of ischemic heart disease and other diseases of the circulatory system; I25.5 Ischemic cardiomyopathy; Y95 Nosocomial condition
CPT/HCPCS: 70544; 70551; 71045; 71046; 76937; 80048; 80053; 80061; 80307; 81001; 82272; 82607; 82948; 83036; 83735; 83880; 84100; 84443; 84484; 85002; 85025; 85027; 85576; 85610; 85730; 86850; 86900; 86901; 86920; 87641; 93005; 93225; 93226; 93306; 93308; 93458; 93880; 93971; 94002; 94010; 94150; 94640; 94664; 94667; 94668; 95819; 99152; C1768; C1769; C1887; C1893; J0131; J0282; J0330; J1644; J1650; J1815; J1817; J1885; J2250; J2370; J2405; J2440; J2720; J3010; J3370; J3475; J3480; J7050; J7060; Q9967

== ENCOUNTER 2017-06-04 13:10 | Inpatient (IN) | payer MEDICARE ==
[~2017-06-04] VITALS: Ht 182.9 cm; Wt 88.5 kg
[2017-06-04] VITALS (8 sets, daily range): BP systolic 95–120; BP diastolic 52–69; PULSE 82–96; RESP 15–20; TEMP 97.9–98.3; O2SAT 92–96
[~2017-06-04 13:10] MED LIST changes: +AMIO200T PO; +APIX5TAB PO; +ASPI81 PO; -BENA20TA PO; +BENA5TAB PO; -BRIL90TA PO; +COMMODE 3-IN-11 MIS; +DOCU1CAP39 PO; +FERR325T20 PO; +LEVA500T33 PO; +OMEP10CA PO; -OMEP40CA2 PO; +THERM PO; +TRAM50 PO; +WALKER/ADULT/FO1 MIS
[2017-06-04] MEDS ORDERED: SODIUM CHLORIDE 0.9% FLUSH 10 ML FLUSH IVF PRN (13:30)
[2017-06-04 14:02] LABS: AUTOMATED NEUTROPHIL # 4.9 TH/MM3 (1.8-7.7); BASOPHIL % 0.4 % (0.0-2.0); EOSINOPHIL # 0.2 TH/MM3 (0-0.4); EOSINOPHIL % 2.5 % (0.0-4.0); HEMATOCRIT 27.9 % (39.0-51.0); HEMOGLOBIN 9.5 GM/DL (13.0-17.0); LYMPH % 11.9 % (9.0-44.0); LYMPHOCYTE # 0.8 TH/MM3 (1.0-4.8); MEAN CELL VOLUME 99.2 FL (80.0-100.0); MEAN CORPUSCULAR HEMOGLOBIN 33.8 PG (27.0-34.0); MEAN CORPUSCULAR HGB CONC 34.1 % (32.0-36.0); MEAN PLATELET VOLUME 7.4 FL (7.0-11.0); MONO % 13.2 % (0.0-8.0); MONOCYTE # 0.9 TH/MM3 (0-0.9); PLATELET COUNT 305 TH/MM3 (150-450); RED BLOOD COUNT 2.82 MIL/MM3 (4.50-5.90); RED CELL DISTRIBUTION WIDTH 12.9 % (11.6-17.2); WHITE BLOOD COUNT 6.8 TH/MM3 (4.0-11.0)
[2017-06-04 14:09] LABS: INTERNATIONAL NORMALIZED RATIO 1.3 RATIO; PROTHROMBIN TIME - PATIENT 12.7 SEC (9.8-11.6)
[2017-06-04 14:20] LABS: ALBUMIN 2.6 GM/DL (3.4-5.0); AST (GOT) 22 U/L (15-37); BLOOD UREA NITROGEN 16 MG/DL (7-18); CALCIUM 8.2 MG/DL (8.5-10.1); CHLORIDE 105 MEQ/L (98-107); CREATININE 0.97 MG/DL (0.60-1.30); GLOMERULAR FILTRATION RATE 78 ML/MIN (>89); GLUCOSE,RANDOM 101 MG/DL (74-106); MAGNESIUM 2.1 MG/DL (1.5-2.5); SODIUM (NA) 137 MEQ/L (136-145)
[2017-06-04 14:23] LABS: ALKALINE PHOSPHATASE 68 U/L (45-117); ALT (GPT) 29 U/L (12-78); TOTAL BILIRUBIN ADULT 0.6 MG/DL (0.2-1.0); TOTAL PROTEIN 6.5 GM/DL (6.4-8.2); TROPONIN I LESS THAN 0.02 NG/ML (0.02-0.05)
--- NOTE | 2017-06-04 14:33 | RADRPT ---
EXAM DATE/TIME: 06/04/2017 13:39 [facility] COMPARISON: CHEST SINGLE AP, June 03, 2017, 8:00. INDICATIONS : Palpitations, recent CABG, slurred speech MEDICAL HISTORY : Cardiovascular disease. SURGICAL HISTORY : CABG. ENCOUNTER: Initial ACUITY: 1 day PAIN SCORE: 0/10 LOCATION: Bilateral chest FINDINGS: Significant consolidating airspace disease remains evident in the left base. There is a small associa kymberly effusion. Right lung remains clear. Heart and mediastinal structures are stable. CONCLUSION: Persistent consolidating airspace disease in the left lung base with associated small effusion. Otherwise stable chest. Delio Causey MD on June 04, 2017 at 14:31 Board Certified Radiologist. This report was verified electronically.
--- NOTE | 2017-06-04 14:35 | RADRPT ---
EXAM DATE/TIME: 06/04/2017 14:00 [facility] COMPARISON: No previous studies available for comparison. INDICATIONS : Syncopal episode today RADIATION DOSE: 39.91 CTDIvol (mGy) MEDICAL HISTORY : Cardiovascular disease. Hypertension. SURGICAL HISTORY : Cholecystectomy. CABG ENCOUNTER: Initial ACUITY: 1 day PAIN SCALE: 0/10 LOCATION: cranial TECHNIQUE: Multiple contiguous axial images were obtained of the head. Using automated exposure control and adj ustment of the mA and/or kV according to patient size, radiation dose was kept as low as reasonably a chievable to obtain optimal diagnostic quality images. DICOM format image data is available electro nically for review and comparison. FINDINGS: CEREBRUM: The ventricles are normal for age. No evidence of midline shift, mass lesion, hemorrhage or acute in farction. No extra-axial fluid collections are seen. POSTERIOR FOSSA: The cerebellum and brainstem are intact. The 4th ventricle is midline. The cerebellopontine angle i s unremarkable. EXTRACRANIAL: The visualized portion of the orbits is intact. SKULL: The calvaria is intact. No evidence of skull fracture. CONCLUSION: No acute disease. No evidence of acute infarct, hemorrhage, mass or edema. Delio Causey MD on June 04, 2017 at 14:33 Board Certified Radiologist. This report was verified electronically.
--- NOTE | 2017-06-04 16:21 | PD ---
HPI Chief Complaint: Syncope/Near-Syncope Time Seen by Provider: 13:17 Travel History International Travel<30 days: No Contact w/Intl Traveler<30days: No Traveled to known affect area: No History of Present Illness HPI 66-year-old male complains of near syncope about an hour prior to ER arrival. The patient underwent coronary artery bypass surgery about 4 days prior. Postoperatively a sternal wound dehiscence was observed in the wound VAC was placed. A left lung base pneumonia was observed. Patient was started on antibiotics and discharged. He was discharged yesterday. This morning he stated he exerted himself fairly significantly however not more than he thought would be reasonable. EMS notes diaphoresis and pallor on scene. Blood pressure was reported to be about 100/70. Heart rate remained in the 80s. Blood glucose normal. The patient did not lose consciousness. He notes he took tramadol perhaps a couple hours prior to onset of symptoms however the daughter who is nurse reports the patient has been taking tramadol all along. PFSH Past Medical History Hx Anticoagulant Therapy: Yes Blood Disorders: No Heart Rhythm Problems: No Cancer: No Cardiovascular Problems: Yes High Cholesterol: Yes Chemotherapy: No Chest Pain: Yes Congestive Heart Failure: No Diabetes: No Diminished Hearing: No Endocrine: No Gastrointestinal Disorders: Yes GERD: Yes Genitourinary: Yes Hypertension: Yes Immune Disorder: No Implanted Vascular Access Dvce: Yes Kidney Stones: Yes (long ago) Musculoskeletal: Yes Neurologic: No Psychiatric: No Reproductive: No Respiratory: No Immunizations Current: Yes Radiation Therapy: No Past Surgical History Abdominal Surgery: Yes (gull bladder) Body Medical Devices: LEFT AKA WITH PROTHESIS Genitourinary Surgery: Yes (right kidney stent) Other Surgery: Yes Social History Alcohol Use: Yes (3-4 DAILY) Tobacco Use: No Substance Use: No Allergies-Medications (Allergen,Severity, Reaction): Coded Allergies: amoxicillin (Unverified Allergy, Mild, RASH, 06/04/17) ampicillin (Unverified Allergy, Mild, RASH, 06/04/17) penicillin G (Unverified Allergy, Mild, RASH, 06/04/17) morphine (Unverified Adverse Reaction, Intermediate, Phantom limb pain, ) Reported Meds & Prescriptions Reported Meds & Active Scripts Active Eliquis (Apixaban) 5 Mg Tab 5 Mg PO BID Commode 3-in-1 (Device) 1 Mis Mis Ea .XX DIRECTED Thera M Plus (Multivitamins/Minerals Therapeutic) 1 Tab 1 Tab PO DAILY Dok (Docusate Sodium) 100 Mg Cap 100 Mg PO BID Ultram (Tramadol HCl) 50 Mg Tab 50 Mg PO Q4HR PRN Tgt Aspirin (Aspirin) 81 Mg Chw 81 Mg PO DAILY Amiodarone (Amiodarone HCl) 200 Mg Tab 400 Mg PO BID take 400mg twice a day x 7days, then 200mg daily refill x 1 only 30 tablets Ferosul (Ferrous Sulfate) 325 Mg (65 Mg Iron) Tablet 325 Mg PO BID@12,17 Levaquin (Levofloxacin) 500 Mg Tablet 500 Mg PO Q24H Coreg (Carvedilol) 6.25 Mg Tab 6.25 Mg PO BID Benazepril (Benazepril HCl) 5 Mg Tab 5 Mg PO DAILY Lipitor (Atorvastatin Calcium) 80 Mg Tab 80 Mg PO HS Reported Omeprazole 10 Mg Cap 10 Mg PO DAILY Review of Systems Except as stated in HPI: all other systems reviewed are Neg General / Constitutional: No: Fever Physical Exam Narrative GENERAL: Well-nourished well-developed 56-year-old male mild distress secondary to pain and/or anxiety Vital Signs Date Time Temp Pulse Resp B/P (MAP) Pulse Ox O2 Delivery O2 Flow Rate FiO2 06/04/17 15:00 94 15 104/52 (69) 95 Room Air 06/04/17 13:22 96 Nasal Cannula 2.00 06/04/17 13:22 95 16 102/55 (71) 88 16 118/56 (76) 98 18 95/54 (68) 06/04/17 13:13 97.9 96 17 118/56 (76) 96 SKIN: Warm and dry. No appreciable diaphoresis. HEAD: Atraumatic. Normocephalic. EYES: Pupils equal and round. No scleral icterus. No injection or drainage. ENT: No nasal bleeding or discharge. Mucous membranes pink and moist. NECK: Trachea midline. No JVD. CARDIOVASCULAR: Regular rate and rhythm. Chest wall wound VAC intact. RESPIRATORY: No accessory muscle use. Clear to auscultation. Breath sounds equal bilaterally. GASTROINTESTINAL: Abdomen soft, non-tender, nondistended. Hepatic and splenic margins not palpable. MUSCULOSKELETAL: Extremities without clubbing, cyanosis, or edema. No obvious deformities. NEUROLOGICAL: Awake and alert. No obvious cranial nerve deficits. Motor grossly within normal limits. Five out of 5 muscle strength in the arms and legs. Normal speech. PSYCHIATRIC: Appropriate mood and affect; insight and judgment normal. Data Data Last Documented VS Vital Signs Date Time Temp Pulse Resp B/P (MAP) Pulse Ox O2 Delivery O2 Flow Rate FiO2 06/04/17 15:00 94 15 104/52 (69) 95 Room Air 06/04/17 13:22 2.00 06/04/17 13:13 97.9 Orders Orders Electrocardiogram (06/04/17 13:17) Complete Blood Count With Diff (06/04/17 13:17) Comprehensive Metabolic Panel (06/04/17 13:17) Magnesium (Mg) (06/04/17 13:17) B-Type Natriuretic Peptide (06/04/17 13:17) Ckmb (Isoenzyme) Profile (06/04/17 13:17) Troponin I (06/04/17 13:17) Act Partial Throm Time (Ptt) (06/04/17 13:17) Prothrombin Time / Inr (Pt) (06/04/17 13:17) Urinalysis - C+S If Indicated (06/04/17 13:17) Chest, Single Ap (06/04/17 13:17) Ct Brain W/O Iv Contrast(Rout) (06/04/17 13:17) Ecg Monitoring (06/04/17 13:17) Iv Access Insert/Monitor (06/04/17 13:17) Oximetry (06/04/17 13:17) Sodium Chloride 0.9% Flush (Ns Flush) (06/04/17 13:30) Admit Order (Ed Use Only) (06/04/17 ) [employer] Technician / Telemetry [id number].[id number] (06/04/17 16:49) Vital Signs (Adult) Q4H (06/04/17 16:49) Diet Npo (06/04/17 Dinner) Activity Bed Rest (06/04/17 16:49) Notify Dr: Other (06/04/17 16:49) Labs Laboratory Tests Test 06/04/17 13:25 White Blood Count 6.8 TH/MM3 Red Blood Count 2.82 MIL/MM3 Hemoglobin 9.5 GM/DL Hematocrit 27.9 % Mean Corpuscular Volume 99.2 FL Mean Corpuscular Hemoglobin 33.8 PG Mean Corpuscular Hemoglobin Concent 34.1 % Red Cell Distribution Width 12.9 % Platelet Count 305 TH/MM3 Mean Platelet Volume 7.4 FL Neutrophils (%) (Auto) 72.0 % Lymphocytes (%) (Auto) 11.9 % Monocytes (%) (Auto) 13.2 % Eosinophils (%) (Auto) 2.5 % Basophils (%) (Auto) 0.4 % Neutrophils # (Auto) 4.9 TH/MM3 Lymphocytes # (Auto) 0.8 TH/MM3 Monocytes # (Auto) 0.9 TH/MM3 Eosinophils # (Auto) 0.2 TH/MM3 Basophils # (Auto) 0.0 TH/MM3 CBC Comment DIFF FINAL Differential Comment Prothrombin Time 12.7 SEC Prothromb Time International Ratio 1.3 RATIO Activated Partial Thromboplast Time 25.7 SEC Blood Urea Nitrogen 16 MG/DL Creatinine 0.97 MG/DL Random Glucose 101 MG/DL Total Protein 6.5 GM/DL Albumin 2.6 GM/DL Calcium Level 8.2 MG/DL Magnesium Level 2.1 MG/DL Alkaline Phosphatase 68 U/L Aspartate Amino Transf (AST/SGOT) 22 U/L Alanine Aminotransferase (ALT/SGPT) 29 U/L Total Bilirubin 0.6 MG/DL Sodium Level 137 MEQ/L Potassium Level 4.2 MEQ/L Chloride Level 105 MEQ/L Carbon Dioxide Level 25.0 MEQ/L Anion Gap 7 MEQ/L Estimat Glomerular Filtration Rate 78 ML/MIN Total Creatine Kinase 60 U/L Troponin I LESS THAN 0.02 NG/ML B-Type Natriuretic Peptide 325 PG/ML MDM Medical Decision Making Medical Screen Exam Complete: Yes Emergency Medical Condition: Yes Medical Record Reviewed: Yes Differential Diagnosis NSTEMI, unstable angina, coronary vasospasm, PE, PTX, aortic dissection, pericarditis, myocarditis, endocarditis, PNA, esophageal disease, aneurysm, musculoskeletal etiologies, anxiety, cocaine/sympathomimetic abuse Narrative Course CBC & BMP Diagram 06/04/17 13:25 Total Protein 6.5 #, Albumin 2.6 L, Calcium Level 8.2 L, Magnesium Level 2.1, Alkaline Phosphatase 68, Aspartate Amino Transf (AST/SGOT) 22, Alanine Aminotransferase (ALT/SGPT) 29, Total Bilirubin 0.6 Troponin is less than 0.02 BNP is 350 approximately The EKG shows atrial flutter with a rate of [address] changes throughout The case was discussed with cardiovascular surgery, Dr. Chang, who knows the patient well. Overnight stay with continuous monitoring advised. The case is discussed with hospitalist Dr. Childress. Rocephin and azithromycin started. Blood cultures drawn. Critical Care Narrative Aggregate critical care time was 40 minutes. Time to perform other separately billable procedures was not included in the critical care time. My time did not include minutes spent treating any other patients simultaneously or on activities that did not directly contribute to the patient's treatment. The services I provided to this patient were to treat and/or prevent clinically significant deterioration that could result in: Cardiopulmonary arrest I provided critical care services requiring my management, as noted below: Chart data review, documentation time, medication orders and management, vital sign assessments/reviewing monitor data, ordering and reviewing lab tests, ordering and interpreting/reviewing x-rays and diagnostic studies, care of the patient and discussion of the patient with the admitting physicians. Diagnosis Primary Impression: Near syncope Admitting Information Admitting Physician Requests: Observation Cosme Glynn MD Jun 04, 2017 16:21
[2017-06-04] MEDS ORDERED: cefTRIAXone INJ 1,000 MG in SODIUM CHLORIDE 0.9% INJ 100 ML IV ONE (17:15)
[2017-06-04] MEDS ORDERED: AZITHROMYCIN INJ 500 MG in SODIUM CHLOR 0.9% 250 ML INJ 250 ML IV ONE (17:15)
[2017-06-04] MEDS ORDERED: SENNOSIDES 8.6 MG TAB PO PRN (18:45)
[2017-06-04] MEDS ORDERED: ONDANSETRON HCL 4 MG/2 ML VIAL IVP PRN (18:45)
[2017-06-04] MEDS ORDERED: BISACODYL 10 MG SUPP RECTAL PRN (18:45)
[2017-06-04] MEDS ORDERED: NALOXONE HCL 0.4 MG/ML AMP IV PUSH PRN (18:45)
[2017-06-04] MEDS ORDERED: LACTULOSE SYRUP 20 GM/30 ML CUP PO PRN (18:45)
[2017-06-04] MEDS ORDERED: SODIUM CHLORIDE 0.9% FLUSH 10 ML FLUSH IV FLUSH PRN (18:45)
[2017-06-04] MEDS ORDERED: MAGNESIUM HYDROXIDE SUSP 30 ML CUP PO PRN (18:45)
[2017-06-04] MEDS ORDERED: ACETAMINOPHEN 325 MG TAB PO PRN (18:45)
[2017-06-04] MEDS: DOCUSATE SODIUM 50 MG/SENNA 8.6 MG TAB PO SCH (20:01)
[2017-06-04] MEDS: SODIUM CHLORIDE 0.9% FLUSH 10 ML FLUSH IV FLUSH SCH (20:02)
[2017-06-04] MEDS: HEPARIN SODIUM - SQ 10,000 UNITS/ML VIAL SQ SCH (20:02)
[2017-06-04 20:24] LABS: TROPONIN I LESS THAN 0.02 NG/ML (0.02-0.05)
[2017-06-04 20:26] LABS: BILIRUBIN, URINE NEG (NEG); BLOOD, URINE LARGE (NEG); GLUCOSE,URINE NEG (NEG); HYALINE CAST, URINE 20 /lpf (RARE); KETONE, URINE 10 mg/dL (NEG); MUCUS URINE MANY /lpf (OCC); NITRITE,URINE NEG (NEG); URINE COLOR YELLOW (YELLW/STRAW); URINE LEUKOCYTE ESTERASE TRACE (NEG)
[2017-06-04] MEDS ORDERED: CHLORHEXIDINE GLUCONATE 2 % 1 PACK (2 CLOTHS)(extra cloths) TOPICAL PRN (22:15)
[2017-06-05] VITALS (18 sets, daily range): BP systolic 103–127; BP diastolic 61–75; PULSE 72–92; RESP 16–22; TEMP 97.6–98.9; O2SAT 90–95
[2017-06-05 02:14] LABS: AUTOMATED NEUTROPHIL # 3.6 TH/MM3 (1.8-7.7); BASOPHIL % 0.5 % (0.0-2.0); EOSINOPHIL # 0.2 TH/MM3 (0-0.4); EOSINOPHIL % 2.9 % (0.0-4.0); HEMATOCRIT 25.5 % (39.0-51.0); HEMOGLOBIN 8.8 GM/DL (13.0-17.0); LYMPH % 18.7 % (9.0-44.0); MEAN CELL VOLUME 98.9 FL (80.0-100.0); MEAN CORPUSCULAR HEMOGLOBIN 34.2 PG (27.0-34.0); MEAN CORPUSCULAR HGB CONC 34.6 % (32.0-36.0); MEAN PLATELET VOLUME 7.4 FL (7.0-11.0); MONO % 10.4 % (0.0-8.0); MONOCYTE # 0.6 TH/MM3 (0-0.9); NEUT % 67.5 % (16.0-70.0); PLATELET COUNT 284 TH/MM3 (150-450); RED BLOOD COUNT 2.58 MIL/MM3 (4.50-5.90); RED CELL DISTRIBUTION WIDTH 12.9 % (11.6-17.2); WHITE BLOOD COUNT 5.4 TH/MM3 (4.0-11.0)
[2017-06-05 02:30] LABS: BICARBONATE 27.4 MEQ/L (21.0-32.0); BLOOD UREA NITROGEN 17 MG/DL (7-18); CALCIUM 8.2 MG/DL (8.5-10.1); CHLORIDE 106 MEQ/L (98-107); CREATININE 0.79 MG/DL (0.60-1.30); GLOMERULAR FILTRATION RATE 98 ML/MIN (>89); GLUCOSE,RANDOM 107 MG/DL (74-106); SODIUM (NA) 140 MEQ/L (136-145)
[2017-06-05 02:34] LABS: TROPONIN I LESS THAN 0.02 NG/ML (0.02-0.05)
[2017-06-05] MEDS: CHLORHEXIDINE GLUCONATE 2 % 1 PACK (2 CLOTHS)(taper/protocol) TOPICAL SCH ×2 (04:00→20:14)
[2017-06-05] MEDS: HEPARIN SODIUM - SQ 10,000 UNITS/ML VIAL SQ SCH (04:00)
[2017-06-05] MEDS: SODIUM CHLORIDE 0.9% FLUSH 10 ML FLUSH IV FLUSH SCH ×2 (08:13→20:12)
[2017-06-05] MEDS: DOCUSATE SODIUM 50 MG/SENNA 8.6 MG TAB PO SCH ×2 (08:17→20:14)
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
[2017-06-05] MEDS: ASPIRIN 81 MG CHEW TAB PO SCH (14:19)
[2017-06-05] MEDS: LISINOPRIL 5 MG TAB PO SCH (14:19)
[2017-06-05] MEDS: FERROUS SULFATE 325 MG (65 MG ELEMENTAL IRON) TAB PO SCH ×2 (14:19→18:29)
[2017-06-05] MEDS: APIXABAN 5 MG TABLET PO SCH ×2 (14:19→20:17)
[2017-06-05] MEDS: CARVEDILOL 6.25 MG TAB PO SCH ×2 (14:20→20:17)
[2017-06-05] MEDS: AMIODARONE 200 MG TAB PO SCH ×2 (14:20→20:17)
--- NOTE | 2017-06-05 16:12 | PD.CAR.PN ---
CVT Progress Note Subjective/Hospital Course: pt re-admitted after ED physician spoke with Dr Chang and requested OBS admit , pt dc on Thu after having Urgent Off-pump Coronary Artery Bypass Grafting x 2 with Left Internal Mammary Artery (OBRIEN) to the Left Anterior Descending (LAD) , reverse saphenous vein graft to the distal Right Coronary Artery (RCA), Right Leg Endoscopic Vein [place] 05/29, developed Afib RVR was placed on taper dose amiodarone and eliquis, BB . Presented to ED after called 911,, because pt fell light headed and turned" hernandez" BP on admission 100/60 -108/60 HR 88-90 this was baseline for pt . He took his tramadol earlier that am , lab unremarkable, HGB 8.8 / stable , K+ 3.8/ replaced CXR small left effusion, no leukocytosis , no fever . He did however have post IV infiltrate right hand . Limited echo pending to r/o effusion , EF 30% we were unable to start zara 2/2 low BP , pt still has prevena dressing which can be removed today. Objective: GENERAL: A&O x 3 SKIN: Warm and dry. prevena to chest , incision intact right leg, ecchymosis right thigh HEAD: Normocephalic. EYES: No scleral icterus. No injection or drainage. NECK: Supple, trachea midline. No JVD or lymphadenopathy. CARDIOVASCULAR: irregular rate and rhythm without murmurs, gallops, or rubs. RESPIRATORY: Breath sounds equal bilaterally. No accessory muscle use. slightly diminished left lower lobe GASTROINTESTINAL: Abdomen soft, non-tender, nondistended. MUSCULOSKELETAL: No cyanosis, or edema. BACK: Nontender without obvious deformity. No CVA tenderness. Vital Signs Date Time Temp Pulse Resp B/P (MAP) Pulse Ox O2 Delivery O2 Flow Rate FiO2 06/05/17 12:00 84 06/05/17 12:00 98.7 84 18 121/69 (86) 92 06/05/17 10:00 85 06/05/17 08:00 84 06/05/17 08:00 98.9 84 22 117/66 (83) 90 06/05/17 06:00 78 06/05/17 04:00 98.3 80 18 119/64 (82) 91 06/05/17 04:00 80 06/05/17 02:50 95 06/05/17 02:00 83 06/05/17 00:00 98.7 85 19 127/69 (88) 91 06/05/17 00:00 85 06/04/17 23:01 98.3 84 20 120/69 (86) 93 06/04/17 22:00 84 06/04/17 21:46 06/04/17 20:23 84 16 107/64 (78) 94 Room Air 06/04/17 18:43 96 Nasal Cannula 2.00 06/04/17 17:21 82 17 107/63 (78) 96 Room Air Result Diagram: 06/05/17 0114 06/05/17 0114 Telemetry: afib (1) Afib Plan: continue BB , taper dose amiodarone , eliquis limited echo pending (2) NSTEMI (non-ST elevated myocardial infarction) (3) Near syncope Plan: ? med related (4) S/P CABG x 2 Plan: ASA, statin (5) Blood loss anemia Plan: agree with ferrous sulfate Danielle Marshall Jun 05, 2017 16:12
[2017-06-05] MEDS: cefTRIAXone INJ 1,000 MG in SODIUM CHLORIDE 0.9% INJ 100 ML IV SCH (18:29)
[2017-06-05] MEDS: AZITHROMYCIN INJ 500 MG in SODIUM CHLOR 0.9% 250 ML INJ 250 ML IV SCH (20:12)
[2017-06-05] MEDS: ATORVASTATIN 80 MG TAB PO SCH (20:17)
[2017-06-05] MEDS: traMADol HCL 50 MG TAB PO PRN (21:41)
[2017-06-06] VITALS (31 sets, daily range): BP systolic 87–119; BP diastolic 58–71; PULSE 72–100; RESP 16–19; TEMP 97.2–98.6; O2SAT 94–95
--- NOTE | 2017-06-06 00:33 | EKG ---
Date Performed: 06/04/2017 Time Performed: 19:26:05 PTAGE: 66 years EKG: Sinus rhythm WITH OCCASIONAL ECTOPIC PREMATURE COMPLEXES NONSPECIFIC ST & T-WAVE ABNORMALITY PROLONGED QT INTERVA L ABNORMAL ECG PREVIOUS TRACING : 06/04/2017 13.15 Compared to prior tracing, NSR now present DOCTOR: Isela Meyer Interpretating Date/Time 06/06/2017 00:31:54
--- NOTE | 2017-06-06 01:34 | EKG ---
Date Performed: 06/04/2017 Time Performed: 13:15:37 PTAGE: 66 years EKG: ATRIAL FIBRILLATION ST DEVIATION AND MODERATE T-WAVE ABNORMALITY, CONSIDER ANTERIOR ISCHEMI A ABNORMAL ECG PREVIOUS TRACING : 05/30/2017 05.30 Compared to prior tracing, SR no longer present DOCTOR: Isela Meyer Interpretating Date/Time 06/06/2017 01:33:57
--- NOTE | 2017-06-06 08:39 | ECHRPT ---
Indication: r/o pericardial eff CONCLUSIONS Technically difficult study. Normal left ventricular size. The left ventricular systolic function is low normal with an estimated ejection fraction in the rang e of 50- 55%. BP: / HR: Rhythm: MEASUREMENTS (Male / Female) Normal Values Technical Quality:Very technically difficult study 2D ECHO LV Diastolic Diameter PLAX 5.0 cm 4.2 - 5.9 / 3.9 - 5.3 cm LV Systolic Diameter PLAX 3.9 cm IVS Diastolic Thickness 1.5 cm 0.6 - 1.0 / 0.6 - 0.9 cm LVPW Diastolic Thickness 1.3 cm 0.6 - 1.0 / 0.6 - 0.9 cm LV Relative Wall Thickness 0.5 RV Internal Dim ED PLAX 4.0 cm FINDINGS LEFT VENTRICLE Normal left ventricular size. The left ventricular systolic function is low normal with an estimated ejection fraction in the rang e of 50- 55%. RIGHT VENTRICLE Normal right ventricular size and systolic function. LEFT ATRIUM The left atrial size is normal. RIGHT ATRIUM The right atrial size is normal. ATRIAL SEPTUM Normal atrial septal thickness without atrial level shunting by limited color doppler interrogation. AORTA The aortic root and proximal ascending aorta are normal in size on limited imaging. MITRAL VALVE Structurally normal mitral valve. No mitral valve stenosis or regurgitation. AORTIC VALVE Trileaflet aortic valve. No aortic valve stenosis or regurgitation. TRICUSPID VALVE Structurally normal tricuspid valve. No tricuspid valve stenosis or regurgitation. PULMONARY VALVE The pulmonary valve is not well visualized. VESSELS The inferior vena cava is normal in size. PERICARDIUM There is no pericardial effusion. Isela Meyer MD, FACC (Electronically Signed) Final Date:06 June 2017 08:37
[2017-06-06] MEDS: traMADol HCL 50 MG TAB PO PRN ×2 (08:59→18:12)
[2017-06-06] MEDS: APIXABAN 5 MG TABLET PO SCH ×2 (08:59→22:57)
[2017-06-06] MEDS: ASPIRIN 81 MG CHEW TAB PO SCH (09:00)
[2017-06-06] MEDS: AMIODARONE 200 MG TAB PO SCH (09:00)
[2017-06-06] MEDS: LISINOPRIL 5 MG TAB PO SCH (09:00)
[2017-06-06] MEDS: CARVEDILOL 6.25 MG TAB PO SCH ×2 (09:00→21:00)
[2017-06-06] MEDS: DOCUSATE SODIUM 50 MG/SENNA 8.6 MG TAB PO SCH ×2 (09:00→21:00)
[2017-06-06] MEDS: SODIUM CHLORIDE 0.9% FLUSH 10 ML FLUSH IV FLUSH SCH ×2 (09:01→22:57)
[2017-06-06] MEDS: FERROUS SULFATE 325 MG (65 MG ELEMENTAL IRON) TAB PO SCH ×2 (11:55→16:32)
[2017-06-06] MEDS: cefTRIAXone INJ 1,000 MG in SODIUM CHLORIDE 0.9% INJ 100 ML IV SCH (16:32)
--- NOTE | 2017-06-06 16:54 | HHI.PR ---
Objective Vitals Vital Signs Date Time Temp Pulse Resp B/P (MAP) Pulse Ox O2 Delivery O2 Flow Rate FiO2 06/06/17 16:00 99 06/06/17 15:00 97.6 79 16 103/67 (79) 95 06/06/17 15:00 80 06/06/17 14:00 79 06/06/17 13:00 76 06/06/17 12:00 74 06/06/17 11:57 102/65 (77) 06/06/17 11:10 98/62 (74) 06/06/17 11:05 92/58 (69) 06/06/17 11:00 97.2 78 19 87/62 (70) 95 06/06/17 11:00 78 06/06/17 10:06 18 06/06/17 10:00 100 06/06/17 09:00 86 06/06/17 08:34 95 21 06/06/17 08:00 78 06/06/17 07:00 97.7 79 16 107/67 (80) 95 06/06/17 07:00 80 06/06/17 06:00 77 06/06/17 05:00 76 06/06/17 04:00 73 06/06/17 03:20 97.7 78 18 108/65 (79) 94 06/06/17 03:00 76 06/06/17 02:00 72 06/06/17 01:00 77 06/06/17 00:00 77 06/05/17 23:10 98.0 72 16 103/61 (75) 94 06/05/17 23:00 77 06/05/17 22:00 77 06/05/17 21:00 86 06/05/17 20:20 97.8 89 16 112/64 (80) 95 06/05/17 20:00 92 06/05/17 19:00 88 06/05/17 18:00 77 06/05/17 18:00 97.6 77 20 118/75 (89) 94 I/O 06/05/17 06/05/17 06/05/17 06/06/17 06/06/17 06/06/17 07:00 15:00 23:00 07:00 15:00 23:00 Intake Total 500 ml 1070 ml 480 ml Output Total 400 ml 650 ml 850 ml Balance 100 ml 420 ml -370 ml Intake Oral 500 ml 720 ml 480 ml IV Total 350 ml Output Urine Total 400 ml 650 ml 850 ml # Bowel Movements 0 0 0 Result Diagram: 06/05/1711306/05/17113 Silvia Childress MD Jun 06, 2017 16:54
[2017-06-06] MEDS: AZITHROMYCIN INJ 500 MG in SODIUM CHLOR 0.9% 250 ML INJ 250 ML IV SCH (17:30)
[2017-06-06] MEDS: ATORVASTATIN 80 MG TAB PO SCH (22:56)
[2017-06-07] VITALS (24 sets, daily range): BP systolic 90–123; BP diastolic 58–69; PULSE 80–114; RESP 16; TEMP 97.5–98.7; O2SAT 91–99
[2017-06-07] MEDS: CHLORHEXIDINE GLUCONATE 2 % 1 PACK (2 CLOTHS)(taper/protocol) TOPICAL SCH (03:57)
[2017-06-07] MEDS: DOCUSATE SODIUM 50 MG/SENNA 8.6 MG TAB PO SCH ×2 (09:00→20:00)
[2017-06-07] MEDS: AMIODARONE 200 MG TAB PO SCH (09:21)
[2017-06-07] MEDS: ASPIRIN 81 MG CHEW TAB PO SCH (09:21)
[2017-06-07] MEDS: LISINOPRIL 5 MG TAB PO SCH (09:22)
[2017-06-07] MEDS: CARVEDILOL 6.25 MG TAB PO SCH ×2 (09:23→20:00)
[2017-06-07] MEDS: APIXABAN 5 MG TABLET PO SCH ×2 (09:24→20:00)
[2017-06-07] MEDS: SODIUM CHLORIDE 0.9% FLUSH 10 ML FLUSH IV FLUSH SCH ×2 (09:26→20:00)
[2017-06-07] MEDS: FERROUS SULFATE 325 MG (65 MG ELEMENTAL IRON) TAB PO SCH ×2 (12:00→17:05)
[2017-06-07] MEDS: cefTRIAXone INJ 1,000 MG in SODIUM CHLORIDE 0.9% INJ 100 ML IV SCH (17:05)
[2017-06-07] MEDS: AZITHROMYCIN INJ 500 MG in SODIUM CHLOR 0.9% 250 ML INJ 250 ML IV SCH (17:58)
[2017-06-07] MEDS: ATORVASTATIN 80 MG TAB PO SCH (20:00)
[2017-06-07] MEDS: traMADol HCL 50 MG TAB PO PRN (20:00)
--- NOTE | 2017-06-07 23:52 | HHI.PR ---
Objective Vitals Vital Signs Date Time Temp Pulse Resp B/P (MAP) Pulse Ox O2 Delivery O2 Flow Rate FiO2 06/07/17 20:59 21 06/07/17 20:00 89 06/07/17 20:00 98.0 108 90/61 (71) 95 06/07/17 18:00 104 06/07/17 17:00 82 06/07/17 16:00 94 06/07/17 16:00 97.9 90 16 101/63 (76) 99 06/07/17 15:00 88 06/07/17 14:00 114 06/07/17 13:00 84 06/07/17 12:44 91 21 06/07/17 12:00 97.8 80 16 103/58 (73) 95 06/07/17 12:00 80 06/07/17 11:00 80 06/07/17 10:00 92 06/07/17 09:00 94 06/07/17 08:00 94 06/07/17 07:00 102 06/07/17 07:00 97.5 102 16 123/69 (87) 93 06/07/17 06:00 84 06/07/17 05:00 94 06/07/17 04:00 82 06/07/17 03:00 98.7 90 16 117/65 (82) 93 06/07/17 03:00 90 06/07/17 02:00 86 06/07/17 01:00 84 06/07/17 00:00 80 I/O 06/07/17 06/07/17 06/07/17 06/08/17 06/08/17 06/08/17 07:00 15:00 23:00 07:00 15:00 23:00 Intake Total 240 ml 820 ml Output Total 800 ml Balance -560 ml 820 ml Intake Oral 240 ml 720 ml IV Total 100 ml Output Urine Total 800 ml # Voids 4 # Bowel Movements 0 0 Result Diagram: 06/05/1711306/05/17113 Silvia Childress MD Jun 07, 2017 23:52
[2017-06-08] VITALS (13 sets, daily range): BP systolic 93–137; BP diastolic 65–68; PULSE 75–100; RESP 16–18; TEMP 97.5–97.9; O2SAT 92–97
[2017-06-08] MEDS: CHLORHEXIDINE GLUCONATE 2 % 1 PACK (2 CLOTHS)(taper/protocol) TOPICAL SCH (01:01)
[2017-06-08] MEDS: CARVEDILOL 6.25 MG TAB PO SCH (07:50)
[2017-06-08] MEDS: LISINOPRIL 5 MG TAB PO SCH (07:51)
[2017-06-08] MEDS: ASPIRIN 81 MG CHEW TAB PO SCH (08:29)
[2017-06-08] MEDS: AMIODARONE 200 MG TAB PO SCH (08:29)
[2017-06-08] MEDS: APIXABAN 5 MG TABLET PO SCH (08:29)
[2017-06-08] MEDS: DOCUSATE SODIUM 50 MG/SENNA 8.6 MG TAB PO SCH (08:30)
[2017-06-08] MEDS: SODIUM CHLORIDE 0.9% FLUSH 10 ML FLUSH IV FLUSH SCH (08:30)
--- NOTE | 2017-06-08 11:06 | HHI.PR ---
Subjective Remarks PATIENT IS 66-year-old male complains of near syncope about an hour prior to ER arrival. The patient underwent coronary artery bypass surgery about 4 days prior TO PRESENTING TO THE ER. Postoperatively a sternal wound dehiscence was observed AND A wound VAC was placed. A left lung base pneumonia was observed. Patient was started on antibiotics and discharged. He was discharged 06-03 . This morning he stated he exerted himself fairly significantly however not more than he thought would be reasonable. EMS notes diaphoresis and pallor on scene. Blood pressure was reported to be about 100/70. Heart rate remained in the 80s. Blood glucose normal. The patient did not lose consciousness. He notes he took tramadol perhaps a couple hours prior to onset of symptoms however the daughter who is nurse reports the patient has been taking tramadol all along. PATIENT WAS THEREFORE ADMITTED TO OUR SERVICE FOR OBSERVATION I received a call on 06/04/17 in the evening from ED mentioning about patient who was discharged one day ago after he had a CABG and a pneumonia, now with hypotension and history of syncope First thing we thought about ruling out pericardial effusion in light of this presentation, I had to place orders before passing the case to my colleague night physician, patient was transferred to ICU. In this morning to see the patient is 66 years old recently had a CABG by Dr. Chang, his x-ray showed left infiltrate however patient did not have leukocytosis or fever, patient came complaining of episodes of near syncope "I was seeing complete white ", he was not conclusive about completely losing consciousness, positive lightheaded, no nausea or vomiting, no chest pain, + cough. I discussed today with a dependency case manager and with MEDICAL SECRETARY TEACHER of the cardiovascular surgeon, we will do the 2decho , and cont on abx and monitor closely PATIENT HAS BE[facility] SE[facility] BY [facility]SO 06-08 FEELING BETTER WANTS TO GO HOME WILL ADJUST MEDS AND DC TO HOME TODAY DW RN AND PT Objective Vitals Vital Signs Date Time Temp Pulse Resp B/P (MAP) Pulse Ox O2 Delivery O2 Flow Rate FiO2 06/08/17 08:00 97.9 81 100/65 (77) 93 06/08/17 08:00 81 06/08/17 07:34 97 21 06/08/17 07:01 80 06/08/17 06:00 75 06/08/17 05:38 80 06/08/17 04:28 97.9 84 122/68 (86) 96 06/08/17 04:03 97 18 03:00 91 18 02:04 96 18 01:00 98 06/08/17 00:14 97.9 99 93/67 (76) 92 06/08/17 00:00 100 18 23:00 100 18 22:00 100 18 21:00 88 18 20:59 21 18 20:00 89 18 20:00 98.0 108 90/61 (71) 95 18 18:00 104 18 17:00 82 18 16:00 94 18 16:00 97.9 90 16 101/63 (76) 99 18 15:00 88 06/07/17 14:00 114 06/07/17 13:00 84 06/07/17 12:44 91 21 06/07/17 12:00 97.8 80 16 103/58 (73) 95 06/07/17 12:00 80 06/07/17 11:00 80 I/O 06/07/18 06/07/18 06/07/18 18 18 06/08/17 07:00 15:00 23:00 07:00 15:00 23:00 Intake Total 240 ml 820 ml 240 ml Output Total 800 ml 1300 ml Balance -560 ml 820 ml -1060 ml Intake Oral 240 ml 720 ml 240 ml IV Total 100 ml Output Urine Total 800 ml 1300 ml # Voids 4 # Bowel Movements 0 0 Result Diagram: 06/05/17 0114 06/05/17 0114 Imaging Last Impressions Head CT 06/04/177 Signed Impressions: Service Date/Time: May 14:00 - CONCLUSION: No acute disease. No evidence of acute infarct, hemorrhage, mass or edema. Delio Causey MD Chest X-Ray 06/04/171316 Signed Impressions: Service Date/Time: May 13:39 - CONCLUSION: Persistent consolidating airspace disease in the left lung base with associated small effusion. Otherwise stable chest. Delio Causey MD Objective Remarks GENERAL: AWAKE ALERT AND ORIENTED X3 IN NO ACUTE DISTRESS SKIN: Warm and dry. HEAD: Atraumatic. Normocephalic. EYES: Pupils equal and round. No scleral icterus. No injection or drainage. ENT: No nasal bleeding or discharge. Mucous membranes pink and moist. NECK: Trachea midline. No JVD. CARDIOVASCULAR: Regular rate and rhythm. S1, S2 NO S3 OR S4 RESPIRATORY: No accessory muscle use. Clear to auscultation. Breath sounds equal bilaterally. GASTROINTESTINAL: Abdomen soft, non-tender, nondistended. Hepatic and splenic margins not palpable. MUSCULOSKELETAL: Extremities without clubbing, cyanosis, or edema. No obvious deformities. LEFT AKA WITH PROSTHETIC IN PLACE NEUROLOGICAL: Awake and alert. No obvious cranial nerve deficits. Motor grossly within normal limits. 4 out of 5 muscle strength in the arms and legs. Normal speech. PSYCHIATRIC: Appropriate mood and affect; insight and judgment normal. Medications and IVs Current Medications Sodium Chloride (NS Flush) 2 ml UNSCH PRN IVF FLUSH AFTER USING IV ACCESS Last administered on 06/04/17at 13:41; Start 06/04/17 at 13:30; Stop 06/04/17 at 19:13 ; Status DC Ceftriaxone Sodium 1000 mg/ Sodium Chloride 100 ml @ 200 mls/hr ONCE ONCE IV Last administered on 06/04/17at 17:37; Start 06/04/17 at 17:15; Stop 06/04/17 at 17:44; Status DC Azithromycin 500 mg/Sodium Chloride 250 ml @ 250 mls/hr ONCE ONCE IV Last administered on 06/04/17at 18:03; Start 06/04/17 at 17:15; Stop 06/04/17 at 18:14 ; Status DC Sodium Chloride (NS Flush) 2 ml UNSCH PRN IV FLUSH FLUSH AFTER USING IV ACCESS ; Start 06/04/17 at 18:45 Sodium Chloride (NS Flush) 2 ml BID IV FLUSH Last administered on 06/08/17at 08: 30; Start 06/04/17 at 21:00 Acetaminophen (Tylenol) 650 mg Q4H PRN PO TEMP > 100.4; Start 06/04/17 at 18:45 Ondansetron HCl (Zofran Inj) 4 mg Q6H PRN IVP NAUSEA OR VOMITING; Start at 18:45 Heparin Sodium (Porcine) (Heparin Inj) 5,000 units Q8H SQ Last administered on 06/04/17at 20:02; Start 06/04/17 at 20:00; Stop 06/05/17 at 10:31; Status DC Naloxone HCl (Narcan Inj) 0.4 mg UNSCH PRN IV PUSH SEE LABEL COMMENTS; Start at 18:45 Senna/Docusate Sodium (Amber-Colace) 1 tab BID PO ; Start 06/04/17 at 21:00 Magnesium Hydroxide (Milk Of Magnesia Liq) 30 ml Q12H PRN PO Mild constipation ; Start 06/04/17 at 18:45 Sennosides (Senokot) 17.2 mg Q12H PRN PO Moderate constipation Last administered on 06/06/17at 06:12; Start 06/04/17 at 18:45 Bisacodyl (Dulcolax Supp) 10 mg DAILY PRN RECTAL SEVERE CONSITIPATION; Start at 18:45 Lactulose (Lactulose Liq) 30 ml DAILY PRN PO SEVERE CONSITIPATION; Start at 18:45 Ceftriaxone Sodium 1000 mg/ Sodium Chloride 100 ml @ 200 mls/hr Q24H IV Last administered on 06/07/17at 17:05; Start 06/05/17 at 17:00 Azithromycin 500 mg/Sodium Chloride 250 ml @ 250 mls/hr Q24H IV Last administered on 06/07/17at 17:58; Start 06/05/17 at 18:00 Miscellaneous Information Patient in critical care unit? Ass... [id number] .[id number] Last administered on 06/04/17at 22:15; Start 06/04/17 at 22:15 Chlorhexidine Gluconate (Chlorhexidine 2% Cloth) 3 pack DAILY@04 TOPICAL Last administered on 06/05/17at 04:00; Start 06/05/17 at 04:00; Stop 06/09/17 at 04:01 Chlorhexidine Gluconate (Chlorhexidine 2% Cloth) 3 pack UNSCH PRN TOPICAL HYGIENIC CARE; Start 06/04/17 at 22:15; Stop 06/09/17 at 22:00 Amiodarone HCl (Cordarone) 400 mg BID PO Last administered on 06/06/17at 09:00; Start 06/05/17 at 14:00; Stop 06/06/17 at 14:26; Status DC Apixaban (Eliquis) 5 mg BID PO Last administered on 06/08/17at 08:29; Start at 14:00 Aspirin (Aspirin Chew) 81 mg DAILY PO Last administered on 06/08/17 08:29; Start 06/05/17 at 14:00 Atorvastatin Calcium (Lipitor) 80 mg HS PO Last administered on 06/07/17 20:00 ; Start 06/05/17 at 21:00 Lisinopril (Prinivil) 5 mg DAILY PO Last administered on 06/07/17 09:22; Start 06/05/17 at 14:00 Carvedilol (Coreg) 6.25 mg BID PO Last administered on 06/07/17 09:23; Start 06/05/17 at 14:00 Ferrous Sulfate (Ferrous Sulfate) 325 mg BID@12,17 PO Last administered on 06/07at 17:05; Start 06/05/17 at 12:00 Tramadol HCl (Ultram) 50 mg Q4HR PRN PO PAIN SCALE 1 TO 5 Last administered on 06/07/17 20:00; Start 06/05/17 at 11:00 Amiodarone HCl (Cordarone) 200 mg DAILY PO Last administered on 06/08/17 08:29 ; Start 06/07/17 at 09:00 A/P Assessment and Plan 66 years old male who had recent CABG and possible HCAP with Presyncope/syncope PARAMETERS PLACED ON MEDS Hypotension Left lower lobe infiltrate? Pneumonia however no leukocytosis/left shift/fever ON ANTIBIOTICS HLD Hypertension History of coronary artery disease Plan: Initially the patient admitted to ICU for stat 2-D echo to rule out pericardial effusion Started on Rocephin and Zithromax, patient was on Levaquin as an outpatient Continue statin, carvedilol, eliquis, amiodarone [facility] and discussed with the [facility] Monitor telemetry Patient will be on elliquis for DVT prophylaxis WILL DC TO HOME TODAY Discharge Planning WILL DC TO HOME TODAY FOLLOW UP WITH [facility] AND PCP AND CARDIOLOGY Ortiz Beltran DO Jun 08, 2017 11:06
[2017-06-08] MEDS: FERROUS SULFATE 325 MG (65 MG ELEMENTAL IRON) TAB PO SCH (11:26)
--- NOTE | 2017-06-08 11:32 | HHI.FF ---
Face to Face Verification Diagnosis: (1) S/P CABG x 2 (2) Afib (3) NSTEMI (non-ST elevated myocardial infarction) (4) Near syncope (5) HCAP (healthcare-associated pneumonia) (6) Cough (7) CAD (coronary artery disease) (8) HTN (hypertension) (9) HLD (hyperlipidemia) Physical Therapy Order: Evaluate and Treat, Improve ambulation, Strength and gait training Occupational Therapy Order: Evaluate and Treat, Improve ADL, Gross motor coordination, Fine motor coordination Home Health Nursing Order: Medical education Signs/symptoms of disease process Wound care and dressing changes Nursing assessment with vital signs Home Health Aide Order: To Assist In: Bathing and personal care, client experience specialist and meal prep I have seen patient Carter Harris on 06/08/17. My clinical findings support the need for the requested home health care services because: Med compliance is questionable I certify that my clinical findings support that this patient is homebound because: Post-op weakness Ortiz Beltran DO Jun 08, 2017 11:32
[2017-06-08] MEDS ORDERED: TRAM50 PO (11:40)
[2017-06-08] MEDS ORDERED: HUMIBIDDM PO (11:40)
[2017-06-08] MEDS ORDERED: ALBU0.08 NEB (11:40)
[2017-06-08] MEDS ORDERED: CEFU1TAB18 PO (11:40)
[2017-06-08] MEDS ORDERED: NEBULIZER1 MI1 (11:40)
[2017-06-08] MEDS ORDERED: AZIT500T2 PO (11:40)
[2017-06-08] MEDS ORDERED: AMIO200T PO (11:40)
--- NOTE | 2017-06-08 11:43 | HHI.DS ---
Discharge Summary Admission Date Jun 04, 2017 at 16:51 Discharge Date: Jun 08, 2017 Admitting Diagnosis Near Syncope; Orthostasis; L Lung Consolidation (1) S/P CABG x 2 ICD Code: Z95.1 - Presence of aortocoronary bypass graft Diagnosis: Secondary (2) HCAP (healthcare-associated pneumonia) ICD Code: J18.9 - Pneumonia, unspecified organism Diagnosis: Principal (3) HLD (hyperlipidemia) ICD Code: E78.5 - Hyperlipidemia, unspecified Diagnosis: Secondary Status: Chronic (4) HTN (hypertension) ICD Code: I10 - Essential (primary) hypertension Diagnosis: Secondary Status: Chronic (5) Cough ICD Code: R05 - Cough Diagnosis: Principal (6) CAD (coronary artery disease) ICD Code: I25.10 - Atherosclerotic heart disease of [place] coronary artery without angina pectoris Diagnosis: Secondary Status: Chronic (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 (8) Afib ICD Code: I48.91 - Unspecified atrial fibrillation Diagnosis: Secondary (9) NSTEMI (non-ST elevated myocardial infarction) ICD Code: I21.4 - Non-ST elevation (NSTEMI) myocardial infarction Diagnosis: Secondary Status: Acute (10) Near syncope ICD Code: R55 - Syncope and collapse Diagnosis: Principal Status: Acute Procedures NONE THIS ADMISSION Brief History - From Admission I received a call on 06/04/17 in the evening from ED mentioning about patient who was discharged one day ago after he had a CABG and a pneumonia, now with hypotension and history of syncope First thing we thought about ruling out pericardial effusion in light of this presentation, I had to place orders before passing the case to my colleague night physician, patient was transferred to ICU. In this morning to see the patient is 66 years old recently had a CABG by Dr. Chang, his x-ray showed left infiltrate however patient did not have leukocytosis or fever, patient came complaining of episodes of near syncope "I was seeing complete white ", he was not conclusive about completely losing consciousness, positive lightheaded, no nausea or vomiting, no chest pain, + cough. I discussed today with a case management director and with RETAIL LEADER of the cardiovascular surgeon, we will do the 2decho , and cont on abx and monitor closely CBC/BMP: 06/05/17 0114 06/05/17 0114 Imaging Last Impressions Head CT 06/04/171316 Signed Impressions: Service Date/Time: May 14:00 - CONCLUSION: No acute disease. No evidence of acute infarct, hemorrhage, mass or edema. Delio Causey MD Chest X-Ray 06/04/171316 Signed Impressions: Service Date/Time: May 13:39 - CONCLUSION: Persistent consolidating airspace disease in the left lung base with associated small effusion. Otherwise stable chest. Delio Causey MD PE at Discharge GENERAL: AWAKE ALERT AND ORIENTED X3 IN NO ACUTE DISTRESS SKIN: Warm and dry. HEAD: Atraumatic. Normocephalic. EYES: Pupils equal and round. No scleral icterus. No injection or drainage. ENT: No nasal bleeding or discharge. Mucous membranes pink and moist. NECK: Trachea midline. No JVD. CARDIOVASCULAR: Regular rate and rhythm. S1, S2 NO S3 OR S4 RESPIRATORY: No accessory muscle use. Clear to auscultation. Breath sounds equal bilaterally. GASTROINTESTINAL: Abdomen soft, non-tender, nondistended. Hepatic and splenic margins not palpable. MUSCULOSKELETAL: Extremities without clubbing, cyanosis, or edema. No obvious deformities. LEFT AKA WITH PROSTHETIC IN PLACE NEUROLOGICAL: Awake and alert. No obvious cranial nerve deficits. Motor grossly within normal limits. 4 out of 5 muscle strength in the arms and legs. Normal speech. PSYCHIATRIC: Appropriate mood and affect; insight and judgment normal. Hospital Course PATIENT IS 66-year-old male complains of near syncope about an hour prior to ER arrival. The patient underwent coronary artery bypass surgery about 4 days prior TO PRESENTING TO THE ER. Postoperatively a sternal wound dehiscence was observed AND A wound VAC was placed. A left lung base pneumonia was observed. Patient was started on antibiotics and discharged. He was discharged 214 . This morning he stated he exerted himself fairly significantly however not more than he thought would be reasonable. EMS notes diaphoresis and pallor on scene. Blood pressure was reported to be about 100/70. Heart rate remained in the 80s. Blood glucose normal. The patient did not lose consciousness. He notes he took tramadol perhaps a couple hours prior to onset of symptoms however the daughter who is nurse reports the patient has been taking tramadol all along. PATIENT WAS THEREFORE ADMITTED TO OUR SERVICE FOR OBSERVATION I received a call on 06/04/17 in the evening from ED mentioning about patient who was discharged one day ago after he had a CABG and a pneumonia, now with hypotension and history of syncope First thing we thought about ruling out pericardial effusion in light of this presentation, I had to place orders before passing the case to my colleague night physician, patient was transferred to ICU. In this morning to see the patient is 66 years old recently had a CABG by Dr. Chang, his x-ray showed left infiltrate however patient did not have leukocytosis or fever, patient came complaining of episodes of near syncope "I was seeing complete white ", he was not conclusive about completely losing consciousness, positive lightheaded, no nausea or vomiting, no chest pain, + cough. I discussed today with a case management director and with RETAIL LEADER of the cardiovascular surgeon, we will do the 2decho , and cont on abx and monitor closely PATIENT HAS BE[facility] 2- FEELING BETTER WANTS TO GO HOME WILL ADJUST MEDS AND DC TO HOME TODAY DW RN AND PT DW [facility] AND RN AND PATIENTS MEDICATIONS ADJUSTED STOP JERED INHIBITOR Pt Condition on Discharge: Good Discharge Disposition: Disch w/ Home Health Serv Discharge Time: <= 30 minutes Discharge Instructions DIET: Follow Instructions for: Heart Healthy Diet Speech Therapy-Diet Recommends: Regular Activities you can perform: Full Weight Bearing New Medications: Albuterol Neb (Albuterol Neb) 2.5 Mg/3 Ml Neb 2.5 MG NEB Q4HR NEB PRN for SHORTNESS OF BREATH, #60 NEBULE 0 Refills Azithromycin (Azithromycin) 500 Mg Tab 500 MG PO DAILY for Infection, #5 TAB 0 Refills Cefuroxime (Ceftin) 250 Mg Tab 250 MG PO BID for Infection for 10 Days, #20 TAB Dextromethorphan-Guaifenesin (Mucinex DM) 30-600 Mg Tab 1 TAB PO BID PRN for CHEST CONGESTION AND/OR COUGH, #30 TAB 0 Refills Nebulizer (Nebulizer) 1 Mis Mis EA .XX DIRECTED for Breathing Treatment, #1 0 Refills Amiodarone (Amiodarone) 200 Mg Tab 200 MG PO DAILY for Regulate Heart Beat, #30 TAB Continued Medications: Apixaban (Eliquis) 5 Mg Tab 5 MG PO BID for Prevent Blood Clot, #60 TAB 3 Refills Aspirin (Tgt Aspirin) 81 Mg Chw 81 MG PO DAILY for Blood Clot Prevention, #30 EA 2 Refills Atorvastatin (Lipitor) 80 Mg Tab 80 MG PO HS, #30 TAB Carvedilol (Coreg) 6.25 Mg Tab 6.25 MG PO BID for Blood Pressure Management, #60 TAB 2 Refills Docusate Sodium (Dok) 100 Mg Cap 100 MG PO BID for Constipation, #60 CAP Ferrous Sulfate (Ferosul) 325 Mg (65 Mg Iron) Tablet 325 MG PO BID@12,17 for anemia , #60 TAB 0 Refills Multiple Vitamins W/ Minerals (Thera M Plus) 1 Tab 1 TAB PO DAILY for mulit vitamin, #30 TAB 2 Refills Omeprazole (Omeprazole) 10 Mg Cap 10 MG PO DAILY, CAP 0 Refills Tramadol (Ultram) 50 Mg Tab 50 MG PO Q4HR PRN for PAIN SCALE 1 TO 5, #40 TAB 0 Refills (This prescription has been renewed) Discontinued Medications: Amiodarone (Amiodarone) 200 Mg Tab 400 MG PO BID for heart rhythm, #50 TAB 1 Refill take 400mg twice a day x 7days, then 200mg daily refill x 1 only 30 tablets Benazepril (Benazepril) 5 Mg Tab 5 MG PO DAILY for Blood Pressure Management, #30 TAB 0 Refills Levofloxacin (Levaquin) 500 Mg Tablet 500 MG PO Q24H for antibiotic , #6 TAB 0 Refills Ortiz Beltran DO Jun 08, 2017 11:43
== END 2017-06-08 13:45 | disposition home health service (06) | DRG 280 ==
LOC: NEPE 13:10 → NEDA 16:51 → NEDH 20:59 → HIME 21:40 → HCPC 06-05 17:35
PROVIDERS: ADMIT Hospitalist; ATTEND Hospitalist
DX: I95.1 Orthostatic hypotension (principal); J18.9 Pneumonia, unspecified organism; I21.4 Non-ST elevation (NSTEMI) myocardial infarction; I48.92 Unspecified atrial flutter; I48.91 Unspecified atrial fibrillation; Z89.612 Acquired absence of left leg above knee; I95.9 Hypotension, unspecified; I25.10 Atherosclerotic heart disease of native coronary artery without angina pectoris; I10 Essential (primary) hypertension; K21.9 Gastro-esophageal reflux disease without esophagitis; E78.5 Hyperlipidemia, unspecified; D50.0 Iron deficiency anemia secondary to blood loss (chronic); Y95 Nosocomial condition; Z79.01 Long term (current) use of anticoagulants; Z88.0 Allergy status to penicillin; Z88.1 Allergy status to other antibiotic agents; Z88.5 Allergy status to narcotic agent; Z95.5 Presence of coronary angioplasty implant and graft
CPT/HCPCS: 70450; 71045; 80048; 80053; 81001; 82550; 82948; 83735; 83880; 84484; 85025; 85610; 85730; 87040; 87070; 87086; 87205; 87641; 93005; 93308; 99291; J0456; J0696; J1644; J7050

== ENCOUNTER 2017-07-10 21:46 | Emergency (ER) | payer MEDICARE ==
[~2017-07-10] VITALS: Ht 180.3 cm; Wt 96.3 kg
[~2017-07-10 21:46] MED LIST changes: +ALBU0.08 NEB; +AZIT500T2 PO; -Aspirin Chew PO; -BENA5TAB PO; +CEFU1TAB18 PO; +HUMIBIDDM PO; -LEVA500T33 PO; +NEBULIZER1 MI1; -WALKER/ADULT/FO1 MIS
[2017-07-10 21:56] VITALS: BP 147/80; PULSE 81; RESP 20; TEMP 98; O2SAT 95
== END 2017-07-10 22:26 | disposition left against medical advice (07) ==
LOC: PHED 21:46
DX: R10.11 Right upper quadrant pain (principal); Z53.21 Procedure and treatment not carried out due to patient leaving prior to being seen by health care provider
CPT/HCPCS: 99281